=== PATIENT | female | born 1975 | race Caucasian/White ===

== ENCOUNTER → 2025-10-31 13:28 | Outpatient (BNV) | payer OTHER, SELFPAY | PROVIDERS: Visit Provider Internal Medicine | DX: M71.22 Synovial cyst of popliteal space [Baker], left knee (principal); Z86.718 Personal history of other venous thrombosis and embolism; Z86.2 Personal history of diseases of the blood and blood-forming organs and certain disorders involving the immune mechanism | CPT/HCPCS: 99204 ==

== ENCOUNTER 2025-10-31 14:48 | Outpatient (REF) | payer OTHER, SELFPAY ==
--- OUTSIDE RECORDS SUMMARY | 2004-12-23 19:05 | XMS_ITS | Encounter Summary ---
Author Organization [facility] Address [address] [facility] [address] [place] [phone] Phone Care Team Providers Care Supervisor Refractory Products Name Role Phone Unavailable Primary Care Provider Unavailabl e Encounter Details Date Type Department Care Team (Late st Contact Info) Description 12/23/2004 7:05 PM EST Hospital Encounter [facility] General Imaging [address] [place] [address] Adam Marques MD [address] [place] [phone] [email or web address] Social History Tobacco Use Types Packs/Day Years [...] Description 11/20/2025 4:45 PM EST Pre-Admission Testing [facility] Pre-Procedure Evaluation Department [place] [address] Fam Preciado MD [address] [place] [phone] [email or web address] 12/11/2025 Procedure Pass [facility] BRET 4 ENDO DEPT [address] [facility], [address] [place] [address] 12/11/2025 1:00 PM EST Hospital Encounter [facility] BRET 4 ENDO DEPT [address] [facility], [address] [place] [address] Fam Preciado MD [address] [place] [address] [email or web address] 12/11/2025 1:00 PM EST - 12/11/2025 1:45 PM EST Surgery [facility] BRET 4 ENDO DEPT [address] [place] [address] Fam Preciado MD [address] [place] [address] [email or web address] COLONOSCOPY 02/21/2026 8:30 AM EDT Telemedicine [facility] [address] [place] [address], 5[address] [place] [address] Fam Preciado MD [address] [place] [address] 704 [place] [address] [email or web address] Scheduled Procedures Name Priority Associated Diagnoses Date/Ti wy COLONOSCOPY Colonic adenomatous polyposis of unknown etiology 12/11/2025 1:00 PM EST documented as of this encounter Visit Diagnoses Not on filedocumented in this encounter Additional Source Comments The information contained in this document represents components of the legal health record. It is not the complete legal health record.[facility]
--- OUTSIDE RECORDS SUMMARY | 2025-09-18 04:00 | XMS_ITS ---
Author Organization [facility], Address [address] [address] Care Team Providers Care Animal Warden Name Role Phone Alexandria Figueredo Primary Care Provider Sharath Naqvi Unavailable [phone] DR. Wesley Adams Unavailable [phone] Allergies Allergen (clinical drug ingredient) Drug/Non Drug Allergy documented on EMR Reaction Allergy Type Onset Date Status [place] corn (uncoded) Unknown Allergy Activ e [place] syrup corn syrup (uncoded) Unknown Allergy Active [...] Encounter Location Date Provider Diagnosis [facility], [address] [address] 09/18/2025 Wesley Adams Plan Of Treatment Next Appt Details Provider Name:Wesley Adams , 11/20/2025 08:30:00 AM, [address] [place] [address], [phone], Provider Name:Wesley Adams , 12/18/2025 08:30:00 AM, [address] [place] [address], [place], [address], Progress Notes * Trevon ODONNELLOB:[birth year] (50 yo F)Acc No.[id number]:09/18/2025 Trigger point Patient: Maria Luisa See Provider: Aviva Adams MD :1975 A ge:50 Y S ex:Female Date:09/18/2025 Address:[address] [place], [place] [phone] Pcp:Alexandria Figueredo Patient's Default Facility: [facility], Subjective: * Chief Complaints: * T riggerHow [...] alive, Pancreas Ca, Hepatic failure, Coronary arteriosclerosis, [place]. M other: alive, DM, Hypertensive. F amily [...] signature of DR. Wesley Adams MD on 10/31/2025 at 07:08 PM EST Sign off status: Pending * Provider: Aviva Adams MD Date: 11/18/2024 Generated for Rome duarte/Jena/Darrius on: 01/01/2025 07:08 PM EST
--- OUTSIDE RECORDS SUMMARY | 2025-09-30 16:30 | XMS_ITS ---
Author Organization [facility], Address [address] [address] Care Team Providers Care Target Man Name Role Phone Alexandria Figueredo Primary Care Provider Unavailabl e Sharath Duran Unavailable [phone] Migration, Provider Unavailable Unavailable Allergies Allergen (clinical drug ingredient) Drug/Non Drug Allergy documented on EMR Reaction Allergy Type Onset Date Status [place] CORN (uncoded) Unknown Allergy Activ e [place] syrup CORN SYRUP (uncoded) Unknown Allergy Active Potato POTATO (uncoded) Unknown Allergy Act marciano SULFAC 10% (uncoded) Unknown Allergy Active [place] Starch Unknown Drug Allergy Activ e glucose Dextrose Unknown Drug Allergy Active pregabalin Lyrica Unknown Drug Allergy Active Gluten Gluten Unknown Allergy Active codeine Codeine Unknown Drug Allergy Active morphine Morphine Unknown Drug Allergy Active corn starch Mexs[place] Unknown Drug Allergy Activ e [facility] Conversion Encounter Medications Medication SIG (Take, Route, Frequency, Duration) Notes Start Date End Date Status Atorvastatin Calcium 10 MG Tablet 1 tab(s) orally once a day Unknown Acetaminophen ER 650 MG Tablet Extended Release 2 tab(s) orally every 8 hours; Duration: 3 day(s) Unknown Vitamin D3 125 MCG TABLET 1 TAB(S) ORALLY ONCE A DAY *Please review and pick correct strength-formulati on from Median options. If intended option is not shown, discontinue and re-order from Quick Search* Unknown Albuterol Sulfate HFA 108 (90 Base) MCG/ACT Aerosol Solution 2 puff(s) inhaled every 6 hours Unknown Zinc Gluconate 50 mg *Please review and pick correct strength-formulati on from Medispan options. If intended option is not shown, discontinue and re-order from Quick Search* Unknown Topiramate 100 MG Tablet 1 tab(s) orally in addition to 25mg once a day Unknown Vimpat 100 MG Tablet 1 tab(s) orally 2 times a day; Duration: 90 days 06/06/2025 Unknown Vitamin C 250 MG Tablet 1 tab(s) orally once a day Unknown Ubrelvy 100 MG Tablet 1 tab(s) orally once Unknown Verapamil HCl ER 120 MG Capsule Extended Release 24 Hour 1 cap(s) orally twice a day; Duration: 30 days Unknown tiZANidine HCl 2 MG Tablet 1 tab(s) orally at night; Duration: 90 days Unknown Ondansetron HCl 8 MG Tablet 1 tab(s) orally 3 times a day PRN Unknown Qulipta 60 MG Tablet 1 tab(s) orally once a day; Duration: 90 days Unknown Omeprazole 20 MG Capsule Delayed Release 1 cap(s) orally once a day Unknown Sertraline HCl 50 MG Tablet Unknown Magnesium Oxide 200 MG TABLET 1 TAB ORALLY ONCE A DAY *Please review and pick correct strength-formulati on from [employer] options. If intended option is not shown, discontinue and re-order from Quick Search* Unknown Meclizine HCl 25 MG Tablet 1 tab(s) orally PRN Unknown Levothyroxine Sodium 50 MCG Tablet 1 tab(s) orally once a day; Duration: 30 day(s) Unknown Linzess 145 MCG Capsule 1 cap(s) orally once a day PRN Unknown NURTEC ODT 75 MG TABLET, DISINTEGRATING 1 TAB(S) ORALLY ONCE *Please review for potential replacement for e-prescription and drug interaction check* Unknown Hyoscyamine Sulfate 0.125 MG Tablet 1 tab(s) orally PRN Unknown Dicyclomine HCl 20 MG Tablet 1 tab(s) orally twice a day Unknown Ferrous Sulfate 325 (65 Fe) MG Tablet Delayed Release 1 tab(s) orally every other day Unknown hydrOXYzine HCl 25 MG Tablet 1 tab(s) orally 2 times a day Unknown Encounters Encounter Location Date Provider Diagnosis [facility], [address] [address] 09/30/2025 Provider Migration Plan Of Treatment Next Appt Details Provider Name:Wesley Adams , 11/20/2025 08:30:00 AM, 9 [facility], [place] [address], [place], [address], Provider Name:Wesley Adams , 12/18/2025 08:30:00 AM, 9 [facility], [place] [address], [place], [address], Progress Notes * Trevon ODONNELLOB:[birth year] (50 yo F)Acc No.[id number]:09/30/2025 Patient: Maria Luisa See Provider: Gibson son Migration :1975 A ge:50 Y S ex:Female Date:09/30/2025 [facility] [id number] Pcp:Alexandria Figueredo Patient's Default Facility: [facility], Subjective: * Chief Complaints: [facility] * Medications: U nknownAcetaminophen ER 650 MG Tablet Extended Release 2 tab(s) orally every 8 hours Albuterol Sulfate HFA 108 (90 Base) MCG/ACT Aerosol Solution 2 puff(s) inhaled every 6 hours Atorvastatin Calcium 10 MG Tablet 1 tab(s) orally once a day Dicyclomine HCl 20 MG Tablet 1 tab(s) orally twice a day Ferrous Sulfate 325 (65 Fe) MG Tablet Delayed Release 1 tab(s) orally every other day hydrOXYzine HCl 25 MG Tablet 1 tab(s) orally 2 times a day Hyoscyamine Sulfate 0.125 MG Tablet 1 tab(s) orally PRN Levothyroxine Sodium 50 MCG Tablet 1 tab(s) orally once a day Linzess(linaCLOtide) 145 MCG Capsule 1 cap(s) orally once a day , Notes to Pharmacist: PRNMagnesium Oxide 200 MG TABLET 1 TAB ORALLY ONCE A DAY , Notes to Pharmacist: *Please review and pick correct strength-formulation from Medispan options. If intended option is not shown, discontinue and re-order from Quick Search*Meclizine HCl 25 MG Tablet 1 tab(s) orally PRN NURTEC ODT 75 MG TABLET, DISINTEGRATING 1 TAB(S) ORALLY ONCE , Notes to Pharmacist: *Please review for potential replacement for e-prescription and drug interaction check*Omeprazole 20 MG Capsule Delayed Release 1 cap(s) orally once a day Ondansetron HCl 8 MG Tablet 1 tab(s) orally 3 times a day , Notes to Pharmacist: PRNQulipta(Atogepant) 60 MG Tablet 1 tab(s) orally once a day Sertraline HCl 50 MG Tablet tiZANidine HCl 2 MG Tablet 1 tab(s) orally at night Topiramate 100 MG Tablet 1 tab(s) orally in addition to 25mg once a day Ubrelvy(Ubrogepant) 100 MG Tablet 1 tab(s) orally once Verapamil HCl ER 120 MG Capsule Extended Release 24 Hour 1 cap(s) orally twice a day Vimpat(Lacosamide) 100 MG Tablet 1 tab(s) orally 2 times a day Vitamin C 250 MG Tablet 1 tab(s) orally once a day Vitamin D3 125 MCG TABLET 1 TAB(S) ORALLY ONCE A DAY , Notes to Pharmacist: *Please review and pick correct strength-formulation from [employer] options. If intended option is not shown, discontinue and re-order from Quick Search*Zinc Gluconate , Notes to Pharmacist: 50 mg *Please review and pick correct strength-formulation from [employer] options. If intended option is not shown, discontinue and re-order from Quick Search*Unknown Acetaminophen ER 650 MG Tablet Extended Release 2 tab(s) orally every 8 hours Unknown Albuterol Sulfate HFA 108 (90 Base) MCG/ACT Aerosol Solution 2 puff(s) inhaled every 6 hours Unknown Atorvastatin Calcium 10 MG Tablet 1 tab(s) orally once a day Unknown Dicyclomine HCl 20 MG Tablet 1 tab(s) orally twice a day Unknown Ferrous Sulfate 325 (65 Fe) MG Tablet Delayed Release 1 tab(s) orally every other day Unknown hydrOXYzine HCl 25 MG Tablet 1 tab(s) orally 2 times a day Unknown Hyoscyamine Sulfate 0.125 MG Tablet 1 tab(s) orally PRN Unknown Levothyroxine Sodium 50 MCG Tablet 1 tab(s) orally once a day Unknown Linzess(linaCLOtide) 145 MCG Capsule 1 cap(s) orally once a day , Notes to Pharmacist: PRNUnknown Magnesium Oxide 200 MG TABLET 1 TAB ORALLY ONCE A DAY , Notes to Pharmacist: *Please review and pick correct strength-formulation from [employer] options. If intended option is not shown, discontinue and re-order from Quick Search*Unknown Meclizine HCl 25 MG Tablet 1 tab(s) orally PRN Unknown NURTEC ODT 75 MG TABLET, DISINTEGRATING 1 TAB(S) ORALLY ONCE , Notes to Pharmacist: *Please review for potential replacement for e-prescription and drug interaction check*Unknown Omeprazole 20 MG Capsule Delayed Release 1 cap(s) orally once a day Unknown Ondansetron HCl 8 MG Tablet 1 tab(s) orally 3 times a day , Notes to Pharmacist: PRNUnknown Qulipta(Atogepant) 60 MG Tablet 1 tab(s) orally once a day Unknown Sertraline HCl 50 MG Tablet Unknown tiZANidine HCl 2 MG Tablet 1 tab(s) orally at night Unknown Topiramate 100 MG Tablet 1 tab(s) orally in addition to 25mg once a day Unknown Ubrelvy(Ubrogepant) 100 MG Tablet 1 tab(s) orally once Unknown Verapamil HCl ER 120 MG Capsule Extended Release 24 Hour 1 cap(s) orally twice a day Unknown Vimpat(Lacosamide) 100 MG Tablet 1 tab(s) orally 2 times a day Unknown Vitamin C 250 MG Tablet 1 tab(s) orally once a day Unknown Vitamin D3 125 MCG TABLET 1 TAB(S) ORALLY ONCE A DAY , Notes to Pharmacist: *Please review and pick correct strength-formulation from [employer] options. If intended option is not shown, discontinue and re-order from Quick Search*Unknown Zinc Gluconate , Notes to Pharmacist: 50 mg *Please review and pick correct strength-formulation from [employer] options. If intended option is not shown, discontinue and re-order from Quick Search* * Allergies: C odeineDextroseMexsanaCORNCORN SYRUPCorn StarchGlutenMorphinePOTATOSULFAC 10%Lyrica: Side Effects * Electronic signature of Prov ider Migration on 10/31/2025 at 07:09 PM EST Sign off status: Pending * Provider: Gibson son Migration Date: 11/30/2024 Generated for Rome duarte/Jena/Darrius on: 01/01/2025 07:09 PM EST
--- NOTE | ~2025-10-31 | US_ITS ---
EXAMINATION: US TRIPLEX LOWER EXTREMITY, LEFT CLINICAL INFORMATION: Pain, left lower extremity COMPARISON: None available. TECHNIQUE: Color-flow triplex imaging with spectral analysis and compression Doppler were performed on the left lower extremity. FINDINGS: Respiratory variation, normal compression and augmented flow are demonstrated in the interrogated left common femoral vein, superficial femoral vein, profunda femoral vein, popliteal vein and midcalf peroneal and posterior tibial venous segments and right common femoral vein.. There is a 2.3 cm lobulated anechoic abnormality in the left popliteal fossa. US/US venous duplex LE IMPRESSION: No acute deep venous thrombosis interrogated veins, left lower extremity. Negative for DVT. 2.3 cm cyst, left popliteal fossa.. Electronically signed by: Paulo Simeon MD 10/31/2025 03:39 PM EST
--- OUTSIDE RECORDS SUMMARY | 2025-10-31 19:09 | XMS_ITS | Clinical Summary ---
Author Organization [facility] Address [address] [address] Phone Care Team Providers Care Color Weigher Name Role Phone Alexandria Figueredo NP Primary Care Provider + Allergies Active Allergy Reactions Criticality Noted Date Comments Codeine GI Upset Medium 10/27/2011 Converted from Generic Allergy: Codeine [place] St[place] Shortness Of Breath High 04/21/2017 Opioids - Morphine Analogues Rash Medium 10/27/2011 Converted from Drug Class Allergy: Opiate Agonists Oxycodone GI Upset Low 10/27/2011 Converted from Generic Allergy: OXYcodone (Immediate-Release ) Pneumovax 23 (Pneumococcal 23-Valps Vaccine) Swelling High 05/20/2017 Sulfa (Sulfonamide Antibiotics) GI Upset Medium 10/27/2011 Converted from Drug Class Allergy: Sulfonamides (Systemic) Converted from Generic Allergy: Sulfa Converted from Drug Class Allergy: Sulfonamides [place] Shortness Of Breath High 04/21/2017 Medications ondansetron (ZOFRAN) 4 MG tablet Take 4 mg by mouth every 8 (eight) hours as needed for nausea. Active lacosamide (VIMPAT) 100 mg Tab Take 100 mg by mouth 2 (two) times a day. Active albuterol 90 mcg/actuation inhaler Inhale 1 puff into the lungs every 6 (six) hours as needed for wheezing. Active levothyroxine (SYNTHROID, LEVOTHROID) 50 MCG tablet Take 50 mcg by mouth every morning. Active atorvastatin (LIPITOR) 10 MG tablet Take 10 mg by mouth daily. Active hydrOXYzine (ATARAX) 25 MG tablet Take 25 mg by mouth 2 (two) times a day. Active verapamiL (CALAN-SR) 120 MG CR tablet Take 120 mg by mouth 2 (two) times a day. Active omeprazole (PRILOSEC) 20 MG capsule Take 20 mg by mouth daily. Active dicyclomine (BENTYL) 10 MG capsule Take 10 mg by mouth 4 (four) times a day before meals and nightly. Active atogepant (QULIPTA) 60 mg tablet Take 60 mg by mouth daily. Active topiramate (TOPAMAX) 25 MG capsule Take 125 mg by mouth daily. Active ferrous sulfate 324 mg (65 mg [place] iron) TbEC Take 324 mg by mouth every other day. Active tiZANidine (ZANAFLEX) 2 MG tablet Take 2 mg by mouth. Active hyoscyamine (ANASPAZ,LEVSIN ) 0.125 mg ODT Take 125 mcg by mouth 4 (four) times a day. 12/16/2024 Active linaCLOtide (LINZESS) 145 mcg Cap Take 145 mcg by mouth daily as needed. 03/15/2024 Active ascorbic acid, vitamin C, (VITAMIN C) 250 mg Chew Take 250 mg by mouth daily. Active fluticasone propionate (FLONASE) 50 mcg/actuation nasal spray 1 spray by Nasal route nightly at bedtime. Active NURTEC ODT 75 mg tablet Take 75 mg by mouth once as needed for migraine. Active UBRELVY 100 mg tablet Take 100 mg by mouth once as needed for migraine. 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 Just started getting injections in left eye in April 2025 when getting swelling in left eye Colon polyps 01/15/2024 Overview (05/23/2025): I've had colon polyps before, but they found 100's of polyps during the past year. This is an estimated time frame of the most recent colonoscopies. I had 3 colonoscopies last year (2023) PSVT (paroxysmal supraventricular tachycardia) 1 GERD (gastroesophageal reflux disease) Interstitial cystitis (chronic) with hematuria 0 07/27/2023 Asthma 07/27/2023 Hypertension 06/26/2021 Autoimmune hepatitis 08/16/2020 Epilepsy 07/08/2018 Central positional vertigo 05/07/2018 Carpal tunnel syndrome of left wrist 06/09/2017 Impingement syndrome of shoulder region 02/26/20 13 Overview (01/06/2015): Shoulder impingement syndrome Rotator cuff syndrome 02/23/2013 Overview (01/06/2015): Rotator cuff syndrome Sinusitis 12/29/2012 Overview (01/06/2015): Sinusitis Migraine 11/16/1989 Resolved Problems Problem Noted Date Diagnosed Date Resolved Date Acute renal failure 05/23/2025 05/23/20 25 Encounters Date Type Department Care Team Description 10/16/2025 Transcribe Orders [facility] [address] [place] [address] Alexandria Figueredo NP from Last 3 Months Family History Medical History Relation Comments Bleeding Disorder Neg Hx Social History Tobacco Use Types Packs/Day Years Used Date Smoking Tobacco: Former Cigarettes 0.5 2 0 02/14/1995 - 02/14/1997 Smokeless Tobacco: Never Tobacco Cessation:Counseling Given: Not Answered Alcohol Use Standard Drinks/Week Comments No 0 [...] 3:45 PM EDT Sexual Orientation Straight 03/04/2020 3: 45 PM EDT Last Filed Vital Signs Vital Sign Reading Time Taken Comments Blood Pressure 114/65 05/23/2025 12:52 PM EDT Pulse 66 05/23/2025 12:52 PM EDT Temperature 36.4 C (97.5 F) 05/23/2025 11:39 AM EDT Respiratory Rate 13 05/23/2025 12:52 PM EDT Oxygen Saturation 97% 05/23/2025 12:52 PM EDT Inhaled Oxygen Concentration - - Weight 70.3 kg (155 lb) 05/01/2025 2:00 PM EDT Height 162.6 cm (5' 4 ) 12/23/2017 11:49 AM EST Body Mass Index 26.61 12/23/2017 11:49 AM EST Plan of Treatment Upcoming Encounters Date Type Department Care Team (Latest Contact Info) Description 11/20/2025 4:45 PM EST Pre-Admission Testing [facility] Pre-Procedure Evaluation Department [place] [address] Fam Preciado MD [address] [place] [address] [address] [place] [address] [email or web address] 12/11/2025 Procedure Pass [facility] BRET 4 ENDO DEPT [address] [place] [address], 4th [place] [address] 12/11/2025 1:00 PM EST Hospital Encounter [facility] BRET 4 ENDO DEPT [address] [facility], 4th [place] [address] Fam Preciado MD [address] [place] [phone] [email or web address] 12/11/2025 1:00 PM EST - 12/11/2025 1:45 PM EST Surgery [facility] BRET 4 ENDO DEPT [address] [facility], 4th [place] [address] Fam Preciado MD [address] [place] [phone] [email or web address] COLONOSCOPY 02/21/2026 8:30 AM EDT Telemedicine [facility] [address] [facility], 5th [place] [address] Fam Preciado MD [address] [place] [phone] [email or web address] Scheduled Procedures Name Priority Associated Diagnoses Date/Ti me COLONOSCOPY Colonic adenomatous polyposis of unknown etiology 12/11/2025 1:00 PM EST Health Maintenance Due Date Last Done Comments Adult Td,Tdap Booster 1975 BLOOD PRESSURE 1975 LIPID PANEL 1976 TSH LEVEL 1976 DEPRESSION SCREENING 1988 HEPATITIS C SCREENING 1994 HIV ONE-TIME SCREENING (18-65 YEARS) 1994 HEPATITIS A VACCINES (1 of 2 - Risk 2-dose series) 1995 PAP SMEAR 1997 MAMMOGRAM 2016 COLOGUARD 2021 FIT TEST 2021 FOBT 2021 SIGMOIDOSCOPY 2021 VIRTUAL COLONOSCOPY 2021 INFLUENZA VACCINE (#1) 2025 , 08/27/2023, 08/10/2022, Additional history exists COVID-19 VACCINE ( season) 2025 05/29/2023, 03/17/2022, 07/05/2021, Additional history exists COLONOSCOPY 05/23/2026 05/23/2025 COLORECTAL CANCER SCREENING 05/23/2026 SCREENING FOR DIABETES 07/28/2028 07/28/2025 SMOKING STATUS SCREENING (Once After 26 Yrs) Completed 05/23/2025 HIB VACCINES Aged Out No longer eligi ble based on patient's age to complete this topic MENINGOCOCCAL VACCINES (ACWY) Aged Out No longer eligible based on patient's age to complete this topic MENINGOCOCCAL VACCINES (B) Aged Out N o longer eligible based on patient's age to complete this topic Medical Devices Implanted Type Area Actuarial Assistant Device Identifier Shelf Expiration Date Model / Serial / Lot Dental Implant Breast Clips Left Clip Hemostasis 360deg 235cm Resolution 360 Latex Free 2.8mm Channel Bx/20ea - [id number] Implanted:Qty: 1 on 05/23/2025 by Fam Preciado MD at [facility] [employer] 01/05/2028 [id number] / [id number] / [id number] Description:Colon hepatic fl exure Clip Hemostasis 360deg 235cm Resolution 360 Latex Free 2.8mm Channel Bx/20ea - [id number] Implanted:Qty: 1 on 05/23/2025 by Fam Preciado MD at [facility] [employer] [id number] 02/01/2028 [id number] / [id number] / [id number] Description:Colon hepatic fl exure Clip Hemostasis 360deg 235cm Resolution 360 Latex Free 2.8mm Channel Bx/20ea - [id number] Implanted:Qty: 1 on 05/23/2025 by Fam Preciado MD at [facility] [employer] [id number] 01/05/2028 [id number] / [id number] / [id number] Description:Colon hepatic fl exure Clip Hemostasis 360deg 235cm Resolution 360 Latex Free 2.8mm Channel Bx/20ea - [id number] Implanted:Qty: 1 on 05/23/2025 by Fam Preciado MD at [facility] [employer] [id number] 01/05/2028 [id number] / [id number] / [id number] Description:Colon hepatic fl exure Clip Resolution 360deg 235cm 2.8mm Channel Hemostasis Bx/1ea - [id number] Implanted:Qty: 1 on 05/23/2025 by Fam Preciado MD at [facility] [employer] [id number] 02/02/2028 [id number] / [id number] / [id number] Description:Left colon Procedures Procedure Name Priority Date/Time Associated Diagnosis Comments ENDOSCOPY, COLON 05/23/2025 10:3 0 AM EDT from Last 3 Months or Most Recently Relevant to Health Maintenance Results * ENDOSCOPY, COLON (05/23/2025 10:30 AM EDT) 05/23/2025 10:3 0 AM EDT Narrative Transcriptions Fam Preciado MD - 05/23/2025 10:30 AM EDT Gastrointestinal Endoscopy Unit Patient Name: Maria Luisa Mcclelland Exam Date: 05/23/2025 10:30 AM Date of : 1975 Admit Type: Outpatient Age: 49 Room: [place] [address] Gender: Female Note Status: Finalized Attending MD: Fam Preciado MD, Procedure: Colonoscopy Indications: High risk colon cancer surveillance: Personal history of colonic polyps Providers: Fam Preciado MD Referring MD: Elma Vogel (Referring MD) Medicines: Monitored Anesthesia Care Complications: No immediate complications. Procedure: After obtaining informed consent, the endoscope was passed under direct vision. Throughout the procedure, the patient's blood pressure, pulse, and oxygen saturations were monitored continuously . The Endoscope was introduced through the anus and advanced to the the terminal ileum. The colonoscopy was performed without difficulty. The patient tolerated the procedure well. The quality of the bowel preparation was evaluated using the BBPS ([place] Bowel Preparation Scale) with scores of: Right Colon = 2 (minor amount of residual staining, small fragments of stool and/or opaque liquid, but mucosa seen well), Transverse Colon = 2 (minor amount of residual staining, small fragments of stool and/or opaque liquid, but mucosa seen well) and Left Colon = 2 (minor amount of residual staining, small fragments of stool and/or opaque liquid, but mucosa seen well). The total BBPS score equals 6. The [employer] computer-aided polyp detection system was used during the procedure. Findings: An 8 mm polyp was found in the sigmoid colon. The polyp was sessile. The polyp was removed with a cold snare. Resection and retrieval were complete. Three confluent sessile polyps were found in the descending colon. The polyps were 4 to 7 mm in size. These polyps were removed with a cold snare. Resection and retrieval were complete. To prevent bleeding after the polypectomy, one hemostatic clip was successfully placed (MR conditional). There was no bleeding at the end of the procedure. A 24 mm polyp was found in the hepatic flexure (#1). The polyp was sessile. The polyp was removed with a piecemeal technique using a cold snare. Resection and retrieval were complete. An 18 mm polyp was found in the hepatic flexure (#2). The polyp was sessile. The polyp was removed with a cold snare. Resection and retrieval were complete. To prevent bleeding after the polypectomy, three hemostatic clips were successfully placed (MR conditional). There was no bleeding at the end of the procedure. Multiple small polyps were seen at the hepatic flexure. The polyps were 3 to 7 mm in size (#3). These polyps were removed with a cold snare. . Multiple sessile polyps were found in the transverse colon, ascending colon and cecum. The polyps were diminutive in size. Impression: - One 8 mm polyp in the sigmoid colon, removed with a cold snare. Resected and retrieved. - Three 4 to 7 mm polyps in the descending colon, removed with a cold snare. Resected and retrieved. Clip (MR conditional) was placed. - One 24 mm polyp at the hepatic flexure, removed piecemeal using a cold snare. Resected and retrieved. - One 18 mm polyp at the hepatic flexure, removed with a cold snare. Resected and retrieved. Clips (MR conditional) were placed. - Multiple 3 to 7 mm polyps at the hepatic flexure, removed with a cold snare. Resected and retrieved. - Multiple diminutive polyps in the transverse colon, in the ascending colon and in the cecum. Recommendation: - Await pathology results. Attending Participation: I was personally present throughout the entire procedure. Anesthesia administered sedation. Fam Preciado MD, [id number] 05/23/2025 11:36:59 AM The attending physician was present throughout the entire procedure. Number of Addenda: 0 Note Initiated On: 05/23/2025 10:30 AM Elma Vogel MD GI PROCEDURE ORDERABLES Final Re sult from Last 3 Months or Most Recently Relevant to Health Maintenance Insurance [employer] GIC PLUS PPO [employer] PLUS PPO [employer] PLUS PPO [employer] PLUS PPO Writer[employer] PLUS PPO [employer] PLUS PPO Advance Directives For more information, please contact: [phone] (9AM - 5PM [facility], Thursday-Thursday) * Full Code (Presumed) (Latest Code Status on File) Date Activated Date Inactivated Comments 05/25/2017 10:06 AM 05/25/2017 3:11 PM Care Teams Color Weigher Relationship Specialty Start Date End Date Alexandria Figueredo NP [address] [place] [address] PCP - General Nurse Practitioner 05/24/25 Additional Source Comments The information contained in this document represents components of the legal health record. It is not the complete legal health record.[facility]
--- OUTSIDE RECORDS SUMMARY | 2025-10-31 19:09 | XMS_ITS | Encounter Summary ---
Author Organization [facility] Address [address] [email or web address] [facility] [address] [place] [address] Phone Care Team Providers Care Clam Bed Laborer Name Role Phone Elma Vogel MD Primary Care Provider [phone] Alexandria Figueredo NP Primary Care Provider + Encounter Details Date Type Department Care Team (Late st Contact Info) Description 04/21/2017 Procedure Pass [facility] Imaging - MRI, [facility] [address] [place] [address] Social History Tobacco Use Types Packs/Day Years Used Date Smoking Tobacco: Never Comments Unknown Sex and Gender Information Value Date Recorded Sex Assigned at Female 03/04/2020 3:45 PM EDT Legal Sex Female 5:25 PM EST Gender Identity Female 03/04/2020 3:45 PM EDT Sexual Orientation Straight 03/04/2020 3: 45 PM EDT documented as of this encounter Plan of Treatment Upcoming Encounters Date Type Department Care Team (Latest Contact Info) Description 11/20/2025 4:45 PM EST Pre-Admission Testing [facility] Pre-Procedure Evaluation Department Please [place] [phone] Fam Preciado MD [address] [place] [address] [address] [place] [address] [email or web address] 12/11/2025 Procedure Pass [facility] BRET 4 ENDO DEPT [address] [place] [address], [address] [place] [address] 12/11/2025 1:00 PM EST Hospital Encounter [facility] BRET [address] [facility], [address]th [place] [address] Fam Preciado MD [address] [place] [address] [email or web address] 12/11/2025 1:00 PM EST - 12/11/2025 1:45 PM EST Surgery [facility] BRET [address] [facility], [address]th [place] [address] Fam Preciado MD [address] [place] [address] [email or web address] [email or web address] 02/21/2026 8:30 AM EDT Telemedicine [facility] [address] [place] [address], [address] [place] [address] Fam Preciado MD [address] [place] [address] [email or web address] Scheduled Procedures Name Priority Associated Diagnoses Date/Ti me COLONOSCOPY Colonic adenomatous polyposis of unknown etiology 12/11/2025 1:00 PM EST documented as of this encounter Visit Diagnoses Not on filedocumented in this encounter Care Teams Clam Bed Laborer Relationship Specialty Start Date End Date Elma Vogel MD [address] [place] [address] PCP - General 03/22/15 05/23/25 Alexandria Figueredo NP [address] [place] [address] PCP - General Nurse Practitioner 05/24/25 documented as of this encounter Additional Source Comments The information contained in this document represents components of the legal health record. It is not the complete legal health record.[facility]
--- OUTSIDE RECORDS SUMMARY | 2025-10-31 19:09 | XMS_ITS | Encounter Summary ---
Author Organization [facility] Address [address] [place] [address] Phone Care Team Providers Care Associate Professor Of Medicine Name Role Phone Elma Vogel MD Primary Care Provider [phone] Alexandria Figueredo NP Primary Care Provider + Encounter Details Date Type Department Care Team (Late st Contact Info) Description 05/25/2017 Procedure Pass [facility] [address] [place] [phone] Social History Tobacco Use Types Packs/Day Years Used Date Smoking Tobacco: Former Cigarettes 0.5 2 0 02/14/1995 - 02/14/1997 Smokeless Tobacco: Never Alcohol Use Standard Drinks/Week Comments No 0 (1 standard drink = 0.6 oz pur e alcohol) Comments Unknown Sex and Gender Information Value Date Recorded Sex Assigned at Female 03/04/2020 3:45 PM EDT Legal Sex Female 5:25 PM EST Gender Identity Female 03/04/2020 3:45 PM EDT Sexual Orientation Straight 03/04/2020 3: 45 PM EDT documented as of this encounter Plan of Treatment Upcoming Encounters Date Type Department Care Team (Latest Contact Info) Description 11/20/2025 4:45 PM EST Pre-Admission Testing [facility] Pre-Procedure Evaluation Department [place] [phone] Fam Preciado MD [address] [place] [address] [address] [place] [address] [email or web address] 12/11/2025 Procedure Pass [facility] 4 ENDO DEPT [address] [facility], [address] [place] [address] 12/11/2025 1:00 PM EST Hospital Encounter [facility] BRET 4 ENDO DEPT [address] [facility], [address] [place] [address] Fam Preciado MD [address] [place] [address] [email or web address] 12/11/2025 1:00 PM EST - 12/11/2025 1:45 PM EST Surgery [facility] BRET 4 ENDO DEPT [address] [place] [address], [address] [place] [address] Fam Preciado MD [address] [place] [phone] [email or web address] [email or web address] 02/21/2026 8:30 AM EDT Telemedicine [facility] [address] [place] [address], [address] [place] [address] Fam Preciado MD [address] [place] [phone] [email or web address] Scheduled Procedures Name Priority Associated Diagnoses Date/Ti in COLONOSCOPY Colonic adenomatous polyposis of unknown etiology 12/11/2025 1:00 PM EST documented as of this encounter Visit Diagnoses Not on filedocumented in this encounter Care Teams Associate Professor Of Medicine Relationship Specialty Start Date End Date Elma Vogel MD [address] [place] [address] PCP - General 03/22/15 05/23/25 Alexandria Figueredo NP [address] [place] [address] PCP - General Nurse Practitioner 05/24/25 documented as of this encounter Additional Source Comments The information contained in this document represents components of the legal health record. It is not the complete legal health record.[facility]
--- OUTSIDE RECORDS SUMMARY | 2025-10-31 19:09 | XMS_ITS | Patient Health Record ---
Author Organization [facility] Address [address] [place] [address] [place] [address] [phone] Care Team Providers Care Lepidopterist Name Role Phone CLAY SIMS, ALISA Primary Care Provider Junaid Rao MD, [facility] Unavailable [phone] Allergies Allergen (clinical drug ingredient) Drug/Non Drug Allergy documented on EMR Reaction Allergy Type Onset Date Status morphine morphine HIVES Drug Allergy Active Reason For Referral No Information Medications Medication SIG (Take, Route, Frequency, Duration) Notes Start Date End Date Status Vimpat Active Cambia as needed Not-Taking estradiol Active meclizine as needed Not-Taking hydrOXYzine hydrochloride 50 mg 1 tab(s) orally in the morning and 2 tabs at night Active ondansetron 8 mg 1 tab(s) orally 2 times a day as needed Not-Taking ALPRAZolam 0.5 mg 1 tab(s) orally 3 times a day as needed Not-Taking Qvar 40 mcg/inh 1 spray inhaled 2 times a day when sick 04/02/2016 Not-Taking Montelukast Sodium 10 mg 1 tab(s) orally once a day; Duration: 30 day(s) 05/05/2018 Active ProAir HFA CFC free 90 mcg/inh 2 puff(s) inhaled 4 times/d, when needed Not-Taking Mobic Active traMADol as needed Not-Taking verapamil Active oxyCODONE as needed Not-Taking levothyroxine Active Mucinex D as needed Not-Taking Flonase 50 mcg/inh 2 sprays intranasall y once a day 05/05/2018 Active naratriptan as needed Not-Taki ng Zantac 150 Active amitriptyline Active Migranal as needed Not-Taking Immunizations Vaccine Route Administration Date Status Comme nts Pneumococcal- 2yrs and older Unknown 10/16/2014 Adminis tered FLU VACCINE 3 YRS & OLDER Unknown 11/02/2017 Refused Pneumococcal- 2yrs and older Unknown 04/02/2016 Others Social History Tobacco Use: Social History Observation Description Date Details (start date - stop date) Former Smoker NA - NA SMOKING HISTORY: Question Answer Notes Are you a: former smoker How long has it been since you last smoked? > 10 years Problems Problem Type SNOMED Code ICD Code Onset Dates Problem Status W/U Status Risk Notes Problem Uncomplicated mild persistent asthma (003466222) Mild persistent asthma, uncomplicated (J45.30) Active confirmed Problem Allergic rhinitis caused by animal hair and dander (325174214120719) Allergic rhinitis due to animal (cat) (dog) hair and dander (J30.81) Active confirmed Problem Allergic rhinitis caused by pollen (disorder) (72487359) Allergic rhinitis due to pollen (J30.1) Active confirmed Problem Mild intermittent asthma (812496261) Mild intermittent asthma, uncomplicated (J45.20) Active confirmed Problem Allergic rhinitis (40889618) Other Allergic Rhinitis (J30.89) Active confirmed Plan Of Treatment No Information Insurance Providers Payer Name Payer Address Payer Phone Subscriber Number Group Number Insured Name Patient Relationship to Insured Coverage Start Date Coverage End Date [facility] P[facility] [address] [place] [address] [id number] WILLIAN ODONNELL Self - patient is the insured Medications Administered Medication Instructions Date of Administration Dosage Notes Mite Mix 04/17/2016 All Tree 04/17/2016 All [place] 04/17/2016 Grass mix 04/17/2016 Mite Mix 04/23/2017 5,000au, 0.5 All Tree 04/23/201712/05 0.05 Grass mix 04/23/2017 5,000 bau 0.05 All [place] 04/23/201712/05 0.05 Medical (General) History Medical History History ICD Code Skin testing 04/08/16 mite, trees, grass, weeds, hamster, penicillium Asthma CT sinus 2012 sinusitis Eczema Food allergies potato, corn Hypertension Urticaria Migraine headache GERD Hypothyroidism interstitial cystitis Surgical History Surgery Date(Month/Year) laparoscopy 1992,1997,2000,2009, 2010 LABIAL CYST REMOVAL 2003 tubal ligation 2004 gallbladder 2007 lav[facility] left ovary 2005 hysterectomy vaginal 2005 Hospitalization History Reason Date(Month/Year) hysterectomy vaginal 2005 pneumonia 2005
--- OUTSIDE RECORDS SUMMARY | 2025-10-31 19:09 | XMS_ITS | Patient Health Record ---
Author Organization [facility], Address [address] [address] Care Team Providers Care Retail Shift Leader Name Role Phone Alexandria Figueredo Primary Care Provider UnavailSharath Urrutia Unavailable [phone] Farhat Foster Unavailable [phone] DR. Wesley Adams Unavailable [phone] Migration, Provider Unavailable Unavailable Allergies Allergen (clinical drug ingredient) Drug/Non Drug Allergy documented on EMR Reaction Allergy Type Onset Date Status Manteca CORN (uncoded) Unknown Allergy Activ e Manteca syrup CORN SYRUP (uncoded) Unknown Allergy Active Potato POTATO (uncoded) Unknown Allergy Act marciano SULFAC 10% (uncoded) Unknown Allergy Active Manteca Starch Unknown Drug Allergy Activ e glucose Dextrose Unknown Drug Allergy Active pregabalin Lyrica Unknown Drug Allergy Active Gluten Gluten Unknown Allergy Active codeine Codeine Unknown Drug Allergy Active morphine Morphine Unknown Drug Allergy Active corn starch Mexsana Unknown Drug Allergy Activ e Results Component Value Reference Range Flag Notes Brain (C-/C+) CPT 04763 Reviewed date:02/23/2025 04:06:20 PM Interpretation: Performing Lab: Notes/Report: COMPREHENSIVE METABOLIC PANE L W/O EGFR Reviewed date:02/24/2025 03:59:22 PM Interpretation: Performing Lab:NL2, [facility], [address] [place] [address], [phone] Ignacia Melgoza Notes/Report: Received Date: FASTING:NO FASTING: NO GLUCOSE 105 65-139 mg/dL N Non-fasting reference interval UREA NITROGEN (BUN) 21 7-25 mg/dL N CREATININE 0.83 0.50-0.99 mg/dL N BUN/CREATININE RATIO SEE NOTE: 6-22 (calc) Not Reported: BUN and Creatinine are within reference range. SODIUM 141 135-146 mmol/L N POTASSIUM 3.7 3.5-5.3 mmol/L N CHLORIDE 108 98-110 mmol/L N CARBON DIOXIDE 24 20-32 mmol/L N CALCIUM 9.2 8.6-10.2 mg/dL N PROTEIN, TOTAL 7.0 6.1-8.1 g/dL N ALBUMIN 4.2 3.6-5.1 g/dL N GLOBULIN 2.8 1.9-3.7 g/dL (calc) N ALBUMIN/GLOBULIN RATIO 1.5 1.0-2.5 (calc) N BILIRUBIN, TOTAL 0.2 0.2-1.2 mg/dL N ALKALINE PHOSPHATASE 105 31-125 U/L N AST 19 10-35 U/L N ALT 36 6-29 U/L H TSH, 3RD GENERATION W/REFLEX TO FT4 Reviewed date:02/24/2025 03:50:00 PM Interpretation: Performing Lab:NL2, [facility], [address] [place] [address], [phone] Ingacia Melgoza Notes/Report: Received Date: FASTING:NO FASTING: NO TSH W/REFLEX TO FT4 1.18 N Reference Range > or = 20 Years 0.40-4.50 Ranges First trimester 0.26-2.66 Second trimester 0.55-2.73 Third trimester 0.43-2.91 CBC (INCLUDES DIFF/PLT) Reviewed date:02/24/2025 03:59:56 PM Interpretation: Performing Lab:NL2, [facility], [address] [place] [address], [phone] Ignacia Melgoza Notes/Report: Received Date: FASTING:NO FASTING: NO WHITE BLOOD CELL COUNT 10.6 3.8-10.8 Thousand/uL N RED BLOOD CELL COUNT 4.92 3.80-5.10 Million/uL N HEMOGLOBIN 14.1 11.7-15.5 g/dL N HEMATOCRIT 43.5 35.0-45.0 % N MCV 88.4 80.0-100.0 fL N MCH 28.7 27.0-33.0 pg N MCHC 32.4 32.0-36.0 g/dL N For adults, a slight decrease in the calculated MCHC value (in the range of 30 to 32 g/dL) is most likely not clinically significant; however, it should be interpreted with caution in correlation with other red cell parameters and the patient's clinical condition. RDW 13.2 11.0-15.0 % N PLATELET COUNT 259 140-400 Thousand/uL N MPV 11.7 7.5-12.5 fL N ABSOLUTE NEUTROPHILS 8204 3662-5359 cells/uL H ABSOLUTE LYMPHOCYTES 2099 850-3900 cells/uL N ABSOLUTE MONOCYTES 233 200-950 cells/uL N ABSOLUTE EOSINOPHILS 11 15-500 cells/uL L ABSOLUTE BASOPHILS 53 0-200 cells/uL N NEUTROPHILS 77.4 N LYMPHOCYTES 19.8 N MONOCYTES 2.2 N EOSINOPHILS 0.1 N BASOPHILS 0.5 N C-REACTIVE PROTEIN Reviewed date:02/24/2025 03:52:59 PM Interpretation: Performing Lab:TIARA2, [facility], [address] [place] [address], [phone] Ignacia Melgoza Notes/Report: Received Date: [id number] FASTING:NO FASTING: NO C-REACTIVE PROTEIN <3.0 <8.0 mg/L N VITAMIN B12 Reviewed date:02/24/2025 03:50:05 PM Interpretation: Performing Lab:HILLARY, [employer] [facility], [address] [place] [address], [phone] Ignacia Melgoza Notes/Report: Received Date: [id number] FASTING:NO FASTING: NO VITAMIN B12 008 739-1190 pg/mL N Please Note: Although the reference range for vitamin B12 is 200-1100 pg/mL, it has been reported that between 5 and 10% of patients with values between 200 and 400 pg/mL may experience neuropsychiatric and hematologic abnormalities due to occult B12 deficiency; less than 1% of patients with values above 400 pg/mL will have symptoms. IMMUNOFIXATION, SERUM Reviewed date:02/28/2025 04:20:31 PM Interpretation: Performing Lab:[facility], [facility], [address] [place], [phone] Ignacia Melgoza Notes/Report: Received Date: FASTING:NO FASTING: NO PETAR INTERPRETATION Normal pattern. No monoclonal proteins detected. EEG Routine Reviewed date:03/13/2025 02:43:11 PM Interpretation: Performing Lab: Notes/Report: ANACHOICE(TM) SCREEN W/REFL TO TITER, IFA Reviewed date:03/02/2025 01:37:45 PM Interpretation: Performing Lab:NL2, [facility], [address] [place], [phone] Ignacia Melgoza Notes/Report: NESTOR IFA is a first line screen for detecting the Reference Range Homogeneous pattern is associated with systemic lupus Received Date: presence of up to approximately 150 autoantibodies in <1:40 Negative erythematosus (SLE), drug-induced lupus and juvenile FASTING:NO various autoimmune diseases. A positive NESTOR IFA result 1:40-1:80 Low Antibody Level idiopathic arthritis. is suggestive of autoimmune disease and reflexes to >1:80 Elevated Antibody Level FASTING: NO titer and pattern. Further laboratory testing may be AC-1: Homogeneous considered if clinically indicated. International Consensus on NESTOR Patterns For additional information, please refer to (https://doi.org/10.1515/mbyt-9553-8886) http://education.eNovance/faq/BXT203 (This link is being provided for informational/ educational purposes only.) NESTOR SCREEN, IFA POSITIVE NEGATIVE A NESTOR TITER 1:160 H NESTOR PATTERN Nuclear, Homogeneous A SED RATE BY MODIFIED WESTERG NAOMIE Reviewed date:02/24/2025 03:49:47 PM Interpretation: Performing Lab:NL2, [facility], [address] [place] [address], [phone] Ignacia Melgoza Notes/Report: Received Date: FASTING:NO FASTING: NO SED RATE BY MODIFIED WESTERGREN 2 < OR = 20 mm/h N Reason For Referral Reason Botox BB w/[facility] under Bryan approved 04/24/2025-10/21/2025 ROSALINA- [id number] for 2 visits Referral [facility] Referring Provider First Name Wesley Referring Provider Last Name Bryan Referring Provider Speciality Neurology Referred Organization [facility] Referred Provider Sharath Duran Referred Address [address],[place], [place],[address], Referral Priority Routine Medications Medication SIG (Take, Route, Frequency, Duration) Notes Start Date End Date Status Atorvastatin Calcium 10 MG Tablet 1 tab(s) orally once a day Active Zinc Gluconate 50 mg *Please review and pick correct strength-formulati on from AMS-Qi options. If intended option is not shown, discontinue and re-order from Quick Search* Active Dicyclomine HCl 20 MG Tablet 1 tab(s) orally twice a day Active Ondansetron HCl 8 MG Tablet 1 tab(s) orally 3 times a day PRN Active Acetaminophen ER 650 MG Tablet Extended Release 2 tab(s) orally every 8 hours; Duration: 3 day(s) Active NURTEC ODT 75 MG TABLET, DISINTEGRATING 1 TAB(S) ORALLY ONCE *Please review for potential replacement for e-prescription and drug interaction check* Active Vitamin C 250 MG Tablet 1 tab(s) orally once a day Active Albuterol Sulfate HFA 108 (90 Base) MCG/ACT Aerosol Solution 2 puff(s) inhaled every 6 hours Active Omeprazole 20 MG Capsule Delayed Release 1 cap(s) orally once a day Active Vitamin D3 125 MCG TABLET 1 TAB(S) ORALLY ONCE A DAY *Please review and pick correct strength-formulati on from AMS-Qi options. If intended option is not shown, discontinue and re-order from Quick Search* Active Magnesium Oxide 200 MG TABLET 1 TAB ORALLY ONCE A DAY *Please review and pick correct strength-formulati on from AMS-Qi options. If intended option is not shown, discontinue and re-order from Quick Search* Active Verapamil HCl ER 120 MG Capsule Extended Release 24 Hour 1 cap(s) orally twice a day; Duration: 30 days Active Meclizine HCl 25 MG Tablet 1 tab(s) orally PRN Active Vimpat 100 MG Tablet 1 tab(s) orally 2 times a day; Duration: 90 days 06/06/2025 Active Levothyroxine Sodium 50 MCG Tablet 1 tab(s) orally once a day; Duration: 30 day(s) Active Topiramate 100 MG Tablet 1 tab(s) orally in addition to 25mg once a day Active Linzess 145 MCG Capsule 1 cap(s) orally once a day PRN Active Ubrelvy 100 MG Tablet 1 tab(s) orally once Active Ferrous Sulfate 325 (65 Fe) MG Tablet Delayed Release 1 tab(s) orally every other day Active hydrOXYzine HCl 25 MG Tablet 1 tab(s) orally 2 times a day Active Sertraline HCl 50 MG Tablet Active Hyoscyamine Sulfate 0.125 MG Tablet 1 tab(s) orally PRN Active tiZANidine HCl 2 MG Tablet 1 tab(s) orally at night; Duration: 90 days Active Qulipta 60 MG Tablet 1 tab(s) orally once a day; Duration: 90 days Active Social History Tobacco Use: Social History Observation Description Date Details (start date - stop date) Former Smoker NA - NA Social History General Social Info Question Answer Notes Tobacco Use: Do you smoke? former smoker quit 1996 Additional Details Category Social Info Options Details General Alcohol: no Caffeine: tea Children: 4 Marital Status: Problems Problem Type SNOMED Code ICD Code Onset Dates Problem Status W/U Status Risk Notes Problem Refractory migraine without aura (255518690) Migraine without aura, intractable, without status migrainosus (G43.019) Active confirmed Problem Chronic tension-type headache (930751841) Chronic tension-type headache, intractable (G44.221) Active confirmed Problem Trigeminal neuralgia (27768333) Trigeminal neuralgia (G50.0) Active confirmed Problem Cervicalgia (16594349) Cervicalgia (M54.2) Active confirmed Problem Migraine (91231874) Migraine (G43.909) Active confirmed Problem Carpal tunnel syndrome of right wrist (104036928909265) Carpal tunnel syndrome of right wrist (G56.01) Active confirmed Problem Cervical radiculopathy (72132266) Cervical radiculopathy (M54.12) Active confirmed Problem Visual disturbance (53990579) Visual changes (H53.9) Active confirmed Problem Trigeminal neuralgia (66987927) Trigeminal neuralgia of left side of face (G50.0) Active confirmed Problem Atypical facial pain (81251899) Atypical face pain (G50.1) Active confirmed Problem Headache (05370110) Headache (R51.9) Active confirmed Vital Signs Oximetry 98 % 08/21/2025 Blood pressure diastolic 80 mm Hg 10/16/2025 Height 64 in 10/16/2025 Blood pressure systolic 116 mm Hg 10/16/2025 Weight 158 lbs 10/16/2025 BMI 27.12 kg/m2 10/16/2025 Encounters Encounter Location Date Provider Diagnosis NEUROLOGY [address] [address] 05/29/2025 Ozaire Bryan Migraine without aura, intractable, without status migrainosus G43.[address] [address] 05/18/2025 Ozaire Bryan Chronic tension-type headache, intractable G44.221 ; Intractable chronic migraine with aura and without status migrainosus G43.E19 ; Cervicalgia M54.2 ; Cervicogenic headache G44.86 ; TMJ (temporomandibular joint disorder) M26.609 and Seizure R56.[address] [address] 04/07/2025 Farhat Foster Seizure R56.[address] [address] 03/03/2025 Nency Roger Trigeminal neuralgia G50.0 and Headache R51.[address] [address] 03/31/2025 Nency Roger Trigeminal neuralgia of left side of face G50.[address] [address] 04/21/2025 Nency Roger Migraine G43.909 and Atypical face pain G50.[address] [address] 09/30/2025 Provider Migration [address] [address] 08/21/2025 Ozaire Bryan Migraine without aura, intractable, without status migrainosus G43.[address] [address] 02/23/2025 Nency Roger Headache R51.9 ; Trigeminal neuralgia G50.0 ; Visual changes H53.9 and Trigeminal neuralgia of left side of face G50.0 [facility] [address] [place] [address] 07/03/2025 Ozaire Bryan Migraine without aura, intractable, without status migrainosus G43.019 [facility] [address] [place] [address] 08/09/2025 Ozaire Bryan Migraine without aura, intractable, without status migrainosus G43.019 [facility] [address] [place] [address] 10/16/2025 Ozaire Bryan Migraine without aura, intractable, without status migrainosus G43.019 [facility] [address] [place] [address] 02/23/2025 [facility] [address] [place] [address] 02/27/2025 [facility] [address] [place] [address] 03/03/2025 [facility] [address] [place] [address] 03/31/2025 [facility] [address] [place] [address] 07/16/2025 [facility] [address] [place] [address] 10/24/2025 [facility] [address] [place] [address] 04/02/2025 [facility] [address] [place] [address] 04/03/2025 [facility] [address] [place] [address] 04/03/2025 [facility] [address] [place] [phone] 06/06/2025 [facility], [address] [place] [address], [place] [address] 06/06/2025 [facility], [address] [place] [address] 07/03/2025 [facility], [address] [place] [address], [place] [address] 04/18/2025 [facility], [address] [place] [address], [place] [address] 04/21/2025 [facility], [address] [place] [address], [place] [address] 05/18/2025 [facility], [address] [place] [address], [place] [address] 08/11/2025 [facility], [address] [place] [address], [place] [address] 10/06/2025 [facility], [address] [place] [address], [place] [address] 02/24/2025 [facility] Assessments Encounter Date Diagnosis (ICD Code) Assessment Notes Treatment Notes Treatment Clinical Notes Section Notes 02/23/2025 Trigeminal neuralgia (ICD-10 - G50.0) Maria Luisa is a 49 yo F seen today for initial consultation of left sided facial pain and numbness. Patient was referred by OCTAVIO Figueredo. Her previous neurologist was Dr. Socorro Canales at [facility]; stopped following her as she was on maternity leave. Patient reports symptom onset about 2 weeks ago with left facial numbness, tingling and a zapping sensation which occurs daily for 2-3 minutes per episode with multiple episodes per day. She reports over the last day, she has noticed pins and needles sensation in the right side of her cheek as well. She denies visual changes; has a history of migraine. She was started on oral prednisone by her PCP this past week for a 7-day course; patient reports it has been helpful but her symptoms are still present and bothersome. No new medications, infections, or vaccines in the last month per the patient. She denies new stressors and/or difficulty or sensitivity when touching her face. She does notice that the left sided symptoms do occur when she is chewing food. No recent dental procedures. Likely, she has idiopathic trigeminal neuralgia. We will trial her on Carbamazepine 100 mg 1 tab BID; she will get lab work done prior to starting this medication including but not limited to CBC and CMP; we will also order CRP and Sed rate to rule out GCA although low on the differential. If her sodium level and LFTs are within normal limits, I will call her to let her know she can start this medication. She understands. We will also order a baseline brain MRI wwo contrast to rule out acute abnormalities such as stroke; she denies abnormal facial droop, confusion, or extremity weakness and numbness. 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 No recurrent episodes since. We will obtain a routine EEG to evaluate for seizure activity. Follow up in 1 week to evaluate how she is doing. She understands and is in agreement with the plan. We also discussed the risk of prolonged seizures. We discussed the importance of identifying triggers that can lower seizure thresholds such as alcohol, medication noncompliance, infection and sleep deprivation. 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 We discussed seizure safety precautions such as avoiding heights, operating heavy machinery, and swimming alone. Discussed red flags for headaches including, but not limited to : worst headache of your life, quick and severe onset of headache-Thunderc lap, facial numbness or droop, one sided weakness, positional changes to headache, fever, chills and neck pain associated with your headache. If you experience any of these you should go to the ER for evaluation. We discussed long-term risks of early osteoporosis, hyponatremia and impact on liver. Will send serum labs ( LFTs, CMP, CBC) to monitor liver function and, hyponatremia and pancytopenia/leuk openia. Recommend supplementation with Calcium + VitD and minimize risk of weight bearing exercises. I personally spent more than 60 minutes on the date of encounter on professional activities including reviewing prior results, obtaining history, performing examination, counseling the patient and or family/caregiver, ordering medications/tests , providing referrals, coordinating care, and documenting my findings and impression. Plan discussed with Dr Beck, who is in agreement. The patient is in agreement with the current treatment plan. Kindly excuse any grammatical or typographical errors. 03/31/2025 Trigeminal neuralgia of left side of face (ICD-10 - G50.0) Maria Luisa is a 49 yo F seen today [facility] to discuss trigeminal neuralgia. She reports since starting Gabapentin 300mg 1 tab qhs, she has noticed increased swelling in her feet and ankles. We will discontinue this for now; although I did ask her to get evaluated by her PCP to rule out DVT given her previous history. She denies warmth, tenderness, or erythema. She does report ongoing numbness and tingling to the left side of her head, primarily her temporal region radiating down into her cheek into her chin. She did see a dentist recently for filling and she may have TMJ; it is likely part of her symptoms are related to this. She declined PT for TMJ at this time. We can trial her on Lamotrigine to see if this helps with her ongoing symptoms. I will start her on Lamotrigine 25 mg 1 tab daily for the first 2 weeks; if she tolerates well, she will take 25 mg 2 tabs once daily. I will follow up with her in 3-4 weeks to see how she is doing; we can consider evaluation with as well. Discussed side effects including but not limited to dizziness, vertigo, headache, diplopia, ataxia, nausea, vomiting, blurred vision, somnolence, and pruitis. Discussed red flags for headaches including, but not limited to : worst headache of your life, quick and severe onset of headache, facial numbness or drooping, or one sided weakness; advised patient to go to the ER for evaluation if she experiences any of the symptoms mentioned above. We also discussed the risk of prolonged seizures. We discussed the importance of identifying triggers that can lower seizure thresholds such as alcohol, medication noncompliance, infection and sleep deprivation. 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 We discussed seizure safety precautions such as avoiding heights, operating heavy machinery, and swimming alone. Todays service was provided via [facility] (audio/video). The patient consents to [facility] and understands they could be be charged a copay or higher amount from insurance company. The location of the patient is their home. The location of the provider is [facility]. The names of all persons participating in the [facility] service and their role in the encounter: Sharath Duran, [employer] ENAMELER and PATIENT. 30+ min time spent discussing diagnosis, treatment plan, patient concerns. All questions answered. Plan discussed with Dr Beck who is in agreement. Patient is in agreement with the current plan. 04/07/2025 Seizure (ICD-10 - R56.9) Report scanned into patient documents Routine EEG: Interpretation: This Routine EEG and EKG is within normal limits for the awake, drowsy period studied. Clinical Correlation: This EEG does not suggest a reduced seizure threshold. This EEG is limited to the period studied and does not rule out seizure disorder. Further EEG testing may be needed to rule out abnormalities during the sleep states/clinical concerning episodes. Clinical correlation is recommended. 04/21/2025 Migraine (ICD-10 - G43.909) Maria Luisa is a 49 yo F who was seen [facility] today to discuss her atypical facial pain. She reports ongoing left sided facial pain with zapping and zinging sensations that occur daily with 1-2 episodes per day lasting upto 1 minute. She reports numbness and pain in the upper left quadrant of her face that is constant. She tried carbamazepine, tizanidine, gabapentin and lamictal which were all ineffective. I did speak to Dr. Adams who will re-attempt botox on patient for migraine and also inject her massetors as this could be related to TMJ compressing or irritate her trigeminal nerve. She has tried botox in the past for migraines (4-5 years ago) and reports she discontinued as it was ineffective after a period of time. She has never had her massetors injected. She does grind and clench her teeth; she does wear a mouth guard as well. I did ask that she discontinue Lamotrigine as this has been ineffective; she will taper by 25mg each week until discontinuation. I will reach out to our botox coordinator to get the process started. She understands and is in agreement with the plan. Discussed red flags for headaches including, but not limited to : worst headache of your life, quick and severe onset of headache, facial numbness or drooping, or one sided weakness; advised patient to go to the ER for evaluation if she experiences any of the symptoms mentioned above. We extensively discussed lifestyle modifications for migraine management including adequate sleep, proper hydration, exercise, stress management, identifying and limiting possible triggers, balanced diet, limiting caffeine and alcohol; limiting OTC medication to no more than twice per week and prompt use of rescue treatment. I also advised the patient to keep a headache diary in hopes of identifying avoidable triggers. Todays service was provided via [employer] (audio/video). The patient consents to [employer] and understands they could be be charged a copay or higher amount from insurance company. The location of the patient is their home. The location of the provider is [facility]. The names of all persons participating in the [employer] service and their role in the encounter: Sharath Duran, [employer] and PATIENT. 30+ min time spent discussing diagnosis, treatment plan, patient concerns. All questions answered. Plan discussed with Dr Beck/Dr. Adams who are in agreement. Patient is in agreement with the current plan. 04/21/2025 Atypical face pain (ICD-10 - G50.1) Maria Luisa is a 49 yo F who [facility] to discuss her atypical facial pain. She reports ongoing left sided facial pain with zapping and zinging sensations that occur daily with 1-2 episodes per day lasting upto 1 minute. She reports numbness and pain in the upper left quadrant of her face that is constant. She tried carbamazepine, tizanidine, gabapentin and lamictal which were all ineffective. I did speak to Dr. Adams who will re-attempt botox on patient for migraine and also inject her massetors as this could be related to TMJ compressing or irritate her trigeminal nerve. She has tried botox in the past for migraines (4-5 years ago) and reports she discontinued as it was ineffective after a period of time. She has never had her massetors injected. She does grind and clench her teeth; she does wear a mouth guard as well. I did ask that she discontinue Lamotrigine as this has been ineffective; she will taper by 25mg each week until discontinuation. I will reach out to our botox coordinator to get the process started. She understands and is in agreement with the plan. Discussed red flags for headaches including, but not limited to : worst headache of your life, quick and severe onset of headache, facial numbness or drooping, or one sided weakness; advised patient to go to the ER for evaluation if she experiences any of the symptoms mentioned above. We extensively discussed lifestyle modifications for migraine management including adequate sleep, proper hydration, exercise, stress management, identifying and limiting possible triggers, balanced diet, limiting caffeine and alcohol; limiting OTC medication to no more than twice per week and prompt use of rescue treatment. I also advised the patient to keep a headache diary in hopes of identifying avoidable triggers. Todays service was provided via [employer] (audio/video). The patient consents to [employer] and understands they could be be charged a copay or higher amount from insurance company. The location of the patient is their home. The location of the provider is [facility]. The names of all persons participating in the [employer] service and their role in the encounter: Sharath Duran, OCTAVIO and PATIENT. 30+ min time spent discussing diagnosis, treatment plan, patient concerns. All questions answered. Plan discussed with Dr Beck/Dr. Adams who are in agreement. Patient is in agreement with the current plan. 05/18/2025 Chronic tension-type headache, intractable (ICD-10 - G44.221) 02/23/2025 Headache (ICD-10 - R51.9) Maria Luisa is a 49 yo F seen today for initial consultation of left sided facial pain and numbness. Patient was referred by OCTAVIO Figueredo. Her previous neurologist was Dr. Socorro Canales at [facility]; stopped following her as she was on maternity leave. Patient reports symptom onset about 2 weeks ago with left facial numbness, tingling and a zapping sensation which occurs daily for 2-3 minutes per episode with multiple episodes per day. She reports over the last day, she has noticed pins and needles sensation in the right side of her cheek as well. She denies visual changes; has a history of migraine. She was started on oral prednisone by her PCP this past week for a 7-day course; patient reports it has been helpful but her symptoms are still present and bothersome. No new medications, infections, or vaccines in the last month per the patient. She denies new stressors and/or difficulty or sensitivity when touching her face. She does notice that the left sided symptoms do occur when she is chewing food. No recent dental procedures. Likely, she has idiopathic trigeminal neuralgia. We will trial her on Carbamazepine 100 mg 1 tab BID; she will get lab work done prior to starting this medication including but not limited to CBC and CMP; we will also order CRP and Sed rate to rule out GCA although low on the differential. If her sodium level and LFTs are within normal limits, I will call her to let her know she can start this medication. She understands. We will also order a baseline brain MRI wwo contrast to rule out acute abnormalities such as stroke; she denies abnormal facial droop, confusion, or extremity weakness and numbness. 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 No recurrent episodes since. We will obtain a routine EEG to evaluate for seizure activity. Follow up in 1 week to evaluate how she is doing. She understands and is in agreement with the plan. We also discussed the risk of prolonged seizures. We discussed the importance of identifying triggers that can lower seizure thresholds such as alcohol, medication noncompliance, infection and sleep deprivation. 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 We discussed seizure safety precautions such as avoiding heights, operating heavy machinery, and swimming alone. Discussed red flags for headaches including, but not limited to : worst headache of your life, quick and severe onset of headache-Thunderc lap, facial numbness or droop, one sided weakness, positional changes to headache, fever, chills and neck pain associated with your headache. If you experience any of these you should go to the ER for evaluation. We discussed long-term risks of early osteoporosis, hyponatremia and impact on liver. Will send serum labs ( LFTs, CMP, CBC) to monitor liver function and, hyponatremia and pancytopenia/leuk openia. Recommend supplementation with Calcium + VitD and minimize risk of weight bearing exercises. I personally spent more than 60 minutes on the date of encounter on professional activities including reviewing prior results, obtaining history, performing examination, counseling the patient and or family/caregiver, ordering medications/tests , providing referrals, coordinating care, and documenting my findings and impression. Plan discussed with Dr Beck, who is in agreement. The patient is in agreement with the current treatment plan. Kindly excuse any grammatical or typographical errors. 03/03/2025 Trigeminal neuralgia (ICD-10 - G50.0) Maria Luisa is a 49 yo F [facility]. She was started on Carbamazepine 100 mg 1 tab BID which she started on 02/27/2025; she denies side effects to the medication but reports her left sided facial tingling, pain and zapping sensation is still ongoing. I would like to switch her from Carbamazepine to Gabapentin due to interaction of Carbamazepine with her Verapamil; the combination of carbamazepine and verapamil causes increased metabolism which may cause toxic levels. I will trial her on Gabapentin 300mg 1 tab qhs and we can increase this if she tolerates well. We did discuss her positive NESTOR 1:160; we will hold off on rheumatology however, she does have a history of fibromyalgia. I would like to follow up in 1 month to assess her response to the new medication and make any adjustments necessary; she understands and is in agreement with the plan. Discussed possible side effects of gabapentin including but not limited to sedation, dizziness, confusion, and weight gain. She denies facial droop, confusion or arm/leg weakness. Stroke signs/symptoms discussed in detail with patient and ER presentation. Todays service was provided via [employer] (audio/video). The patient consents to [employer] and understands they could be be charged a copay or higher amount from insurance company. The location of the patient is their home. The location of the provider is [facility]. The names of all persons participating in the [facility] service and their role in the encounter: Sharath Duran, OCTAVIO and PATIENT. 30+ min time spent discussing diagnosis, treatment plan, patient concerns. All questions answered. Plan discussed with Dr Beck who is in agreement. Patient is in agreement with the current plan. 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 I feel she is an excellent candidate for botox injections she may also benefit from concurrent nerve block injections as well for now she may continue with topiramate, qulipta with ubrelvy and nurtec as abortives lidcaine infusions also remain and option to reset the headache cycle. 05/29/2025 Migraine without aura, intractable, without status migrainosus (ICD-10 - G43.019) 07/03/2025 Migraine without aura, intractable, without status migrainosus (ICD-10 - G43.019) 08/09/2025 Migraine without aura, intractable, without status migrainosus (ICD-10 - G43.019) 08/21/2025 Migraine without aura, intractable, without status migrainosus (ICD-10 - G43.019) 10/16/2025 Migraine without aura, intractable, without status migrainosus (ICD-10 - G43.019) 03/03/2025 Headache (ICD-10 - R51.9) Maria Luisa is a 49 yo F [facility]. She was started on Carbamazepine 100 mg 1 tab BID which she started on 02/27/2025; she denies side effects to the medication but reports her left sided facial tingling, pain and zapping sensation is still ongoing. I would like to switch her from Carbamazepine to Gabapentin due to interaction of Carbamazepine with her Verapamil; the combination of carbamazepine and verapamil causes increased metabolism which may cause toxic levels. I will trial her on Gabapentin 300mg 1 tab qhs and we can increase this if she tolerates well. We did discuss her positive NESTOR 1:160; we will hold off on rheumatology however, she does have a history of fibromyalgia. I would like to follow up in 1 month to assess her response to the new medication and make any adjustments necessary; she understands and is in agreement with the plan. Discussed possible side effects of gabapentin including but not limited to sedation, dizziness, confusion, and weight gain. She denies facial droop, confusion or arm/leg weakness. Stroke signs/symptoms discussed in detail with patient and ER presentation. Todays service was provided via [employer] (audio/video). The patient consents to [employer] and understands they could be be charged a copay or higher amount from insurance company. The location of the patient is their home. The location of the provider is [facility]. The names of all persons participating in the [facility] service and their role in the encounter: Sharath Duran, OCTAVIO and PATIENT. 30+ min time spent discussing diagnosis, treatment plan, patient concerns. All questions answered. Plan discussed with Dr Beck who is in agreement. Patient is in agreement with the current plan. 05/18/2025 Cervicalgia (ICD-10 - M54.2) 02/23/2025 Visual changes (ICD-10 - H53.9) Maria Luisa is a 49 yo F seen today for initial consultation of left sided facial pain and numbness. Patient was referred by OCTAVIO Figueredo. Her previous neurologist was Dr. Socorro Canales at [facility]; stopped following her as she was on maternity leave. Patient reports symptom onset about 2 weeks ago with left facial numbness, tingling and a zapping sensation which occurs daily for 2-3 minutes per episode with multiple episodes per day. She reports over the last day, she has noticed pins and needles sensation in the right side of her cheek as well. She denies visual changes; has a history of migraine. She was started on oral prednisone by her PCP this past week for a 7-day course; patient reports it has been helpful but her symptoms are still present and bothersome. No new medications, infections, or vaccines in the last month per the patient. She denies new stressors and/or difficulty or sensitivity when touching her face. She does notice that the left sided symptoms do occur when she is chewing food. No recent dental procedures. Likely, she has idiopathic trigeminal neuralgia. We will trial her on Carbamazepine 100 mg 1 tab BID; she will get lab work done prior to starting this medication including but not limited to CBC and CMP; we will also order CRP and Sed rate to rule out GCA although low on the differential. If her sodium level and LFTs are within normal limits, I will call her to let her know she can start this medication. She understands. We will also order a baseline brain MRI wwo contrast to rule out acute abnormalities such as stroke; she denies abnormal facial droop, confusion, or extremity weakness and numbness. 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 No recurrent episodes since. We will obtain a routine EEG to evaluate for seizure activity. Follow up in 1 week to evaluate how she is doing. She understands and is in agreement with the plan. We also discussed the risk of prolonged seizures. We discussed the importance of identifying triggers that can lower seizure thresholds such as alcohol, medication noncompliance, infection and sleep deprivation. 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 We discussed seizure safety precautions such as avoiding heights, operating heavy machinery, and swimming alone. Discussed red flags for headaches including, but not limited to : worst headache of your life, quick and severe onset of headache-Thunderc lap, facial numbness or droop, one sided weakness, positional changes to headache, fever, chills and neck pain associated with your headache. If you experience any of these you should go to the ER for evaluation. We discussed long-term risks of early osteoporosis, hyponatremia and impact on liver. Will send serum labs ( LFTs, CMP, CBC) to monitor liver function and, hyponatremia and pancytopenia/leuk openia. Recommend supplementation with Calcium + VitD and minimize risk of weight bearing exercises. I personally spent more than 60 minutes on the date of encounter on professional activities including reviewing prior results, obtaining history, performing examination, counseling the patient and or family/caregiver, ordering medications/tests , providing referrals, coordinating care, and documenting my findings and impression. Plan discussed with Dr Beck, who is in agreement. The patient is in agreement with the current treatment plan. Kindly excuse any grammatical or typographical errors. 02/23/2025 Trigeminal neuralgia of left side of face (ICD-10 - G50.0) Maria Luisa is a 49 yo F seen today for initial consultation of left sided facial pain and numbness. Patient was referred by OCTAVIO Figueredo. Her previous neurologist was Dr. Socorro Canales at [facility]; stopped following her as she was on maternity leave. Patient reports symptom onset about 2 weeks ago with left facial numbness, tingling and a zapping sensation which occurs daily for 2-3 minutes per episode with multiple episodes per day. She reports over the last day, she has noticed pins and needles sensation in the right side of her cheek as well. She denies visual changes; has a history of migraine. She was started on oral prednisone by her PCP this past week for a 7-day course; patient reports it has been helpful but her symptoms are still present and bothersome. No new medications, infections, or vaccines in the last month per the patient. She denies new stressors and/or difficulty or sensitivity when touching her face. She does notice that the left sided symptoms do occur when she is chewing food. No recent dental procedures. Likely, she has idiopathic trigeminal neuralgia. We will trial her on Carbamazepine 100 mg 1 tab BID; she will get lab work done prior to starting this medication including but not limited to CBC and CMP; we will also order CRP and Sed rate to rule out GCA although low on the differential. If her sodium level and LFTs are within normal limits, I will call her to let her know she can start this medication. She understands. We will also order a baseline brain MRI wwo contrast to rule out acute abnormalities such as stroke; she denies abnormal facial droop, confusion, or extremity weakness and numbness. 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 No recurrent episodes since. We will obtain a routine EEG to evaluate for seizure activity. Follow up in 1 week to evaluate how she is doing. She understands and is in agreement with the plan. We also discussed the risk of prolonged seizures. We discussed the importance of identifying triggers that can lower seizure thresholds such as alcohol, medication noncompliance, infection and sleep deprivation. 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 We discussed seizure safety precautions such as avoiding heights, operating heavy machinery, and swimming alone. Discussed red flags for headaches including, but not limited to : worst headache of your life, quick and severe onset of headache-Thunderc lap, facial numbness or droop, one sided weakness, positional changes to headache, fever, chills and neck pain associated with your headache. If you experience any of these you should go to the ER for evaluation. We discussed long-term risks of early osteoporosis, hyponatremia and impact on liver. Will send serum labs ( LFTs, CMP, CBC) to monitor liver function and, hyponatremia and pancytopenia/leuk openia. Recommend supplementation with Calcium + VitD and minimize risk of weight bearing exercises. I personally spent more than 60 minutes on the date of encounter on professional activities including reviewing prior results, obtaining history, performing examination, counseling the patient and or family/caregiver, ordering medications/tests , providing referrals, coordinating care, and documenting my findings and impression. Plan discussed with Dr Beck, who is in agreement. The patient is in agreement with the current treatment plan. Kindly excuse any grammatical or typographical errors. 05/18/2025 Cervicogenic headache (ICD-10 - G44.86) advised heating pads neck and shoulders twice daily consider PT down the road should sleep on her back with a cervical pillow 05/18/2025 TMJ (temporomandibu lar joint disorder) (ICD-10 - M26.609) patient has chronic TMJ advised she continue with mouth guard I will inject botox in the massetters to see if this may help her as well 05/18/2025 Seizure (ICD-10 - R56.9) Plan Of Treatment Next Appt Details Provider Name:Wesley Adams , 11/20/2025 08:30:00 AM, [address] [place] [address], [address], [id number], Provider Name:Wesley Adams , 12/18/2025 08:30:00 AM, [address] [place] [address], [address], [id number], Insurance Providers Payer Name Payer Address Payer Phone Subscriber Number Group Number Insured Name Patient Relationship to Insured Coverage Start Date Coverage End Date [facility] [address] [place] [address] [id number] Maria Luisa Owens Self - patient is the insured 4 Medications Administered Medication Instructions Date of Administration Dosage Notes Botox (Onabotulinumtoxina) 1 unit BB 05/29/2025 200 units Medical (General) History Medical History History ICD Code Hypothyroidism Hyperthyroidism Diverticulitis Gerd Asthma Seizure DM Headache Osteoarthritis Surgical History Surgery Date(Month/Year) Rotator cuff repair 12/26/21 Radiofrequency ablation branch [...]
--- OUTSIDE RECORDS SUMMARY | 2025-10-31 19:09 | XMS_ITS | Data Portability ---
Author Organization [facility] Jose [facility] _[facility] Address [address] [address] Care Team Providers Care Manager Culture Name Role Phone ALEXANDRIA FIGUEREDO Primary Care Provider Assessment Encounter Date Assessment Date Assessment LastModified by Organization Details LastModified Time 08/02/2024 08/02/2024 48-year-old lady with low back and neck pain [email or web address] Not available 08/02/2024 15:22:02 09/23/2024 09/23/2024 bilateral L3-S1 RFA with sedation [email or web address] Not available 09/23/2024 13:23:27 11/14/2024 11/14/2024 Assessment: 1. DVT, left leg, provoked, in the setting of Estrogen use and left leg surgery. 2. Hematochezia, in the setting of multiple colon polyps. Plan: 1. For the presumably provoked DVT, it is prudent to c/w DOAC for up to 6 months, after which it is reasonable to consider the use of aspirin. Of note, d-dimer may be repeated prior to discontinuing DOAC. 2. Due to the side effects, will consider switching from Xarelto to Eliquis (at next time Xarelto is due). 3. The thrombophilia testing was discussed, patient decided not to do such tests for now. 4. Continue follow with GI. 5. RTC in 2-3 months, labs prior. Not available 04/13/2025 21:14:17 01/13/2025 01/13/2025 A total of 35 minutes was spent in patient care today including reviewing medical record; meeting, examining and educating the patient; ordering imaging & labs; documenting today's visit. Not available 01/13/2025 08:47:50 05/05/2025 05/05/2025 Assessment: 1. DVT, left leg, provoked, in the setting of Estrogen use and left leg surgery. On anticoagulation from 10/2024 to 03/2025. 2. Hematochezia, in the setting of polyposis of colon. Negative genetic testing for APC and MUTYH at [facility] on 06/07/2024. Genetic test was also ordered by the [facility] [place] team, report pending, 3. Iron deficiency, persistent on oral iron replacement. 4. Fatigue. Plan: 1. Clinically there is no evidence of recurrent VTE, and patient is doing well being off anticoagulation. 2. Patient may continue oral iron. Meanwhile, it is reasonable to consider iv iron for the persistent iron deficiency with fatigue. 3. Continue follow with GI for polyposis. 4. Patient is moving to [facility] in 05/2025, [facility] center was recommended to patient for further follow-up. Not available 05/05/2025 09:50:48 Plan of Treatment Reminders Order Date Submit Date Provider Last Modified By Organization Details Last Modified Time Details Appointments None recorded. Lab iron + TIBC + ferritin, serum 2024 025 [facility], [address] [place] [address], [id number], 5 03:44:16 CBC w/ auto diff 2024 025 [employer] [facility], [address] [place] [address], [address], 5 03:44:17 CBC w/ auto diff 2023 024 [employer] [facility], [address] [place] [address], [address], 4 23:50:13 CMP, serum or plasma 2023 024 [employer] [facility], [address] [place] [address], [address], 4 23:50:12 iron + TIBC + ferritin, serum 2023 024 [facility], [address] [facility], [facility] [address], [place], [address], 4 23:50:12 Referral None recorded. Procedures lumbar radiofreque ncy ablation (PROC) - lumbar radiofreque ncy ablation w/anes arrival 1:45pm 2023 024 [email or web address] In-Office Order, Internal Use Only DO Not Attach Compendium DO Not Attach Compendium, Do Not Delete/merge, [id number] 4 07:35:59 Surgeries None recorded. Imaging US, duplex, venous, lower extremity, unilateral - [id number] [address] (Radiology), [address] [place], [address], 5 08:01:26 Medication Orders Eliquis 5 mg tablet [address]/Pharmacy #[id number], [address] [facility], [place], [address], 5 08:55:16 Patient TargetsNo targets recorded. Patient InstructionsNo instructions recorded. Reason for Referral None Reported. Results Created Date Observation Date Name Description Value Unit Range Abnormal Flag Note LastModifiedBy Organization Detail LastModifiedTime 11/14/20 24 11/14/2024 IRON, TIBC AND RON TIN PANEL iron, total 27 mcg/d L 40-190 low Not Available [facility] [place] [facility] [address] [place], [address], 11/14/2024 23:50:11 11/14/20 24 11/14/2024 IRON, TIBC AND RON TIN PANEL iron binding capacity 271 mcg/d L_(ca lc) 250-45 0 normal Not Available [facility] [place] [facility] [address] [place], [address], 11/14/2024 23:50:11 11/14/20 24 11/14/2024 IRON, TIBC AND RON TIN PANEL % saturation 10 %_(ca lc) 16-45 low Not Available [facility] [address], [place], [address], 11/14/2024 23:50:11 11/14/20 24 11/14/2024 IRON, TIBC AND RON TIN PANEL ferritin 26 NG/mL 16-232 normal Not Available [facility] [address], [place], [address], 11/14/2024 23:50:11 11/14/20 24 11/14/2024 COMPR EHENS MARI METAB OLIC PANEL glucose 99 mg/dL 65-139 normal Non-f astin g refer ence inter adam Not Available [facility] [address], [place], [address], 11/14/2024 23:50:12 11/14/20 24 11/14/2024 COMPR EHENS MARI METAB OLIC PANEL urea nitrogen (BUN) 11 mg/dL 7-25 normal Not Available [facility] [address], [place], [address], 11/14/2024 23:50:12 11/14/20 24 11/14/2024 COMPR EHENS MARI METAB OLIC PANEL creatinine 0.92 mg/dL 0.50-0 .99 normal Not Available [facility] [address], [place], [address], 11/14/2024 23:50:12 11/14/20 24 11/14/2024 COMPR EHENS MARI METAB OLIC PANEL eGFR 77 mL/mi n/1.7 3m2 > or = 60 normal Not Available [facility] [address] [place], [address], 11/14/2024 23:50:12 11/14/20 24 11/14/2024 COMPR EHENS MARI METAB OLIC PANEL BUN/creatini ne ratio SEE NOTE: (calc ) 6-22 Not Repor christine: BUN and Creat inine are withi n refer ence range . Not Available [facility] [address], [place], [address], 11/14/2024 23:50:12 11/14/20 24 11/14/2024 COMPR EHENS MARI METAB OLIC PANEL sodium 141 mmol/ L 135-14 6 normal Not Available [facility] [address], [place], [address], 11/14/2024 23:50:12 11/14/20 24 11/14/2024 COMPR EHENS MARI METAB OLIC PANEL potassium 4.4 mmol/ L 3.5-5. 3 normal Not Available [facility] [address], [place], [address], 11/14/2024 23:50:12 11/14/20 24 11/14/2024 COMPR EHENS MARI METAB OLIC PANEL chloride 109 mmol/ L 98-110 normal Not Available [facility] [address], [place], [address], 11/14/2024 23:50:12 11/14/20 24 11/14/2024 COMPR EHENS MARI METAB OLIC PANEL carbon dioxide 25 mmol/ L 20-32 normal Not Available [facility] [address], [place], [address], 11/14/2024 23:50:12 11/14/20 24 11/14/2024 COMPR EHENS MARI METAB OLIC PANEL calcium 9.5 mg/dL 8.6-10 .2 normal Not Available [facility] [address], [place], [address], 11/14/2024 23:50:12 11/14/20 24 11/14/2024 COMPR EHENS MARI METAB OLIC PANEL protein, total 7.0 g/dL 6.1-8. 1 normal Not Available [facility] [address], [place], [address], 11/14/2024 23:50:12 11/14/20 24 11/14/2024 COMPR EHENS MARI METAB OLIC PANEL albumin 4.5 g/dL 3.6-5. 1 normal Not Available [facility] [address], [place], [address], 11/14/2024 23:50:12 11/14/20 24 11/14/2024 COMPR EHENS MARI METAB OLIC PANEL globulin 2.5 g/dL_ (calc ) 1.9-3. 7 normal Not Available [facility] [address], [place], [address], 11/14/2024 23:50:12 11/14/20 24 11/14/2024 COMPR EHENS MARI METAB OLIC PANEL albumin/glob ulin ratio 1.8 (calc ) 1.0-2. 5 normal Not Available [facility] [address], [place], [address], 11/14/2024 23:50:12 11/14/20 24 11/14/2024 COMPR EHENS MARI METAB OLIC PANEL bilirubin, total 0.5 mg/dL 0.2-1. 2 normal Not Available [facility] [address], [place], [address], 11/14/2024 23:50:12 11/14/20 24 11/14/2024 COMPR EHENS MARI METAB OLIC PANEL alkaline phosphatase 101 U/L 31-125 normal Not Available [facility] [place] [facility] [address], [place], [address], 11/14/2024 23:50:12 11/14/20 24 11/14/2024 COMPR EHENS MARI METAB OLIC PANEL AST 15 U/L 10-[address] [facility] [place] [facility] [address], [place], [address], 11/14/2024 23:50:12 11/14/20 24 11/14/2024 COMPR EHENS MARI METAB OLIC PANEL ALT 13 U/L 6-[address] [facility] [place] [facility] [address], [place], [address], 11/14/2024 23:50:12 11/14/20 24 11/14/2024 CBC (INCL UDES DIFF/ PLT) white blood cell count 6.7 thous and/u L 3.8-10 .8 normal Not Available [facility] [address], [place], [address], 11/14/2024 23:50:13 11/14/20 24 11/14/2024 CBC (INCL UDES DIFF/ PLT) red blood cell count 4.42 meka on/uL 3.80-5 .10 normal Not Available [facility] [address], [place], [address], 11/14/2024 23:50:13 11/14/20 24 11/14/2024 CBC (INCL UDES DIFF/ PLT) hemoglobin 13.4 g/dL 11.7-1 5.5 normal Not Available [facility] [address], [place], [address], 11/14/2024 23:50:13 11/14/20 24 11/14/2024 CBC (INCL UDES DIFF/ PLT) hematocrit 40.9 % 35.0-4 5.0 normal Not Available [facility] [place] [facility] [address], [place], [address], 11/14/2024 23:50:13 11/14/20 24 11/14/2024 CBC (INCL UDES DIFF/ PLT) MCV 92.5 fL 80.0-1 00.0 normal Not Available [facility] [place] [facility] [address], [place], [address], 11/14/2024 23:50:13 11/14/20 24 11/14/2024 CBC (INCL UDES DIFF/ PLT) MCH 30.3 pg 27.0-3 3.0 normal Not Available [facility] [place] [facility] [address], [place], [address], 11/14/2024 23:50:13 11/14/20 24 11/14/2024 CBC (INCL UDES DIFF/ PLT) MCHC 32.8 g/dL 32.0-3 6.0 normal For adult s, a sligh t decre ase in the calcu lated MCHC value (in the range of 30 to 32 g/dL) is most likel y not clini esn signi griffin t; ninfa er, it shoul d be inter prete d with cauti on in [facility] n with other red cell lalitha eters and the patie nt's clini laura condi tion. Not Available [facility] [place] [facility] [address], [place], [address], 11/14/2024 23:50:13 11/14/20 24 11/14/2024 CBC (INCL UDES DIFF/ PLT) RDW 13.1 % 11.0-1 5.0 normal Not Available [facility] [place] [facility] [address], [place], [address], 11/14/2024 23:50:13 11/14/20 24 11/14/2024 CBC (INCL UDES DIFF/ PLT) platelet count 257 thous and/u L 140-40 [address] [facility] [place] [facility] [address], [place], [address], 11/14/2024 23:50:13 11/14/20 24 11/14/2024 CBC (INCL UDES DIFF/ PLT) MPV 12.1 fL 7.5-12 .5 normal Not Available [facility] [place] [facility] [address], [place], [address], 11/14/2024 23:50:13 11/14/20 24 11/14/2024 CBC (INCL UDES DIFF/ PLT) absolute neutrophils 3732 cells /uL 1500-7 800 normal Not Available [facility] [place] [facility] [address], [place], [address], 11/14/2024 23:50:13 11/14/20 24 11/14/2024 CBC (INCL UDES DIFF/ PLT) absolute lymphocytes 2144 cells /uL 850-39 00 normal Not Available [facility] [address], [place], [address], 11/14/2024 23:50:13 11/14/20 24 11/14/2024 CBC (INCL UDES DIFF/ PLT) absolute monocytes 503 cells /uL 200-95 0 normal Not Available [facility] [address], [place], [address], 11/14/2024 23:50:13 11/14/20 24 11/14/2024 CBC (INCL UDES DIFF/ PLT) absolute eosinophils 261 cells /uL 15-500 normal Not Available [facility] [address], [address], 11/14/2024 23:50:13 11/14/20 24 11/14/2024 CBC (INCL UDES DIFF/ PLT) absolute basophils 60 cells /uL 0-200 normal Not Available [facility] [place] [facility] [address], [place], [address], 11/14/2024 23:50:13 11/14/20 24 11/14/2024 CBC (INCL UDES DIFF/ PLT) neutrophils 55.7 % normal Not Available [facility] [place] [facility] [address], [place], [address], 11/14/2024 23:50:13 11/14/20 24 11/14/2024 CBC (INCL UDES DIFF/ PLT) lymphocytes 32.0 % normal Not Available [facility] [place] [facility] [address], [place], [address], 11/14/2024 23:50:13 11/14/20 24 11/14/2024 CBC (INCL UDES DIFF/ PLT) monocytes 7.5 % normal Not Available [facility] [place] [facility] [address], [place], [address], 11/14/2024 23:50:13 11/14/20 24 11/14/2024 CBC (INCL UDES DIFF/ PLT) eosinophils 3.9 % normal Not Available [facility] [place] [facility] [address], [place], [address], 11/14/2024 23:50:13 11/14/20 24 11/14/2024 CBC (INCL UDES DIFF/ PLT) basophils 0.9 % normal Not Available [facility] [place] [facility] [address], [place], [address], 11/14/2024 23:50:13 01/26/20 25 01/27/2025 GRAM STAIN gram stain result Final report . Not Available [facility] [address], [place], [address] 01/27/2025 13:07:58 01/26/20 25 01/27/2025 GRAM STAIN result 1 Commen t . Moder ate amoun t of white blood cells . Not Available [facility] [address], [place], [address] 01/27/2025 13:07:58 01/26/20 25 01/27/2025 GRAM STAIN result 2 Commen t . Few gram posit mari cocci Perfo rmed at: RN - [facility] [place] [address], [place] [address] Lab Direc tor: Marie Johnson MD, Phone : [phone] Not Available [facility] [address], [place], [address] 01/27/2025 13:07:58 01/26/20 25 01/30/2025 [facility] MISCE LLANE OUS TEST [facility] COMMEN T . Test Order ed: 3 Anaer obic and Aerob ic Cultu re Anaer obic Cultu re Note: [A ] RN Final repor t Refer ence Range : . Resul t 1 Note: [A ] RN Noman tavera Refer ence Range : . Moder ate growt h Beta lacta georgette negat mari. Usual ly susce ptibl e to most antib iotic s used for the treat ment of anaer obic infec tions , inclu ding penic illin s, imipe nem, and clind amyci n. Aerob ic Cultu re Note: [A ] RN Final repor t Refer ence Range : . Resul t 1 Comme nt [A ] RN Refer ence Range : . Pseud omona s aerug inosa Cefta zidim e-salvatore bacta m and cefto lozan e-trev obact am may be consi dered for thera py ONLY when multi -drug resis tance (MDR) is demon strat ed to merop enem and other teste d agent s. Heavy growt h Antim icrob ial Susce ptibi lity Comme nt RN Refer ence Range : . S = Susce ptibl e; I = Inter media te; R = Resis tant P = Posit mari; N = Negat mari MICS are expre ssed in micro grams per mL Antib iotic RSLT# 1 RSLT# 2 RSLT# 3 RSLT# 4 Cefep kalpana S Cefta zidim e S Cefta zidim e/salvatore bacta m S Cefto lozan e/trev obact am S Cipro floxa emily S Levof loxac in S Merop enem S Piper acill in/Ta zobac campbell S Tobra mycin S Perfo rmed at: RN - [facility] [place] [address], [place] [address] Lab Direc tor: Marie Johnson MD, Phone : [phone] [facility] Test Code( 6 digit s REQUI RED) 74784 3 [facility] Test Name ANAER OBIC AND AEROB IC CULTU RE CPT Code 27462 ;8707 5 Speci men Sourc e: LEFT LEG Not Available [facility] [address] [facility] [address], [place], [address] 01/30/2025 13:08:18 05/02/20 25 05/03/2025 IRON, TIBC AND RON TIN PANEL iron, total 80 mcg/d L 40-190 normal Not Available [facility] [address], [address], 05/03/2025 03:44:16 05/02/20 25 05/03/2025 IRON, TIBC AND RON TIN PANEL iron binding capacity 286 mcg/d L_(ca lc) 250-45 0 normal Not Available [facility] [address], [address], 05/03/2025 03:44:16 05/02/20 25 05/03/2025 IRON, TIBC AND RON TIN PANEL % saturation 28 %_(ca lc) 16-45 normal Not Available [facility] [address], [address], 05/03/2025 03:44:16 05/02/20 25 05/03/2025 IRON, TIBC AND RON TIN PANEL ferritin 22 NG/mL 16-232 normal Not Available [facility] [address], [address], 05/03/2025 03:44:16 05/02/20 25 05/03/2025 CBC (INCL UDES DIFF/ PLT) white blood cell count 5.8 thous and/u L 3.8-10 .8 normal Not Available [facility] [address], [place], [address], 05/03/2025 03:44:17 05/02/20 25 05/03/2025 CBC (INCL UDES DIFF/ PLT) red blood cell count 4.76 meka on/uL 3.80-5 .10 normal Not Available [facility] [address], [place], [address], 05/03/2025 03:44:17 05/02/20 25 05/03/2025 CBC (INCL UDES DIFF/ PLT) hemoglobin 13.8 g/dL 11.7-1 5.5 normal Not Available [facility] [address], [place], [address], 05/03/2025 03:44:17 05/02/20 25 05/03/2025 CBC (INCL UDES DIFF/ PLT) hematocrit 44.2 % 35.0-4 5.0 normal Not Available [facility] [address], [place], [address], 05/03/2025 03:44:17 05/02/20 25 05/03/2025 CBC (INCL UDES DIFF/ PLT) MCV 92.9 fL 80.0-1 00.0 normal Not Available [facility] [address], [place], [address], 05/03/2025 03:44:17 05/02/20 25 05/03/2025 CBC (INCL UDES DIFF/ PLT) MCH 29.0 pg 27.0-3 3.0 normal Not Available [facility] [address] [place], [address], 05/03/2025 03:44:17 05/02/20 25 05/03/2025 CBC (INCL UDES DIFF/ PLT) MCHC 31.2 g/dL 32.0-3 6.0 low For adult s, a sligh t decre ase in the calcu lated MCHC value (in the range of 30 to 32 g/dL) is most likel y not clini sen signi griffin t; prudencioev er, it shoul d be inter prete d with cauti on in [facility] n with other red cell lalitha eters and the patie nt's clini laura condi tion. Not Available [facility] [address] [place], [place], [address], 05/03/2025 03:44:17 05/02/20 25 05/03/2025 CBC (INCL UDES DIFF/ PLT) RDW 14.4 % 11.0-1 5.0 normal Not Available [facility] [address] [place], [place], [address], 05/03/2025 03:44:17 05/02/20 25 05/03/2025 CBC (INCL UDES DIFF/ PLT) platelet count 215 thous and/u L 140-40 0 normal Not Available [facility] [address] [place], [place], [address], 05/03/2025 03:44:17 05/02/20 25 05/03/2025 CBC (INCL UDES DIFF/ PLT) MPV 11.6 fL 7.5-12 .5 normal Not Available [facility] [address], [place], [address], 05/03/2025 03:44:17 05/02/20 25 05/03/2025 CBC (INCL UDES DIFF/ PLT) absolute neutrophils 2221 cells /uL 1500-7 800 normal Not Available [facility] [address], [place], [address], 05/03/2025 03:44:17 05/02/20 25 05/03/2025 CBC (INCL UDES DIFF/ PLT) absolute lymphocytes 2883 cells /uL 850-39 00 normal Not Available [facility] [place] [facility] [address], [place], [address], 05/03/2025 03:44:17 05/02/20 25 05/03/2025 CBC (INCL UDES DIFF/ PLT) absolute monocytes 307 cells /uL 200-95 0 normal Not Available [facility] [place] [facility] [address], [place], [address], 05/03/2025 03:44:17 05/02/20 25 05/03/2025 CBC (INCL UDES DIFF/ PLT) absolute eosinophils 331 cells /uL 15-500 normal Not Available [facility] [place] [facility] [address], [place], [address], 05/03/2025 03:44:17 05/02/20 25 05/03/2025 CBC (INCL UDES DIFF/ PLT) absolute basophils 58 cells /uL 0-200 normal Not Available [facility] [place] [facility] [address], [place], [address], 05/03/2025 03:44:17 05/02/20 25 05/03/2025 CBC (INCL UDES DIFF/ PLT) neutrophils 38.3 % normal Not Available [facility] [place] [facility] [address], [place], [address], 05/03/2025 03:44:17 05/02/20 25 05/03/2025 CBC (INCL UDES DIFF/ PLT) lymphocytes 49.7 % normal Not Available [facility] [place] [facility] [address], [place], [address], 05/03/2025 03:44:17 05/02/20 25 05/03/2025 CBC (INCL UDES DIFF/ PLT) monocytes 5.3 % normal Not Available [facility] [address], [address], 05/03/2025 03:44:17 05/02/20 25 05/03/2025 CBC (INCL UDES DIFF/ PLT) eosinophils 5.7 % normal Not Available [facility] [address], [address], 05/03/2025 03:44:17 05/02/20 25 05/03/2025 CBC (INCL UDES DIFF/ PLT) basophils 1.0 % normal Not Available [facility] [address], [address], 05/03/2025 03:44:17 05/03/20 25 05/03/2025 vl venou s duple x scan [facility] [address] [place] [address] [phone] Patien t Name: Rob Mcclelland A Medica l Record #: [id number] Addres s: [address] Accoun t#: [id number] City/S hahn/Z ip: [place] [address]: Richie ROSS Phone: Insura nce: [employer] [facility] /Ag e/Sex: 1974/4 8/F Self Pay Admit/ Reg Date: Orderi felicia Dr: Richie Barbour APRN Locati on: VAS.[facility] Q/ PCP: Alexandria Figueredo NP Date of Servic e: Order (s): VL Venous duplex scan LE CPT Code: 55784 Report Number : [id number] Reason for Exam: ACUTE DEEP VENOUS THROMB OSIS OF LT LOWER EXTREM ITY As is UNILAT ERAL LEG VENOUS ULTRAS OUND: Clinic al histor y: Left lower extrem ity pain and swelli ng. Compar [place] Decemb er 2023. Duplex ultras ound examin ation of the deep venous system s of left lower extrem ity from the inguin al ligame nt to the poplit eal fossa shows normal flow and compre ssion withou t eviden ce of deep venous thromb osis. There is normal flow within the visual ized calf vessel s. IMPRES DARÍO: No acute deep venous thromb osis. Dictat ed By: Jose M Howe MD 153 Signed By: Maria Isabel Howe MD 1540 TD/TT: 153 Tech: SMHALT 01 cc: COSAM0 1; SYLME* Alexandria Npp OCTAVIO Figueredo; Richie Barbour APRN [id number] [facility] [address] [facility] [address], [place], [address] 05/21/2025 16:06:53 Result Notes None recorded. Problems Name Problem SNOMED Code Status Onset Date Resolution Date Notes Provider Name and Address Organization Details Recorded Time Migraine 44570171 Active 2016 [facility] 7 11:38:17 Epilepsy 95779487 Active 2016 Non convulsiv e [facility] 7 11:38:41 Anxiety 92975770 Active 2016 [facility] 7 11:39:18 Hypertens mari disorder 56981838 Active 2016 [facility] 7 11:39:39 Asthma 102202857 Active 2016 [facility] 7 11:39:59 Gastroeso phageal reflux disease 606973855 Active 2016 [facility] 7 11:40:08 Colitis 47802842 Active 2016 [facility] 7 11:40:30 Irritable bowel syndrome 89459618 Active 2016 Alanajia Childressia null, [facility] 7 11:40:44 Diverticu litis 752048572 Active 2016 Alana Aminta null, [facility] 7 11:40:53 Hemorrhoi ds 12453260 Active 2016 Alana Aminta null, [facility] 7 11:41:12 Kidney disease 32823103 Active 2016 Alana Aminta null, [facility] 7 11:41:26 Uric acid renal calculus 216593480 Active 2016 Alanaanne Lemos null, [facility] 7 11:41:44 Endometri osis (clinical ) 251032511 Active 2016 Alanaanne Lemos null, [facility] 7 11:42:25 Cyst of breast 125654782 Active 2016 Alanajia Childressia null, [facility] 7 11:42:39 Breast lump 33002649 Active 2016 Alanasamia Lemos null, [facility] 7 11:42:51 Fibromyal ray 543894071 Active 2016 Alana Aminta null, [facility] 7 11:43:08 Hypothyro idism [id number] Active 2016 Alanasamia Childressia null, [facility] 7 11:43:19 Hyperchol esterolem ia 33184190 Active 2016 Alanasamia Childressia null, [facility] 7 11:43:37 Supravent ricular tachycard ia 2813932 Active 2016 Alanasamia Childressia null, [facility] 7 11:43:48 Temporoma ndibular joint disorder 40035050 Active 2016 Alanasamia Childressia null, [facility] 7 11:44:02 Female urinary stress incontine nce 11709593 Active 2017 KENZIE GANDHI [facility], [facility] 8 12:27:07 Chronic interstit ial cystitis 215670144 Active 2017 KENZIE GANDHI null, [facility] 8 12:27:37 Nodular goiter 224889219 Active 2018 Alexandria Perry null, [facility] 9 14:20:54 Lumbosacr al spondylos is without myelopath y 02748424 Active 2019 NICKI SALDANA MD [address] [place] [address], [address] , [facility] 0 13:37:50 Arthropat hy of lumbar facet joint 339436125 Active 2019 NICKI SALDANA MD [address] [place] [address], [address] , [facility] 0 13:37:51 Hydroneph rosis 08500053 Active 2019 ROSALINA CHAVIRA [address] [place] [address], [address] , [facility] 0 14:47:12 Blood in urine 73856436 Active 2019 ROSALINA CHAVIRA [address] [place] [address], [address] , [facility] 0 14:47:18 Lumbar spondylos is 071594401 Active 2019 NICKI SALDANA MD [address] [place] [address], [address] , [facility] 0 10:32:19 Pain of right shoulder joint [id number] 116973 Active 2021 NICKI SALDANA MD [address] [place] [address], [address] , [facility] 2 10:09:08 Recurrent urinary tract infection 123317869 Active 2021 ROSALINA CHAVIRA [address] [place] [address], , [facility] 2 16:33:34 Cervical radiculop athy 68472510 Active 2022 AMADOU GARG NP [address] [place], [place], , [facility] 3 08:11:59 Myofascia l pain 801713485 Active 2022 AMADOU GARG NP [address] [place], [place], , [facility] 3 08:24:50 Lumbar radiculop athy 671836539 Active 2022 AMADOU GARG NP [address] [place], [place], , [facility] 3 09:54:09 Myofascia l pain syndrome of neck 864061790 Active 2022 NICKI SALDANA MD [address] [place] [address], , [facility] 3 11:41:38 Acute deep venous thrombosi s of left lower extremity 75504104816 9104 Active 2023 NIC NAZARIO MD [address] [place] [address], , [facility] 4 09:36:45 Hematoche haja 510340743 Active 2023 NIC NAZARIO MD [address] [place] [address], , [facility] 4 09:42:07 Iron deficienc y without anemia 254371452 Active 2023 ROXY BARBOUR NP [address] [place], [place], , [facility] 4 15:07:29 Iron deficienc y 46385266 Active 2024 NIC NAZARIO MD [address] [place], [place], , [facility] 5 09:51:04 Acute deep venous thrombosi s of left femoral vein 65082361919 9101 Active 2024 NIC NAZARIO MD [address] [place] [address], [address] , [facility] 5 09:52:44 Fatigue 57821458 Active 2024 NIC NAZARIO MD [address] [place] [address], [address] , [facility] 5 09:52:55 Problem Notes None recorded. Procedures Surgical History Date Name Laterality Status Provider Name and Address Organization Details Recorded Time [facility] [place] TPI (muscles) completed NICKI SALDANA MD [address] [place] [address], [phone], [facility] 08/10/2023 12:38:28 Corticosteroid Injection completed Jose Messina MD [address] [place] [address], [address], [facility] 01/17/2022 14:51:53 022 SHOULDER ARTHROSCOPY WITH ROTATOR CUFF REPAIR (SURG) completed Angélica Tony [facility] 12/26/2021 13:55:45 022 SHOULDER ARTHROSCOPY WITH ROTATOR CUFF REPAIR (SURG) completed Angélica Tony [facility] 01/14/2022 08:49:23 022 radiofrequency ablation of medial branch of lumbar nerve using fluoroscopic guidance completed NICKI SALDANA MD [address] [place] [address], [address], [facility] 12/06/2021 13:15:08 021 radiofrequency ablation of medial branch of lumbar nerve using fluoroscopic guidance completed NICKI SALDANA MD [address] [place] [address], [address], [facility] 10/04/2021 12:23:16 021 Corticosteroid Injection completed Jose Messina MD [address] [place] [address], [address], [facility] 09/13/2021 14:22:29 021 Bladder Scan completed ROSALINA CHAVIRA [address] [place] [address], , [facility] 07/10/2021 09:16:25 021 Corticosteroid Injection completed Jose Messina MD [address] [place], [place], , [facility] 07/01/2021 09:37:37 021 Bladder Scan completed Reny Hawk [facility] 06/12/2021 14:38:46 021 Cystoscopy chemodenervation completed ROSALINA CHAVIRA [address] [place], [place], , [facility] 06/12/2021 14:55:49 021 radiofrequency ablation of medial branch of lumbar nerve using fluoroscopic guidance completed NICKI SALDANA MD [address] [place], [place], , [facility] 03/15/2021 13:12:58 020 Bladder Scan completed Alexus Darby [facility] 09/25/2020 15:06:50 020 Cystoscopy - female completed Curtis Mattson MD [address] [place], [place], , [facility] 05/07/2020 14:47:49 020 radiofrequency ablation of nerve root of lumbar spine using fluoroscopic guidance completed ROSALINA CHAVIRA [address] [place], [place], , [facility] 09/25/2020 15:16:34 018 repair of tendon completed ROSALINA CHAVIRA [address] [place], [place], , [facility] 01/20/2020 15:45:03 017 Carpal tunnel surgery completed ROSALINA CHAVIRA [address] [place], [place], , [facility] 01/20/2020 15:26:13 015 Unlisted px foot/toes completed ROSALINA CHAVIRA [address] [place], [place], , [facility] 01/20/2020 15:40:14 014 total hysterectomy completed MARVIN VEGA, PA [address] [place], [address], [facility] 01/20/2020 15:39:25 012 Knee arthroscopy/surgery completed MARVIN VEGA, PA [address] [place], [address], [facility] 01/20/2020 15:25:11 012 other completed MARVIN VEGA, PA [address] [place], [address], [facility] 01/20/2020 15:24:54 012 other completed MARVIN VEGA, PA [address] [place], [address], [facility] 01/20/2020 15:24:41 012 other completed MARVIN VEGA PA [address] [place], [address], [facility] 01/20/2020 15:24:15 012 Unlisted px cardiac surgery completed MARVIN VEGA PA [address] [place], [address], [facility] 01/20/2020 15:23:43 011 Dilation of urethra completed KENZIE GANDHI [facility] 09/20/2018 12:43:09 011 laparoscopy completed MARVIN VEGA PA [address] [place], [address], [facility] 01/20/2020 15:20:39 010 detorsion of ovary completed MARVIN VEGA PA [address] [place], [address], [facility] 01/20/2020 15:19:35 009 arthroscopic/knee completed MARVIN VEGA PA [address] [place], [address], [facility] 01/20/2020 15:18:37 008 appendectomy completed ROSALINA CHAVIRA [address] [place], [address], [facility] 01/20/2020 15:04:24 008 arthroscopic/knee completed ROSALINA CHAVIRA [address] [place], [address], [facility] 01/20/2020 15:18:26 007 cholecystectomy completed ROSALINA CHAVIRA [address] [place] [address], [address], [facility] 01/20/2020 15:18:00 005 laparoscopic-assist ed vaginal hysterectomy completed ROSALINA CHAVIRA [address] [place] [address], [address], [facility] 01/20/2020 15:28:06 004 tubal ligation completed Alana Lemos [facility] 03/19/2017 11:56:40 001 lysis of adhesions of peritoneum completed ROSALINA CHAVIRA [address] [place] [address], [address], [facility] 01/20/2020 15:16:23 997 laparoscopy completed ROSALINA CHAVIRA [address] [place] [address], [address], [facility] 01/20/2020 15:16:42 993 lysis of adhesions of peritoneum completed ROSALINA CHAVIRA [address] [place] [address], [address], [facility] 01/20/2020 15:16:07 Imaging Results None recorded. Procedure Notes None recorded. Medical Equipment None Reported. Allergies Allergen ID Allergen Name Allergen Category Reaction Reaction Severity Criticality Documentation Date Start Date Code Code System Note Provider Name and Address Organization Details Recorded Time [id number] codeine sulfate medicatio n Not available Not available high 10/30/20252010 68241 RxNorm unrec ogniz ed react ion (text : GI Intol eranc e, code: 13794 5008) (from [facility] e) Not Available [facility] - External Data Service - prod 5 08:13:56 [id number] corn allergeni c extract food,medi cation Not available Not available Not available 10/30/20252010 99021 7 RxNorm Not Available [facility] - External Data Service - prod 5 08:13:56 0500311 corn silk preparati on medicatio n rash Not available high 10/30/20252023 73964 7 RxNorm Not Available [facility] - External Data Service - prod 5 08:13:56 3815868 corn starch food,medi cation anxiety cough headache itching myalgias (muscle pain) rash Not available Not available Not available Not available Not available Not available high 10/30/20252016 36229 62 RxNorm unrec ogniz ed react ion (text : Chest disco mfort , code: 07873 4009) (from exter nal sourc e) unrec ogniz ed react ion (text : Diffi culty breat theresa, code: 67989 3002) (from exter nal sourc e) unrec ogniz ed react ion (text : Fatig ue, code: 85743 001) (from exter nal sourc e) unrec ogniz ed react ion (text : GI Intol eranc e, code: 95828 5008) (from exter nal sourc e) unrec ogniz ed react ion (text : Nasal conge stion , code: 61549 000) (from exter nal sourc e) unrec ogniz ed react ion (text : Rash- delay ed, code: 79120 6001) (from exter nal sourc e) Not Available [facility] - External Data Service - prod 5 08:13:56 [id number] erythromy emily medicatio n itching Not available Not available 10/30/20252014 4053 RxNorm Not Available [facility] - External Data Service - prod 5 08:13:56 2237189 morphine sulfate medicatio n Not available Not available high 10/30/20252010 30835 RxNorm Not Available [facility] - External Data Service - prod 5 08:13:56 8993155 Substance with morphinan structure and opioid receptor agonist mechanism of action (substanc e) medicatio n hives palpitati ons rash Not available Not available Not available high 10/30/20252010 33200 9000 SNOMED Conve rted from Drug Class Aller gy: Opiat e Agoni sts unrec ogniz ed react ion (text : GI Intol eranc e, code: 27974 5008) (from exter nal sourc e) Not Available [employer] - prod 5 08:13:56 0176720 acetamino phen / oxycodone medicatio n rash Not available low 10/30/20252023 39776 3 RxNorm GI Upset Not Available [facility] - External Data Service - prod 5 08:13:56 2289135 Streptoco ccus pneumonia e type 1 capsular polysacch aride antigen medicatio n rash Not available low 10/30/20252022 53030 0 RxNorm Not Available [facility] - [employer] Data Service - prod 5 08:13:56 [id number] pregabali n medicatio n Not available Not available Not available 10/30/20252024 02531 2 RxNorm unrec ogniz ed react ion (text : GI Intol eranc e, code: 40036 5008) (from exter nal sourc e) Not Available [employer] - prod 5 08:13:56 0798951 sulfur medicatio n rash Not available low 10/30/20252023 63879 RxNorm Not Available [facility] - External Data Service - prod 5 08:13:56 4231344 Gluten (substanc e) food,medi cation Not available Not available high 10/30/20252022 09688 004 SNOMED unrec ogniz ed react ion (text : GI Intol eranc e, code: 80117 5008) (from exter nal sourc e) unrec ogniz ed react ion (text : Nause a And Vomit ing, code: 26072 000) (from exter nal sourc e) Not Available [employer] - prod 5 08:13:57 5836373 wheat dextrin food,medi cation Not available Not available low 10/30/20252022 83118 6 RxNorm unrec ogniz ed react ion (text : GI Intol eranc e, code: 85788 5008) (from exter nal sourc e) unrec ogniz ed react ion (text : Nause a And Vomit ing, code: 71619 000) (from exter nal sourc e) Not Available [facility] - External Data Service - prod 5 08:13:57 9477425 nickel sulfate Not available rash Not available Not available 10/30/20252023 93145 RxNorm Not Available [facility] - External Data Service - prod 5 08:14:46 2947304 nickel environme nt rash Not available low 10/30/20252023 37148 29 RxNorm nicke l unrec ogniz ed react ion (text : Unkno wn, code: 86803 008) (from exter nal sourc e) Not Available [facility] - External Data Service - prod 5 08:14:47 8932007 sulfur iodide Not available rash Not available low 10/30/20252023 35474 79 RxNorm Not Available [facility] - External Data Service - prod 5 08:14:47 9418321 wheat preparati on food,medi cation Not available Not available low 10/30/20252022 04096 52 RxNorm unrec ogniz ed react ion (text : Nause a And Vomit ing, code: 90343 000) (from exter nal sourc e) Not Available [facility] - External Data Service - prod 5 08:14:47 3198646 oxycodone medicatio n Not available Not available low 10/30/20252010 7804 RxNorm Conve rted from Gener ic Aller gy: OXYco done (Imme diate -Rele ase ) unrec ogniz ed react ion (text : GI Upset , code: 74536 005) (from exter nal sourc e) Not Available [facility] - External Data Service - prod 5 08:14:51 858681 Pneumovax 23 medicatio n rash moderate Not available 03/19/2017 26419 3 RxNorm Alana Aminta null, [facility] 7 11:31:54 181687 morphine medicatio n hives Not available Not available 03/19/2017 7052 RxNorm Alana Aminta null, [facility] 7 11:32:26 422858 Substance with sulfonami de structure and antibacte rial mechanism of action (substanc e) medicatio n other moderate Not available 03/19/2017 81222 8003 SNOMED GI upset Alana Aminta null, [facility] 7 11:37:18 785059 codeine medicatio n nausea moderate Not available 03/19/2017 2670 RxNorm Alana Aminta null, [facility] 7 11:33:54 332100 corn extract food,medi cation headache other rash Not available Not available Not available Not available 03/19/2017 43920 08 RxNorm GI upset , all corn produ cts MARVIN VEGA [place] [address] [place], [address], [facility] 0 15:07:32 026151 potato allergeni c extract food headache itching other rash Not available Not available Not available Not available Not available 03/19/2017 07946 2 RxNorm asthm a exace rbati on, GI upset ; White potat o MARVIN VEGA [place] [address] [place], [address], [facility] 0 15:10:22 742664 wheat gluten extract food other Not available Not available 03/19/2017 11985 81 RxNorm GI upset , Intol eranc e Therese Crancha null, [facility] 0 13:07:30 835194 [place] medicatio n Not available Not available Not available 09/20/2018 06022 99 RxNorm KENZIE GANDHI null, [facility] 8 12:25:40 718312 glucose medicatio n headache other rash Not available Not available Not available Not available 09/20/2018 4850 RxNorm GI upset ROSALINA CHAVIRA [address] [place], [address], [facility] 0 15:08:49 794580 corn syrup food headache other rash Not available Not available Not available Not available 01/20/2020 36807 76 RxNorm GI upset ROSALINA CHAVIRA [address] [place], [address], [facility] 0 15:08:26 Medications Name Sig Start Date Stop Date Status Note LastModified by Organization Details LastModified Time verapamil ER (SR) 120 mg tablet,ext ended release Take 1 tablet every day by oral route in the evening for 30 days. active Not Available Not Available No t Available celecoxib 200 mg capsule ONCE DAILY. 05/11 completed Not Available Not Available Not Available cyclobenza rachel 10 mg tablet Take 1 tablet every day by oral route as needed for 45 days. 11/14 completed Not Available Not Available Not Available Qvar 80 mcg/actuat ion Metered Aerosol oral inhaler 07/01 completed Not Available Not Available Not Available neomycin-p olymyxin-h ydrocort 3.5 mg/mL-10,0 00 unit/mL-1 % ear solution 01/11 completed Not Available Not Available Not Available venlafaxin e ER 37.5 mg capsule,ex tended release 24 hr 07/01 completed Not Available Not Available Not Available prednisone 10 mg tablet Take 1 tablet every day by oral route. 09/06 completed Not Available Not Available Not Available venlafaxin e ER 75 mg capsule,ex tended release 24 hr 07/01 completed Not Available Not Available Not Available nabumetone 750 mg tablet Take 1 tablet twice a day by oral route. 11/14 completed Not Available Not Available Not Available tizanidine 2 mg tablet TAKE 1 TABLET EVERY 8 HOURS BY ORAL ROUTE FOR 20 DAYS. 2024 active Not Available Not Available Not Avai lable atorvastat in 10 mg tablet Take 1 tablet every day by oral route. active Not Available Not Available No t Available azithromyc in 250 mg tablet 01/11 completed Not Available Not Available Not Available ibuprofen 800 mg tablet Take 1 tablet 3 times a day by oral route as needed. 01/15 completed Not Available Not Available Not Available fluconazol e 150 mg tablet Take 1 tablet once, if no improvem ent may repeat after 3 days. 05/12 completed Not Available Not Available Not Available levetirace campbell 500 mg tablet 07/01 completed Not Available Not Available Not Available Migranal 0.5 mg/pump act. (4 mg/mL) nasal spray Take by nasal route. 01/13 completed Not Available Not Available Not Available tolterodin e ER 4 mg capsule,ex tended release 24 hr Take 1 capsule every day by oral route. 05/25 completed Not Available Not Available Not Available cephalexin 250 mg capsule 07/01 completed Not Available Not Available Not Available ondansetro n HCl 8 mg tablet 07/01 completed Not Available Not Available Not Available meloxicam 15 mg tablet Take 1 tablet every day by oral route. 10/25 completed Not Available Not Available Not Available Medrol (Bernardino) 4 mg tablets in a dose pack Take 1 dose pk every day by oral route with meals. 02/25 completed Not Available Not Available Not Available prednisone 20 mg tablet 09/13 completed Not Available Not Available Not Available sertraline 100 mg tablet ONCE DAILY. 11/14 completed Not Available Not Available Not Available prednisone 5 mg tablet 09/13 completed Not Available Not Available Not Available Pyridium 200 mg tablet Take 1 tablet 3 times a day by oral route for 5 days. 06/12 completed Not Available Not Available Not Available Elmiron 100 mg capsule TAKE 1 CAPSULE BY MOUTH THREE TIMES A DAY 10/25 completed Not Available Not Available Not Available clobetasol 0.05 % topical cream 01/11 completed Not Available Not Available Not Available venlafaxin e ER 150 mg capsule,ex tended release 24 hr 07/01 completed Not Available Not Available Not Available penicillin V potassium 500 mg tablet 07/01 completed Not Available Not Available Not Available metronidaz ole 500 mg tablet 07/01 completed Not Available Not Available Not Available hydroxyzin e HCl 50 mg tablet 07/01 completed Not Available Not Available Not Available sulfametho xazole 800 mg-trimeth oprim 160 mg tablet 10/25 completed Not Available Not Available Not Available omeprazole 40 mg capsule,de layed release Take 1 capsule by oral route as needed for 90 days. 10/12 completed Not Available Not Available Not Available Zantac 75 mg tablet Take 1 tablet twice a day by oral route. 01/13 completed Not Available Not Available Not Available tramadol 50 mg tablet Take 1 tablet by oral route as needed for 28 days. 07/01 completed PRN Not Available Not Available Not Available ondansetro n 8 mg disintegra ting tablet Place 1 tablet every 8 hours by translin gual route for 2 days. active Not Available Not Available No t Available acetaminop hen ER 650 mg tablet,ext ended release Take 1 tablet every 8 hours by oral route as needed. 2021 active Not Available Not Available Not Avai lable hydrocorti sone acetate 25 mg rectal suppositor y 07/01 completed Not Available Not Available Not Available Zofran 4 mg tablet Take 1 tablet every 6 hours by oral route as needed. 02/25 completed Not Available Not Available Not Available oxycodone- acetaminop hen 5 mg-325 mg tablet Take 1 tablet every 6 hours by oral route. active Not Available Not Available No t Available alprazolam 0.5 mg tablet Take 1 tablet twice a day by oral route as needed for 15 days. 09/06 completed Not Available Not Available Not Available alprazolam 0.25 mg tablet 01/11 completed Not Available Not Available Not Available amitriptyl ine 25 mg tablet Take 2 tablets every day by oral route in the evening for 90 days. 09/13 completed 20mg once daily. Not Available Not Available Not Available estradiol 1 mg tablet Take 1 tablet every day by oral route for 90 days. 11/14 completed Not Available Not Available Not Available aspirin 325 mg tablet,del ayed release Take 1 tablet every day by oral route for 30 days. 02/25 completed Not Available Not Available Not Available trazodone 100 mg tablet 07/01 completed Not Available Not Available Not Available dicyclomin e 20 mg tablet Take 1 tablet 4 times a day by oral route. active Not Available Not Available No t Available amitriptyl ine 10 mg tablet Take 1 tablet 3 times a day by oral route. 11/14 completed Not Available Not Available Not Available meclizine 25 mg tablet Take by oral route as needed for 90 days. 10/22 completed lesser dose Not Available Not Available Not Available levothyrox ine 50 mcg tablet TAKE 1 TABLET BY MOUTH EVERY DAY IN THE MORNING ON EMPTY STOMACH active Not Available Not Available No t Available trazodone 150 mg tablet 07/01 completed Not Available Not Available Not Available ferrous sulfate 325 mg (65 mg iron) tablet Take 1 tablet every other day by oral route. 2023 active Not Available Not Available Not Avai lable nitrofuran toin macrocryst al 100 mg capsule 10/25 completed Not Available Not Available Not Available ranitidine 150 mg tablet Take 1 tablet twice a day by oral route for 90 days. 10/22 completed dose change Not Available Not Available Not Available ranitidine 300 mg capsule Take 1 capsule every day by oral route. 01/13 completed Not Available Not Available Not Available lidocaine 5 % topical patch 07/01 completed Not Available Not Available Not Available promethazi ne 25 mg tablet Take 1 tablet every 6 hours by oral route. 01/13 completed Not Available Not Available Not Available Qvar 40 mcg/actuat ion Metered Aerosol oral inhaler 07/01 completed Not Available Not Available Not Available losartan 25 mg tablet Take 1 tablet every day by oral route. 05/05 completed Not Available Not Available Not Available sertraline 25 mg tablet Take 1 tablet every day by oral route. active Not Available Not Available No t Available omeprazole 20 mg capsule,de layed release Take 1 capsule every day by oral route. active Not Available Not Available No t Available hydroxyzin e HCl 25 mg tablet TAKE 1 TABLET BY MOUTH TWICE A DAY 2021 active Not Available Not Available Not Avai lable Iophen C-NR 10 mg-100 mg/5 mL oral liquid 07/01 completed Not Available Not Available Not Available levetirace campbell 750 mg tablet 07/01 completed Not Available Not Available Not Available mupirocin 2 % topical ointment 10/25 completed Not Available Not Available Not Available [place] Thyroid 30 mg tablet Take 1 tablet every day by oral route for 90 days. 11/27 /2017 completed Not Available Not Available Not Available benzoyl peroxide 5 % topical cleanser 02/25 completed Not Available Not Available Not Available albuterol sulfate HFA 90 mcg/actuat ion aerosol inhaler 11/14 completed Not Available Not Available Not Available hydromorph one 4 mg tablet 07/01 completed Not Available Not Available Not Available fluocinoni de 0.05 % topical cream Apply 1 applicat ion by topical route for 30 days. 01/15 completed Not Available Not Available Not Available ondansetro n 4 mg disintegra ting tablet Place 2 tablets twice a day by translin gual route as needed. active Not Available Not Available No t Available sertraline 50 mg tablet 10/25 completed Not Available Not Available Not Available naratripta n 2.5 mg tablet Take as needed by oral route. 11/14 completed Not Available Not Available Not Available doxycyclin e hyclate 100 mg tablet 09/13 completed Not Available Not Available Not Available naproxen 500 mg tablet 07/01 completed Not Available Not Available Not Available mometasone 0.1 % topical cream 07/01 completed Not Available Not Available Not Available diazepam 5 mg tablet 10/12 completed Not Available Not Available Not Available amoxicilli n 875 mg-potassi um clavulanat e 125 mg tablet 09/13 completed Not Available Not Available Not Available oxycodone 5 mg tablet Take 1 tablet every 6 hours by oral route as needed. 02/25 completed Not Available Not Available Not Available Botox 100 unit injection 100 units injected into bladder 06/12 completed Not Available Not Available Not Available clindamyci n 1 % lotion 10/25 completed Not Available Not Available Not Available nitrofuran toin monohydrat e/macrocry stals 100 mg capsule TAKE 1 CAPSULE BY MOUTH EVERY DAY FOR 90 DAYS 11/14 completed Not Available Not Available Not Available ursodiol 500 mg tablet 02/25 completed Not Available Not Available Not Available Vesicare 10 mg tablet 07/01 completed Not Available Not Available Not Available chlorhexid ine gluconate 0.12 % mouthwash 10/12 completed Not Available Not Available Not Available Mucinex D 60 mg-600 mg tablet,ext ended release Take 1 tablet twice a day by oral route as needed. 12/10 completed Not Available Not Available Not Available sertraline 10/25 completed Not Available Not Available Not Available prednisone 05/25 completed Not Available Not Available Not Available Percocet PRN 02/25 completed Not Available Not Available Not Available topiramate 125 mg prn active Not Available Not Available No t Available TENS 502 device active PMD Not Available Not Available Not Available trospium ER 60 mg capsule,ex tended release 24 hr TAKE 1 CAPSULE BY MOUTH EVERY DAY 12/10 completed Not Available Not Available Not Available diclofenac 1 % topical gel as needed 01/11 completed Not Available Not Available Not Available Vimpat 50 mg tablet 07/01 completed Not Available Not Available Not Available Vimpat 100 mg tablet Take 1 tablet twice a day by oral route for 90 days. active Not Available Not Available No t Available Cambia 50 mg oral powder packet Take by oral route. 01/13 completed Not Available Not Available Not Available Uribel 118 mg-10 mg-40.8 mg-36 mg capsule Take 1 capsule 4 times a day by oral route. 07/01 completed Not Available Not Available Not Available Suprep Bowel Prep Kit 17.5 gram-3.13 gram-1.6 gram oral solution 07/01 completed Not Available Not Available Not Available Xarelto 15 mg tablet Take 1 tablet every day by oral route. active Not Available Not Available No t Available Linzess 145 mcg capsule Take 1 capsule every day by oral route. active Not Available Not Available No t Available Eliquis 5 mg tablet TAKE 1 TABLET BY MOUTH TWICE A DAY 05/05 completed Not Available Not Available Not Available Flonase Allergy Relief 50 mcg/actuat ion nasal spray,susp ension [facility] 1 spray every day by intranas al route. active Not Available Not Available No t Available Afluria (PF) 45 mcg (15 mcg x 3)/0.5 mL IM syringe 07/01 completed Not Available Not Available Not Available Flucelvax Quad (PF) 60 mcg (15 mcg x 4)/0.5 mL IM syringe 01/15 completed Not Available Not Available Not Available Aimovig Autoinject or 140, One injectio n once a month 07/09 completed Not Available Not Available Not Available Emgality 120 mg/mL subcutaneo us syringe INJECT 120 MG BY SUBCUTAN EOUS ROUTE ONCE A MONTH IN THE ABDOMEN, THIGH, OUTER UPPER ARM, OR BUTTOCKS 11/14 completed Not Available Not Available Not Available Aimovig Autoinject or 140 mg/mL subcutaneo us auto-injec tor 07/09 completed Not Available Not Available Not Available Ubrelvy 100 mg tablet Take by oral route. active Not Available Not Available No t Available Nurtec ODT 75 mg disintegra ting tablet Take by oral route. active Not Available Not Available No t Available Qulipta 60 mg tablet Take 1 tablet every day by oral route. active Not Available Not Available No t Available Vitals Date Recorded Body height Body mass index (BMI) Body weight Heart rate Oxygen saturation Body temperature Systolic And Diastolic Provider Name and Address Organization Details Last Updated DateTime 5 162.56 cm 26.9 kg/m2 45403.2 8 g 67 /min 96 % 96.4 [degF] 110/80 mm[Hg] [facility] 5 08:08:26 Date Recorded Body height Body mass index (BMI) Body weight Heart rate Oxygen saturation Body temperature Systolic And Diastolic Provider Name and Address Organization Details Last Updated DateTime 5 162.56 cm 27.3 kg/m2 32255.9 1 g 80 /min 98 % 97.2 [degF] 122/88 mm[Hg] [facility] 5 08:54:45 Date Recorded Body height Respiratory rate Heart rate Pain severity - 0-10 verbal numeric rating [Score] - Reported Oxygen saturation Provider Name and Address Organization Details Last Updated DateTime 4 162.56 cm 16 /min 75 /min 6 99 % Michelle Sanchez [facility] 4 15:06:40 Date Recorded Body height Body mass index (BMI) Body weight Heart rate Oxygen saturation Body temperature Systolic And Diastolic Provider Name and Address Organization Details Last Updated DateTime 4 162.56 cm 27.9 kg/m2 34547.7 6 g 93 /min 98 % 96 [degF] 118/86 mm[Hg] [facility] 09:00:34 Social History Question Answer Notes LastModified by Organizat ion Details LastModified Time Tobacco Smoking Status Former Smoker Quit Date: 02/1997 KENZIE GANDHI [facility] 09/20/2018 12:45:55 What Is Your Level Of Caffeine Consumption? Moderate 1-2 Cups Coffee A Day [email or web address] Information not available 10/25/2021 Which Illicit Or Recreational Drugs Have You Used? None Information not available 01/20/2020 Live Alone Or With Others? With Others Information not available 01/20/2020 Are You On Disability? No Information not available 12/10/2020 Legal Action/traffic law attorney For Pain Related Issues/health Issues? No Information not available 12/10/2020 Marital Status Informatio n not available 01/20/2020 What Was The Date Of Your Most Recent Tobacco Screening? 03/14/2022 [email or web address] Information not available 03/14/2022 How Many Children Do You Have? 4 Information not available 01/20/2020 How Much Tobacco Do You Smoke? No Information not available 12/10/2020 Sex: Unknown Functional Status Question Answer Note LastModified by Organizat ion Details LastModified Time Do you use any illicit or recreational drugs? No [email or web address] Information not available 10/25/2021 What is your level of alcohol consumption? None [email or web address] Information not available 09/20/2018 Do you or have you ever used smokeless tobacco? 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 Never used electronic cigarettes Information not available 12/10/2020 Mental Status None recorded. Family History Relationship Description Onset Age of this Age Resolved Age Notes LastModified by Organization Details LastModified Time Father Malignant neoplasm of pancreas [email or web address] Not available 2016 11:45:18 Father Hepatic failure [email or web address] Not available 2016 11:45:37 Father Coronary arterioscler osis [email or web address] Not available 2017 12:46:32 Father Myocardial infarction massiv e [email or web address] Not available 09/20/2018 12:46:51 Mother Diabetes mellitus [email or web address] Not available 2016 11:46:43 Mother Hypertensive disorder [email or web address] Not available 2017 12:47:17 Mother Urinary tract infectious disease [email or web address] Not available 2017 12:47:36 Maternal Grandfather Diabetes mellitus [email or web address] Not available 2016 11:46:43 Maternal Grandmother Myocardial infarction [email or web address] Not available 03/19 11:47:57 Sister Urinary tract infectious disease [email or web address] Not available 2017 12:47:48 Unspecified Relation Kidney stone Matern al and Patern al family histor y Not available 09/20/2018 12:48:30 Notes:Sister - pre cervical cancer and pre colon cancer. Great great aunt - breast cancer Medical History Condition Response HEART CONDITION Y DIVERTICULITIS Y kidney stones Y DIABETES Y HYPERTENSION Y GERD/REFLUX Y HEADACHE Y SEIZURE DISORDER Y HYPERTHYROIDISM N other Y HYPOTHYROIDISM Y ASTHMA Y BOWEL PROBLEMS Y OSTEOARTHRITIS Y Gynecological HistoryNo gynecological history recorded. Obstetrics History GPAL:G 0 P 0 0 0 0 Immunizations Vaccine Type Date Status Note Provider Nam e and Address Organization Details Recorded Time COVID-19, mRNA, LNP-S, PF, 100 mcg/0.5mL dose or 50 mcg/0.25mL dose 01/20/2021 mauri pride [place] [facility] Jose 09/20/2021 09:24:23 COVID-19, mRNA, LNP-S, PF, 100 mcg/0.5mL dose or 50 mcg/0.25mL dose 02/17/2021 mauri pride [facility] Jose 09/20/2021 09:24:30 COVID-19, mRNA, LNP-S, PF, 100 mcg/0.5mL dose or 50 mcg/0.25mL dose 07/05/2021 mauri pride [facility] Jose 09/20/2021 09:24:41 Past Encounters Encounter ID Performer Location Encounter Start Date Encounter Closed Date Diagnosis/Indication Diagnosis SNOMED-CT Code Diagnosis ICD10 Code Diagnosis IMO Codes Diagnosis Note [id number] RACHELLE SOSA MD [facility] @ [address] [facility] [address] [place] [address] 03/19/2017 10:43:09 03/19/2017 11:41:03 Abnormal findings on diagnostic imaging of breast 929835693 R92.8 [id number] Zelalem Deleon MD [facility] [address] [place] [address] 07/01/2017 14:00:04 07/01/2017 15:11:51 Prediabetes 594434669 R73.03 5.7 06/2017D/w the pt about lifestyle modificati ons, weight loss, low carb/sugar intake (pasta, bread, rice and potato), to prevent the progress to Diabetes. Hypothyroidism 16223926 E03.9 wants to switch back to levothyrox ine from [employer] t 50 mcg/dayrep eat TFTs in 6 weeks Goiter 8485567 E04.9 hx of goiter w no biopsied neededhas somdis comfort in her neck [id number] Zelalem Deleon MD [facility] [address] [place] [address] 10/12/2017 10:54:20 10/12/2017 11:23:27 Nodular goiter 749463216 E04.9 Thyroid ultrasound : 06/2017 Showed isoechoic 1.4 cm nodule isthmic 7mm nodule repeat in 12/2017 Hypothyroidism 87045679 E03.9 on 50mcg/dTSH nl 08/2017 Prediabetes 829207396 R7 3.03 5.7 06/2017 [id number] Zelalem Deleon MD [facility] [address] [place] [address] 01/11/2018 10:14:49 01/11/2018 10:50:40 Hypothyroidism 22950414 E03.9 on 50 mcg/dTSH nl 08/2017fee ling tiredcheck TFTS and see if needs adustment Nodular goiter 301857183 E04.9 Thyroid ultrasound : 06/2017 Showed isoechoic 1.4 cm nodule isthmic 7mm nodule US 12/2017:MNG and R nodule now is only 8mmrepeat in 1 yr Prediabetes 881831789 R7 3.03 5.7 12/2016 [id number] Zelalem Deleon MD [facility] [address] [place] [address] 07/12/2018 10:11:45 07/12/2018 10:53:28 Hypothyroidism 45998305 E03.9 on 50 mcg/dTSH nl 06/2018cont same dose Nodular goiter 313871279 E04.9 Thyroid ultrasound : 06/2017 Showed isoechoic 1.4 cm nodule isthmic 7mm nodule US 12/2017:MNG and R nodule now is only 8mmrepeat in 2019 Prediabetes 725487467 R7 3.03 5.4 06/2018 was 5.8 01/2017cont lifestyle modoifcati on Fatigue 48620657 R53.83 fatigue and low energy durig the day, snoring at night needs to discuss w pcp about possible sleep study [id number] Elina Arenas MD [email or web address] [address] [place] [address] 10/22/2018 10:21:43 10/22/2018 11:15:56 Chronic interstitial cystitis 750690747 N30.10 I spent at least 15 minutes with patient, 50% in counseling reviewing the nature of her symptoms and reviewing her regimen. Patient doing well on current regimen. Continue current regimen. [id number] Zelalem Deleon MD [facility] [address] [place] [address] 04/13/2019 14:11:31 04/13/2019 15:00:13 Hypothyroidism 78209326 E03.9 on 50 mcg/dTSH nl 03/2019cont same dose Prediabetes 634419924 R7 3.03 5.4 06/2018 was 5.8 01/2017cont lifestyle modificati on Nodular goiter 043209875 E04.9 Thyroid ultrasound : 06/2017 Showed isoechoic 1.4 cm nodule isthmic 7mm nodule US 12/2017:MNG R nodule now is only 8 mm -US: 03/2019:Rig ht 1.6 cm noduleLeft /isthmus 9 mmgiven the size and growth will Refer to FNA R noduleRevi ewed with the patient the prevalence of thyroid nodules, on average about 95% are benign, and 5% are malignant, The best way to really differenti ate benign from malignant is with (FNA) of the nodule or by surgery. -Explained also the possibilit y of ((indeterm inate)) or ((non diagnostic )) results, with each FNA. [id number] NICKI SALDANA MD [facility] [address] [place] [address] 01/13/2020 12:46:29 01/13/2020 13:36:03 Lumbosacral spondylosis without myelopathy 32062226 M47.817 Arthropath y of lumbar facet joint 095851064 M46.96 If the medial branch block is successful we will perform radiofrequ ency ablation [id number] ROSALINA CHAVIRA [email or web address] [place] [address] 01/16/2020 09:49:48 01/16/2020 11:44:00 Chronic interstitial cystitis 331229371 N30.10 Patient is still symptomati c despite Elmiron 100 mg tid, amitriptyl ine 25 mg qhs, and hydroxyzin e 50 mg bid. Will add tolterodin e 4 mg daily for overactive bladder complaints . She will continue Elmiron and amitriptyl ine. Due to chronic fatigue, will decrease hydroxyzin e to 25 mg bid. Some of her urinary complaints could be related to lumbosacra l disease as well as pelvic congestion syndrome. Hydronephrosis 17636129 N13.30 Patient thought to have passed a kidney stone in September with noncontras t CT showing right hydrourete ronephrosi s. WIll obtain renal ultrasound to confirm resolution of hydronephr osis. Blood in urine 16313153 R31.9 Possible intermitte nt hematuria. Discussed cystoscopy for further evaluation . She had an unremarkab le CT abd/pelvis with oral and IV contrast in February 2018. Will consider complete CT urogram pending UA, cytology, and cystoscopy . Note: Microscopi c UA from today's visit is negative for hematuria. Urine cytology pending. [id number] NICKI SALDANA MD [facility] [address] [place] [address] 02/27/2020 11:45:22 02/27/2020 15:27:08 Arthropathy of lumbar facet joint 626008727 M46.96 As soon as the current situation normalizes we are going to perform radiofrequ ency ablation on the left at L3-4, L4-5, L5-S1 [id number] NICKI SALDANA MD [facility] [address] [place] [address] 03/16/2020 08:45:27 03/16/2020 14:58:02 Arthropathy of lumbar facet joint 979290632 M46.96 As soon as the current situation normalizes we are going to perform radiofrequ ency ablation on the left at L3-4, L4-5, L5-S1 Lumbar spondylosis 12540 0009 M47.896 The patient will contact Dr. Vogel about a short-term prescripti on for tramadol as she has an opioid contract with that physician [id number] ROSALINA CHAVIRA [email or web address] Sameer [email or web address] [place] [address] 03/19/2020 12:58:22 03/19/2020 14:00:11 Chronic interstitial cystitis 124339925 N30.10 She will continue Elmiron 100 mg tid, amitriptyl ine 25 mg qhs, and hydroxyzin e 25 mg bid. She responded to tolterodin e 4 mg daily, but continues to have bladder spasms. She tried increasing amitriptyl ine in the past without symptom improvemen t. Will change tolterodin e to trospium er 60 mg daily. Due to chronic fatigue, will decrease hydroxyzin e to 25 mg daily. Some of her urinary complaints could be related to lumbosacra l disease as well as pelvic congestion syndrome. She will follow up with me in 4 months. Advised patient to call if any questions or concerns arise prior to her next visit. Hydronephrosis 02372863 N13.30 Patient thought to have passed a kidney stone in September with noncontras t CT showing right hydrourete ronephrosi s. Renal ultrasound confirmed resolution of hydronephr osis. Blood in urine 99472004 R31.9 Possible intermitte nt hematuria. Cystoscopy scheduled for 05/07/20 for further evaluation . She had an unremarkab le CT abd/pelvis with oral and IV contrast in February 2018. Will perform cytology at time of cystoscopy . [id number] NICKI SALDANA MD [facility] [address] [place] [address] 04/13/2020 11:49:05 04/13/2020 18:04:47 [id number] Curtis Mattson MD [email or web address] [address] [place] [address] 05/07/2020 14:07:39 05/07/2020 14:49:07 Blood in urine 44102376 R31.9 Negative cystoscopy . Cytology sent. Follow-up as planned. Could consider botox [id number] NICKI SALDANA MD [facility] [address] [place] [address] 05/25/2020 08:36:26 05/25/2020 20:14:27 Arthropathy of lumbar facet joint 538576904 M46.96 The patient will contact us should her pain increase and if she requires another radiofrequ ency ablation Lumbar spondylosis 91280 0009 M47.896 [id number] ROSALINA CHAVIRA [email or web address] [place] [address] 09/25/2020 14:56:56 09/25/2020 15:30:30 Chronic interstitial cystitis 282381330 N30.10 She will continue Elmiron 100 mg tid, amitriptyl ine 50 mg qhs, trospium er 60 mg daily, and hydroxyzin e 25 mg bid for now. She continues to have bothersome bladder spasms. Discussed Botox injection of the bladder including the procedure, risks, and benefits. Brochure given to patient. She will consider this and follow up with in 6 months. Advised patient to call if any questions or concerns prior to her next visit or if she would like to proceed with Botox injection. Blood in urine 54068101 R31.9 Possible intermitte nt hematuria. She had an unremarkab le CT abd/pelvis with oral and IV contrast in February 2018. Urine cytology and cystoscopy on 05/07/20 were negative. Will continue to monitor. Kidney stone 66052155 N2 0.0 Patient states that she was told that she had a kidney stone after recent abdominal ultrasound to evaluate her liver. Requested report for review. Prior renal ultrasound in February showed no stones and prior noncontras t CT last September showed no stones. Will call patient with results. [id number] NICKI SALDANA MD [facility] [address] [place] [address] 12/10/2020 15:15:10 12/11/2020 07:38:35 Arthropathy of lumbar facet joint 544920339 M46.96 This patient has failed conservati ve measures including medication s and physical therapy. She cannot take NSAIDs due to autoimmune hepatitis. She has had more than 7 months of very good relief with previous lumbar radiofrequ ency ablation and now has return of symptoms. She is an excellent candidate for repeat lumbar radiofrequ ency ablation Lumbar spondylosis 89180 0009 M47.896 Viral screening 42438163 4 Z11.59 [id number] NICKI SALDANA MD [facility] [address] [place] [address] 03/15/2021 09:50:23 03/15/2021 13:18:23 [id number] ROSALINA CHAVIRA [email or web address] [place] [address] 04/01/2021 15:22:40 04/01/2021 15:59:29 Chronic interstitial cystitis 554640865 N30.10 She will continue Elmiron 100 mg tid, amitriptyl ine 50 mg qhs, trospium er 60 mg daily, and hydroxyzin e 25 mg bid for now. She continues to have bothersome bladder spasms. Discussed Botox injection of the bladder and Interstim including the procedure, risks, and benefits. She would like to proceed with Botox injection. She will try Uribel qid prn to hopefully get some symptom relief. Side effects and potential drug interactio ns discussed. Advised patient to call if any questions arise. Blood in urine 47678123 R31.9 Possible intermitte nt hematuria. She had an unremarkab le CT abd/pelvis with oral and IV contrast in February 2018. Urine cytology and cystoscopy on 05/07/20 were negative. Will continue to monitor. Kidney stone 65274209 N2 0.0 Abdominal ultrasound in August to evaluate her liver showed a possible right renal stone. Prior renal ultrasound in February 2020 showed no stones and prior noncontras t CT in September 2019 showed no stones. Repeat renal ultrasound on 03/26/21 also showed no stones. No further evaluation indicated at this time. [id number] NICKI SALDANA MD [facility] [address] [place] [address] 04/12/2021 08:02:58 04/14/2021 14:29:40 Lumbar spondylosis 885868623 M47.896 The patient will contact us after she recovers from her current bout of pain, so that we can schedule her for radiofrequ ency ablation on the right side which she has not had in more than a year [id number] ROSALINA CHAVIRA [email or web address] [address] [place] [address] 06/12/2021 14:12:26 06/12/2021 14:52:31 Chronic interstitial cystitis 148350398 N30.10 She will continue hydroxyzin e 50 mg qhs for now. Bladder spasms improved s/p Botox injection of the bladder 05/24/21. She is having some difficulty voiding and this should improve in a few weeks. She will follow up in 4 weeks for bladder scan and reevaluati on. UA and culture sent to rule out UTI. Will call with results. Advised patient to call if any questions arise. Blood in urine 72773872 R31.9 Possible intermitte nt hematuria. She had an unremarkab le CT abd/pelvis with oral and IV contrast in February 2018. Urine cytology and cystoscopy on 05/07/20 were negative. Will continue to monitor. Incomplete emptying of urinary bladder 795745555 R39.14 Mild PVR today, likely due to recent Botox. Will recheck at next visit. [id number] Jayy Messina MD [facility] [address] [address] 07/01/2021 08:53:10 07/01/2021 09:31:15 Tendinitis of right rotator cuff 4380505176 4773703 M67.813 Arthritis of acromioclavicular joint 906466684 M13.819 [id number] ROSALINA CHAVIRA [email or web address] [place] [address] 07/10/2021 08:46:16 07/10/2021 09:18:56 Chronic interstitial cystitis 811450260 N30.10 She will continue hydroxyzin e 25 mg bid. Bladder spasms improved s/p Botox injection of the bladder 05/24/21. She is having some difficulty voiding and this should improve in a the next 6 weeks. She could consider decreasing hydroxyzin e to daily. She will follow up in 6 weeks for bladder scan and reevaluati on. UA and culture sent to rule out UTI. Advised patient to call if any questions arise. Incomplete emptying of urinary bladder 037919965 R39.14 PVR stable, likely due to recent Botox. Will recheck at next visit. Blood in urine 96643779 R31.9 Possible intermitte nt hematuria. She had an unremarkab le CT abd/pelvis with oral and IV contrast in February 2018. Urine cytology and cystoscopy on 05/07/20 were negative. Will continue to monitor. [id number] Jayy Messina MD [facility] [address] [address] 08/20/2021 07:55:46 08/20/2021 08:30:56 Tendinitis of right rotator cuff 1424660114 2789391 M67.813 Arthritis of acromioclavicular joint 284794671 M13.819 Tendinitis of long head of biceps brachii of right shoulder 392009349 M75.21 [id number] ROSALINA CHAVIRA [facility] [address] [address] [place] [address] 09/06/2021 11:49:04 09/06/2021 12:59:36 Chronic interstitial cystitis 896397836 N30.10 Symptoms have improved significan tly s/p Botox 05/24/21. She will continue hydroxyzin e 25 mg bid. She will follow up in 6 months for bladder scan and reevaluati on. UA and culture sent to rule out UTI. Advised patient to call if any questions arise. Incomplete emptying of urinary bladder [id number] R39.14 Will recheck at next visit. Blood in urine [id number] R31.9 Possible intermitte nt hematuria. She had an unremarkab le CT abd/pelvis with oral and IV contrast in February 2018. Urine cytology and cystoscopy on 05/07/20 were negative. Will continue to monitor. [id number] ROSALINA CHAVIRA [email or web address] [place] [address] 08/28/2022 15:26:06 08/28/2022 16:10:05 Chronic interstitial cystitis 138653507 N30.10 Symptoms have improved significan tly s/p Botox 05/24/21. She will continue hydroxyzin e 25 mg bid. She will follow up in 6 months for reevaluati on. Advised patient to call if any questions arise. Incomplete emptying of urinary bladder 476833096 R39.14 Will continue to monitor and check at next visit. Blood in urine [id number] R31.9 Possible intermitte nt hematuria. She had an unremarkab le CT abd/pelvis with oral and IV contrast in February 2018. Urine cytology and cystoscopy on 05/07/20 were negative. Will continue to monitor. Recurrent urinary tract infection 151453088 N39.0 She has been experienci ng recurrent E. coli UTIs. This may be due to steroid injections . She is on oral HRT for menopausal symptoms. Discussed prophylaxi s with Macrobid 100 mg daily for 90 days. She will call if any breakthrou gh UTI symptoms prior to next visit. [id number] Jayy Messina MD [facility] [address], [address] [place] [address] 09/13/2021 13:45:45 09/13/2021 14:50:11 Cervical radiculopathy 34191202 M54.12 Osteoarthr itis of acromioclavicular joint 274687871 M19.019 [id number] NICKI SALDANA MD _[facility] OUTPT [address] [place] [address] 09/13/2021 15:18:08 09/13/2021 16:15:15 Lumbar spondylosis 412263031 M47.896 Patient had excellent relief with radiofrequ ency ablation on the right with more than 70% relief for over a year. Now the pain has returned. She has had no relief with conservati ve measures, including medication s and stretching exercises for at least 6 weeks in the last 6 months. She is an excellent candidate for repeat radiofrequ ency ablation on the right [id number] NICKI SALDANA MD [facility] [address]PT [address] [place] [address] 10/04/2021 10:30:00 10/04/2021 13:53:23 [id number] Jayy Messina MD [facility] [address], [address] [place] [phone] 10/25/2021 14:50:43 10/25/2021 15:34:48 Osteoarthritis of acromioclavicular joint 712983171 M19.019 Partial th ickness rotator cuff tear 763608008 M75.101 Tendinitis of long head of biceps brachii of right shoulder 478711826 M75.21 [id number] NICKI SALDANA MD [facility] [place] [facility] [address] [facility] [address] [place] [address] 11/25/2021 14:03:51 11/25/2021 14:24:28 Lumbar spondylosis 389311281 M47.896 80% relief with radiofrequ ency ablation on the right. Now the pain is returning on the left. Patient had excellent relief with radiofrequ ency ablation on the left with more than 70% relief for close to 8 months. Now the pain has returned. She has had no relief with conservati ve measures, including medication s and stretching exercises for at least 6 weeks in the last 6 months. She is an excellent candidate for repeat radiofrequ ency ablation on the left Lumbar radiculopathy 128 837893 M54.16 Patient has minimal numbness and her symptoms respond well to radiofrequ ency ablation. It is less likely that her symptoms are currently due to radiculopa thy [id number] NICKI SALDANA MD [facility] [address]PT [address] [place] [address] 12/06/2021 09:19:07 12/06/2021 14:25:46 [id number] NICKI SALDANA MD [facility] OUTPT [address] [place] [address] 01/03/2022 14:34:51 01/03/2022 15:07:29 Lumbar spondylosis 566338605 M47.896 80% relief with radiofrequ ency ablation on the left. The patient has been doing stretching exercises since the last procedure. She will contact us should her pain return on the right or on the left so that we can consider repeating the radiofrequ ency ablation. Lumbar radiculopathy 128 M54.16 Patient has minimal numbness and her symptoms respond well to radiofrequ ency ablation. It is less likely that her symptoms are currently due to radiculopa thy [id number] Jayy Messina MD [facility] [address] [facility] [address] [place] [address] 01/14/2022 11:36:34 01/14/2022 12:23:09 Subacromial bursitis of right shoulder [id number] 516025 M75.51 Osteoarthr itis of acromioclavicular joint 248365689 M19.011 [id number] Jayy Messina MD [facility] [address], [address] [place] [address] 01/17/2022 13:42:30 01/17/2022 14:38:29 Pain of acromioclavicular joint 474783612 M25.512 [id number] Jyay Messina MD [facility] [address] [facility] [address] [place] [address] 02/18/2022 08:12:34 02/18/2022 08:29:10 Pain of acromioclavicular joint 785565499 M25.512 Subacromia l bursitis of right shoulder 2432007029 213819 M75.51 Osteoarthr itis of acromioclavicular joint 644766367 M19.011 [id number] ROSALINA CHAVIRA [email or web address] [place] [address] 02/25/2022 09:57:25 02/25/2022 10:32:27 Chronic interstitial cystitis 397512086 N30.10 Symptoms have improved significan tly s/p Botox 05/24/21. She will continue hydroxyzin e 25 mg bid. She will follow up in 6 months for bladder scan and reevaluati on. UA and culture sent to rule out persistent UTI. Advised patient to call if any questions arise. Incomplete emptying of urinary bladder 517292244 R39.14 Will continue to monitor and check at next visit. Blood in urine 60254200 R31.9 Possible intermitte nt hematuria. She had an unremarkab le CT abd/pelvis with oral and IV contrast in February 2018. Urine cytology and cystoscopy on 05/07/20 were negative. Will continue to monitor. Urinary tr act infectious disease 48716077 N39.0 May be due to recent steroid use. Symptoms may take longer to clear due to IC. She will finish Keflex course. Advised patient to call if symptoms do not resolve or return prior to next visit. [id number] NICKI SALDANA MD _[facility] [address]PT [address] [place] [address] 03/03/2022 09:46:08 03/03/2022 10:05:41 Lumbar spondylosis 958084728 M47.896 80% relief with radiofrequ ency ablation on the left. The patient has been doing stretching exercises since the last procedure. She will contact us should her pain return on the right or on the left so that we can consider repeating the radiofrequ ency ablation. Lumbar radiculopathy 128 M54.16 Patient has minimal numbness and her symptoms respond well to radiofrequ ency ablation. It is less likely that her symptoms are currently due to radiculopa thy Pain of ri ght shoulder joint [id number] 6956091 M25.511 We are going to try injections of the articular branches of the suprascapu lar and axillary nerves to see if this will help with the pain and physical therapy. I discussed the risks of injection, including but not limited to bleeding, infection, nerve damage, pain exacerbati on, allergy to medication s and systemic effect of steroids. [id number] Jayy Messina MD [facility] [address], [address] [place] [address] 03/14/2022 08:44:38 03/14/2022 09:20:47 Suprascapular nerve compression 139753868 G56.81 Osteoarthr itis of acromioclavicular joint 362971070 M19.011 [id number] NICKI SALDANA MD [facility] [address] [place] [address] 05/12/2022 07:53:51 05/12/2022 08:18:45 Lumbar spondylosis 745159777 M47.896 80% relief with radiofrequ ency ablation on the left. The patient has been doing stretching exercises since the last procedure. She will contact us should her pain return on the right or on the left so that we can consider repeating the radiofrequ ency ablation. Lumbar radiculopathy 128 M54.16 Patient has minimal numbness and her symptoms respond well to radiofrequ ency ablation. It is less likely that her symptoms are currently due to radiculopa thy Cervical radiculopathy 85589350 M54.12 The patient has symptoms of radiculopa thy confirmed by EMG nerve conduction study. She has failed physical therapy and home exercises, as well as medication s. She is an excellent candidate for cervical epidural steroid injection. I discussed the risks of injection, including but not limited to bleeding, infection, nerve/spin al cord damage, postdural puncture headache, pain exacerbati on, allergy to medication s and systemic effect of steroids. [id number] NICKI SALDANA MD _[facility] [address] [address] [place] [address] 07/09/2022 13:18:05 07/09/2022 13:41:38 Lumbar spondylosis 909172695 M47.896 80% relief with radiofrequ ency ablation on the left. The patient has been doing stretching exercises since the last procedure. She will contact us should her pain return so that we can consider repeating the radiofrequ ency ablation. Lumbar radiculopathy 128 491730 M54.16 Patient has minimal numbness and her symptoms respond well to radiofrequ ency ablation. It is less likely that her symptoms are currently due to radiculopa thy Pain of ri ght shoulder joint 8938996932 5652434 M25.511 Dr. Saldana previously discussed with patient injections of the articular branches of the suprascapu lar and axillary nerves to see if this will help with the pain and physical therapy. [id number] NICKI SALDANA MD _[facility] [address]PT [address] [place] [address] 08/08/2022 10:16:31 08/08/2022 15:46:39 [id number] NICKI SALDANA MD _[facility] OUTPT [address] [place] [address] 09/11/2022 12:43:37 09/11/2022 15:30:16 Lumbar spondylosis 299516406 M47.896 80% relief with radiofrequ ency ablation on the left. The patient has been doing stretching exercises since the last procedure. She will contact us should her pain return so that we can consider repeating the radiofrequ ency ablation. Pain of ri ght shoulder joint 3490509542 0145533 M25.511 Patient recently had suprascapu lar and axillary nerve block which did not provide significan t relief of symptoms Cervical radiculopathy 45367995 M54.12 Patient continues with chronic neck pain and right-side d radiculopa thy. Recent suprascapu lar and axillary nerve block did not provide significan t relief of symptoms. MRI from 2020 shows C5-6 bulge. EMG nerve conduction study from April of 2022 shows evidence of right C5 or C6 radiculopa thy. Patient has completed physical therapy for neck pain x3 and continues with daily home exercises with little relief of symptoms. Patient has also tried and failed gabapentin , Lyrica, and duloxetine . Patient has also tried acupunctur e without significan t relief [id number] NICKI SALDANA MD _[facility] PA[facility] OUTPT [address] [place] [address] 10/17/2022 09:33:00 10/17/2022 14:41:24 [id number] NICKI SALDANA MD [facility] OUTPT [address] [place] [address] 11/21/2022 07:54:39 11/21/2022 08:32:22 Pain of right shoulder joint 6807327162 5605542 M25.511 Patient had suprascapu lar and axillary nerve block July 2022 which did not provide significan t relief of symptoms. Does report relief of right shoulder pain, and increased ROM of right shoulder following cervical JULIETH 10/17/2022 Lumbar spondylosis 74265 0009 M47.896 80% relief with radiofrequ ency ablation on the left November 2021. She also previously had right-side d RFA for 2020 The patient has been doing stretching exercises since the last procedure. She reports that left-sided low back pain has begun to return and she is interested in repeating left-sided lumbar RFA Cervical radiculopathy 38054899 M54.12 Patient reports 50% decrease in chronic neck pain, right shoulder pain and right-side d radiculopa thy following cervical JULIETH 10/17/2022 . States that she is no longer experienci ng burning pain. MRI from 2020 shows C5-6 bulge. EMG nerve conduction study from April of 2022 shows evidence of right C5 or C6 radiculopa thy. Patient has completed physical therapy for neck pain x3 and continues with daily home exercises with little relief of symptoms. Patient has also tried and failed gabapentin , Lyrica, and duloxetine . Patient has also tried acupunctur e without significan t relief Myofascial pain 40744225 9 M79.10 Patient continues with myofascial pain and muscle spasm near her shoulder blades bilaterall y. She reports that she continues with exercises, Biofreeze, TENS and heat with some effect. Will schedule thoracic trigger point injections [id number] NICKI SALDANA MD _[facility] [address]PT [address] [place] [address] 12/22/2022 09:24:50 12/23/2022 15:55:27 [id number] NICKI SALDANA MD _[facility] PA[facility] MGMT [address]PT [address] [place] [address] 01/23/2023 09:38:54 01/23/2023 10:17:14 Pain of right shoulder joint 2498297502 6747781 M25.511 Patient had suprascapu lar and axillary nerve block July 2022 which did not provide significan t relief of symptoms. Does report relief of right shoulder pain, and increased ROM of right shoulder following cervical JULIETH 10/17/2022 Lumbar spondylosis 21791 0009 M47.896 Patient reports greater than 50% relief with radiofrequ ency ablation on the left December 2022. She does however report recurrence of right-side d axial low back pain. She previously had right-side d RFA for 2020 with greater than 80% relief of symptoms. The patient has been doing stretching exercises since the last procedure. She reports that right sided low back pain has begun to return and she is interested in repeating right-side d lumbar RFA Cervical radiculopathy 20313087 M54.12 Patient reports 50% decrease in chronic neck pain, right shoulder pain and right-side d radiculopa thy following cervical JULIETH 10/17/2022 . States that she is no longer experienci ng burning pain. MRI from 2020 shows C5-6 bulge. EMG nerve conduction study from April of 2022 shows evidence of right C5 or C6 radiculopa thy. Patient has completed physical therapy for neck pain x3 and continues with daily home exercises with little relief of symptoms. Patient has also tried and failed gabapentin , Lyrica, and duloxetine . Patient has also tried acupunctur e without significan t relief Myofascial pain 01198776 9 M79.10 Patient continues with myofascial pain and muscle spasm near her shoulder blades bilaterall y. She reports that she continues with exercises, Biofreeze, and heat with some effect. Previously seen chiropract or without relief. Is interested in TENS unit. Will send order [id number] NICKI SALDANA MD _[facility] OUTPT [address] [place] [address] 02/20/2023 08:56:11 02/20/2023 15:53:27 [id number] NICKI SALDANA MD _[facility] PA[facility]MT OUTPT [address] [place] [address] 03/17/2023 12:48:21 03/17/2023 13:36:26 Pain of right shoulder joint 4411463444 9586947 M25.511 Patient had suprascapu lar and axillary nerve block July 2022 which did not provide significan t relief of symptoms. Does report relief of right shoulder pain, and increased ROM of right shoulder following cervical JULIETH 10/17/2022 Lumbar spondylosis 32389 0009 M47.896 Patient had right L3-4, L4-5, L5-S1 RFA and reports 40% relief of right-side d axial low back pain. The patient has been doing stretching exercises since the last procedure. Cervical radiculopathy 17624274 M54.12 Patient reports 50% decrease in chronic neck pain, right shoulder pain and right-side d radiculopa thy following cervical JULIETH 10/17/2022 . States that she is no longer experienci ng burning pain. MRI from 2020 shows C5-6 bulge. EMG nerve conduction study from April of 2022 shows evidence of right C5 or C6 radiculopa thy. Patient has completed physical therapy for neck pain x3 and continues with daily home exercises with little relief of symptoms. Patient has also tried and failed gabapentin , Lyrica, and duloxetine . Patient has also tried acupunctur e without significan t relief Myofascial pain 58235168 9 M79.10 Patient continues with myofascial pain and muscle spasm near her shoulder blades bilaterall y. She reports that she continues with exercises, Biofreeze, and heat with some effect. Previously seen chiropract or without relief. She has been using TENS unit with some relief Lumbar radiculopathy 128 448189 M54.16 Patient reports increasing bilateral lower extremity radiculopa thy (right greater than left) in L4 distributi on. She continues with use of TENS unit, stretching exercises, and muscle relaxers without significan t relief. Patient has had lumbar RFA with relief of axial pain. She reports increasing weakness and states at times she feels as though she may fall. Does not have recent lumbar MRI. Will order MRI for evaluation , and consider offering injections [id number] NICKI SALDANA MD _[facility] PA[facility] OUTPT [address] [place] [address] 05/15/2023 13:56:12 05/15/2023 16:05:37 [id number] NICKI SALDANA MD _[facility] PA[facility] MGMT OUTPT [address] [place] [address] 06/23/2023 10:33:14 06/23/2023 11:10:09 Lumbar radiculopathy 741350916 M54.16 Patient recently had L5-S1 JULIETH with approximat mark 70% relief of low back pain and radiculopa thy. She continues with use of TENS unit, stretching exercises, and muscle relaxers. Patient has had lumbar RFA with relief of axial pain. Lumbar MRI shows degenerati ve disc disease at L5-S1 Myofascial pain 68012799 9 M79.10 Patient continues with cervical and thoracic myofascial pain and muscle spasm. She reports that she continues with exercises, Biofreeze, and heat with some effect. Previously seen chiropract or without relief. She has been using TENS unit with some relief. She is interested in repeating trigger point injections Cervical radiculopathy 97593893 M54.12 Patient reported 50% decrease in chronic neck pain, right shoulder pain and right-side d radiculopa thy following cervical JULIETH 10/17/2022 . Reports that neck pain has been increasing recently. She is an excellent candidate for repeat procedure MRI from 2020 shows C5-6 bulge. EMG nerve conduction study from April of 2022 shows evidence of right C5 or C6 radiculopa thy. Patient has completed physical therapy for neck pain x3 and continues with daily home exercises with little relief of symptoms. Patient has tried and failed gabapentin , Lyrica, and duloxetine . Patient has also tried acupunctur e without significan t relief [id number] NICKI SALDANA MD _[facility] PA[facility] OUTPT [address] [place] [address] 08/10/2023 10:41:21 08/10/2023 11:45:15 Lumbar spondylosis 458987202 M47.896 Good relief with radiofrequ ency ablation in the past. The patient will contact us when she needs to schedule repeat radiofrequ ency ablation Lumbar radiculopathy 128 M54.16 The patient had about a month of relief with lumbar epidural steroid injection but then the pain returned Cervical radiculopathy 31424288 M54.12 The patient has symptoms of radiculopa thy confirmed by EMG nerve conduction study. She has failed physical therapy and home exercises, as well as medication s. She is an excellent candidate for cervical epidural steroid injection. Our request for injection was denied by insurance Myofascial pain syndrome of neck 573987653 M54.2 Trigger point injections performed today I recommende d the use of a TENS unit [id number] NICKI SALDANA MD _[facility] PA[facility]MT OUTPT [address] [place] [address] 09/11/2023 09:32:10 09/11/2023 13:43:12 [id number] [facility] [address] [place] [address] 10/02/2023 08:08:51 10/02/2023 08:39:58 Lumbar spondylosis 767667456 M47.896 Good relief with radiofrequ ency ablation in the past. The patient will contact us when she needs to schedule repeat radiofrequ ency ablation Lumbar radiculopathy 128 M54.16 The patient had about a month of relief with L5-S1 interlamin ar lumbar epidural steroid injection but then the pain returned. Patient continues with low back pain with radiation to bilateral lower extremitie s. MRI shows disc bulge with bilateral foraminal narrowing. Procedure explained to patient. Risks and benefits discussed. She is interested in scheduling Cervical radiculopathy 00764526 M54.12 The patient has symptoms of radiculopa thy confirmed by EMG nerve conduction study. She has failed physical therapy and home exercises, as well as medication s. Cervical JULIETH provided minimal relief Myofascial pain syndrome of neck 981321007 M54.2 Patient reports significan t relief with cervical TPI [id number] NICKI SALDANA MD _[facility] PA[facility] MGMT OUTPT [address] [place] [address] 12/18/2023 10:00:25 12/18/2023 11:39:49 [id number] NICKI SALDANA MD _[facility] PAIN MGMT OUTPT [address] [place] [address] 05/11/2024 13:29:33 05/11/2024 14:03:52 Lumbar spondylosis 237555611 M47.896 Good relief with radiofrequ ency ablation in the past. The patient will contact us when she needs to schedule repeat radiofrequ ency ablation Lumbar radiculopathy 128 024199 M54.16 The patient had bilateral L5-S1 TFESI and lumbar TPI with greater than 50% relief lasting for 3 months. She reports the pain symptoms have now recurred and she is interested in repeating procedure Cervical radiculopathy 53924194 M54.12 The patient has symptoms of radiculopa thy confirmed by EMG nerve conduction study. She has failed physical therapy and home exercises, as well as medication s. Cervical JULIETH provided minimal relief Myofascial pain syndrome of neck 203301978 M54.2 Patient reports significan t relief with cervical TPI [id number] NICKI SALDANA MD _[facility] PA[facility]MT OUTPT [address] [place] [address] 07/04/2024 09:18:25 07/04/2024 11:23:29 [id number] NICKI SALDANA MD _[facility] PAIN MGMT OUTPT [address] [place] [address] 08/02/2024 14:54:59 08/02/2024 15:37:21 Lumbar spondylosis 373447490 M47.896 Patient previously had left L3-S1 RFA 12/22/2022, and right L3-S1 RFA 02/20/2023 with greater than 50% relief of pain. She reports recurrence of axial low back pain. She is an excellent candidate for repeat lumbar RFA. Patient requests sedation Lumbar radiculopathy 128 406883 M54.16 The patient had bilateral L5-S1 TFESI and lumbar TPI with 80% relief Cervical radiculopathy 44828214 M54.12 The patient has symptoms of radiculopa thy confirmed by EMG nerve conduction study. She has failed physical therapy and home exercises, as well as medication s. Cervical JULIETH provided minimal relief Myofascial pain syndrome of neck 947020974 M54.2 Patient reports significan t relief with cervical TPI [id number] NICKI SALDANA MD _[facility] PA[facility] MGMT OUTPT [address] [place] [address] 09/23/2024 10:19:07 09/23/2024 13:18:56 [id number] NIC NAZARIO MD [facility]C [place] [address] [facility] [address] [place] [address] 11/14/2024 08:41:32 11/14/2024 09:53:15 Acute deep venous thrombosis of left lower extremity [id number] 22399 I82.402 Hematochezia 723587018 K 92.1 [id number] ROXY BARBOUR NP [facility]C [place] [address] [address] 01/13/2025 07:45:36 01/13/2025 08:28:45 Acute deep venous thrombosis of left lower extremity 6126723557 79961 I82.402 DVT, left leg, provoked, in the setting of Estrogen use and left leg surgery. Tolerating switch to Eliquis. No evidence of bleeding. Discussed as provoked should be on DOAC for up to 6m. She declined coag workup in the past. She would like repeat u/s at 6m elkin to ensure resolution . I will see her after. Hematochezia 470982690 K 92.1 resolved Iron deficiency 30036161 E61.1 low iron stores. Taking po iron qod. Voiced she has some loose stools following the med but managed well. Will continue qod and recheck labs prior to next ov. Labs were stable when wound clinic saige them this month. [id number] NIC NAZARIO MD [facility] HEM/ONC [facility] [address] [place] [phone] 05/05/2025 08:17:12 05/05/2025 10:10:37 Iron deficiency 18667305 E61.1 9881 Acute deep venous thrombosis of left femoral vein [id number] 38163 I82.412 [id number] Fatigue 32775232 R53.83 [id number] Health Concerns Section Related Observation LastModified by Organization Detai ls LastModified Time None Recorded Concern Status LastModified by Organization Details LastModified Time None Recorded Advance Directives Directive None Recorded Payers Insurance Date Sequence Insurance Name Policy Number Policy Somers Covered Member ID Somers Member ID Guarantor Name 11/01/2024 1 [place] [id number] Elkin Joyal [id number] Maria Luisa A Joyal 08/04/2024 1 [place] [id number] Maria Luisa A Joyal [id number] Maria Luisa A Joyal 10/17/2020 1 [place] [id number] Elkin A Joyal [id number] Maria Luisa A Joyal 05/05/2025 1 [facility] INDEMNITY PLAN (PPO) [id number] Maria Luisa A Joyal [id number] Maria Luisa A Joyal 01/05/2025 2 [facility] INDEMNITY PL[facility] (INDEMNITY) [id number] Maria Luisa A Joyal [id number] Maria Luisa A Joyal 04/17/2023 PAYMENT PLAN Maria Luisa A Joyal 01/16/2021 1 [place] [id number] Elkin A Joyal [id number] Maria Luisa A Joyal 09/06/2024 PAYMENT PLAN Maria Luisa A Joyal 06/06/2022 PAYMENT PLAN Maria Luisa A Joyal 08/04/2024 2 [place] [id number] Elkin Mcclelland [id number] Maria Luisa Mcclelland 07/07/2024 1 [place] [id number] T Elkin Mcclelland [id number] Maria Luisa Mcclelland 10/17/2020 1 [place] [id number] Elkin Mcclelland [id number] Maria Luisa Mcclelland 01/05/2025 1 [place] [id number] T Elkin Mcclelland [id number] Maria Luisa Mcclelland Notes Date Note Type Note Provider Name and Address Organization Details Recorded Time 08/02/2024 text/html 48-year-old presenting with chronic low back pain, neck pain, and right shoulder pain. Reports her pain level today as 6/10. She recently had bilateral L5-S1 TFESI 07/04/2024 and reports 80% % relief of low back pain and radiculopathy. Prior to procedure patient was reporting radiation to bilateral lower extremities (left greater than right), however states that this has now resolved. She continues with axial low back pain. Pain is described as aching, and spasm. Reports that her pain symptoms tend to be exacerbated by prolonged standing, and sitting. Reports some relief with TENS unit, and muscle relaxers. She also reports some relief with heat, states that cold increases pain symptoms. Reports that pain tends to radiate to her shoulders bilaterally. She has completed physical therapy for her neck x3 without significant relief. Patient has also tried acupuncture without significant relief. She continues with home exercises daily with little relief. Previously had right suprascapular and axillary nerve block without significant relief. Patient had C6-7 JULIETH and cervical TPI 09/11/2023 and reports decrease in myofascial pain, however she continues with neck pain. She continues with Tylenol and nabumetone, with some relief of her symptoms. She has tried gabapentin, Lyrica, duloxetine without significant relief. Patient denies changes in health. Denies any new focal neurologic deficits, change in bowel or bladder function or saddle anesthesia as well as any recent fevers, infections, chills, nightsweats or unexpected weight loss. Mood is unchanged. Injections:07/04/2024 bilateral L5-S1 TFESI and lumbar TPI-80% qbppxd0912/18/2023 bilateral L5-S1 TFESI and lumbar TPI-greater than 50% hnaent0309/11/2023 C6-7 JULIETH and cervical TPI-relief of muscle pain, minimal change in neck pain05/15/2023 L5-S1 JULIETH with sedation-70% relief lasting 1 month02/20/2023 Right L3-4, L4-5, L5-S1 RFA-50% ptfsep2112/22/2022 left L3-S1 radiofrequency ablation, thoracic trigger point injection-greater than 50% splvub2210/17/2022 C6-7 JULIETH sedation-50% reliefNovember 2021 left L3-S1 RFA-80% reliefNov2020 right L3-S1 RFA-80% ygikre2508/08/2022 Right suprascapular and axillary nerve block-no relief Surgeries: Right rotator cuff repair December 2021, left carpal tunnel repair May 2017, left knee arthroscopy June 2012, appendectomy, cholecystectomy Previous medications: no relief with cyclobenzaprine, Ibuprofen, Aleve. Percocet upsets her stomach. MRI from 2020 shows C5-6 bulge EMG nerve conduction study from April of 2022 shows evidence of right C5 or C6 radiculopathy. AMADOU GARG, OCTAVIO [address] [place] [address], [phone], [facility] 08/02/2024 15:47:00 11/14/2024 text/html ROS as noted in the HPI REASON FOR CONSULT:DVT, left leg. HISTORY OF PRESENT ILLNESS:Patient is a y.o. woman with a PMH of HTN, asthma, GERD, OA, seizures, multiple colon polyps who was referred to Hem Onc for left leg DVT diagnosed in 10/2024. The DVT was likely related to the use of estrogen and left foot surgery. Patient presents today to review recent test results and discuss further management, along with her Elkin.Patient denies F/C, no fatigue, no significant weight loss, no night sweating, no chest pain/cough, no N/V/D or abdominal pain, no melena/hematochezia, no dysuria, no hematuria, no myalgia/arthralgia, no rash.Patient noted nausea and poor appetite, as well as feeling cold and shivering, hematochezia since taking xarelto.There is b/l hearing loss over about one year.Patient had two negative genetic tests, with the second one in mid 2023. Imagin10/24/2024, US: left leg extensive DVT. Past Medical History:HTN, asthma, GERD, multiple colon polyps, OA, seizures. Family HistoryMother with HTN, DM, Infrapopliteal (IP) peripheral arterial disease.Paternal uncle with colon cancer.Paternal aunt with breast and colon cancer. Social HistoryNo smoking/alcohol abuse. NIC NAZARIO MD [address] [place] [address], [phone], [facility] 04/13/2025 21:14:22 01/13/2025 text/html ROS as noted in the HPI REASON FOR CONSULT:DVT, left leg. HISTORY OF PRESENT ILLNESS:Patient is a y.o. woman with a PMH of HTN, asthma, GERD, OA, seizures, multiple colon polyps who was referred to Hem Onc for left leg DVT diagnosed in 10/2024. The DVT was likely related to the use of estrogen and left foot surgery. Patient presents today to review recent test results and discuss further management, along with her Elkin.Patient denies F/C, no fatigue, no significant weight loss, no night sweating, no chest pain/cough, no N/V/D or abdominal pain, no melena/hematochezia, no dysuria, no hematuria, no myalgia/arthralgia, no rash.Patient noted nausea and poor appetite, as well as feeling cold and shivering, hematochezia since taking xarelto.There is b/l hearing loss over about one year.Patient had two negative genetic tests, with the second one in mid 2023. Interval History: Patient here for routine f/u. She is a former patient of Dr. Nazario's that I am meeting for the first time. She is tolerating Eliquis better than the Xarelto. She denies any source of bleeding. She is on oral iron qod. Has some diarrhea with this. She continues with the wound clinic. Occasional discomfort to left leg at knee and swelling. Not consistent. No warmth or redness. Imagin10/24/2024, US: left leg extensive DVT. Past Medical History:HTN, asthma, GERD, multiple colon polyps, OA, seizures. Family HistoryMother with HTN, DM, Infrapopliteal (IP) peripheral arterial disease.Paternal uncle with colon cancer.Paternal aunt with breast and colon cancer. Social HistoryNo smoking/alcohol abuse. ROXY BARBOUR NP [address] [place] [address], [phone], [facility] 01/13/2025 08:48:55 05/05/2025 text/html ROS as noted in the HPI Diagnosis:DVT, left leg. HISTORY OF PRESENT ILLNESS:Patient is a 49 y.o. woman with a PMH of HTN, asthma, GERD, fatty liver (biopsy on 10/31/2022), OA, seizures, polyposis of colon who was referred to Hem Onc for left leg DVT diagnosed in 10/2024. Patient was treated with Xarelto then Eliquis up to 03/2025. The DVT was likely related to the use of estrogen and left foot surgery in 09/2024. Interval history:Patient presents today to review recent test results and discuss further management.There is still delayed healing in left leg open wound, a/w pain.Patient is on iron pills.Patient reports chronic fatigue.Patient wears hearing aids.Patient had televisit with [facility] [place] [facility] on 05/03/2025, the visit record is not available for review yet.No F/C, no significant weight loss, no night sweating, no chest pain/cough, no N/V/D or abdominal pain, no melena/hematochezia, no dysuria, no hematuria, no rash. Labs:11/14/2024, ferritin 26, TSAT 10%.02/23/2025, NESTOR 1:160H. SIFE: negative. ESR wnl. CRP wnl. B12: 346. ALT 36H. AST 19.05/02/2025, ferritin 22, TSAT 28%. HGB 13.8, MCV 92.9. PLT 215, WBC 5.8. Imagin10/24/2024, US: left leg extensive DVT. NIC NAZARIO MD [address] [place], [phone], [facility] 05/05/2025 09:53:21 OBGyn Episode No OBEpisode recorded.
--- OUTSIDE RECORDS SUMMARY | 2025-10-31 19:09 | XMS_ITS | Encounter Summary ---
Author Organization [facility] Address [address] [place] [address] Phone Care Team Providers Care Interventional Sale Consultant Name Role Phone Elma Vogel MD Primary Care Provider [phone] Alexandria Figueredo NP Primary Care Provider + Encounter Details Date Type Department Care Team (Late st Contact Info) Description 04/18/2019 Ancillary Orders [facility] [place] White [address] [place] [address], 2nd [place] [address] Ruiz Carlisle MD [address] [place] [address] [phone] [email or web address] Research subject Social History Tobacco Use Types Packs/Day Years [...] Description 11/20/2025 4:45 PM EST Pre-Admission Testing [facility] [place] [place]Procedure Evaluation Department Please [place] [phone] Fam Preciado MD [address] [place] [phone] [email or web address] 12/11/2025 Procedure Pass [facility] [place] [place] 4 ENDO DEPT [address] [facility], [address] [place] [address] 12/11/2025 1:00 PM EST Hospital Encounter [facility] [place] [place] 4 ENDO DEPT [address] [facility], [address] [place] [address] Fam Preciado MD [address] [place] [address] [email or web address] 12/11/2025 1:00 PM EST - 12/11/2025 1:45 PM EST Surgery [facility] [place] 4 ENDO DEPT [address] [facility], [address] [place] [address] Fam Preciado MD [address] [place] [address] [email or web address] COLONOSCOPY 02/21/2026 8:30 AM EDT Telemedicine [facility] [address] [place] [address], 5th [place] [address] Fam Preciado MD [address] [place] [phone] [email or web address] Scheduled Procedures Name Priority Associated Diagnoses Date/Ti me COLONOSCOPY Colonic adenomatous polyposis of unknown etiology 12/11/2025 1:00 PM EST documented as of this encounter Visit Diagnoses Diagnosis Research subject Colonic adenomatous polyposis of unknown etiology documented in this encounter Care Teams Interventional Sale Consultant Relationship Specialty Start Date End Date Elma Vogel MD [address] [place] [address] PCP - General 03/22/15 05/23/25 Alexandria Figueredo NP [address] [place] [address] PCP - General Nurse Practitioner 05/24/25 documented as of this encounter Additional Source Comments The information contained in this document represents components of the legal health record. It is not the complete legal health record.[facility]
--- OUTSIDE RECORDS SUMMARY | 2025-10-31 19:09 | XMS_ITS | Encounter Summary ---
Author Organization [facility] Address [address] [facility] [address] [place] [address] Phone Care Team Providers Care Hand Bootmaker Name Role Phone Elma Vogel MD Primary Care Provider [phone] Alexandria Figueredo NP Primary Care Provider + Encounter Details Date Type Department Care Team (Late st Contact Info) Description 04/18/2019 Ancillary Orders [facility] PET Imaging, White [address] [place] [address], 2nd [place] [address] Ruiz Carlisle MD [address] [place] [address] [address] [email or web address] Research subject Social History Tobacco [...] Description 11/20/2025 4:45 PM EST Pre-Admission Testing [facility] Pre-Procedure Evaluation Department [place] [phone] Fam Preciado MD [address] [place] [phone] [email or web address] 12/11/2025 Procedure Pass [facility] BRET 4 ENDO DEPT [address] [facility], [address]th [place] [address] 12/11/2025 1:00 PM EST Hospital Encounter [facility] BRET 4 ENDO DEPT [address] [facility], [address]th [place] [address] Fam Preciado MD [address] [place] [phone] [email or web address] 12/11/2025 1:00 PM EST - 12/11/2025 1:45 PM EST Surgery [facility] BRET 4 ENDO DEPT [address] [facility], [address] [place] [address] Fam Preciado MD [address] [place] [address] [email or web address] COLONOSCOPY 02/21/2026 8:30 AM EDT Telemedicine [facility] [address] [place] [address], 5th [place] [address] Fam Preciado MD [address] [place] [phone] [email or web address] Scheduled Procedures Name Priority Associated Diagnoses Date/Ti me COLONOSCOPY Colonic adenomatous polyposis of unknown etiology 12/11/2025 1:00 PM EST documented as of this encounter Visit Diagnoses Diagnosis Research subject Colonic adenomatous polyposis of unknown etiology documented in this encounter Care Teams Hand Bootmaker Relationship Specialty Start Date End Date Elma Vogel MD [address] [place] [address] PCP - General 03/22/15 05/23/25 Alexandria Figueredo NP [address] [place] [address] PCP - General Nurse Practitioner 05/24/25 documented as of this encounter Additional Source Comments The information contained in this document represents components of the legal health record. It is not the complete legal health record.[facility]
--- OUTSIDE RECORDS SUMMARY | 2025-10-31 19:10 | XMS_ITS | Patient Health Record ---
Author Organization [facility] Address [address] [facility] [address] [place] [address] Care Team Providers Care Corporate Compliance Director Name Role Phone Jaspreet SIMS, Elma Primary Care Provider Royce Garner Unavailable [phone] Allergies Allergen (clinical drug ingredient) Drug/Non Drug Allergy documented on EMR Reaction Allergy Type Onset Date Status corn products, white potatoes (uncoded) Unknown Allergy Active codeine Codeine Sulfate Unknown Drug Allergy A ctive morphine Morphine Sulfate Unknown Drug Allergy Active Streptococcus pneumoniae type 1 capsular polysaccharide antigen / Streptococcus pneumoniae type 10A capsular polysaccharide antigen / Streptococcus pneumoniae type 11A capsular polysaccharide antigen / Streptococcus pneumoniae type 12F capsular polysaccharide antigen / Streptococcus pneumoniae type 14 capsular polysaccharide antigen / Streptococcus pneumoniae type 15B capsular polysaccharide antigen / Streptococcus pneumoniae type 17F capsular polysaccharide antigen / Streptococcus pneumoniae type 18C capsular polysaccharide antigen / Streptococcus pneumoniae type 19A capsular polysaccharide antigen / Streptococcus pneumoniae type 19F capsular polysaccharide antigen / Streptococcus pneumoniae type 2 capsular polysaccharide antigen / Streptococcus pneumoniae type 20 capsular polysaccharide antigen / Streptococcus pneumoniae type 22F capsular polysaccharide antigen / Streptococcus pneumoniae type 23F capsular polysaccharide antigen / Streptococcus pneumoniae type 3 capsular polysaccharide antigen / Streptococcus pneumoniae type 33F capsular polysaccharide antigen / Streptococcus pneumoniae type 4 capsular polysaccharide antigen / Streptococcus pneumoniae type 5 capsular polysaccharide antigen / Streptococcus pneumoniae type 6B capsular polysaccharide antigen / Streptococcus pneumoniae type 7F capsular polysaccharide antigen / Streptococcus pneumoniae type 8 capsular polysaccharide antigen / Streptococcus pneumoniae type 9N capsular polysaccharide antigen / Streptococcus pneumoniae type 9V capsular polysaccharide antigen Pneumovax 23 Unknown Drug Allergy Activ e Sulfur Unknown Drug Allergy Active Reason For Referral No Information Medications Medication SIG (Take, Route, Frequency, Duration) Notes Start Date End Date Status Sulfamethoxazole-TMP DS 800-160 MG 1 tablet Orally Twice a day; Duration: 10 day(s) Active Ondansetron HCl 8 MG 1 tablet Orally Active ProAir HFA 108 (90 Base) MCG/ACT 2 puffs as needed Inhalation Active Tylenol 1 tab Oral; Duration : 14 days 500mg prn Active Levothyroxine Sodium 50 MCG 1 tablet on an empty stomach in the morning Orally Once a day Active oxyCODONE HCl 5 MG 1 tablet as needed Orally every 6 hrs prn Active Estradiol 1 MG 1 tablet Orally Active Vitamin C 1000 MG 1 tablet Orally Once a day Active Meclizine HCl 25 MG 1 tablet as needed Orally Active Cyclobenzaprine HCl 10 MG 1 tablet at be dtime as needed Orally Once a day; Duration: 30 day(s) Active Fluticasone Furoate 100 MCG/ACT 1 puff in each nostril Inhalation Active Meloxicam 15 MG 1 tablet Orally Once a day; Duration: 30 day(s) Active Aimovig 140 MG/ML as directed Subcutaneous Active Amitriptyline HCl 25 MG 1 tablet Orally Once a day Active Sertraline HCl 100 MG 1 tablet Orally On ce a day; Duration: 30 day(s) Active Verapamil HCl ER 120 MG 1 tablet Orally Once a day Active ALPRAZolam 0.5 MG 1 tablet Orally Twic e a day Active Vimpat 100 MG 1 tablet Orally Once a day Active Clindamycin Phosphate 1 % 1 application to affected area Externally apply q am; Duration: 30 days 08/12/2021 Active Benzoyl Peroxide Wash 5 % 1 application Externally Once a day in am; Duration: 30 days 08/12/2021 Active Naratriptan HCl 2.5 MG 1 tablet Orally O nce a day; Duration: 1 day(s) Active Nurtec 75 MG 1 tablet on the tong ue and allow to dissolve Orally; Duration: 30 day(s) Active hydrOXYzine HCl 25 MG 1 tablet as needed Orally Active Immunizations Vaccine Route Administration Date Status Comme nts Influenza Unknown 11/28/2017 Administered Influenza Unknown 08/12/2021 Refused Social History Tobacco Use: Social History Observation Description Date Details (start date - stop date) Never Smoker NA - NA Smoking Question Answer Notes Status nonsmoker Problems Problem Type SNOMED Code ICD Code Onset Dates Problem Status W/U Status Risk Notes Problem Pruritic disorders (471565958) Unspecified pruritic disorder (698.9) Active confirmed ? 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 confirmed pt reports bruising but nothing obvious on exam Problem Sebaceous cyst (846780270) Sebaceous cyst (706.2) Active confirmed Problem Acne (43658171) Other acne (L70.8) Active confirmed overal l control is excellent considering she can only take 1 dcn /day Plan Of Treatment No Information Insurance Providers Payer Name Payer Address Payer Phone Subscriber Number Group Number Insured Name Patient Relationship to Insured Coverage Start Date Coverage End Date [facility] [address] [place] [phone] [id number] Elkin Mcclelland Spouse - patient is the spouse of the insured Medical (General) History Medical History History ICD Code ovarian adhesions endometriosis labial cyst interstitial cystitis hypothyroidism htn fibromyalgia microscopic colitis ibs tmj migranes tenosynovitis in hands asthma osteoarthritis gluten allergy Chronic fatigue nausea vertigo sinusitis endometriosis interstitial cystitis Surgical History Surgery Date(Month/Year) laparoscopy X5 removal of labial cyst cholecystectomy right knee arthroscopy appendectomy bladder surgery left knee arthroscopy urethrial dilitation partial hysterectomy diviated septum 02/2013 L hand Surgery s/p left carpal tunnerl r ealease 05/25/2017 L foot surgery 11/27/2016 L ankle tendon repair 06/18/2015 Total hysterectomy 11/17/2013 liver biopsy 08/2020 Hospitalization History Reason Date(Month/Year) cardiac ablation Colitis 02/2016
--- OUTSIDE RECORDS SUMMARY | 2025-10-31 19:10 | XMS_ITS | Encounter Summary ---
Author Organization [facility] Address [address] [place] [address] Phone Care Team Providers Care Histotechnologist Name Role Phone Elma Vogel MD Primary Care Provider [phone] Alexandria Figueredo NP Primary Care Provider + Encounter Details Date Type Department Care Team (Late st Contact Info) Description 05/23/2025 Procedure Pass [facility] BRET 4 ENDO DEPT [address] [facility], 4th [place] [address] Social History Tobacco Use Types Packs/Day Years [...] Description 11/20/2025 4:45 PM EST Pre-Admission Testing [facility] Pre-Procedure Evaluation Department Please [place] [address] Fam Preciado MD [address] [place] [address] [email or web address] 12/11/2025 Procedure Pass [facility] BRET 4 ENDO DEPT [address] [facility], [address] [place] [address] 12/11/2025 1:00 PM EST Hospital Encounter [facility] BRET 4 ENDO DEPT [address] [facility], [address] [place] [address] Fam Preciado MD [address] [place] [address] [email or web address] 12/11/2025 1:00 PM EST - 12/11/2025 1:45 PM EST Surgery [facility] BERT 4 ENDO DEPT [address] [facility], [address] [place] [address] Fam Preciado MD [address] [place] [address] [email or web address] [email or web address] 02/21/2026 8:30 AM EDT Telemedicine [facility] [address] [facility], 5th [place] [address] Fam Preciado MD [address] [place] [address] [address] [place] [address] [email or web address] Scheduled Procedures Name Priority Associated Diagnoses Date/Ti me COLONOSCOPY Colonic adenomatous polyposis of unknown etiology 12/11/2025 1:00 PM EST documented as of this encounter Visit Diagnoses Not on filedocumented in this encounter Care Teams Histotechnologist Relationship Specialty Start Date End Date Elma Vogel MD [address] [place] [address] PCP - General 03/22/15 05/23/25 Alexandria Figueredo NP [address] [place] [address] PCP - General Nurse Practitioner 05/24/25 documented as of this encounter Additional Source Comments The information contained in this document represents components of the legal health record. It is not the complete legal health record.[facility]
--- OUTSIDE RECORDS SUMMARY | 2025-10-31 19:10 | XMS_ITS | Data Portability ---
Author Organization [facility] - Reny Blackwell MD, Dr Denise; Neurology [facility] Acupuncture Address [address] [place] [id number] Care Team Providers Care Suspender Cutter Name Role Phone YOLETTE VICENTE Primary Care Provider YOLETTE VICENTE Referring Provider Assessment Encounter Date Assessment Date Assessment LastModified by Organization Details LastModified Time 10/06/2022 10/06/2022 Pt's migraines have dramatically increased off AImovig on EMgality so will get PA for AImovig. Presented w/ complex migraine and HAs are much worse off Emgality. She has failed verapamil, amitriptyline and Emgality and Aimovig is medically necessary for this pt [email or web address] Not available 10/08/2022 11:22:45 11/12/2022 11/12/2022 Pt's migraines h ad dramatically increased off AImovig on EMgality so we were able to geta PA for AImovig for this past year. [facility] they will no longer cover it. Will try AJovy. She has poorly controlled HTN and so controlling her migraines is important. Triptan class is contraindicated d/t risk of further increase in BP. .She recently had a complex migraine w/ stroke like features necessitating an trip to the ED. Will try Ajovy. Her BP remains an issue so I cannot use trudhesa rescue. Will add UBrelvy so she isn't always using Nurtec rescue. Will try to get Ajovy covered as we don't seem to be able to get the Aimovig covered this time kkroessler Not available 11/12/2022 15:02:54 02/11/2023 02/11/2023 Pt's migraines h ad dramatically increased off AImovig on EMgality so we were able to geta PA for AImovig for this past year. [employer] they will no longer cover it. Will try AJovy. She has poorly controlled HTN and so controlling her migraines is important. Triptan class is contraindicated d/t risk of further increase in BP. .She recently had a complex migraine w/ stroke like features necessitating an trip to the ED. Will try Ajovy. Her BP remains an issue so I cannot use trudhesa rescue. Will add UBrelvy so she isn't always using Nurtec rescue. Will try to get Ajovy covered as we don't seem to be able to get the Aimovig covered this time thelma Not available 02/11/2023 16:09:49 07/03/2023 07/03/2023 Pt's migraines have been manageable on Qulipta 30 mg and she will increase it to 60 mg. She has poorly controlled HTN and so controlling her migraines is important. Triptan class is contraindicated d/t risk of further increase in BP. .She recently had a complex migraine w/ stroke like features necessitating an trip to the ED. thelma Not available 07/03/2023 09:46:38 11/06/2023 11/06/2023 Pt's migraines have been manageable on Qulipta 60 mg, about 1+/wk and respond better to rescue meds.. Her BP control has improved.. Triptan class is contraindicated d/t risk of further increase in BP. .SHe had her sz while on Topiramate 200 mg which did not help her HAs thelma Not available 11/25/2023 11:00:53 Plan of Treatment Reminders Order Date Submit Date Provider Last Modified By Organization Details Last Modified Time Details Appointments None recorded. Lab None recorded. Referral None recorded. Procedures None recorded. Surgeries None recorded. Imaging None recorded. Medication Orders amitripty line 10 mg tablet 2022 023 thelma [facility]/Pharmacy #[id number], [address], [place], [address], 12/27/202 3 12:38:18 Nurtec ODT 75 mg disintegr ating tablet 2022 023 [id number], [address] [place] [address], [id number], 3 12:38:18 Ubrelvy 100 mg tablet 2022 023 [facility]/Pharmacy #1041, [address] [place] [address], [id number], 3 12:38:18 Qulipta 60 mg tablet 2022 024 [facility], [address] [place] [address], [id number], 4 10:57:54 Vimpat 100 [address] [facility] [address] [place] [address], [address], 3 12:28:20 amitripty line 10 mg tablet [address] [facility] [address] [place] [address], [id number], 3 11:13:41 Nurtec ODT 75 mg disintegr ating tablet 2022 023 [facility]/Pharmacy #1041, [address] [place] [address], [id number], 3 11:13:39 Ubrelvy 100 mg tablet 2022 023 [facility]/Pharmacy #1041, [address] [place] [address], [id number], 3 11:13:40 Qulipta 60 mg tablet 2022 023 [facility]/Pharmacy #1041, [address] [place] [address], [address], 3 11:13:40 Vimpat 100 mg tablet 2022 023 [facility]/Pharmacy #1041, [address] [place] [address], [id number], 3 11:13:43 amitripty line 10 mg tablet 2022 023 [facility]/Pharmacy #1041, [address] [place] [address], [id number], 3 15:13:51 Nurtec ODT 75 mg disintegr ating tablet 2022 023 [facility]/Pharmacy #104, [address] [place] [address], [address], 3 15:13:50 Ubrelvy 100 mg tablet 2022 023 [facility]/Pharmacy #1041, [address] [place] [address], [address], 3 15:13:50 Qulipta 30 mg tablet 2022 023 [email or web address] [facility]/Pharmacy #104, [address] [place] [address], [id number], 3 09:56:46 Vimpat 100 mg tablet 2022 023 [facility]-[id number] [facility]/Pharmacy #1041, [address] [place] [address], [id number], 3 09:47:41 amitripty line 10 mg tablet 2021 022 [facility]/Pharmacy #1041, [address] [place] [address], [address], 2 14:59:39 Nurtec ODT 75 mg disintegr ating tablet 2021 022 [facility]/Pharmacy #1041, [address] [place] [address], [address], 2 14:59:39 Ajovy 225 mg/1.5 mL subcutane ous auto-inje ctor [address]/Pharmacy #1041, [address] [place] [address], [address], 3 09:17:23 Ubrelvy 100 mg tablet 2021 022 [facility]/Pharmacy #1041, [address] [place] [address], [address], 2 03:34:03 Vimpat 100 mg tablet 2021 022 [facility]-[id number] [facility]/Pharmacy #104, [address] [place] [address], [address], 3 09:47:41 amitripty line 10 mg tablet 2021 022 [facility]/Pharmacy #1041, [address] [place] [address], [address], 2 10:24:02 Nurtec ODT 75 mg disintegr ating tablet 2021 022 [facility]/Pharmacy #1041, [address] [place] [address], [address], 2 10:24:02 naratript an 2.5 mg tablet 2021 022 [facility]/Pharmacy #1041, [address] [place] [address], [address], 2 10:24:02 Aimovig Autoinjec tor 140 mg/mL subcutane ous auto-inje ctor [address]/Pharmacy #1041, [address] [place] [address], [address], 09:17:20 Vimpat 100 mg tablet 2021 022 [facility]-[id number] [facility]/Pharmacy #1041, [address] [place] [address], [address], 09:47:41 Patient TargetsNo targets recorded. Patient Instructions Encounter Date Encounter Id Patient Instructions Last Modified By Organization Details Last Modified Time 10/06/2022 neck pain: care instructions [email or web address] Not available 10/08/2022 10:24:02 transient ischemic attack: care instructions kkroessler Not available 10/06/2022 14:32:03 high blood pressure: care instructions kkroessler Not available 10/08/2022 10:24:02 learning about high blood pressure kkroessler Not available 10/08/2022 10:24:02 epilepsy: care instructions kkroessler Not available 10/08/2022 10:24:02 11/12/2022 neck pain: care instructions kkroessler Not available 11/12/2022 14:59:35 transient ischemic attack: care instructions kkroessler Not available 11/12/2022 14:59:35 high blood pressure: care instructions kkroessler Not available 11/12/2022 14:59:35 learning about high blood pressure kkroessler Not available 11/12/2022 14:59:34 epilepsy: care instructions kkroessler Not available 11/12/2022 14:59:34 02/11/2023 [id number] neck pain: care instructions kkroessler Not available 02/13/2023 14:26:47 transient ischemic attack: care instructions kkroessler Not available 02/13/2023 14:26:47 high blood pressure: care instructions kkroessler Not available 02/13/2023 14:26:47 learning about high blood pressure kkroessler Not available 02/13/2023 14:26:47 epilepsy: care instructions kkroessler Not available 02/13/2023 14:26:47 07/03/2023 [id number] neck pain: care instructions kkroessler Not available 07/03/2023 11:13:35 transient ischemic attack: care instructions kkroessler Not available 07/03/2023 11:13:35 high blood pressure: care instructions kkroessler Not available 07/03/2023 11:13:35 learning about high blood pressure kkroessler Not available 07/03/2023 11:13:35 epilepsy: care instructions kkroessler Not available 07/03/2023 11:13:35 11/06/2023 [id number] neck pain: care instructions kkroessler Not available 11/25/2023 10:58:21 transient ischemic attack: care instructions kkroessler Not available 11/25/2023 10:58:21 high blood pressure: care instructions kkroessler Not available 11/25/2023 10:58:22 learning about high blood pressure kkroessler Not available 11/25/2023 10:58:21 epilepsy: care instructions kkroessler Not available 11/25/2023 10:58:21 Reason for Referral None Reported. Results Created Date Observation Date Name Description Value Unit Range Abnormal Flag Note LastModifiedBy Organization Detail LastModifiedTime 10/23/20 22 10/03/2022 elect rocar diogr am inter preta tion* No observ ation record ed. BARCODE Not Available 2021 16:28:59 10/23/20 22 02/21/2022 elect rocar diogr am inter preta tion* No observ ation record ed. BARCODE Not Available 2021 16:28:59 10/23/20 22 09/24/2020 MRI, brain , w/o contr ast No observ ation record ed. BARCODE Not Available 2021 16:28:59 10/23/20 22 10/03/2022 CT, angio gram, head + neck, w/ contr ast No observ ation record ed. BARCODE Not Available 2021 16:28:59 10/23/20 22 10/03/2022 CT, head + brain , w/o contr ast No observ ation record ed. BARCODE Not Available 2021 16:29:00 10/23/20 22 10/03/2022 MRI, brain , w/o contr ast No observ ation record ed. BARCODE Not Available 2021 17:11:28 Result Notes None recorded. Problems Name Problem SNOMED Code Status Onset Date Resolution Date Notes Provider Name and Address Organization Details Recorded Time Headache 21087363 Completed 03/26/2018 Reny Denise MD [address] [place] [address],[address], [place], [address] , AMARA rebollar MD 8 11:52:55 Hypothyro idism 05502313 Active Not Available [facility] 3 09:47:40 Hypertens marciano disorder 41313554 Active Not Available [facility] 3 09:47:40 Chronic neck pain 56977622076 07 Active Not Available [facility] 3 09:47:40 Refractor y migraine without aura 210991487 Active 2017 Not Available [facility] 3 09:47:40 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 Procedures Surgical History Date Name Laterality Status Provider Name and Address Organization Details Recorded Time 2 Carpal tunnel surgery completed All manzano MD 10/06/2022 14:06:57 9 EEG completed Reny Denise MD [address] [place] [address],[address], [place], [address], AMARA manzano MD 02/28/2019 15:27:11 8 Botox Migraine completed [facility] AMARA manzano MD 07/08/2018 13:16:48 8 Botox Migraine completed [facility] AMARA manzano MD 03/26/2018 11:51:25 8 TPI Headaches completed Reny Denise MD [address] [place] [address],[address], [place], [address] AMARA manzano MD 12/16/2017 16:01:06 Imaging Results None recorded. Procedure Notes None recorded. Medical Equipment None Reported. Allergies Allergen ID Allergen Name Allergen Category Reaction Reaction Severity Criticality Documentation Date Start Date Code Code System Note Provider Name and Address Organization Details Recorded Time 230 morphine medicatio n Not available Not available Not available 12/16/2017 7052 RxNorm [facility] AMARA pride MD 8 15:22:06 231 Pneumovax 23 medicatio n Not available Not available Not available 12/16/2017 60020 3 RxNorm [facility] AMARA pride MD 8 15:22:18 Medications Name Sig Start Date Stop Date Status Note LastModified by Organization Details LastModified Time Prescript ion - Change active Not Available Not Available Not Available Prescript ion - Prior Authoriza tion Request 11/28 completed Not Available Not Available Not Available verapamil ER (SR) 120 mg tablet,ex tended release TAKE 1 TABLET BY MOUTH EVERY DAY active Not Available Not Available No t Available losartan 50 mg tablet TAKE 1 TABLET BY MOUTH DAILY active Not Available Not Available No t Available celecoxib 200 mg capsule TAKE 1 CAPSULE BY MOUTH EVERY DAY active Not Available Not Available No t Available cyclobenz aprine 10 mg tablet TAKE 1 TABLET BY MOUTH 3 TIMES DAILY NEEDED active Not Available Not Available No t Available Qvar 80 mcg/actua tion Metered Aerosol oral inhaler 06/17 completed Not Available Not Available Not Available neomycin- polymyxin -hydrocor t 3.5 mg/mL-10, 000 unit/mL-1 % ear solution 12/16 completed Not Available Not Available Not Available prednison e 10 mg tablet TAKE 6 TABLETS ON DAY 1 DIRECTED AND DECREASE BY 1 TAB EACH DAY FOR A TOTAL OF 6 DAYS 07/03 completed Not Available Not Available Not Available doxycycli ne hyclate 100 mg capsule TAKE 1 CAPSULE BY MOUTH TWICE A DAY FOR 10 DAYS 07/03 completed Not Available Not Available Not Available dihydroer gotamine 0.5 mg/pump act. (4 mg/mL) nasal spray 1 spray each nostril; repeat in 30 minutes if needed 10/06 completed Not Available Not Available Not Available tizanidin e 2 mg tablet TAKE 1 TABLET EVERY 8 HOURS BY ORAL ROUTE FOR 20 DAYS. active Not Available Not Available No t Available triamcino lone acetonide 0.5 % topical cream 10/06 completed Not Available Not Available Not Available atorvasta tin 10 mg tablet TAKE 1 TABLET BY MOUTH EVERY DAY AT BEDTIME FOR 90 DAYS active Not Available Not Available No t Available cefpodoxi me 200 mg tablet 01/22 completed Not Available Not Available Not Available azithromy emily 250 mg tablet 12/16 completed Not Available Not Available Not Available ibuprofen 800 mg tablet active Not Available Not Available Not Available Lidocaine Viscous 2 % mucosal solution TAKE 15 ML BY MOUTH EVERY 4 HOURS NEEDED FOR SORE THROAT GARGLE AND SPIT SOLUTION . MAX 8 DOSES. 10/06 completed Not Available Not Available Not Available fluconazo le 150 mg tablet TAKE 1 TABLET ONCE, IF NO IMPROVEM ENT MAY REPEAT AFTER 3 DAYS. 07/03 completed Not Available Not Available Not Available ranitidin e 300 mg tablet BID 01/22 completed Not Available Not Available Not Available tolterodi ne ER 4 mg capsule,e xtended release 24 hr 06/27 completed Not Available Not Available Not Available cephalexi n 250 mg capsule 12/16 completed Not Available Not Available Not Available ondansetr on HCl 8 mg tablet TAKE 1 TABLET BY MOUTH EVERY DAY NEEDED 10/06 completed Not Available Not Available Not Available meloxicam 15 mg tablet TAKE 1 TABLET ONCE A DAY WITH FOOD (AVOID ALL OTHER NSAID) 10/06 completed Not Available Not Available Not Available phenazopy ridine 200 mg tablet TAKE 1 TABLET BY MOUTH THREE TIMES A DAY AFTER MEALS FOR 2 DAYS NOT COVERED 10/06 completed Not Available Not Available Not Available ondansetr on HCl 4 mg tablet TAKE 1 TABLET BY MOUTH EVERY 6 HOURS NEEDED active Not Available Not Available No t Available prednison e 20 mg tablet TAKE 1 TABLET BY MOUTH EVERY DAY 10/06 completed Not Available Not Available Not Available sertralin e 100 mg tablet TAKE 1 TABLET BY MOUTH EVERY DAY 07/03 completed Not Available Not Available Not Available prednison e 5 mg tablet 10/06 completed Not Available Not Available Not Available Elmiron 100 mg capsule TAKE 1 CAPSULE BY MOUTH THREE TIMES A DAY 10/06 completed Not Available Not Available Not Available clobetaso l 0.05 % topical cream 06/17 completed Not Available Not Available Not Available metronida zole 500 mg tablet 03/26 completed Not Available Not Available Not Available hydroxyzi ne HCl 50 mg tablet Take 1 tablet every day by oral route for 90 days. 06/17 completed Not Available Not Available Not Available ciproflox acin 500 mg tablet TAKE 1 TABLET BY MOUTH EVERY 12 HOURS FOR 5 DAYS 10/06 completed Not Available Not Available Not Available sulfameth oxazole 800 mg-trimet hoprim 160 mg tablet TAKE 1 TABLET BY MOUTH 3 TIMES A WEEK ON THU. THU. AND THU. 10/06 completed Not Available Not Available Not Available tramadol 50 mg tablet Take 1 tablet twice a day by oral route. 10/06 completed Not Available Not Available Not Available acetamino phen ER 650 mg tablet,ex tended release TAKE 1 TABLET BY MOUTH EVERY 8 HOURS active Not Available Not Available No t Available verapamil ER 180 mg 24 hr capsule,e xtended release TAKE 1 CAPSULE BY MOUTH EVERY DAY 07/03 completed Not Available Not Available Not Available oxycodone -acetamin ophen 5 mg-325 mg tablet 06/17 completed Not Available Not Available Not Available amoxicill in 875 mg tablet 08/23 completed Not Available Not Available Not Available alprazola m 0.25 mg tablet Take 1 tablet every day by oral route as needed for 14 days. 09/17 completed Not Available Not Available Not Available amitripty line 25 mg tablet Take 3 tablets every day by oral route at bedtime for 90 days. 09/17 completed Not Available Not Available Not Available estradiol 1 mg tablet TAKE 1 TABLET BY MOUTH EVERY DAY active Not Available Not Available No t Available aspirin 325 mg tablet,de layed release TAKE 1 TABLET BY MOUTH EVERY DAY FOR 30 DAYS 10/06 completed Not Available Not Available Not Available dicyclomi ne 20 mg tablet TAKE 1 TABLET BY MOUTH THREE TIMES A DAY NEEDED active Not Available Not Available No t Available amitripty line 10 mg tablet Take 2 tablets every day by oral route at bedtime. 2022 active Not Available Not Available Not Avai lable meclizine 25 mg tablet TAKE 1 TABLET BY MOUTH 3 TIMES A DAY NEEDED FOR VERTIGO active Not Available Not Available No t Available benzonata te 100 mg capsule SWALLOW WHOLE TAKE 1 CAPSULE 3 TIMES A DAY NEEDED *DO NOT BREAK CHEW, DISSOLVE , CUT, OR CRUSH* 10/06 completed Not Available Not Available Not Available levothyro xine 50 mcg tablet TAKE 1 TABLET BY MOUTH EVERY MORNING active Not Available Not Available No t Available cephalexi n 500 mg capsule TAKE 1 CAPSULE BY MOUTH EVERY 12 HOURS FOR 7 DAYS 10/06 completed Not Available Not Available Not Available erythromy emily 5 mg/gram (0.5 %) eye ointment APPLY 1 APPLICAT ION FOUR TIMES A DAY TO AFFECTED EYES FOR 10 DAYS 09/23 completed Not Available Not Available Not Available nitrofura ntoin macrocrys francisca 100 mg capsule TAKE 1 CAPSULE BY MOUTH TWICE A DAY WITH FOOD/MIL K FOR 7 DAYS 10/06 completed Not Available Not Available Not Available ranitidin e 150 mg tablet Take 1 tablet every day by oral route for 90 days. 08/23 completed Not Available Not Available Not Available ranitidin e 300 mg capsule 06/17 completed Not Available Not Available Not Available losartan 25 mg tablet TAKE 1 TABLET BY MOUTH EVERY DAY active Not Available Not Available No t Available omeprazol e 20 mg capsule,d elayed release TAKE 1 CAPSULE BY MOUTH TWICE A DAY active Not Available Not Available No t Available verapamil ER (SR) 240 mg tablet,ex tended release TAKE 1 TABLET BY MOUTH EVERY DAY FOR 90 DAYS active Not Available Not Available No t Available hydroxyzi ne HCl 25 mg tablet TAKE 1 TABLET BY MOUTH TWICE A DAY active Not Available Not Available No t Available mupirocin 2 % topical ointment APPLY 1 APPLICAT ION TO AFFECTED AREA EXTERNAL LY THREE TIMES A DAY FOR 7 DAYS 10/06 completed Not Available Not Available Not Available Thaxton Thyroid 30 mg tablet 12/16 completed Not Available Not Available Not Available benzoyl peroxide 5 % topical cleanser 1 APPLICAT ION EXTERNAL LY ONCE A DAY IN THE MORNING 10/06 completed Not Available Not Available Not Available methylpre dnisolone 4 mg tablets in a dose pack TAKE 6 TABLETS ON DAY 1 DIRECTED ON PACKAGE AND DECREASE BY 1 TAB EACH DAY FOR A TOTAL OF 6 DAYS 10/06 completed Not Available Not Available Not Available albuterol sulfate HFA 90 mcg/actua tion aerosol inhaler INHALE 2 PUFFS EVERY 6 HOURS NEEDED 30 DAYS active Not Available Not Available No t Available hydromorp ellie 4 mg tablet 12/16 completed Not Available Not Available Not Available fluocinon kassidy 0.05 % topical cream 12/16 completed Not Available Not Available Not Available ondansetr on 4 mg disintegr ating tablet DISSOLVE 1 TABLET IN THE MOUTH EVERY 6 HOURS NEEDED FOR NAUSEA AND VOMITING 10/06 completed Not Available Not Available Not Available fluticaso ne propionat e 50 mcg/actua tion nasal spray,vincenzo pension 06/17 completed Not Available Not Available Not Available sertralin e 50 mg tablet TAKE 1 TABLET BY MOUTH EVERY DAY 10/06 completed Not Available Not Available Not Available naratript an 2.5 mg tablet TAKE 1 TABLET BY MOUTH EVERY DAY NEEDED active Not Available Not Available No t Available doxycycli ne hyclate 100 mg tablet TAKE 1 TABLET BY MOUTH TWICE A DAY FOR 10 DAYS 10/06 completed Not Available Not Available Not Available amoxicill in 875 mg-potass ium clavulana te 125 mg tablet TAKE 1 TABLET BY MOUTH TWICE A DAY FOR 10 DAYS 07/03 completed Not Available Not Available Not Available Tylenol Extra Strength 500 mg tablet Take 2 tablets every 4 hours by oral route as needed. 10/06 completed Not Available Not Available Not Available oxycodone 5 mg tablet TAKE 1 TABLET BY MOUTH EVERY 4 HOURS active Not Available Not Available No t Available Botox 100 unit injection 10/26 completed Not Available Not Available Not Available clindamyc in 1 % lotion 1 APPLICAT ION TO AFFECTED AREA EXTERNAL LY APPLY EVERY MORNING 10/06 completed Not Available Not Available Not Available azithromy emily 500 mg tablet TAKE 2 TABLETS BY MOUTH ONCE DAILY FOR 1 DAY (FOR TRAVELER S DIARRHEA ) 07/03 completed Not Available Not Available Not Available nitrofura ntoin monohydra te/macroc rystals 100 mg capsule TAKE 1 CAPSULE BY MOUTH TWICE A DAY active Not Available Not Available No t Available ursodiol 500 mg tablet TAKE 1 TABLET BY MOUTH TWICE A DAY 10/06 completed Not Available Not Available Not Available Aleve QD active Not Available Not Availa ble Not Available olopatadi ne 0.2 % eye drops INSTILL 1 DROP INTO BOTH EYES EVERY DAY 10/06 completed Not Available Not Available Not Available Coly-Myci n S 3.3 mg-3 mg-10 mg-0.5 mg/mL ear drops,vincenzo pension PRN 06/17 completed Not Available Not Available Not Available trospium ER 60 mg capsule,e xtended release 24 hr 10/06 completed Not Available Not Available Not Available diclofena c 1 % topical gel 08/23 completed Not Available Not Available Not Available Vimpat 100 mg tablet TAKE 1 TABLET BY MOUTH TWICE A DAY 2022 active Patient requesti ng 90 day supply Not Available Not Available Not Available GaviLyte- G 236 gram-22.7 4 gram-6.74 gram-5.86 gram oral solution USE DIRECTED FOR BOWEL PREP active Not Available Not Available No t Available Cambia 50 mg oral powder packet Take 1 packet every day by oral route as needed for 9 days. 09/23 completed Not Available Not Available Not Available Suprep Bowel Prep Kit 17.5 gram-3.13 gram-1.6 gram oral solution 12/16 completed Not Available Not Available Not Available lidocaine 5 % topical ointment 08/23 completed Not Available Not Available Not Available Flucelvax Quad [id number] (PF) 60 mcg (15 mcg x 4)/0.5 mL IM syringe 08/23 completed Not Available Not Available Not Available Aimovig Autoinjec tor 140 mg/2 Pack (70 mg/mL) subcutane ous Inject 2 mL every month by subcutan eous route. 06/17 completed Not Available Not Available Not Available Emgality Pen 120 mg/mL subcutane ous pen injector INJECT 1 ML EVERY 4 WEEKS BY SUBCUTAN EOUS ROUTE. 10/06 completed Not Available Not Available Not Available Aimovig Autoinjec tor 140 mg/mL subcutane ous auto-inje ctor Inject by subcutan eous route for 84 days. 07/03 completed Not Available Not Available Not Available Ubrelvy 100 mg tablet TAKE 1 TABLET EVERY DAY BY ORAL ROUTE NEEDED. active Not Available Not Available No t Available tramadol 100 mg tablet PLEASE SEE ATTACHED FOR DETAILED DIRECTIO NS active Not Available Not Available No t Available Nurtec ODT 75 mg disintegr ating tablet TAKE 1 TABLET EVERY DAY BY ORAL ROUTE NEEDED. active Not Available Not Available No t Available Ajovy 225 mg/1.5 mL subcutane ous auto-inje ctor INJECT 1.5 ML EVERY 4 WEEKS BY SUBCUTAN EOUS ROUTE. 07/03 completed Not Available Not Available Not Available Afluria Qd 2019- (36 mos up)(PF)60 mcg (15 mcg x4)/0.5 mL IM syringe PHARMACY ADMINIST ERED 10/06 completed Not Available Not Available Not Available Qulipta 60 mg tablet Take 1 tablet every day by oral route. 2022 active Not Available Not Available Not Avai lable Qulipta 30 mg tablet TAKE 1 TABLET BY MOUTH EVERY DAY 11/06 completed Not Available Not Available Not Available Flowflex COVID-19 Antigen Home Test kit FOLLOW INSTRUCT IONS INCLUDED WITH THE PACKAGE. 07/03 completed Not Available Not Available Not Available Vitals Date Recorded Body height Heart rate Systolic And Diastolic Provider Name and Address Organization Details Last Updated DateTime 02/11/2023 162.56 cm 98 /min 168/126 mm[Hg] Reny Denise MD [address] [place] [address],[address], [place], [address], AMARA - Reny manzano MD 02/11/2023 16:01:34 Date Recorded Body height Body mass index (BMI) Body weight Heart rate Systolic And Diastolic Provider Name and Address Organization Details Last Updated DateTime 07/03/2023 162.56 cm 33.1 kg/m2 65091.33 g 81 /min 141/100 mm[Hg] All black MD 07/03/2023 09:18:17 Date Recorded Body height Body mass index (BMI) Body weight Heart rate Systolic And Diastolic Provider Name and Address Organization Details Last Updated DateTime 10/06/2022 162.56 cm 33.5 kg/m2 54683.51 g 86 /min 182/116 mm[Hg] All Bettencourt AMARA black MD 10/06/2022 14:02:22 Date Recorded Body height Heart rate Systolic And Diastolic Provider Name and Address Organization Details Last Updated DateTime 11/06/2023 162.56 cm 86 /min 135/92 mm[Hg] Reny Denise MD [address] [place] [address],[address], [place], [address], AMARA manzano MD 11/06/2023 09:48:55 Date Recorded Body height Heart rate Systolic And Diastolic Provider Name and Address Organization Details Last Updated DateTime 11/12/2022 162.56 cm 81 /min 183/122 mm[Hg] Reny Denise MD [address] [place] [address],[address], [place], [address], AMARA manzano MD 11/12/2022 14:41:26 Social History Question Answer Notes LastModified by Organizat ion Details LastModified Time Tobacco Smoking Status Former [facility]oker Not Available [facility] 09/18/2020 03:20:51 Accident Related Injury No Information not available 12/15/2017 Do You Have An Advance Directive? No [id number] Information not available 09/18/2020 What Is Your Level Of Caffeine Consumption? Moderate 2-3 Cups A Day [id number] Information not available 09/18/2020 How Much Tobacco Do You Chew? None [id number] Information not available 09/18/2020 Currently No Information not available 12/15/2017 What Type Of Diet Are You Following? REGULAR [id number] Information not available 09/18/2020 Which Of Your Hands Is Dominant? Right [id number] Information not available 09/18/2020 Live Alone Or With Others? With Others Information not available 12/15/2017 What Was The Date Of Your Most Recent Tobacco Screening? 01/31/2019 [id number] Information not available 09/18/2020 How Much Tobacco Do You Smoke? No [id number] Information not available 09/18/2020 General Stress Level Medium Information not available 12/15/2017 Sex: Female Functional Status Question Answer Note LastModified by Organizat ion Details LastModified Time Do you use any illicit or recreational drugs? No [id number] Information not available 09/18/2020 What is your level of alcohol consumption? None [id number] Information not available 09/18/2020 Do you or have you ever used smokeless tobacco? Never used smokeless tobacco [id number] Information not available 09/18/2020 Do you or have you ever used e-cigarettes or vape? Never used electronic cigarettes [id number] Information not available 09/18/2020 What is your exercise level? None [id number] Information not available 09/18/2020 Mental Status Question Answer Note LastModified by Organization D etails LastModified Time Do you have difficulty concentrating, remembering or making decisions? No [id number] Information no t available 09/18/2020 Family History Relationship Description Onset Age of this Age Resolved Age Notes LastModified by Organization Details LastModified Time Unspecified Relation Family history of malignant neoplasm Not available 12/15 12:02:25 Unspecified Relation Diabetes mellitus Not available 12/15 12:02:37 Unspecified Relation Heart disease Not available 12/15 12:02:46 Unspecified Relation Hypertensive disorder Not available 12/15 12:02:54 Unspecified Relation Cerebrovascu lar accident Not available 12:03:11 Unspecified Relation Migraine Not available 12/15 12:03:26 Unspecified Relation Obesity Not available 2017 12:03:34 Medical History Condition Response Heart Problems Y Headaches Y Migraines Y Back Problems Y Hypertension Y Hypothyroidism Y Gynecological HistoryNo gynecological history recorded. Obstetrics History GPAL:G 0 P 0 0 0 0 Past Encounters Encounter ID Performer Location Encounter Start Date Encounter Closed Date Diagnosis/Indication Diagnosis SNOMED-CT Code Diagnosis ICD10 Code Diagnosis IMO Codes Diagnosis Note [id number] Howie Early ; [facility] [address] [address] 12/16/2017 15:13:01 12/16/2017 16:18:41 Myalgia/myositis - multiple 101111760 M79.1 Chronic mi graine without aura 6145773153 44258 G43.709 Hemangioma of intracranial structure 65593695 D18.02 Epilepsy 48486085 G40.30 9 Chronic back pain 715817 002 M54.[id number] Howie Early ; [facility] [address] [address] 03/26/2018 11:22:55 03/26/2018 13:46:42 Refractory migraine without aura 073901563 G43.[id number] Howie Early ; [facility] [address] [address] 05/07/2018 11:29:20 05/07/2018 12:59:05 Refractory migraine without aura 544393664 G43.019 Epilepsy 32480733 G40.90 9 Chronic mi graine without aura 5919875288 96261 G43.709 Hemangioma of intracranial structure 07203675 D18.02 Low back pain 469385407 M54.5 Central po sitional vertigo 69030514 H81.42 Myalgia/my ositis - multiple 109572546 M79.[id number] Howie Early ; [facility] [address] [address] 07/08/2018 12:55:01 07/08/2018 14:18:17 Refractory migraine without aura 773589138 G43.019 Hemangioma of intracranial structure 80748787 D18.02 Epilepsy 67433931 G40.[id number] Howie Early ; [facility] [address] [address] 08/23/2018 13:52:11 08/24/2018 09:05:44 Refractory migraine without aura 767757037 G43.019 Epilepsy 27084425 G40.[id number] Howie Early ; [facility] [address] [address] 10/26/2018 15:23:49 10/26/2018 16:17:54 Refractory migraine without aura 264681923 G43.019 Dramatical lyl better on AImovig [id number] Howie Early ; [facility] [address] [address] 01/31/2019 15:42:44 01/31/2019 16:31:14 Epilepsy 46110755 G40.909 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 Hemangioma of intracranial structure 25043168 D18.02 Refractory migraine without aura 798921824 G43.019 Dramatical ly better on AImovig [id number] Howie Early ; [facility] [address] [address] 02/28/2019 08:33:52 02/28/2019 09:52:33 Epilepsy 35391510 G40.909 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 [id number] Howie Early ; [facility] [address] [address] 06/17/2019 12:56:09 06/17/2019 13:45:47 Epilepsy 04399116 G40.909 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 Refractory migraine without aura 448057386 G43.019 Dramatical ly better on AImovig Hemangioma of intracranial structure 45796115 D18.02 Central po sitional vertigo 30998222 H81.[id number] Howie Early ; [facility] [place] [address] 09/23/2019 14:20:05 09/23/2019 15:13:37 Refractory migraine without aura 852407472 G43.019 Dramatical ly better on AImovig Epilepsy 92586954 G40.90 9 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 Hemangioma of intracranial structure 79687024 D18.[id number] Howie Early ; [facility] [address] [address] 01/23/2020 12:58:04 01/23/2020 13:48:51 Refractory migraine without aura 446844845 G43.019 Dramatical ly better on AImovig Neck pain 97885069 M54.2 Hemangioma of intracranial structure 32322818 D18.02 Epilepsy 47855871 G40.90 9 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 [id number] Howie Early ; [facility] [address] [address] 04/23/2020 13:30:48 04/23/2020 14:51:23 Refractory migraine without aura 917411913 G43.019 Initially improved w/ Aimovig Neck pain 80048583 M54.2 Hemangioma of intracranial structure 13292046 D18.02 Epilepsy 45936330 G40.90 9 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 [id number] Howie Early ; [facility] [address] [address] 06/27/2020 09:31:13 06/27/2020 10:01:25 Refractory migraine without aura 550446906 G43.019 improved w/ Aimovig Neck pain 96011283 M54.2 Hemangioma of intracranial structure 18050902 D18.02 Epilepsy 94474230 G40.90 9 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 [id number] Howie Early ; [facility] [address] [place] [address] 09/17/2020 15:55:21 09/17/2020 16:28:22 Refractory migraine without aura 204736951 G43.019 Initially improved w/ Aimovig Neck pain 39945117 M54.2 Hemangioma of intracranial structure 16515279 D18.02 Epilepsy 22106535 G40.90 9 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 Vertigo 213109273 R42 [id number] Howie Early ; [facility] [address] [address] 01/16/2021 14:36:24 01/16/2021 18:13:04 Refractory migraine without aura 540049692 G43.019 improved w/ Aimovig Neck pain 75560840 M54.2 Hemangioma of intracranial structure 36414868 D18.02 Epilepsy 41600213 G40.90 9 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 [id number] Howie Early ; [facility] [address] [address] 02/25/2022 15:54:41 02/25/2022 16:46:12 Refractory migraine without aura 359310155 G43.019 markedly improved w/ Aimovig but insurance requires change to Emgality Neck pain 61065463 M54.2 Hemangioma of intracranial structure 90657286 D18.02 Epilepsy 15264707 G40.90 9 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 Migraine 60836098 G43.90 9 Essential hypertension 55418321 I10 [id number] Howie Early ; [facility] [address] [address] 08/26/2022 15:39:48 08/26/2022 17:10:57 Refractory migraine without aura 858999442 G43.019 markedly improved w/ Aimovig but insurance requires change to Emgality Neck pain 00830982 M54.2 Hemangioma of intracranial structure 54756622 D18.02 Epilepsy 97205997 G40.90 9 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 Migraine 69300860 G43.90 9 Essential hypertension 42636228 I10 [id number] Howie Early ; [facility] [address] [address] 10/06/2022 13:53:34 10/06/2022 14:50:07 Refractory migraine without aura 671560577 G43.019 markedly improved w/ Aimovig but insurance requires change to Emgality Neck pain 91139654 M54.2 Hemangioma of intracranial structure 37321609 D18.02 Epilepsy 83525809 G40.90 9 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 Migraine 75586950 G43.90 9 Essential hypertension 07942923 I10 Transient cerebral ischemia 926177578 G45.[id number] Howie Early ; [facility] [address] [address] 11/12/2022 13:49:03 11/12/2022 14:59:36 Refractory migraine without aura 897965210 G43.019 markedly improved w/ Aimovig but insurance won't cover w/o PA . will try AJovy Neck pain 88397953 M54.2 Hemangioma of intracranial structure 42216845 D18.02 Transient cerebral ischemia 526327570 G45.9 Epilepsy 02004454 G40.90 9 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 Essential hypertension 80537195 I10 [id number] Howie Early ; [facility] [address] [address] 02/11/2023 15:24:16 02/11/2023 16:28:34 Hemangioma of intracranial structure 86952664 D18.02 Epilepsy 52215207 G40.90 9 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 Refractory migraine without aura 958988310 G43.019 markedly improved w/ Aimovig but insurance won't cover w/o PA . will try AJovy Essential hypertension 62272271 I10 Transient cerebral ischemia 200334929 G45.9 Neck pain 60692830 M54.[id number] Howie Early ; [facility] [address] [address] 07/03/2023 08:41:55 07/03/2023 09:58:38 Refractory migraine without aura 647086268 G43.019 Hemangioma of intracranial structure 91589865 D18.02 Epilepsy 49668811 G40.90 9 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 Essential hypertension 98635784 I10 Transient cerebral ischemia 259768994 G45.9 Neck pain 09633194 M54.[id number] Howie Early ; [facility] [address] [address] 11/06/2023 08:50:02 11/06/2023 10:05:22 Refractory migraine without aura 204435596 G43.019 Hemangioma of intracranial structure 30567202 D18.02 Epilepsy 48681432 G40.90 9 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 Essential hypertension 49467705 I10 Transient cerebral ischemia 726558228 G45.9 Neck pain 90518734 M54.2 Health Concerns Section Related Observation LastModified by Organization Detai ls LastModified Time None Recorded Concern Status LastModified by Organization Details LastModified Time None Recorded Advance Directives Directive N: Payers Insurance Date Sequence Insurance Name Policy Number Policy Somers Covered Member ID Somers Member ID Guarantor Name 01/23/2020 1 [facility] [id number] Elkin Mcclelland [id number] Maria Luisa Mcclelland 11/25/2023 1 [place] [place] Elkin Mcclelland [id number] Maria Luisa Mcclelland Notes Date Note Type Note Provider Name and Address Organization Details Recorded Time 10/06/2022 text/html Fully vaccinated Pt was seen urgently today in F/U of hospital admission through ER for stroke like sxs. She developed L facial numbness and went to [facility] ER.. She had mild pulsing SHI in the L roman catholic initially and the following day developed a significant holocranial SHI. CTA revealed mild narrowing, 40% of the R ICA. MRI revealed no acute infarcts but increased susceptability artifact signal in the R temporal lobe, previously noted on 2019 mRI c/w past hemosiderin/hemangioma . She had R ulnar nv transposition, CT release and DeQ'x tx'd surgically 10 days ago. She reports significant pain from the surgery but has only been given tylenol and advil and has not been sleeping. Her BP has been signficantly elevated w/ the pain. Pt is followed for: chronic HAs, recurrent vertigo and a seizure disorder associated w/ angioma/SAH. She was last seen 02/03. Her migraines tend to come w/ storms and respond to naratriptan/nurtec. Since starting Aimovig her migraine frequency is 4-6/mo and respond to meds. However, her insurance stopped covering AImovig and she has been on Emgality w/ significantly more HAs such that she calls out of work at times. Her naratriptan doesn't work and she has more days that she will have to lie down. She continues w/ episodic R eye twitch and drooping of the R side of her mouth though she is doing fewer Zoom meetings.. She noticed the drooping of her mouth in zoom photos. THe twitching on the R is episodic, like a blink w/o a blink. It occurs about twice/day lasting 10 seconds. She had a f/u MRI on 09/24/20 which revealed no new problems, just the known hemosiderin/hemangioma . SHe presently has a UTI and is on Keflex. Her BP has been running high. She just saw her PCP. She recently had R anterior shoulder release and a R foot surgery HEADACHES/Seizures: Pt has a hx of intractable migraines and had a seizure in 2014 and her MRI revealed a cavernous hemangioma with/out a bleed. She has been having MRIs every two years fro the [facility] and there have been no significant changes. Pt's last botox was 07/08/2018 and her headaches have been more manageable except when there are sudden changes in barometric pressure which trigger migraines on steroids that last up to three days. She also gets vertigo with them. She denies any seizures but feels she is very forgetful recently. She had extensive blood work for it at a walkin center. She has had no seizures. Frequency is 3-4 SHI/week for tension headaches relieved w/ flonase, 3-4/month for migraine(associated w/ storm fronts.). Intensity has been headaches - 4-6/10- for migraines- 8-10/10. Location is bilateral- holocranial- for tension headaches; - right- temporal- retro-orbital for migraines and occasionally on the L. Rescue medications tried successfully include, Naratriptan,cambia and, Migranal, . She alternates dosing as needed. She only uses ibuprofen for tension headaches. Prophylactic medications tried successfully include, Cefaly device but seems to be less effective recently; she also feels the TPI diminish the intensity of the posterior headaches. Duration recently headaches have been lasting hours instead of days. Associated features include: daily Dizziness, not always with a positional component, Neck pain, back pain, Photophobia, Photophobia, nasal congestion, B/L tingling in legs, jaw pain, tinnitus. Imaging/diagnostic studies done: F/U MRI on 06/07/16 for her participiation in the [facility] revealed the only R temporal hemorrage, unchanged from their study of 2010.MRI of Brain 03/2015:6 MM LESION IN THE RIGHT TEMPORAL LOBE. ITS NONCONTRAST MRI CHARACTERISTICS ARE MOST SUGGESTIVE OF A SMALL CAVERNOMA. ALTERNATIVE DIAGNOSTIC CONSIDERATIONS INCLUDE A SMALL HEMORRHAGIC OR CALCIFIED NEOPLASM. THE PRESENCE OF SUBTLE, ASYMMETRIC HYPERENHANCEMENT IN THIS AREA ON THE PRIOR CONTRAST MRI EXAMINATION FROM DECEMBER 2004 COULD INDICATE THE PRESENCE OF AN ASSOCIATED DEVELOPMENTAL VENOUS ANOMALY. Last TPI/NB/Botox treatment: Botox 08/05/2017. Narcotics contract on file: Pt gets oxycodone for migratory body pain from Dr. Vogel, her PCP. Reny Denise MD [address] [place] [address],[address], [place], [address], [facility] - Reny barker MD 10/08/2022 11:57:13 11/12/2022 text/html Fully vaccinated Pt was seen six weeks ago for TIA like sxs w/L facial numbness associated w/ poor sleep, fatigue. She has had no further episodes of facial numbness but continues to have sharp L roman catholic pains 3-4x/wk lastinng 20 min and dissipates w/ massage. She uses tylenol daily for her fibromyalgia. She had a cervical RFL a few weeks ago w/ initial benefit for the pain radiating down her arms However, within a week she began having neck pain again w/o recurrence. Her insurance will no longer cover Aimovig and she has failed Emgality. 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 She has been using naratriptan infrequently Pt was seen urgently today in F/U of hospital admission through ER for stroke like sxs. She developed L facial numbness and went to [facility] ER.. She had mild pulsing SHI in the L roman catholic initially and the following day developed a significant holocranial SHI. CTA revealed mild narrowing, 40% of the R ICA. MRI revealed no acute infarcts but increased susceptability artifact signal in the R temporal lobe, previously noted on 2019 mRI c/w past hemosiderin/hemangioma . She had R ulnar nv transposition, CT release and DeQ'x tx'd surgically 10 days ago. She reports significant pain from the surgery but has only been given tylenol and advil and has not been sleeping. Her BP has been signficantly elevated w/ the pain. Pt is followed for: chronic HAs, recurrent vertigo and a seizure disorder associated w/ angioma/SAH. She was last seen 02/03. Her migraines tend to come w/ storms and respond to naratriptan/nurtec. Since starting Aimovig her migraine frequency is 4-6/mo and respond to meds. However, her insurance stopped covering AImovig and she has been on Emgality w/ significantly more HAs such that she calls out of work at times. Her naratriptan doesn't work and she has more days that she will have to lie down. She continues w/ episodic R eye twitch and drooping of the R side of her mouth though she is doing fewer Zoom meetings.. She noticed the drooping of her mouth in zoom photos. THe twitching on the R is episodic, like a blink w/o a blink. It occurs about twice/day lasting 10 seconds. She had a f/u MRI on 09/24/20 which revealed no new problems, just the known hemosiderin/hemangioma . SHe presently has a UTI and is on Keflex. Her BP has been running high. She just saw her PCP. She recently had R anterior shoulder release and a R foot surgery HEADACHES/Seizures: Pt has a hx of intractable migraines and had a seizure in 2014 and her MRI revealed a cavernous hemangioma with/out a bleed. She has been having MRIs every two years fro the [facility] and there have been no significant changes. Pt's last botox was 07/08/2018 and her headaches have been more manageable except when there are sudden changes in barometric pressure which trigger migraines on steroids that last up to three days. She also gets vertigo with them. She denies any seizures but feels she is very forgetful recently. She had extensive blood work for it at a walkin center. She has had no seizures. Frequency is 3-4 SHI/week for tension headaches relieved w/ flonase, 3-4/month for migraine(associated w/ storm fronts.). Intensity has been headaches - -/10- for migraines- -08/25. Location is bilateral- holocranial- for tension headaches; - right- temporal- retro-orbital for migraines and occasionally on the L. Rescue medications tried successfully include, Naratriptan,cambia and, Migranal, . She alternates dosing as needed. She only uses ibuprofen for tension headaches. Prophylactic medications tried successfully include, Cefaly device but seems to be less effective recently; she also feels the TPI diminish the intensity of the posterior headaches. Duration recently headaches have been lasting hours instead of days. Associated features include: daily Dizziness, not always with a positional component, Neck pain, back pain, Photophobia, Photophobia, nasal congestion, B/L tingling in legs, jaw pain, tinnitus. Imaging/diagnostic studies done: F/U MRI on 06/07/16 for her participiation in the [facility] revealed the only R temporal hemorrage, unchanged from their study of 2010.MRI of Brain 03/2015:6 MM LESION IN THE RIGHT TEMPORAL LOBE. ITS NONCONTRAST MRI CHARACTERISTICS ARE MOST SUGGESTIVE OF A SMALL CAVERNOMA. ALTERNATIVE DIAGNOSTIC CONSIDERATIONS INCLUDE A SMALL HEMORRHAGIC OR CALCIFIED NEOPLASM. THE PRESENCE OF SUBTLE, ASYMMETRIC HYPERENHANCEMENT IN THIS AREA ON THE PRIOR CONTRAST MRI EXAMINATION FROM DECEMBER 2004 COULD INDICATE THE PRESENCE OF AN ASSOCIATED DEVELOPMENTAL VENOUS ANOMALY. Last TPI/NB/Botox treatment: Botox 08/05/2017. Narcotics contract on file: Pt gets oxycodone for migratory body pain from Dr. Vogel, her PCP. Reny Denise MD [address] [place] [address],[address], [place], [address], [place] - Reny barker MD 11/12/2022 15:03:17 02/11/2023 text/html Fully vaccinated Pt is followed for sz and HAs and had a TIA like episode in October. SInce then she has continued to have numbness and dysesthesias in the L face, [place] territory. Her BP has been poorly controlled recently, and her scale assembly set up worker did an echo and stress test and pt reports they were benign though she couldn't finished the stress test to SOB and CP w/o EKG changes but w/ persistent high BP. This was just done last week and her scale assembly set up worker increased her verapamil to 180 mg w/o obvious benefit. Her roman catholic pains remain episodic and the migraines as well. She had a RFL of her Cspine in Nov 06.. She is on Ajovy but doesn't feel it helped her HAs as much as Aimovig but resuming Aimovig helped. Migraines are back up to 3/2k. Pt was seen six weeks ago for TIA like sxs w/L facial numbness associated w/ poor sleep, fatigue. She has had no further episodes of facial numbness but continues to have sharp L roman catholic pains 3-4x/wk lastinng 20 min and dissipates w/ massage. She uses tylenol daily for her fibromyalgia. She had a cervical RFL a few weeks ago w/ initial benefit for the pain radiating down her arms However, within a week she began having neck pain again w/o recurrence. Her insurance will no longer cover Aimovig and she has failed Emgality. 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 She has been using naratriptan infrequently Pt was seen urgently today in F/U of hospital admission through ER for stroke like sxs. She developed L facial numbness and went to [facility] ER.. She had mild pulsing SHI in the L roman catholic initially and the following day developed a significant holocranial SHI. CTA revealed mild narrowing, 40% of the R ICA. MRI revealed no acute infarcts but increased susceptability artifact signal in the R temporal lobe, previously noted on 2019 mRI c/w past hemosiderin/hemangioma . She had R ulnar nv transposition, CT release and DeQ'x tx'd surgically 10 days ago. She reports significant pain from the surgery but has only been given tylenol and advil and has not been sleeping. Her BP has been signficantly elevated w/ the pain. Pt is followed for: chronic HAs, recurrent vertigo and a seizure disorder associated w/ angioma/SAH. She was last seen 02/03. Her migraines tend to come w/ storms and respond to naratriptan/nurtec. Since starting Aimovig her migraine frequency is 4-6/mo and respond to meds. However, her insurance stopped covering AImovig and she has been on Emgality w/ significantly more HAs such that she calls out of work at times. Her naratriptan doesn't work and she has more days that she will have to lie down. She continues w/ episodic R eye twitch and drooping of the R side of her mouth though she is doing fewer Zoom meetings.. She noticed the drooping of her mouth in zoom photos. THe twitching on the R is episodic, like a blink w/o a blink. It occurs about twice/day lasting 10 seconds. She had a f/u MRI on 09/24/20 which revealed no new problems, just the known hemosiderin/hemangioma . SHe presently has a UTI and is on Keflex. Her BP has been running high. She just saw her PCP. She recently had R anterior shoulder release and a R foot surgery HEADACHES/Seizures: Pt has a hx of intractable migraines and had a seizure in 2014 and her MRI revealed a cavernous hemangioma with/out a bleed. She has been having MRIs every two years fro the [facility] and there have been no significant changes. Pt's last botox was 07/08/2018 and her headaches have been more manageable except when there are sudden changes in barometric pressure which trigger migraines on steroids that last up to three days. She also gets vertigo with them. She denies any seizures but feels she is very forgetful recently. She had extensive blood work for it at a walkin center. She has had no seizures. Frequency is 3-4 SHI/week for tension headaches relieved w/ flonase, 3-4/month for migraine(associated w/ storm fronts.). Intensity has been headaches - 4-6/10- for migraines- 8-10/10. Location is bilateral- holocranial- for tension headaches; - right- temporal- retro-orbital for migraines and occasionally on the L. Rescue medications tried successfully include, Naratriptan,cambia and, Migranal, . She alternates dosing as needed. She only uses ibuprofen for tension headaches. Prophylactic medications tried successfully include, Cefaly device but seems to be less effective recently; she also feels the TPI diminish the intensity of the posterior headaches. Duration recently headaches have been lasting hours instead of days. Associated features include: daily Dizziness, not always with a positional component, Neck pain, back pain, Photophobia, Photophobia, nasal congestion, B/L tingling in legs, jaw pain, tinnitus. Imaging/diagnostic studies done: F/U MRI on 06/07/16 for her participiation in the [facility] revealed the only R temporal hemorrage, unchanged from their study of 2010.MRI of Brain 03/2015:6 MM LESION IN THE RIGHT TEMPORAL LOBE. ITS NONCONTRAST MRI CHARACTERISTICS ARE MOST SUGGESTIVE OF A SMALL CAVERNOMA. ALTERNATIVE DIAGNOSTIC CONSIDERATIONS INCLUDE A SMALL HEMORRHAGIC OR CALCIFIED NEOPLASM. THE PRESENCE OF SUBTLE, ASYMMETRIC HYPERENHANCEMENT IN THIS AREA ON THE PRIOR CONTRAST MRI EXAMINATION FROM DECEMBER 2004 COULD INDICATE THE PRESENCE OF AN ASSOCIATED DEVELOPMENTAL VENOUS ANOMALY. Last TPI/NB/Botox treatment: Botox 08/05/2017. Narcotics contract on file: Pt gets oxycodone for migratory body pain from Dr. Vogel, her PCP. Reny Denise MD [address] [place] [address],[address], [place], [address], [place] - Reny barker MD 02/13/2023 15:14:50 07/03/2023 text/html Fully vaccinated Pt is followed for sz and HAs. She has had no further TIA like episodes. SHe has had event monitors before as part of the [facility] but none recently. She had her L CTS done last week w/o incident. She has nearly daily HAs associated w/ the horrible weather this summer w/ migraines 1-2/wk. She is going to have cervical SERGIO to see if it gives her some relief. She remains on Qulipta which probably works better than the Aimovig. She has had no sz. Pt is followed for sz and HAs and had a TIA like episode in October. SInce then she has continued to have numbness and dysesthesias in the L face, Vii territory. Her BP has been poorly controlled recently, and her scale assembly set up worker did an echo and stress test and pt reports they were benign though she couldn't finished the stress test to SOB and CP w/o EKG changes but w/ persistent high BP. This was just done last week and her scale assembly set up worker increased her verapamil to 180 mg w/o obvious benefit. Her roman catholic pains remain episodic and the migraines as well. She had a RFL of her Cspine in Nov 06.. She is on Ajovy but doesn't feel it helped her HAs as much as Aimovig but resuming Aimovig helped. Migraines are back up to 3/2k. Pt was seen six weeks ago for TIA like sxs w/L facial numbness associated w/ poor sleep, fatigue. She has had no further episodes of facial numbness but continues to have sharp L roman catholic pains 3-4x/wk lastinng 20 min and dissipates w/ massage. She uses tylenol daily for her fibromyalgia. She had a cervical RFL a few weeks ago w/ initial benefit for the pain radiating down her arms However, within a week she began having neck pain again w/o recurrence. Her insurance will no longer cover Aimovig and she has failed Emgality. 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 She has been using naratriptan infrequently Pt was seen urgently today in F/U of hospital admission through ER for stroke like sxs. She developed L facial numbness and went to [facility] ER.. She had mild pulsing SHI in the L roman catholic initially and the following day developed a significant holocranial SHI. CTA revealed mild narrowing, 40% of the R ICA. MRI revealed no acute infarcts but increased susceptability artifact signal in the R temporal lobe, previously noted on 2019 mRI c/w past hemosiderin/hemangioma . She had R ulnar nv transposition, CT release and DeQ'x tx'd surgically 10 days ago. She reports significant pain from the surgery but has only been given tylenol and advil and has not been sleeping. Her BP has been signficantly elevated w/ the pain. Pt is followed for: chronic HAs, recurrent vertigo and a seizure disorder associated w/ angioma/SAH. She was last seen 02/03. Her migraines tend to come w/ storms and respond to naratriptan/nurtec. Since starting Aimovig her migraine frequency is 4-6/mo and respond to meds. However, her insurance stopped covering AImovig and she has been on Emgality w/ significantly more HAs such that she calls out of work at times. Her naratriptan doesn't work and she has more days that she will have to lie down. She continues w/ episodic R eye twitch and drooping of the R side of her mouth though she is doing fewer Zoom meetings.. She noticed the drooping of her mouth in zoom photos. THe twitching on the R is episodic, like a blink w/o a blink. It occurs about twice/day lasting 10 seconds. She had a f/u MRI on 09/24/20 which revealed no new problems, just the known hemosiderin/hemangioma . SHe presently has a UTI and is on Keflex. Her BP has been running high. She just saw her PCP. She recently had R anterior shoulder release and a R foot surgery HEADACHES/Seizures: Pt has a hx of intractable migraines and had a seizure in 2014 and her MRI revealed a cavernous hemangioma with/out a bleed. She has been having MRIs every two years fro the [facility] and there have been no significant changes. Pt's last botox was 07/08/2018 and her headaches have been more manageable except when there are sudden changes in barometric pressure which trigger migraines on steroids that last up to three days. She also gets vertigo with them. She denies any seizures but feels she is very forgetful recently. She had extensive blood work for it at a walkin center. She has had no seizures. Frequency is 3-4 SHI/week for tension headaches relieved w/ flonase, 3-4/month for migraine(associated w/ storm fronts.). Intensity has been headaches - 4-6/10- for migraines- 8-08/25. Location is bilateral- holocranial- for tension headaches; - right- temporal- retro-orbital for migraines and occasionally on the L. Rescue medications tried successfully include, Naratriptan,cambia and, Migranal, . She alternates dosing as needed. She only uses ibuprofen for tension headaches. Prophylactic medications tried successfully include, Cefaly device but seems to be less effective recently; she also feels the TPI diminish the intensity of the posterior headaches. Duration recently headaches have been lasting hours instead of days. Associated features include: daily Dizziness, not always with a positional component, Neck pain, back pain, Photophobia, Photophobia, nasal congestion, B/L tingling in legs, jaw pain, tinnitus. Imaging/diagnostic studies done: F/U MRI on 06/07/16 for her participiation in the [facility] revealed the only R temporal hemorrage, unchanged from their study of 2010.MRI of Brain 03/2015:6 MM LESION IN THE RIGHT TEMPORAL LOBE. ITS NONCONTRAST MRI CHARACTERISTICS ARE MOST SUGGESTIVE OF A SMALL CAVERNOMA. ALTERNATIVE DIAGNOSTIC CONSIDERATIONS INCLUDE A SMALL HEMORRHAGIC OR CALCIFIED NEOPLASM. THE PRESENCE OF SUBTLE, ASYMMETRIC HYPERENHANCEMENT IN THIS AREA ON THE PRIOR CONTRAST MRI EXAMINATION FROM DECEMBER 2004 COULD INDICATE THE PRESENCE OF AN ASSOCIATED DEVELOPMENTAL VENOUS ANOMALY. Last TPI/NB/Botox treatment: Botox 08/05/2017. Narcotics contract on file: Pt gets oxycodone for migratory body pain from Dr. Vogel, her PCP. Reny Denise MD [address] [place] [address],[place] [address], [place], [address], [facility] - Reny barker MD 07/03/2023 11:13:42 11/06/2023 text/html Pt is followed for seizures associate w/ SAH and migraines. She is establishing w/ a new neurologist, Christine Canales, in [place] and is concerned b/c she wants to d/c the vimpat and start topiramate for HAs, sz and weight loss. Pt did not benefit in the past from topiramate at 200 mg and had the sz when she was on topiramate.. Her migraine frequency is about 4-5/mo on Qulipta 60 mg. She c/o a swollen throat when she has a migraine, She also failed botox, verapamil and amitriptyline in the past. She had little benefit from SERGIO but does improve w/ TPIs. She presently has a stress fx in her L metatarsals from a trip w/ her dog. She is in a boot. She was started on atorvastatin and losartin w/ her verapamil Fully vaccinated Pt is followed for sz and HAs. She has had no further TIA like episodes. SHe has had event monitors before as part of the [facility] but none recently. She had her L CTS done last week w/o incident. She has nearly daily HAs associated w/ the horrible weather this summer w/ migraines 1-2/wk. She is going to have cervical SERGIO to see if it gives her some relief. She remains on Qulipta which probably works better than the Aimovig. She has had no sz. Pt is followed for sz and HAs and had a TIA like episode in October. SInce then she has continued to have numbness and dysesthesias in the L face, Vii territory. Her BP has been poorly controlled recently, and her scale assembly set up worker did an echo and stress test and pt reports they were benign though she couldn't finished the stress test to SOB and CP w/o EKG changes but w/ persistent high BP. This was just done last week and her scale assembly set up worker increased her verapamil to 180 mg w/o obvious benefit. Her roman catholic pains remain episodic and the migraines as well. She had a RFL of her Cspine in Nov 06.. She is on Ajovy but doesn't feel it helped her HAs as much as Aimovig but resuming Aimovig helped. Migraines are back up to 3/2k. Pt was seen six weeks ago for TIA like sxs w/L facial numbness associated w/ poor sleep, fatigue. She has had no further episodes of facial numbness but continues to have sharp L roman catholic pains 3-4x/wk lastinng 20 min and dissipates w/ massage. She uses tylenol daily for her fibromyalgia. She had a cervical RFL a few weeks ago w/ initial benefit for the pain radiating down her arms However, within a week she began having neck pain again w/o recurrence. Her insurance will no longer cover Aimovig and she has failed Emgality. 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 She has been using naratriptan infrequently Pt was seen urgently today in F/U of hospital admission through ER for stroke like sxs. She developed L facial numbness and went to [facility] ER.. She had mild pulsing SHI in the L roman catholic initially and the following day developed a significant holocranial SHI. CTA revealed mild narrowing, 40% of the R ICA. MRI revealed no acute infarcts but increased susceptability artifact signal in the R temporal lobe, previously noted on 2019 mRI c/w past hemosiderin/hemangioma . She had R ulnar nv transposition, CT release and DeQ'x tx'd surgically 10 days ago. She reports significant pain from the surgery but has only been given tylenol and advil and has not been sleeping. Her BP has been signficantly elevated w/ the pain. Pt is followed for: chronic HAs, recurrent vertigo and a seizure disorder associated w/ angioma/SAH. She was last seen 02/03. Her migraines tend to come w/ storms and respond to naratriptan/nurtec. Since starting Aimovig her migraine frequency is 4-6/mo and respond to meds. However, her insurance stopped covering AImovig and she has been on Emgality w/ significantly more HAs such that she calls out of work at times. Her naratriptan doesn't work and she has more days that she will have to lie down. She continues w/ episodic R eye twitch and drooping of the R side of her mouth though she is doing fewer Zoom meetings.. She noticed the drooping of her mouth in zoom photos. THe twitching on the R is episodic, like a blink w/o a blink. It occurs about twice/day lasting 10 seconds. She had a f/u MRI on 09/24/20 which revealed no new problems, just the known hemosiderin/hemangioma . SHe presently has a UTI and is on Keflex. Her BP has been running high. She just saw her PCP. She recently had R anterior shoulder release and a R foot surgery HEADACHES/Seizures: Pt has a hx of intractable migraines and had a seizure in 2014 and her MRI revealed a cavernous hemangioma with/out a bleed. She has been having MRIs every two years fro the [facility] and there have been no significant changes. Pt's last botox was 07/08/2018 and her headaches have been more manageable except when there are sudden changes in barometric pressure which trigger migraines on steroids that last up to three days. She also gets vertigo with them. She denies any seizures but feels she is very forgetful recently. She had extensive blood work for it at a walkin center. She has had no seizures. Frequency is 3-4 SHI/week for tension headaches relieved w/ flonase, 3-4/month for migraine(associated w/ storm fronts.). Intensity has been headaches - -10- for migraines- -08/25. Location is bilateral- holocranial- for tension headaches; - right- temporal- retro-orbital for migraines and occasionally on the L. Rescue medications tried successfully include, Naratriptan,cambia and, Migranal, . She alternates dosing as needed. She only uses ibuprofen for tension headaches. Prophylactic medications tried successfully include, Cefaly device but seems to be less effective recently; she also feels the TPI diminish the intensity of the posterior headaches. Duration recently headaches have been lasting hours instead of days. Associated features include: daily Dizziness, not always with a positional component, Neck pain, back pain, Photophobia, Photophobia, nasal congestion, B/L tingling in legs, jaw pain, tinnitus. Imaging/diagnostic studies done: F/U MRI on 06/07/16 for her participiation in the [facility] revealed the only R temporal hemorrage, unchanged from their study of 2010.MRI of Brain 03/2015:6 MM LESION IN THE RIGHT TEMPORAL LOBE. ITS NONCONTRAST MRI CHARACTERISTICS ARE MOST SUGGESTIVE OF A SMALL CAVERNOMA. ALTERNATIVE DIAGNOSTIC CONSIDERATIONS INCLUDE A SMALL HEMORRHAGIC OR CALCIFIED NEOPLASM. THE PRESENCE OF SUBTLE, ASYMMETRIC HYPERENHANCEMENT IN THIS AREA ON THE PRIOR CONTRAST MRI EXAMINATION FROM DECEMBER 2004 COULD INDICATE THE PRESENCE OF AN ASSOCIATED DEVELOPMENTAL VENOUS ANOMALY. Last TPI/NB/Botox treatment: Botox 08/05/2017. Narcotics contract on file: Pt gets oxycodone for migratory body pain from Dr. Vogel, her PCP. Reny Denise MD [address] [place] [address],[address], [place], [address], [place] - Reny barker MD 11/25/2023 11:01:12 OBGyn Episode No OBEpisode recorded.
== END 2025-10-31 14:49 | disposition home or self-care (01) ==
LOC: HO.US 14:48
PROVIDERS: Visit Provider Internal Medicine
DX: I82.402 Acute embolism and thrombosis of unspecified deep veins of left lower extremity (principal)
CPT/HCPCS: 81003; 93971

== ENCOUNTER → 2025-10-31 14:50 | Outpatient (BNV) | payer OTHER, SELFPAY | PROVIDERS: Visit Provider Radiology Diagnostic Radiology | DX: M71.22 Synovial cyst of popliteal space [Baker], left knee (principal) | CPT/HCPCS: 93971 ==

== ENCOUNTER 2025-10-31 16:20 | Outpatient (AMB) | payer OTHER, SELFPAY ==
[2025-10-31 16:25] VITALS: BP 110/72; PULSE 88; TEMP 36.7; O2SAT 94; BMI 28.5
--- NOTE | 2025-10-31 16:25 | AM.OFFWIN_ITS ---
Intake Vital Signs 10/31/25 16:25 Height 5 ft 4 in Weight 166 lb BMI 28.5 BP 110/72 Blood Pressure Location Lt brachial Position Sitting Pulse 88 Pulse Source Pulse Oximeter Temp 98.0 F Temp Source Oral Pulse Oximetry (%) 94 Oxygen Delivery Method Room Air Intake Visit Reasons: EP Right side abdominal pain Intake Note: pt presents with worsening right sided abdominal pain ongoing 1.5 mo, states the pain is radiating into her right hip area and right inguinal area. Reports that she saw her pcp for this and was found to have microcrystal in urine. Patient Tobacco Use Status: Former Tobacco user Allergies Sulfa (Sulfonamide Antibiotics) Allergy (Verified 10/31/25 16:31) Gastrointestinal Upset Do you need a note to return to daycare/school/sports/work: No HPI HPI Comments History of Present Illness Details History of Present Illness - The patient is a 50 year old female pr esenting with right-sided flank pain. - The pain began approximately a month a nd a half ago, around the beginning of September, and has been progressively worsening. - She describes the pain as being locate d on her right side, shooting down, and is associated with significant bladder pressure. - The pain also radiates to her back. - Associated symptoms include nausea and occasional shaking chills, though she denies any fevers. - She endorses increased urinary frequen cy but attributes this to her known history of interstitial cystitis. - She has a history of passing small kid terence stones. - Last month, she was evaluated by [facility] provider, Dr. Grecia Figueredo, for these symptoms and concerns of a foul odor to her urine. - A urine culture at that time was negat marciano for infection, though a urine testing on September 29 revealed calcium oxalate crystals, and amorphous sediment. - Review of her recent lab work from [facility] visit revealed a normal CBC, metabolic panel, ESR, lipase, and liver function tests. - Her vitamin D was noted to be low, for which she takes supplements, and her A1c was 5.8. - Past surgical history is significant f or an appendectomy and cholecystectomy. - Her medical history also includes chey lcoholic fatty liver disease and a deep vein thrombosis in her left leg, for which she is no longer on a blood thinner. - A left leg and groin ultrasound was pe rformed today, which ruled out a new blood clot. Physical Exam General: Cooperative, healthy appearing, comfortable, no acute distress and well developed Orientation: Patient oriented x3 Limitations: No limitations Head: Normal to inspection Ears: Hearing grossly normal bilaterally Nose: Normal External nose present Face and sinus: Normal facial exam Eyes: Appearance normal, both eyes and all related structures Neck: Normal visual inspection and Yes full ROM Respiratory: Normal respiratory effort and able to speak in complete sentences. Clear to auscultation throughout, no wheezes, rales or rhonchi. Cardiac: regular rate and rhythm, normal s1 and s2, no mumurs, rubs or gallops GI: normoactive BS, soft, negative mcburneys, negative murphys, no TTP throughout abdomen Skin: No rashes or lesions noted Neuro: Patient oriented x3, gait normal Extremities: Normal to inspection, moving all extremities normally Back: + CVA right side, negative CVA left side Review of Systems - Constitutional: Reports occasional sha isabela chills. - Denies fevers. - Gastrointestinal: Reports nausea. - Denies vomiting or diarrhea. - Genitourinary: Reports worsening right flank pain for 1.5 months which radiates to her back and groin, along with bladder pressure and increased urinary frequency. - Reports a history of small kidney ston es and interstitial cystitis. - Denies burning with urination. - Vascular: Reports a history of a blood clot in her left leg. - An ultrasound today was negative for a new clot. All systems reviewed and are unremarkable except as noted in HPI [facility] Medical History (Updated 10/31/25 @ 16:44 by Laura Sharma PA-C) Acute right flank pain Anemia Sensorineural hearing loss DVT (deep venous thrombosis) Trigeminal neuralgia Surgical History (Updated 10/31/25 @ 16:14 by Avani Esquivel MD) S/P BON-BSO H/O laparoscopy Social History (Updated 10/31/25 @ 13:53 by Fahad Orozco) Household Members: Spouse and Children Patient Tobacco Use Status: Former Tobacco user Tobacco use type: Cigarette service: No Current occupational status: employed Physical Exam Vital Signs: Last Vital Signs Temp 98.0 F 10/31/25 16:25 Pulse 88 10/31/25 16:25 BP 110/72 10/31/25 16:25 Pulse Ox 94 10/31/25 16:25 Oxygen Delivery Method Room Air 10/31/25 16:25 BMI result Body Mass Index 28.5 Results AMB Urinalysis, Automated UA Leukoctes 0 Estrada/uL Last Edit by Melanie Lopez, NORRIS on 10/31/25 16:40 UA Nitrite Negative Last Edit by Melanie Lopez, NORRIS on 10/31/25 16:40 UA Urobilinogen 0.2 mg/dL Last Edit by Melanie Lopez, NORRIS on 10/31/25 16:4 0 UA Protein 0 mg/dL Last Edit by Melanie Lopez, NORRIS on 10/31/25 16:40 UA pH 6.0 Last Edit by Melanie Lopez, NORRIS on 10/31/25 16:40 UA Blood 0 Jose C/uL Last Edit by Melanie Lopez, NORRIS on 10/31/25 16:40 UA Specific [place] 1.030 Last Edit by Melanie Lopez, NORRIS on 10/31/25 16: 40 UA Ketone Negative Last Edit by Melanie Lopez, NORRIS on 10/31/25 16:40 UA Bilirubin 0 mg/dL Last Edit by Melanie Lopez, NORRIS on 10/31/25 16:40 UA Glucose 0 mg/dL Last Edit by Melanie Lopez, NORRIS on 10/31/25 16:40 Results Reviewed Results Reviewed: Laboratory Last Values Urine pH (Auto) 6.0 10/31/25 16:38 Specific [place] (Auto) 1.030 10/31/25 16:38 Urine Protein (Auto) 0 mg/dL 10/31/25 16:38 Glucose (UA)(Auto) 0 mg/dL 10/31/25 16:38 Urine Ketones (Auto) Negative 10/31/25 16:38 Urine Blood (Auto) 0 Jose C/uL 10/31/25 16:38 Urine Nitrite (Auto) Negative 10/31/25 16:38 Urine Bilirubin (Auto) 0 mg/dL 10/31/25 16:38 Urine Urobilinogen (Auto) 0.2 mg/dL 10/31/25 16:38 Leukocyte Esterase (Auto) 0 Estrada/uL 10/31/25 16:[address] [address] Ultrasound Report Signed Patient: Maria Luisa Mcclelland MR#: [id number] : 1975 Acct:[id number] Age/Sex: 50 / F ADM Date: 10/31/25 Loc: . Attending Dr: Avani Esquivel MD Ordering Physician: Avani Esquivel MD Date of Service: 10/31/25 Procedure(s): US venous duplex LE LT Accession Number(s): [id number] cc: Ivory Figueredo PT; Avani Esquivel MD~ Reason for Exam: History of DVT, recurrent pain EXAMINATION: US TRIPLEX LOWER EXTREMITY, LEFT CLINICAL INFORMATION: Pain, left lower extremity COMPARISON: None available. TECHNIQUE: Color-flow triplex imaging with spectral analysis and compression Doppler were performed on the left lower extremity. FINDINGS: Respiratory variation, normal compression and augmented flow are demonstrated in the interrogated left common femoral vein, superficial femoral vein, profunda femoral vein, popliteal vein and midcalf peroneal and posterior tibial venous segments and right common femoral vein.. There is a 2.3 cm lobulated anechoic abnormality in the left popliteal fossa. US/US venous duplex LE LT IMPRESSION: No acute deep venous thrombosis interrogated veins, left lower extremity. Negative for DVT. 2.3 cm cyst, left popliteal fossa.. Assessment & Plan Assessment & Plan (1) Acute right flank pain: Code(s): R10.A1 - Flank pain, right side Plan: Assessment and Plan Acute Right Flank Pain The patient is a 50-year-old female with a 1.5-month history of worsening right flank pain, radiating to the back and groin, associated with bladder pressure, nausea, and chills. Physical exam is positive for right CVA tenderness. The primary concern is nephrolithiasis, given her history of kidney stones and the character of the pain. Although a urinalysis performed in the clinic was negative for blood or signs of infection, a urine culture will be sent for thoroughness. Appendicitis and cholecystitis have been surgically ruled out. A deep vein thrombosis was also considered due to groin pain but was ruled out by an ultrasound performed earlier today. The plan is to order a STAT renal ultrasound to evaluate for kidney stones and to rule out any hydronephrosis or obstruction. The patient was advised on how to schedule this and how to establish care with a local PCP for follow-up. Orders: Orders AMB Urinalysis Automated 10/31/25 Z13.9 - Encounter for screening, unspecified Urine Culture 10/31/25 N39.0 - Urinary tract infection, site not specified US renal RT 10/31/25 R10.A1 - Flank pain, right side Coding Level of Care Code New Pt Level 4 (36717) Diagnoses Acute right flank pain R10.A1
== END 2025-10-31 16:49 | disposition home or self-care (01) ==
PROVIDERS: Visit Provider Physician Assistant
DX: R10.A1 Flank pain, right side (principal)

== ENCOUNTER 2025-10-31 16:41 | Outpatient (REF) | payer OTHER, SELFPAY | END 2025-10-31 16:42 | disposition home or self-care (01) | LOC: HO.LAB 16:41 | PROVIDERS: Visit Provider Physician Assistant | DX: N39.0 Urinary tract infection, site not specified (principal) | CPT/HCPCS: 87086 ==

== ENCOUNTER 2025-11-02 15:43 | Outpatient (REF) | payer OTHER, SELFPAY ==
--- OUTSIDE RECORDS SUMMARY | 2004-12-23 19:05 | XMS_ITS | Encounter Summary ---
Author Organization [facility] Address [address] [facility] [address] [place] [phone] Phone Care Team Providers Care Advance Agent Name Role Phone Unavailable Primary Care Provider Unavailabl e Encounter Details Date Type Department Care Team (Late st Contact Info) Description 12/23/2004 7:05 PM EST Hospital Encounter [facility] General Imaging [address] [place] [address] Adam Marques MD [address] [place] [id number] [email or web address] Social History Tobacco Use Types Packs/Day Years Used Date Smoking Tobacco: Former Cigarettes 0.5 2 0 02/14/1995 - 02/14/1997 Smokeless Tobacco: Never Alcohol Use Standard Drinks/Week Comments No 0 (1 standard drink = 0.6 oz pur e alcohol) Education Answer Date Recorded Are you interested in more education? Not on antoni e 03/18/2023 Are you concerned about learning? Not on file 03/18/2023 No 03/18/2023 No 03/18/2023 Digital Access Answer Date Recorded No 04/12/2023 No 04/12/2023 Reliable internet access at home? Not on file 04/12/2023 Device with a working camera? Not on file Intimate Partner Violence Answer Date R ecorded Are you denied basic needs s uch as food, clothing, or medical care? No 05/23/2025 In the past 12 months have y ou been in a relationship with a person who hurts, threatens, or tries to control you? No 05/23/2025 Are you denied basic needs s uch as food, clothing, or medical care? No 05/23/2025 In the past 12 months have y ou been in a relationship with a person who hurts, threatens, or tries to control you? No 05/23/2025 Comments No Sex and Gender Information Value Date Recorded Sex Assigned at Female 03/04/2020 3:45 PM EDT Legal Sex Female 5:25 PM EST Gender Identity Female 03/04/2020 3:45 PM EDT Sexual Orientation Straight 03/04/2020 3 :45 PM EDT documented as of this encounter Plan of Treatment Upcoming Encounters Date Type Department Care Team (Latest Contact Info) Description 11/20/2025 4:45 PM EST Pre-Admission Testing [facility] Pre-Procedure Evaluation Department [place] [address] Fam Preciado MD [address] [place] [phone] [email or web address] 12/11/2025 Procedure Pass [facility] BRET 4 ENDO DEPT [facility], [address] [place] [address] 12/11/2025 1:00 PM EST Hospital Encounter [facility]RET 4 ENDO DEPT [facility], [address] [place] [address] Fam Preciado MD [address] [place] [address] [email or web address] 12/11/2025 1:00 PM EST - 12/11/2025 1:45 PM EST Surgery [facility] BRET 4 ENDO DEPT [address] [place] [address] Fam Preciado MD [address] [place] [address] [email or web address] COLONOSCOPY 02/21/2026 8:30 AM EDT Telemedicine [facility] [address] [place] [address], 5[address] [place] [address] Fam Preciado MD [address] [place] [address] [address] [place] [address] [email or web address] Scheduled Procedures Name Priority Associated Diagnoses Date/Ti ga COLONOSCOPY Colonic adenomatous polyposis of unknown etiology 12/11/2025 1:00 PM EST documented as of this encounter Visit Diagnoses Not on filedocumented in this encounter Additional Source Comments The information contained in this document represents components of the legal health record. It is not the complete legal health record.[facility]
--- OUTSIDE RECORDS SUMMARY | 2025-09-18 04:00 | XMS_ITS ---
Author Organization [facility], Address [address] [address] Care Team Providers Care Shipwright Name Role Phone Alexandria Figueredo Primary Care Provider Sharath Naqvi Unavailable [phone] DR. Wesley Adams Unavailable [phone] Allergies Allergen (clinical drug ingredient) Drug/Non Drug Allergy documented on EMR Reaction Allergy Type Onset Date Status Ducor corn (uncoded) Unknown Allergy Activ e Ducor syrup corn syrup (uncoded) Unknown Allergy Active cornstarch (uncoded) Unknown Allergy Active Gluten gluten (uncoded) Unknown Allergy Act marciano corn starch mexsana (uncoded) Unknown Allergy Active Potato potato (uncoded) Unknown Allergy Act marciano codeine codeine Unknown Drug Allergy Active morphine morphine Unknown Drug Allergy Active glucose Dextrose Unknown Drug Allergy Active Sulfac 10% Unknown Drug Allergy Active pregabalin Lyrica Unknown Drug Allergy Active REASON FOR VISIT Trigger, how long did last treatment last for?, sx getting better or worse? Medications Medication SIG (Take, Route, Frequency, Duration) Notes Start Date End Date Status VITAMIN D3 125 mcg tablet 1 tab(s) orall y once a day Unknown VIMPAT 100 mg tablet 1 tab(s) orally 2 t imes a day; Duration: 90 days 06/06/2025 Unknown VITAMIN C 250 mg tablet 1 tab(s) orally once a day Unknown UBRELVY 100 mg tablet 1 tab(s) orally once Unknown VERAPAMIL 120 mg/24 hours capsule, extended release 1 cap(s) orally twice a day; Duration: 30 days Unknown TIZANIDINE 2 mg tablet 1 tab(s) orally a t night; Duration: 90 days Unknown TOPIRAMATE 100 mg tablet 1 tab(s) orally in addition to 25mg once a day Unknown QULIPTA 60 mg tablet 1 tab(s) orally onc e a day; Duration: 90 days Unknown SERTRALINE 50 mg tablet 75 mg Unknown ONDANSETRON 8 mg tablet 1 tab(s) orally 3 times a day PRN Unknown NURTEC ODT 75 mg tablet, disintegrating 1 tab(s) orally once Unkno wn MAGNESIUM OXIDE 200 mg tablet 1 tab orally once a day Unkn own MECLIZINE 25 mg tablet 1 tab(s) orally PRN Unknown LINZESS 145 mcg capsule 1 cap(s) orally once a day PRN PRN Unknown OMEPRAZOLE 20 mg delayed release capsule 1 cap(s) orally once a day Unknown LEVOTHYROXINE 50 mcg (0.05 mg) tablet 1 tab(s) orally once a day; Duration: 30 day(s) Unknown HYDROXYZINE HYDROCHLORIDE hydrochloride 25 mg tablet 1 tab(s) orally 2 times a day Unknown HYOSCYAMINE 0.125 mg tablet 1 tab(s) orally PRN Unknown DICYCLOMINE 20 mg tablet 1 tab(s) orally twice a day Unknown FERROUS SULFATE 325 mg delayed release tablet 1 tab(s) orally every other day Unknown ACETAMINOPHEN 650 mg tablet, extended release 2 tab(s) orally every 8 hours; Duration: 3 day(s) Unknown ALBUTEROL SULFATE HFA 90 mcg/inh aerosol 2 puff(s) inhaled every 6 hours Unknown ZINC GLUCONATE 50 mg Unkno wn ATORVASTATIN 10 mg tablet 1 tab(s) orall y once a day Unknown Encounters Encounter Location Date Provider Diagnosis [facility], [address] [address] 09/18/2025 Wesley Adams Plan Of Treatment Next Appt Details Provider Name:Wesley Adams , 11/20/2025 08:30:00 AM, [address] [place] [address], [phone], Provider Name:Wesley Adams , 12/18/2025 08:30:00 AM, [address] [place] [address], [place], [address], Progress Notes * Trevon ODONNELLOB:[birth year] (50 yo F)Acc No.[id number]:09/18/2025 Trigger point Patient: Maria Luisa See Provider: Aviva Adams MD :1975 A ge:50 Y S ex:Female Date:09/18/2025 Address:[address] [place], [place] [phone] Pcp:Alexandria Figueredo Patient's Default Facility: [facility], Subjective: * Chief Complaints: * T riggerHow long did last treatment last for?Sx getting better or worse? * ROS: 1 0 systems including constitutional, neurological, eyes, ENT, cardiovascular, respiratory, GI, , musculoskeletal, and skin were reviewed. Negative unless otherwise specified in HPI. * Medical History: Hypothyroidism Hyperthyroidism Diverticulitis Gerd Asthma Seizure DM Headache Osteoarthritis Medical History Verified * Surgical History: Rotator cuff repair 12/26/21 Radiofrequency ablation branch of lumbar spine 12/06/21 Cystoscopy chemodenervation 05/24/21 Repair of Tendon 11/12/2018 CTS 05/25/17 Foot/toes surgery 06/18/2015 Total Hysterectomy 11/17/2013 Knee arthroscopy 07/01/2012 Cardiac surgery 02/11/2012 Dilation of urethra 03/25/11 Laparoscopy 12/17/10 detorsion of ovary 12/17/09 Arthroscopic knee 02/14/2019 Appendectomy Cholecystectomy 12/17/2016 Tubal ligation 11/16/03 Laparoscopy 11/16/96 carpal tunnel release rt foot surgery Surgical History verified. * Hospitalization/Major Diagno stic Procedure: No Hospitalization Documented. Hospitalization Verified. * Family History: F ather: alive, Pancreas Ca, Hepatic failure, Coronary arteriosclerosis, MS. M other: alive, DM, Hypertensive. F amily History Verified.. sister has migraines. son has terrett's syndrome. * Social History: Social History Verified. No Social History documented. * Medications: U nknownACETAMINOPHEN 650 mg tablet, extended release 2 tab(s) orally every 8 hours ALBUTEROL SULFATE HFA 90 mcg/inh aerosol 2 puff(s) inhaled every 6 hours ATORVASTATIN 10 mg tablet 1 tab(s) orally once a day DICYCLOMINE 20 mg tablet 1 tab(s) orally twice a day FERROUS SULFATE 325 mg delayed release tablet 1 tab(s) orally every other day HYDROXYZINE HYDROCHLORIDE hydrochloride 25 mg tablet 1 tab(s) orally 2 times a day HYOSCYAMINE 0.125 mg tablet 1 tab(s) orally PRN LEVOTHYROXINE 50 mcg (0.05 mg) tablet 1 tab(s) orally once a day LINZESS 145 mcg capsule 1 cap(s) orally once a day PRN, Notes to Pharmacist: PRNMAGNESIUM OXIDE 200 mg tablet 1 tab orally once a day MECLIZINE 25 mg tablet 1 tab(s) orally PRN NURTEC ODT 75 mg tablet, disintegrating 1 tab(s) orally once OMEPRAZOLE 20 mg delayed release capsule 1 cap(s) orally once a day ONDANSETRON 8 mg tablet 1 tab(s) orally 3 times a day , Notes to Pharmacist: PRNQULIPTA 60 mg tablet 1 tab(s) orally once a day SERTRALINE 50 mg tablet 75 mgTIZANIDINE 2 mg tablet 1 tab(s) orally at night TOPIRAMATE 100 mg tablet 1 tab(s) orally in addition to 25mg once a day UBRELVY 100 mg tablet 1 tab(s) orally once VERAPAMIL 120 mg/24 hours capsule, extended release 1 cap(s) orally twice a day VIMPAT 100 mg tablet 1 tab(s) orally 2 times a day VITAMIN C 250 mg tablet 1 tab(s) orally once a day VITAMIN D3 125 mcg tablet 1 tab(s) orally once a day ZINC GLUCONATE , Notes to Pharmacist: 50 mgUnknown ACETAMINOPHEN 650 mg tablet, extended release 2 tab(s) orally every 8 hours Unknown ALBUTEROL SULFATE HFA 90 mcg/inh aerosol 2 puff(s) inhaled every 6 hours Unknown ATORVASTATIN 10 mg tablet 1 tab(s) orally once a day Unknown DICYCLOMINE 20 mg tablet 1 tab(s) orally twice a day Unknown FERROUS SULFATE 325 mg delayed release tablet 1 tab(s) orally every other day Unknown HYDROXYZINE HYDROCHLORIDE hydrochloride 25 mg tablet 1 tab(s) orally 2 times a day Unknown HYOSCYAMINE 0.125 mg tablet 1 tab(s) orally PRN Unknown LEVOTHYROXINE 50 mcg (0.05 mg) tablet 1 tab(s) orally once a day Unknown LINZESS 145 mcg capsule 1 cap(s) orally once a day PRN, Notes to Pharmacist: PRNUnknown MAGNESIUM OXIDE 200 mg tablet 1 tab orally once a day Unknown MECLIZINE 25 mg tablet 1 tab(s) orally PRN Unknown NURTEC ODT 75 mg tablet, disintegrating 1 tab(s) orally once Unknown OMEPRAZOLE 20 mg delayed release capsule 1 cap(s) orally once a day Unknown ONDANSETRON 8 mg tablet 1 tab(s) orally 3 times a day , Notes to Pharmacist: PRNUnknown QULIPTA 60 mg tablet 1 tab(s) orally once a day Unknown SERTRALINE 50 mg tablet 75 mgUnknown TIZANIDINE 2 mg tablet 1 tab(s) orally at night Unknown TOPIRAMATE 100 mg tablet 1 tab(s) orally in addition to 25mg once a day Unknown UBRELVY 100 mg tablet 1 tab(s) orally once Unknown VERAPAMIL 120 mg/24 hours capsule, extended release 1 cap(s) orally twice a day Unknown VIMPAT 100 mg tablet 1 tab(s) orally 2 times a day Unknown VITAMIN C 250 mg tablet 1 tab(s) orally once a day Unknown VITAMIN D3 125 mcg tablet 1 tab(s) orally once a day Unknown ZINC GLUCONATE , Notes to Pharmacist: 50 mg * Allergies: c odeineDextrosemexsanacorncorn syrupcornstarchglutenmorphinepotatoSulfac 10%Lyrica: Side EffectsyesAllergies Verified. Billing Information: * Procedure Codes: * Electronic signature of DR. Wesley Adams MD on 11/02/2025 at 07:29 PM EST Sign off status: Pending * Provider: Aviva Adams MD Date: 11/18/2024 Generated for Rome duarte/Jena/Darrius on: 01/03/2025 07:29 PM EST
--- OUTSIDE RECORDS SUMMARY | 2025-09-30 16:30 | XMS_ITS ---
Author Organization [facility], Address [address] [address] Care Team Providers Care Goat Farmer Name Role Phone Alexandria Figueredo Primary Care Provider Unavailabl e Sharath Duran Unavailable [phone] Migration, Provider Unavailable Unavailable Allergies Allergen (clinical drug ingredient) Drug/Non Drug Allergy documented on EMR Reaction Allergy Type Onset Date Status [place] CORN (uncoded) Unknown Allergy Activ e [place] syrup CORN SYRUP (uncoded) Unknown Allergy Active Potato POTATO (uncoded) Unknown Allergy Act marciano SULFAC 10% (uncoded) Unknown Allergy Active [place] Starch Unknown Drug Allergy Activ e glucose Dextrose Unknown Drug Allergy Active pregabalin Lyrica Unknown Drug Allergy Active Gluten Gluten Unknown Allergy Active codeine Codeine Unknown Drug Allergy Active morphine Morphine Unknown Drug Allergy Active corn starch [place] Unknown Drug Allergy Activ [facility] Conversion Encounter Medications Medication SIG (Take, Route, [...] review and pick correct strength-formulati on from [employer] options. If intended option is not shown, [...] Encounter Location Date Provider Diagnosis [facility], [address] [address] 09/30/2025 Provider Migration Plan Of Treatment Next Appt Details Provider Name:Wesley Adams , 11/20/2025 08:30:00 AM, 9 [facility], [place] [address], [place], [address], Provider Name:Wesley Adams , 12/18/2025 08:30:00 AM, [address] [facility], [place] [address], [place], [address], Progress Notes * Trevon ODONNELLOB:[birth year] (50 yo F)Acc No.[id number]:09/30/2025 Patient: Maria Luisa See Provider: Gibson son Migration :1975 A ge:50 Y S ex:Female Date:09/30/2025 [facility] [id number] Pcp:Alexandria Figueredo Patient's Default Facility: [facility], Subjective: * Chief Complaints: [facility] * Medications: U nknownAcetaminophen [...] *Please review and pick correct strength-formulation from [employer] options. If intended option is not shown, discontinue and re-order from Quick Search*Zinc Gluconate , Notes to Pharmacist: 50 mg *Please review and pick correct strength-formulation from [employer] options. If intended option is not shown, [...] *Please review and pick correct strength-formulation from [employer] options. If intended option is not shown, [...] *Please review and pick correct strength-formulation from [employer] options. If intended option is not shown, discontinue and re-order from Quick Search*Unknown Zinc Gluconate , Notes to Pharmacist: 50 mg *Please review and pick correct strength-formulation from [employer] options. If intended option is not shown, discontinue and re-order from Quick Search* * Allergies: C odeineDextroseMexsanaCORNCORN SYRUPCorn StarchGlutenMorphinePOTATOSULFAC 10%Lyrica: Side Effects * Electronic signature of Prov ider Migration on 11/02/2025 at 07:29 PM EST Sign off status: Pending * Provider: Gibson son Migration Date: 11/30/2024 Generated for Rome duarte/Jena/Darrius on: 01/03/2025 07:29 PM EST
--- NOTE | ~2025-11-02 | US_ITS ---
EXAMINATION: US RETROPERITONEAL LIMITED (RENAL ONLY) CLINICAL INFORMATION: R10.A1. Right flank pain. COMPARISON: None available. TECHNIQUE: Real-time ultrasound kidneys using grayscale technique. FINDINGS: RIGHT KIDNEY: 11 x 4 x 5 cm (SAG x AP x TRV). Normal echotexture. Renal cortical thickness is normal. No hydronephrosis. There is a 7 mm hyperechoic structure in the anterior midportion. LEFT KIDNEY: 12 x 5 x 5 cm (SAG x AP x TRV). Normal echotexture. Renal cortical thickness is normal. No hydronephrosis. No solid or cystic lesion. US/US renal BI IMPRESSION: No hydronephrosis or gross nephrolithiasis. 7 mm hyperechoic structure, right kidney which may correspond to angiomyolipoma. Electronically signed by: Paulo Simeon MD 11/02/2025 04:07 PM SAE GLEASON
--- OUTSIDE RECORDS SUMMARY | 2025-11-02 19:29 | XMS_ITS | Encounter Summary ---
Author Organization [facility] Address [address] [place] [id number] Phone Care Team Providers Care Teacher Visually Impaired Name Role Phone Elma Vogel MD Primary Care Provider [phone] Alexandria Figueredo NP Primary Care Provider + Encounter Details Date Type Department Care Team (Late st Contact Info) Description 05/25/2017 Procedure Pass [facility] [address] [place] [phone] Social History Tobacco Use Types Packs/Day [...] Description 11/20/2025 4:45 PM EST Pre-Admission Testing [facility] [place] [place] Pre-Procedure Evaluation Department [place] [id number] Fam Preciado MD [address] [place] [address] [address] [place] [address] [email or web address] 12/11/2025 Procedure Pass [facility] [place] [place] BRET 4 ENDO DEPT [address] [facility], [address] [place] [address] 12/11/2025 1:00 PM EST Hospital Encounter [facility] [place] [place] BRET 4 ENDO DEPT [address] [facility], [address] [place] [address] Fam Preciado MD [address] [place] [id number] [email or web address] 12/11/2025 1:00 PM EST - 12/11/2025 1:45 PM EST Surgery [facility] [place] [place] BRET 4 ENDO DEPT [address] [place] [address], [address] [place] [address] Fam Preciado MD [address] [place] [id number] [email or web address] COLONOSCOPY 02/21/2026 8:30 AM EDT Telemedicine [facility] [address] [place] [address], [address] [place] [address] Fam rPeciado MD [address] [place] [phone] [email or web address] Scheduled Procedures Name Priority Associated Diagnoses Date/Ti az COLONOSCOPY Colonic adenomatous polyposis of unknown etiology 12/11/2025 1:00 PM EST documented as of this encounter Visit Diagnoses Not on filedocumented in this encounter Care Teams Teacher Visually Impaired Relationship Specialty Start Date End Date Elma Vogel MD [address] [place] [address] PCP - General 03/22/15 05/23/25 Alexandria Figueredo NP [address] [place] [address] PCP - General Nurse Practitioner 05/24/25 documented as of this encounter Additional Source Comments The information contained in this document represents components of the legal health record. It is not the complete legal health record.[facility]
--- OUTSIDE RECORDS SUMMARY | 2025-11-02 19:29 | XMS_ITS | Patient Health Record ---
Author Organization [facility], Address [address] [address] Care Team Providers Care Longwall Foreman Name Role Phone TerellAlexandria Primary Care Provider UnavailSharath Urrutia Unavailable [phone] Farhat Foster Unavailable [phone] DR. Wesley Adams Unavailable [phone] Migration, Provider Unavailable Unavailable Allergies Allergen (clinical drug ingredient) Drug/Non Drug Allergy documented on EMR Reaction Allergy Type Onset Date Status [place] CORN (uncoded) Unknown Allergy Activ e [place] syrup CORN SYRUP (uncoded) Unknown Allergy Active Potato POTATO (uncoded) Unknown Allergy Act marciano SULFAC 10% (uncoded) Unknown Allergy Active [place] Starch Unknown Drug Allergy Activ e glucose Dextrose Unknown Drug Allergy Active pregabalin Lyrica Unknown Drug Allergy Active Gluten Gluten Unknown Allergy Active codeine Codeine Unknown Drug Allergy Active morphine Morphine Unknown Drug Allergy Active corn starch [place] Unknown Drug Allergy Activ e Results Component Value Reference Range Flag Notes IMMUNOFIXATION, SERUM Reviewed date:02/28/2025 04:20:31 PM Interpretation: Performing Lab:NL2, [facility] [employer] [facility], [address] [place] [address], [phone] Ignacia Melgoza Notes/Report: Received Date: FASTING:NO FASTING: NO PETAR INTERPRETATION Normal pattern. No monoclonal proteins detected. SED RATE BY MODIFIED EMILIE AKBAR Reviewed date:02/24/2025 03:49:47 PM Interpretation: Performing Lab:NL2, [facility] [employer], [address] [place] [address], [phone] [facility] Notes/Report: Received Date: FASTING:NO FASTING: NO SED RATE BY MODIFIED WESTERGREN 2 < OR = 20 mm/h N VITAMIN B12 Reviewed date:02/24/2025 03:50:05 PM Interpretation: Performing Lab:[facility], [facility], [address] [place] [address], [phone] [facility] Notes/Report: Received Date: FASTING:NO FASTING: NO VITAMIN B12 283 755-1874 pg/mL N Please Note: Although the reference range for vitamin B12 is 200-1100 pg/mL, it has been reported that between 5 and 10% of patients with values between 200 and 400 pg/mL may experience neuropsychiatric and hematologic abnormalities due to occult B12 deficiency; less than 1% of patients with values above 400 pg/mL will have symptoms. C-REACTIVE PROTEIN Reviewed date:02/24/2025 03:52:59 PM Interpretation: Performing Lab:TIARA2, [facility], [address] [place] [address], [phone] [facility] Notes/Report: Received Date: FASTING:NO FASTING: NO C-REACTIVE PROTEIN <3.0 <8.0 mg/L N CBC (INCLUDES DIFF/PLT) Reviewed date:02/24/2025 03:59:56 PM Interpretation: Performing Lab:[employer], [facility], [address] [place] [address], [phone] [facility] Notes/Report: Received Date: FASTING:NO FASTING: NO WHITE [...] 11.7 7.5-12.5 fL N ABSOLUTE NEUTROPHILS 8204 5574-4670 cells/uL H ABSOLUTE LYMPHOCYTES 2099 850-3900 cells/uL N ABSOLUTE MONOCYTES 233 200-950 cells/uL N ABSOLUTE EOSINOPHILS 11 15-500 cells/uL L ABSOLUTE BASOPHILS 53 0-200 cells/uL N NEUTROPHILS 77.4 N LYMPHOCYTES 19.8 N MONOCYTES 2.2 N EOSINOPHILS 0.1 N BASOPHILS 0.5 N TSH, 3RD GENERATION W/REFLEX TO FT4 Reviewed date:02/24/2025 03:50:00 PM Interpretation: Performing Lab:NL2, [facility], [address] [place] [address], [phone] Ignacia Melgoza Notes/Report: Received Date: FASTING:NO FASTING: NO TSH W/REFLEX TO FT4 1.18 N Reference Range > or = 20 Years 0.40-4.50 Ranges First trimester 0.26-2.66 Second trimester 0.55-2.73 Third trimester 0.43-2.91 COMPREHENSIVE METABOLIC PANE L W/O EGFR Reviewed date:02/24/2025 03:59:22 PM Interpretation: Performing Lab:NL2, [facility], [address] [place] [address], [phone] Ignacia Melgoza Notes/Report: Received Date: FASTING:NO FASTING: [...] U/L N ALT 36 6-29 U/L H ANACHOICE(TM) SCREEN W/REFL TO TITER, IFA Reviewed date:03/02/2025 01:37:45 PM Interpretation: Performing Lab:NL2, [facility], [address] [place] [address], [phone] Ignacia Melgoza Notes/Report: NESTOR IFA is a [...] Patterns For additional information, please refer to (https://doi.org/10.1515/znqa-0550-7077) http://education.As It Is/faq/MKB836 (This link is being provided for informational/ educational purposes only.) NESTOR SCREEN, IFA POSITIVE NEGATIVE A NESTOR TITER 1:160 H NESTOR PATTERN Nuclear, Homogeneous A EEG Routine Reviewed date:03/13/2025 02:43:11 PM Interpretation: Performing Lab: Notes/Report: Brain (C-/C+) CPT 67523 Reviewed date:02/23/2025 04:06:20 PM Interpretation: Performing Lab: Notes/Report: Reason For Referral Reason Botox BB w/[employer] under Bryan approved 04/24/2025-10/21/2025 ROSALINA- [id number] for 2 visits Referral [facility] Referring Provider First Name Wesley Referring Provider Last Name Bryan Referring Provider Speciality Neurology [facility]erred [facility] Referred Provider Sharath Duran Referred Address [address] [facility],[place], [place],[address], Referral Priority Routine Medications Medication SIG (Take, Route, Frequency, Duration) Notes Start Date End Date Status Atorvastatin Calcium 10 MG Tablet 1 tab(s) orally once a day Active Zinc Gluconate 50 mg *Please review and pick correct strength-formulati on from [employer] options. If intended option is not shown, [...] review and pick correct strength-formulati on from [employer] options. If intended option is not shown, discontinue and re-order from Quick Search* Active Magnesium Oxide 200 MG TABLET 1 TAB ORALLY ONCE A DAY *Please review and pick correct strength-formulati on from [employer] options. If intended option is not shown, [...] Risk Notes Problem Refractory migraine without aura (539763134) Migraine without aura, intractable, without status migrainosus (G43.019) Active confirmed Problem Chronic tension-type headache (241155107) Chronic tension-type headache, intractable (G44.221) Active confirmed Problem Trigeminal neuralgia (77080872) Trigeminal neuralgia (G50.0) Active confirmed Problem Cervicalgia (52113633) Cervicalgia (M54.2) Active confirmed Problem Migraine (66690672) Migraine (G43.909) Active confirmed Problem Carpal tunnel syndrome of right wrist (476157712583558) Carpal tunnel syndrome of right wrist (G56.01) Active confirmed Problem Cervical radiculopathy (46988182) Cervical radiculopathy (M54.12) Active confirmed Problem Visual disturbance (67039141) Visual changes (H53.9) Active confirmed Problem Trigeminal neuralgia (25514541) Trigeminal neuralgia of left side of face (G50.0) Active confirmed Problem Atypical facial pain (08735376) Atypical face pain (G50.1) Active confirmed Problem Headache (18632014) Headache (R51.9) Active confirmed Vital Signs Oximetry 98 % 08/21/2025 Blood pressure diastolic 80 mm Hg 10/16/2025 Height 64 in 10/16/2025 Blood pressure systolic 116 mm Hg 10/16/2025 Weight 158 lbs 10/16/2025 BMI 27.12 kg/m2 10/16/2025 Encounters Encounter Location Date Provider Diagnosis NEUROLOGY [address] [address] 05/29/2025 Ozaire Bryna Migraine without aura, intractable, without status migrainosus G43.[address] [address] 05/18/2025 Ozaire Bryan Chronic tension-type headache, intractable G44.221 ; Intractable chronic migraine with aura and without status migrainosus G43.E19 ; Cervicalgia M54.2 ; Cervicogenic headache G44.86 ; TMJ (temporomandibular joint disorder) M26.609 and Seizure R56.[address] [address] 04/07/2025 Farhat Foster Seizure R56.[address] [address] 03/03/2025 Nency Roger Trigeminal neuralgia G50.0 and Headache R51.[address] [address] 03/31/2025 Nency Roger Trigeminal neuralgia of left side of face G50.[address] [address] 04/21/2025 Nency Roger Migraine G43.909 and Atypical face pain G50.[address] [address] 09/30/2025 Provider Migration [address] [address] 08/21/2025 Ozaire Bryan Migraine without aura, intractable, without status migrainosus G43.[address] [address] 02/23/2025 Nency Roger Headache R51.9 ; Trigeminal neuralgia G50.0 ; Visual changes H53.9 and Trigeminal neuralgia of left side of face G50.0 [facility] [address] [place] [address] 07/03/2025 Ozaire Bryan Migraine without aura, intractable, without status migrainosus G43.019 [facility] [address] [place] [phone] 08/09/2025 Ozaire Bryan Migraine without aura, intractable, without status migrainosus G43.019 [facility] [address] [place] [phone] 10/16/2025 Ozaire Bryan Migraine without aura, intractable, without status migrainosus G43.019 [facility] [address] [place] [address] 02/23/2025 [facility] [address] [place] [phone] 02/27/2025 [facility] [address] [place] [phone] 03/03/2025 [facility] [address] [place] [phone] 03/31/2025 [facility] [address] [place] [phone] 07/16/2025 [facility] [address] [place] [phone] 10/24/2025 [facility] [address] [place] [phone] 04/02/2025 [facility] [address] [place] [phone] 04/03/2025 [facility] [address] [place] [phone] 04/03/2025 [facility] [address] [place] [phone] 06/06/2025 [facility], [address] [place] [address], [place] [address] 06/06/2025 [facility], [address] [place] [address] 07/03/2025 [facility], [address] [place] [address], [place] [address] 04/18/2025 [facility], [address] [place] [address], [place] [address] 04/21/2025 [facility], [address] [facility] [address] [place] [address], [place] [address] 05/18/2025 [facility], [address] [place] [address], [place] [address] 08/11/2025 [facility], [address] [facility] [address] [place] [address], [place] [address] 10/06/2025 [facility], [address] [facility] [address] [place] [address], [place] [address] 02/24/2025 [facility] Assessments Encounter Date Diagnosis (ICD Code) Assessment Notes Treatment Notes Treatment Clinical Notes Section Notes 02/23/2025 Trigeminal neuralgia (ICD-10 - G50.0) Maria Luisa is a 49 yo F seen today for initial consultation of left sided facial pain and numbness. Patient was referred by OCTAVIO Figueredo. Her previous neurologist was Dr. Socorro Canales at [facility]; stopped following her as she was on [...] infection and sleep deprivation. 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 She reports [...] infection and sleep deprivation. 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 We discussed seizure safety precautions such as avoiding heights, operating heavy machinery, and swimming alone. Todays service was provided via [facility] (audio/video). The patient consents to [facility] and understands they could be be charged a copay or higher amount from insurance company. The location of the patient is their home. The location of the provider is [facility]. The names of all persons participating in the [facility] service and their role in the encounter: Sharath Duran, MANAGER OF PRODUCTION and PATIENT. 30+ min time spent discussing [...] 49 yo F who was seen via [facility] today to discuss her atypical facial [...] avoidable triggers. Todays service was provided via [employer] (audio/video). The patient consents to [employer] and understands they could be be charged a copay or higher amount from insurance company. The location of the patient is their home. The location of the provider is [facility]. The names of all persons participating in the [employer] service and their role in the encounter: Sharath Duran, MANAGER OF PRODUCTION and PATIENT. 30+ min time spent discussing diagnosis, treatment plan, patient concerns. All questions answered. Plan discussed with Dr Beck/Dr. Adams who are in agreement. Patient is in agreement with the current plan. 04/21/2025 Atypical face pain (ICD-10 - G50.1) Maria Luisa is a 49 yo F who was seen via [facility] today to discuss her atypical facial [...] avoidable triggers. Todays service was provided via [employer] (audio/video). The patient consents to [employer] and understands they could be be charged a copay or higher amount from insurance company. The location of the patient is their home. The location of the provider is [facility]. The names of all persons participating in the [employer] service and their role in the encounter: [...] previous neurologist was Dr. Socorro Canales at [facility]; stopped following her as she was on [...] infection and sleep deprivation. 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 She was started [...] ER presentation. Todays service was provided via [employer] (audio/video). The patient consents to [employer] and understands they could be be charged a copay or higher amount from insurance company. The location of the patient is their home. The location of the provider is [facility]. The names of all persons participating in the [facility] service and their role in the [...] is a 49 yo F seen via [facility] for medication check. She was started [...] ER presentation. Todays service was provided via [employer] (audio/video). The patient consents to [employer] and understands they could be be charged a copay or higher amount from insurance company. The location of the patient is their home. The location of the provider is [facility]. The names of all persons participating in the [facility] service and their role in the [...] previous neurologist was Dr. Socorro Canales at [facility]; stopped following her as she was on [...] infection and sleep deprivation. 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 Socorro Canales at [facility]; stopped following her as she was on [...] infection and sleep deprivation. 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
--- OUTSIDE RECORDS SUMMARY | 2025-11-02 19:29 | XMS_ITS | Patient Health Record ---
Author Organization [facility] Address [address] [place] [address] [place] [phone] Care Team Providers Care Water Registrar Name Role Phone CLAY SMIS, ALISA Primary Care Provider Unavailab Jalen SIMS, [facility] Unavailable Allergies Allergen (clinical drug ingredient) Drug/Non [...] Risk Notes Problem Uncomplicated mild persistent asthma (633947472) Mild persistent asthma, uncomplicated (J45.30) Active confirmed Problem Allergic rhinitis caused by animal hair and dander (138618224018415) Allergic rhinitis due to animal (cat) (dog) hair and dander (J30.81) Active confirmed Problem Allergic rhinitis caused by pollen (disorder) (65850987) Allergic rhinitis due to pollen (J30.1) Active confirmed Problem Mild intermittent asthma (165995974) Mild intermittent asthma, uncomplicated (J45.20) Active confirmed Problem Allergic rhinitis (79418605) Other Allergic Rhinitis (J30.89) Active confirmed Plan Of Treatment No Information Insurance Providers Payer Name Payer Address Payer Phone Subscriber Number Group Number Insured Name Patient Relationship to Insured Coverage Start Date Coverage End Date [facility] [address] [place] [address] [id number] WILLIAN ODONNELL Self - patient is the insured Medications Administered Medication Instructions Date of Administration Dosage Notes Mite Mix 04/17/2016 All Tree 04/17/2016 All [place] 04/17/2016 Grass mix 04/17/2016 Mite Mix 04/23/2017 5,000au, 0.5 All Tree 04/23/201712/05 0.05 Grass mix 04/23/2017 5,000 bau 0.05 All [place] 04/23/201712/05 0.05 Medical (General) History Medical History [...]
--- OUTSIDE RECORDS SUMMARY | 2025-11-02 19:29 | XMS_ITS | Encounter Summary ---
Author Organization [facility] Address [phone]: turn off the lights [facility] [address] [place] [phone] Phone Care Team Providers Care Diet Assistant Name Role Phone Elma Vogel MD Primary Care Provider Alexandria Figueredo NP Primary Care Provider + Encounter Details Date Type Department Care Team (Late st Contact Info) Description 04/21/2017 Procedure Pass [facility] - MRI, [facility] [address] [place] [address] Social History Tobacco Use Types Packs/Day Years [...] Description 11/20/2025 4:45 PM EST Pre-Admission Testing [facility] Pre-Procedure Evaluation Department [place] [phone] Fam Preciado MD [address] [place] [address] [address] [place] [address] [email or web address] 12/11/2025 Procedure Pass [facility] BRET [address] ENDO DE[address] [place] [address], [address] [place] [address] 12/11/2025 1:00 PM EST Hospital Encounter [facility] BRET 4 ENDO DEPT [address] [facility], [address] [place] [address] Fam Preciado MD [address] [place] [phone] [email or web address] 12/11/2025 1:00 PM EST - 12/11/2025 1:45 PM EST Surgery [facility]RET 4 ENDO DEPT [address] [facility], [address] [place] [address] Fam Preciado MD [address] [place] [phone] [email or web address] 02/21/2026 8:30 AM EDT Telemedicine [facility] [address] [place] [address], [address] [place] [address] Fam Preciado MD [address] [place] [phone] [email or web address] Scheduled Procedures Name Priority Associated Diagnoses Date/Ti me COLONOSCOPY Colonic adenomatous polyposis of unknown etiology 12/11/2025 1:00 PM EST documented as of this encounter Visit Diagnoses Not on filedocumented in this encounter Care Teams Diet Assistant Relationship Specialty Start Date End Date Elma Vogel MD [address] [place] [address] PCP - General 03/22/15 05/23/25 Alexandria Figueredo NP [address] [place] [address] PCP - General Nurse Practitioner 05/24/25 documented as of this encounter Additional Source Comments The information contained in this document represents components of the legal health record. It is not the complete legal health record.[facility]
--- OUTSIDE RECORDS SUMMARY | 2025-11-02 19:29 | XMS_ITS | Clinical Summary ---
Author Organization [facility] Address [address] [address] [address] Phone Care Team Providers Care Hand Almond Blancher Name Role Phone Alexandria Figueredo NP Primary Care Provider + Allergies Active Allergy Reactions Criticality Noted Date Comments Codeine GI Upset Medium 10/27/2011 Converted from Generic Allergy: Codeine [place] Starch Shortness Of Breath High 04/21/2017 Opioids [...] Active ferrous sulfate 324 mg (65 mg [place] iron) TbEC Take 324 mg by mouth [...] Department Care Team Description 10/16/[address] [facility] [address] [place] [address] Alexandria Figueredo NP from Last 3 Months [...] Description 11/20/2025 4:45 PM EST Pre-Admission Testing [facility] Pre-Procedure Evaluation Department [place] [address] Fam Preciado MD [address] [place] [address] [address] [place] [address] [email or web address] 12/11/2025 Procedure Pass [facility] [place] BRET [address] END[address] [place] [address], 4th [place] [address] 12/11/2025 1:00 PM EST Hospital Encounter [facility] [place] BRET 4 ENDO DEPT [address] [facility], 4th [place] [address] Fam Preciado MD [address] [place] [id number] [email or web address] 12/11/2025 1:00 PM EST - 12/11/2025 1:45 PM EST Surgery [facility] [place] BRET 4 ENDO DEPT [address] [facility], [address] [place] [address] Fam Preciado MD [address] [place] [id number] [email or web address] COLONOSCOPY 02/21/2026 8:30 AM EDT Telemedicine [facility] [address] [facility], [address] [place] [address] Fam Preciado MD [address] [place] [id number] [email or web address] Scheduled Procedures Name Priority Associated Diagnoses Date/Ti [...] this topic Medical Devices Implanted Type Area Umbrella Tipper Device Identifier Shelf Expiration Date Model / Serial / Lot Dental Implant Breast Clips Left Clip Hemostasis 360deg 235cm Resolution 360 Latex Free 2.8mm Channel Bx/20ea - [id number] Implanted:Qty: 1 on 05/23/2025 by Fam Preciado MD at [facility] [employer] 01/05/2028 [id number] / [id number] / [id number] Description:Colon hepatic fl exure Clip Hemostasis 360deg 235cm Resolution 360 Latex Free 2.8mm Channel Bx/20ea - [id number] Implanted:Qty: 1 on 05/23/2025 by Fam Preciado MD at [facility] [employer] [id number] 02/01/2028 [id number] / [id number] / [id number] Description:Colon hepatic fl exure Clip Hemostasis 360deg 235cm Resolution 360 Latex Free 2.8mm Channel Bx/20ea - [id number] Implanted:Qty: 1 on 05/23/2025 by Fam Preciado MD at [facility] [employer] [id number] 01/05/2028 [id number] / [id number] / [id number] Description:Colon hepatic fl exure Clip Hemostasis 360deg 235cm Resolution 360 Latex Free 2.8mm Channel Bx/20ea - [id number] Implanted:Qty: 1 on 05/23/2025 by Fam Preciado MD at [facility] [employer] [id number] 01/05/2028 [id number] / [id number] / [id number] Description:Colon hepatic fl exure Clip Resolution 360deg 235cm 2.8mm Channel Hemostasis Bx/1ea - [id number] Implanted:Qty: 1 on 05/23/2025 by Fam Preciado MD at [facility] [employer] [id number] 02/02/2028 [id number] / [id number] / [id number] Description:Left colon Procedures Procedure Name Priority Date/Time [...] 1975 Admit Type: Outpatient Age: 49 Room: [place] [address] Gender: Female Note Status: Finalized Attending MD: [...] bowel preparation was evaluated using the BBPS ([place] Bowel Preparation Scale) with scores of: Right [...] The total BBPS score equals 6. The [employer] computer-aided polyp detection system was used during [...] procedure. Anesthesia administered sedation. Fam Preciado MD, [id number] 05/23/2025 11:36:59 AM The attending physician was present throughout the entire procedure. Number of Addenda: 0 Note Initiated On: 05/23/2025 10:30 AM Elma Vogel MD GI PROCEDURE ORDERABLES Final Re sult from Last 3 Months or Most Recently Relevant to Health Maintenance Insurance [employer] PLUS PPO [employer] PLUS PPO [employer] PLUS PPO [employer] PLUS PPO [employer] PLUS PPO [employer] PLUS PPO Advance Directives For more information, please contact: [phone] (9AM - 5PM [facility], Thursday-Thursday) * Full Code (Presumed) (Latest Code Status on File) Date Activated Date Inactivated Comments 05/25/2017 10:06 AM 05/25/2017 3:11 PM Care Teams Hand Almond Blancher Relationship Specialty Start Date End Date Alexandria Figueredo NP [address] [place] [address] PCP - General Nurse Practitioner 05/24/25 Additional Source Comments The information contained in this document represents components of the legal health record. It is not the complete legal health record.[facility]
--- OUTSIDE RECORDS SUMMARY | 2025-11-02 19:29 | XMS_ITS | Data Portability ---
Author Organization [facility] Jose [facility] _[facility] Address [address] [address] Care Team Providers Care Corporate Director Of Human Resources Name Role Phone ALEXANDRIA FIGUEREDO Primary Care [...] ordering imaging & labs; documenting today's visit. [email or web address] Not available 01/13/2025 08:47:50 05/05/2025 05/05/2025 Assessment: 1. DVT, left leg, provoked, in the setting of Estrogen use and left leg surgery. On anticoagulation from 10/2024 to 03/2025. 2. Hematochezia, in the setting of polyposis of colon. Negative genetic testing for APC and MUTYH at [facility] on 06/07/2024. Genetic test was also ordered by the [facility], report pending, 3. Iron deficiency, persistent [...] for polyposis. 4. Patient is moving to [facility] in 05/2025, [facility] was recommended to patient for further follow-up. Not available 05/05/2025 09:50:48 Plan of Treatment Reminders Order Date Submit Date Provider Last Modified By Organization Details Last Modified Time Details Appointments None recorded. Lab iron + TIBC + ferritin, serum 2024 025 [facility], [address] [place] [address], [address], 5 03:44:16 CBC w/ auto diff 2024 025 [facility], [address] [place] [address], [address], 5 03:44:17 CBC w/ auto diff 2023 024 [facility], [address] [place] [address], [address], 4 23:50:13 CMP, serum or plasma 2023 024 [facility], [address] [place] [address], [address], 4 23:50:12 iron + TIBC + ferritin, serum 2023 024 [facility], [address] [facility], [facility] [address], [place], [address], 4 23:50:12 Referral None recorded. Procedures lumbar radiofreque ncy ablation (PROC) - lumbar radiofreque ncy ablation w/anes arrival 1:45pm 2023 024 [email or web address] In-Office Order, Internal Use Only DO Not Attach Compendium DO Not Attach Compendium, Do Not Delete/merge, [id number] 4 07:35:59 Surgeries None recorded. Imaging US, duplex, venous, lower extremity, unilateral - [id number] [address] (Radiology), [address] [place], [address], 5 08:01:26 Medication Orders Eliquis 5 mg tablet [address]/Pharmacy #[id number], [address] [facility], [place], [address], 5 08:55:16 Patient TargetsNo targets recorded. Patient InstructionsNo instructions recorded. Reason for Referral None Reported. Results Created Date Observation Date Name Description Value Unit Range Abnormal Flag Note LastModifiedBy Organization Detail LastModifiedTime 11/14/20 24 11/14/2024 IRON, TIBC AND RON TIN PANEL iron, total 27 mcg/d L 40-190 low Not Available [facility] [place] [facility] [address] [place], [address], 11/14/2024 23:50:11 11/14/20 24 11/14/2024 IRON, TIBC AND RON TIN PANEL iron binding capacity 271 mcg/d L_(ca lc) 250-45 0 normal Not Available [facility] [place] [facility] [address] [place], [address], 11/14/2024 23:50:11 11/14/20 24 11/14/2024 IRON, TIBC AND RON TIN PANEL % saturation 10 %_(ca lc) 16-45 low Not Available [facility] [address], [place], [address], 11/14/2024 23:50:11 11/14/20 24 11/14/2024 IRON, TIBC AND RON TIN PANEL ferritin 26 NG/mL 16-232 normal Not Available [facility] [address], [place], [address], 11/14/2024 23:50:11 11/14/20 24 11/14/2024 COMPR EHENS MARI METAB OLIC PANEL glucose 99 mg/dL 65-139 normal Non-f astin g refer ence inter adam Not Available [facility] [address], [place], [address], 11/14/2024 23:50:12 11/14/20 24 11/14/2024 COMPR EHENS MARI METAB OLIC PANEL urea nitrogen (BUN) 11 mg/dL 7-25 normal Not Available [facility] [address], [place], [address], 11/14/2024 23:50:12 11/14/20 24 11/14/2024 COMPR EHENS MARI METAB OLIC PANEL creatinine 0.92 mg/dL 0.50-0 .99 normal Not Available [facility] [address], [place], [address], 11/14/2024 23:50:12 11/14/20 24 11/14/2024 COMPR EHENS MARI METAB OLIC PANEL eGFR 77 mL/mi n/1.7 3m2 > or = 60 normal Not Available [facility] [address] [place], [address], 11/14/2024 23:50:12 11/14/20 24 11/14/2024 COMPR EHENS MARI METAB OLIC PANEL BUN/creatini ne ratio SEE NOTE: (calc ) 6-22 Not Repor christine: BUN and Creat inine are withi n refer ence range . Not Available [facility] [address], [place], [address], 11/14/2024 23:50:12 11/14/20 24 11/14/2024 COMPR EHENS MARI METAB OLIC PANEL sodium 141 mmol/ L 135-14 6 normal Not Available [facility] [address], [place], [address], 11/14/2024 23:50:12 11/14/20 24 11/14/2024 COMPR EHENS MARI METAB OLIC PANEL potassium 4.4 mmol/ L 3.5-5. 3 normal Not Available [facility] [address], [place], [address], 11/14/2024 23:50:12 11/14/20 24 11/14/2024 COMPR EHENS MARI METAB OLIC PANEL chloride 109 mmol/ L 98-110 normal Not Available [facility] [address], [place], [address], 11/14/2024 23:50:12 11/14/20 24 11/14/2024 COMPR EHENS MARI METAB OLIC PANEL carbon dioxide 25 mmol/ L 20-32 normal Not Available [facility] [address], [place], [address], 11/14/2024 23:50:12 11/14/20 24 11/14/2024 COMPR EHENS MARI METAB OLIC PANEL calcium 9.5 mg/dL 8.6-10 .2 normal Not Available [facility] [address], [place], [address], 11/14/2024 23:50:12 11/14/20 24 11/14/2024 COMPR EHENS MARI METAB OLIC PANEL protein, total 7.0 g/dL 6.1-8. 1 normal Not Available [facility] [address], [place], [address], 11/14/2024 23:50:12 11/14/20 24 11/14/2024 COMPR EHENS MARI METAB OLIC PANEL albumin 4.5 g/dL 3.6-5. 1 normal Not Available [facility] [address], [place], [address], 11/14/2024 23:50:12 11/14/20 24 11/14/2024 COMPR EHENS MARI METAB OLIC PANEL globulin 2.5 g/dL_ (calc ) 1.9-3. 7 normal Not Available [facility] [address], [place], [address], 11/14/2024 23:50:12 11/14/20 24 11/14/2024 COMPR EHENS MARI METAB OLIC PANEL albumin/glob ulin ratio 1.8 (calc ) 1.0-2. 5 normal Not Available [facility] [address], [place], [address], 11/14/2024 23:50:12 11/14/20 24 11/14/2024 COMPR EHENS MARI METAB OLIC PANEL bilirubin, total 0.5 mg/dL 0.2-1. 2 normal Not Available [facility] [address], [place], [address], 11/14/2024 23:50:12 11/14/20 24 11/14/2024 COMPR EHENS MARI METAB OLIC PANEL alkaline phosphatase 101 U/L 31-125 normal Not Available [facility] [place] [facility] [address], [place], [address], 11/14/2024 23:50:12 11/14/20 24 11/14/2024 COMPR EHENS MARI METAB OLIC PANEL AST 15 U/L 10-35 normal Not Available [facility] [place] [facility] [address], [place], [address], 11/14/2024 23:50:12 11/14/20 24 11/14/2024 COMPR EHENS MARI METAB OLIC PANEL ALT 13 U/L 6-29 normal Not Available [facility] [place] [facility] [address], [place], [address], 11/14/2024 23:50:12 11/14/20 24 11/14/2024 CBC (INCL UDES DIFF/ PLT) white blood cell count 6.7 thous and/u L 3.8-10 .8 normal Not Available [facility] [address], [place], [address], 11/14/2024 23:50:13 11/14/20 24 11/14/2024 CBC (INCL UDES DIFF/ PLT) red blood cell count 4.42 meka on/uL 3.80-5 .10 normal Not Available [facility] [address], [place], [address], 11/14/2024 23:50:13 11/14/20 24 11/14/2024 CBC (INCL UDES DIFF/ PLT) hemoglobin 13.4 g/dL 11.7-1 5.5 normal Not Available [facility] [address], [place], [address], 11/14/2024 23:50:13 11/14/20 24 11/14/2024 CBC (INCL UDES DIFF/ PLT) hematocrit 40.9 % 35.0-4 5.0 normal Not Available [facility] [place] [facility] [address], [place], [address], 11/14/2024 23:50:13 11/14/20 24 11/14/2024 CBC (INCL UDES DIFF/ PLT) MCV 92.5 fL 80.0-1 00.0 normal Not Available [facility] [place] [facility] [address], [place], [address], 11/14/2024 23:50:13 11/14/20 24 11/14/2024 CBC (INCL UDES DIFF/ PLT) MCH 30.3 pg 27.0-3 3.0 normal Not Available [facility] [place] [facility] [address], [place], [address], 11/14/2024 23:50:13 11/14/20 24 11/14/2024 CBC (INCL UDES DIFF/ PLT) MCHC 32.8 g/dL 32.0-3 6.0 normal For adult s, a sligh t decre ase in the calcu lated MCHC value (in the range of 30 to 32 g/dL) is most likel y not clini sen signi griffin t; ninfa er, it shoul d be inter prete d with cauti on in [facility] n with other red cell lalitha eters and the patie nt's clini laura condi tion. Not Available [facility] [place] [facility] [address], [place], [address], 11/14/2024 23:50:13 11/14/20 24 11/14/2024 CBC (INCL UDES DIFF/ PLT) RDW 13.1 % 11.0-1 5.0 normal Not Available [facility] [place] [facility] [address], [place], [address], 11/14/2024 23:50:13 11/14/20 24 11/14/2024 CBC (INCL UDES DIFF/ PLT) platelet count 257 thous and/u L 140-40 0 normal Not Available [facility] [place] [facility] [address], [place], [address], 11/14/2024 23:50:13 11/14/20 24 11/14/2024 CBC (INCL UDES DIFF/ PLT) MPV 12.1 fL 7.5-12 .5 normal Not Available [facility] [place] [facility] [address], [place], [address], 11/14/2024 23:50:13 11/14/20 24 11/14/2024 CBC (INCL UDES DIFF/ PLT) absolute neutrophils 3732 cells /uL 1500-7 800 normal Not Available [facility] [place] [facility] [address], [place], [address], 11/14/2024 23:50:13 11/14/20 24 11/14/2024 CBC (INCL UDES DIFF/ PLT) absolute lymphocytes 2144 cells /uL 850-39 00 normal Not Available [facility] [address], [place], [address], 11/14/2024 23:50:13 11/14/20 24 11/14/2024 CBC (INCL UDES DIFF/ PLT) absolute monocytes 503 cells /uL 200-95 0 normal Not Available [facility] [address], [place], [address], 11/14/2024 23:50:13 11/14/20 24 11/14/2024 CBC (INCL UDES DIFF/ PLT) absolute eosinophils 261 cells /uL 15-500 normal Not Available [facility] [address], [address], 11/14/2024 23:50:13 11/14/20 24 11/14/2024 CBC (INCL UDES DIFF/ PLT) absolute basophils 60 cells /uL 0-200 normal Not Available [facility] [place] [facility] [address], [place], [address], 11/14/2024 23:50:13 11/14/20 24 11/14/2024 CBC (INCL UDES DIFF/ PLT) neutrophils 55.7 % normal Not Available [facility] [place] [facility] [address], [place], [address], 11/14/2024 23:50:13 11/14/20 24 11/14/2024 CBC (INCL UDES DIFF/ PLT) lymphocytes 32.0 % normal Not Available [facility] [place] [facility] [address], [place], [address], 11/14/2024 23:50:13 11/14/20 24 11/14/2024 CBC (INCL UDES DIFF/ PLT) monocytes 7.5 % normal Not Available [facility] [place] [facility] [address], [place], [address], 11/14/2024 23:50:13 11/14/20 24 11/14/2024 CBC (INCL UDES DIFF/ PLT) eosinophils 3.9 % normal Not Available [facility] [place] [facility] [address], [place], [address], 11/14/2024 23:50:13 11/14/20 24 11/14/2024 CBC (INCL UDES DIFF/ PLT) basophils 0.9 % normal Not Available [facility] [place] [facility] [address], [place], [address], 11/14/2024 23:50:13 01/26/20 25 01/27/2025 GRAM STAIN gram stain result Final report . Not Available [facility] [address] [facility] [address], [place], [address] 01/27/2025 13:07:58 01/26/20 25 01/27/2025 GRAM STAIN result 1 Commen t . Moder ate amoun t of white blood cells . Not Available [facility] [address] [facility] [address], [place], [address] 01/27/2025 13:07:58 01/26/20 25 01/27/2025 GRAM STAIN result 2 Commen t . Few gram posit mari cocci Perfo rmed at: RN - [facility] [place] [address], [place] [address] Lab Direc tor: Marie Johnson MD, Phone : [phone] [facility] [address] [facility] [address], [place], [address] 01/27/2025 13:07:58 01/26/20 25 01/30/2025 LAB[facility] RP [...] [address], [place] [address] Lab Direc tor: Marie Johnson MD, Phone : [phone] [facility] Test Code( 6 digit s REQUI RED) 76066 3 [facility] Test Name ANAER OBIC AND AEROB IC CULTU RE CPT Code 55569 ;8707 5 Speci men Sourc e: LEFT LEG Not Available [facility] [address] [facility] [address], [place], [address] 01/30/2025 13:08:18 05/02/20 25 05/03/2025 IRON, TIBC AND RON TIN PANEL iron, total 80 mcg/d L 40-190 normal Not Available [facility] [address], [address], 05/03/2025 03:44:16 05/02/20 25 05/03/2025 IRON, TIBC AND RON TIN PANEL iron binding capacity 286 mcg/d L_(ca lc) 250-45 0 normal Not Available [facility] [address], [address], 05/03/2025 03:44:16 05/02/20 25 05/03/2025 IRON, TIBC AND RON TIN PANEL % saturation 28 %_(ca lc) 16-45 normal Not Available [facility] [address], [address], 05/03/2025 03:44:16 05/02/20 25 05/03/2025 IRON, TIBC AND RON TIN PANEL ferritin 22 NG/mL 16-232 normal Not Available [facility] [address], [address], 05/03/2025 03:44:16 05/02/20 25 05/03/2025 CBC (INCL UDES DIFF/ PLT) white blood cell count 5.8 thous and/u L 3.8-10 .8 normal Not Available [facility] [address], [place], [address], 05/03/2025 03:44:17 05/02/20 25 05/03/2025 CBC (INCL UDES DIFF/ PLT) red blood cell count 4.76 meka on/uL 3.80-5 .10 normal Not Available [facility] [address], [place], [address], 05/03/2025 03:44:17 05/02/20 25 05/03/2025 CBC (INCL UDES DIFF/ PLT) hemoglobin 13.8 g/dL 11.7-1 5.5 normal Not Available [facility] [address], [place], [address], 05/03/2025 03:44:17 05/02/20 25 05/03/2025 CBC (INCL UDES DIFF/ PLT) hematocrit 44.2 % 35.0-4 5.0 normal Not Available [facility] [address], [place], [address], 05/03/2025 03:44:17 05/02/20 25 05/03/2025 CBC (INCL UDES DIFF/ PLT) MCV 92.9 fL 80.0-1 00.0 normal Not Available [facility] [address], [place], [address], 05/03/2025 03:44:17 05/02/20 25 05/03/2025 CBC (INCL UDES DIFF/ PLT) MCH 29.0 pg 27.0-3 3.0 normal Not Available [facility] [address] [place], [address], 05/03/2025 03:44:17 05/02/20 25 05/03/2025 CBC (INCL UDES DIFF/ PLT) MCHC 31.2 g/dL 32.0-3 6.0 low For adult s, a sligh t decre ase in the calcu lated MCHC value (in the range of 30 to 32 g/dL) is most likel y not clini sen signi griffin t; prudencioev er, it shoul d be inter prete d with cauti on in [facility] n with other red cell lalitha eters and the patie nt's clini laura condi tion. Not Available [facility] [address] [place], [place], [address], 05/03/2025 03:44:17 05/02/20 25 05/03/2025 CBC (INCL UDES DIFF/ PLT) RDW 14.4 % 11.0-1 5.0 normal Not Available [facility] [address] [place], [place], [address], 05/03/2025 03:44:17 05/02/20 25 05/03/2025 CBC (INCL UDES DIFF/ PLT) platelet count 215 thous and/u L 140-40 0 normal Not Available [facility] [address] [place], [place], [address], 05/03/2025 03:44:17 05/02/20 25 05/03/2025 CBC (INCL UDES DIFF/ PLT) MPV 11.6 fL 7.5-12 .5 normal Not Available [facility] [address], [place], [address], 05/03/2025 03:44:17 05/02/20 25 05/03/2025 CBC (INCL UDES DIFF/ PLT) absolute neutrophils 2221 cells /uL 1500-7 800 normal Not Available [facility] [address], [place], [address], 05/03/2025 03:44:17 05/02/20 25 05/03/2025 CBC (INCL UDES DIFF/ PLT) absolute lymphocytes 2883 cells /uL 850-39 00 normal Not Available [facility] [place] [facility] [address], [place], [address], 05/03/2025 03:44:17 05/02/20 25 05/03/2025 CBC (INCL UDES DIFF/ PLT) absolute monocytes 307 cells /uL 200-95 0 normal Not Available [facility] [place] [facility] [address], [place], [address], 05/03/2025 03:44:17 05/02/20 25 05/03/2025 CBC (INCL UDES DIFF/ PLT) absolute eosinophils 331 cells /uL 15-500 normal Not Available [facility] [place] [facility] [address], [place], [address], 05/03/2025 03:44:17 05/02/20 25 05/03/2025 CBC (INCL UDES DIFF/ PLT) absolute basophils 58 cells /uL 0-200 normal Not Available [facility] [place] [facility] [address], [place], [address], 05/03/2025 03:44:17 05/02/20 25 05/03/2025 CBC (INCL UDES DIFF/ PLT) neutrophils 38.3 % normal Not Available [facility] [place] [facility] [address], [place], [address], 05/03/2025 03:44:17 05/02/20 25 05/03/2025 CBC (INCL UDES DIFF/ PLT) lymphocytes 49.7 % normal Not Available [facility] [place] [facility] [address], [place], [address], 05/03/2025 03:44:17 05/02/20 25 05/03/2025 CBC (INCL UDES DIFF/ PLT) monocytes 5.3 % normal Not Available [facility] [address], [address], 05/03/2025 03:44:17 05/02/20 25 05/03/2025 CBC (INCL UDES DIFF/ PLT) eosinophils 5.7 % normal Not Available [facility] [address], [address], 05/03/2025 03:44:17 05/02/20 25 05/03/2025 CBC (INCL UDES DIFF/ PLT) basophils 1.0 % normal Not Available [facility] [address], [address], 05/03/2025 03:44:17 05/03/20 25 05/03/2025 vl venou s duple x scan [facility] [address] [place] [address] Patien t Name: Rob Mccellland [facility] l Record #: [id number] Addres s: [address] Accoun t#: [id number] City/S hahn/Z ip: [place] [address]: Richie ROSS Phone: Insura nce: [employer] [facility] /Ag e/Sex: 1974/4 8/F Self Pay Admit/ Reg Date: Orderi felicia Dr: Richie Barbour APRN Locati on: [facility] Q/ PCP: Alexandria Figueredo NP Date of Servic e: Order (s): VL Venous duplex scan LE CPT Code: 30881 Report Number : [id number] Reason for Exam: ACUTE DEEP [...] Npp OCTAVIO Figueredo; Richie Barbour APRN [id number] [facility] [address] [facility] [address], [place], [address] 05/21/2025 16:06:53 Result Notes None recorded. Problems Name Problem SNOMED Code Status Onset Date Resolution Date Notes Provider Name and Address Organization Details Recorded Time Migraine 95719127 Active 2016 Alana pride [facility] 7 11:38:17 Epilepsy 88387403 Active 2016 Non convulsiv e Alana pride [facility] 7 11:38:41 Anxiety 06324489 Active 2016 Alana pride [facility] 7 11:39:18 Hypertens mari disorder 51201089 Active 2016 Alana pride [facility] 7 11:39:39 Asthma 716142025 Active 2016 Alana pride [facility] 7 11:39:59 Gastroeso phageal reflux disease 668616541 Active 2016 Alana pride [facility] 7 11:40:08 Colitis 24837460 Active 2016 Alana pride [facility] 7 11:40:30 Irritable bowel syndrome 88102485 Active 2016 Alanajia Childressia null, [facility] 7 11:40:44 Diverticu litis 139126323 Active 2016 Alana Aminta null, [facility] 7 11:40:53 Hemorrhoi ds 75360784 Active 2016 Alana Aminta null, [facility] 7 11:41:12 Kidney disease 27783929 Active 2016 Alana Aminta null, [facility] 7 11:41:26 Uric acid renal calculus 034270273 Active 2016 Alanaanne Lemos null, [facility] 7 11:41:44 Endometri osis (clinical ) 720976836 Active 2016 Alanaanne Lemos null, [facility] 7 11:42:25 Cyst of breast 918270447 Active 2016 Alanajia Childressia null, [facility] 7 11:42:39 Breast lump 25647098 Active 2016 Alanasamia Lemos null, [facility] 7 11:42:51 Fibromyal ray 809681644 Active 2016 Alana Aminta null, [facility] 7 11:43:08 Hypothyro idism 08771165 Active 2016 Alanasamia Childressia null, [facility] 7 11:43:19 Hyperchol esterolem ia 43050653 Active 2016 Alanasamia Childressia null, [facility] 7 11:43:37 Supravent ricular tachycard ia 2639520 Active 2016 Alanasamia Childressia null, [facility] 7 11:43:48 Temporoma ndibular joint disorder 28715167 Active 2016 Alanasamia Childressia null, [facility] 7 11:44:02 Female urinary stress incontine nce 28222513 Active 2017 KENZIE GANDHI [facility], [facility] 8 12:27:07 Chronic interstit ial cystitis 769544454 Active 2017 KENZIE GANDHI null, [facility] 8 12:27:37 Nodular goiter 816613269 Active 2018 Alexandria Perry null, [facility] 9 14:20:54 Lumbosacr al spondylos is without myelopath y 77972181 Active 2019 NICKI SALDANA MD [address] [place] [address], [phone] , [facility] 0 13:37:50 Arthropat hy of lumbar facet joint 544140156 Active 2019 NICKI SALDANA MD [address] [place] [address], [phone] , [facility] 0 13:37:51 Hydroneph rosis 65781229 Active 2019 ROSALINA CHAVIRA [address] [place] [address], [phone] , [facility] 0 14:47:12 Blood in urine 75962831 Active 2019 ROSALINA CHAVIRA [address] [place] [address], [phone] , [facility] 0 14:47:18 Lumbar spondylos is 589897779 Active 2019 NICKI SALDANA MD [address] [place] [address], [phone] , [facility] 0 10:32:19 Pain of right shoulder joint 64624687114 382405 Active 2021 NICKI SALDANA MD [address] [place] [address], [phone] , [facility] 2 10:09:08 Recurrent urinary tract infection 958342745 Active 2021 ROSALINA CHAVIRA [address] [place] [address], , [facility] 2 16:33:34 Cervical radiculop athy 55304055 Active 2022 AMADOU GARG NP [address], [place], , [facility] 3 08:11:59 Myofascia l pain 517279583 Active 2022 AMADOU GARG NP [address], [place], , [facility] 3 08:24:50 Lumbar radiculop athy 045128455 Active 2022 AMADOU GARG NP [address], [place], , [facility] 3 09:54:09 Myofascia l pain syndrome of neck 150736384 Active 2022 NICKI SALDANA MD [address] [place] [address], , [facility] 3 11:41:38 Acute deep venous thrombosi s of left lower extremity 54122754769 9104 Active 2023 NIC NAZARIO MD [address] [place] [address], , [facility] 4 09:36:45 Hematoche haja 478047454 Active 2023 NIC NAZARIO MD [address] [place] [address], , [facility] 4 09:42:07 Iron deficienc y without anemia 328599230 Active 2023 ROXY BARBOUR NP [address], [place], , [facility] 4 15:07:29 Iron deficienc y 94691148 Active 2024 NIC NAZARIO MD [address], [place], , [facility] 5 09:51:04 Acute deep venous thrombosi s of left femoral vein 90508742876 9101 Active 2024 NIC NAZARIO MD [address] [place] [address], [address] , [facility] 5 09:52:44 Fatigue 39220226 Active 2024 NIC NAZARIO MD [address] [place] [address], [address] , [facility] 5 09:52:55 Problem Notes None recorded. Procedures Surgical History Date Name Laterality Status Provider Name and Address Organization Details Recorded Time [facility] T[place] (muscles) completed NICKI SALDANA MD [address] [place] [address], [phone], [facility] 08/10/2023 12:38:28 Corticosteroid Injection completed Jose Messina MD [address] [place] [address], [address], [facility] 01/17/2022 14:51:53 022 SHOULDER ARTHROSCOPY WITH ROTATOR CUFF REPAIR (SURG) completed Angélica Tony [facility] 12/26/2021 13:55:45 022 SHOULDER ARTHROSCOPY WITH ROTATOR CUFF REPAIR (SURG) completed Angélica Tony [facility] 01/14/2022 08:49:23 022 radiofrequency ablation of medial branch of lumbar nerve using fluoroscopic guidance completed NICKI SALDANA MD [address] [place] [address], [address], [facility] 12/06/2021 13:15:08 021 radiofrequency ablation of medial branch of lumbar nerve using fluoroscopic guidance completed NICKI SALDANA MD [address] [place] [address], [address], [facility] 10/04/2021 12:23:16 021 Corticosteroid Injection completed Jose Messina MD [address] [place] [address], [address], [facility] 09/13/2021 14:22:29 021 Bladder Scan completed ROSALINA CHAVIRA [address] [place] [address], , [facility] 07/10/2021 09:16:25 021 Corticosteroid Injection completed Jose Messina MD [address], [place], , [facility] 07/01/2021 09:37:37 021 Bladder Scan completed Reny Hawk [facility] 06/12/2021 14:38:46 021 Cystoscopy chemodenervation completed ROSALINA CHAVIRA [address] [place], [place], , [facility] 06/12/2021 14:55:49 021 radiofrequency ablation of medial branch of lumbar nerve using fluoroscopic guidance completed NICKI SALDANA MD [address], [place], , [facility] 03/15/2021 13:12:58 020 Bladder Scan completed Alexus Darby [facility] 09/25/2020 15:06:50 020 Cystoscopy - female completed Curtis Mattson MD [address], [place], , [facility] 05/07/2020 14:47:49 020 radiofrequency ablation of nerve root of lumbar spine using fluoroscopic guidance completed ROSALINA CHAVIRA [address] [place], [place], , [facility] 09/25/2020 15:16:34 018 repair of tendon completed ROSALINA CHAVIRA [address], [place], , [facility] 01/20/2020 15:45:03 017 Carpal tunnel surgery completed ROSALINA CHAVIRA [address], [place], , [facility] 01/20/2020 15:26:13 015 Unlisted px foot/toes completed ROSALINA CHAVIRA [address] [place], [place], , [facility] 01/20/2020 15:40:14 014 total hysterectomy completed MRAVIN VEGA, PA [address] [place], [address], [facility] 01/20/2020 15:39:25 012 Knee arthroscopy/surgery completed MARVIN VEGA, PA [address] [place], [address], [facility] 01/20/2020 15:25:11 012 other completed MARVIN VEGA, PA [address] [place], [address], [facility] 01/20/2020 15:24:54 012 other completed MARVIN VEGA, PA [address] [place], [address], [facility] 01/20/2020 15:24:41 012 other completed MARVIN VEGA PA [address] [place], [address], [facility] 01/20/2020 15:24:15 012 Unlisted px cardiac surgery completed MARVIN VEGA PA [address] [place], [address], [facility] 01/20/2020 15:23:43 011 Dilation of urethra completed KENZIE GANDHI [facility] 09/20/2018 12:43:09 011 laparoscopy completed MARVIN VEGA PA [address] [place], [address], [facility] 01/20/2020 15:20:39 010 detorsion of ovary completed MARVIN VEGA PA [address] [place], [address], [facility] 01/20/2020 15:19:35 009 arthroscopic/knee completed MARVIN VEGA PA [address] [place], [address], [facility] 01/20/2020 15:18:37 008 appendectomy completed ROSALINA CHAVIRA [address] [place], [address], [facility] 01/20/2020 15:04:24 008 arthroscopic/knee completed ROSALINA CHAVIRA [address] [place], [address], [facility] 01/20/2020 15:18:26 007 cholecystectomy completed ROSALINA CHAVIRA [address] [place] [address], [address], [facility] 01/20/2020 15:18:00 005 laparoscopic-assist ed vaginal hysterectomy completed ROSALINA CHAVIRA [address] [place] [address], [address], [facility] 01/20/2020 15:28:06 004 tubal ligation completed Alana Lemos [facility] 03/19/2017 11:56:40 001 lysis of adhesions of peritoneum completed ROSALINA CHAVIRA [address] [place] [address], [address], [facility] 01/20/2020 15:16:23 997 laparoscopy completed ROSALINA CHAVIRA [address] [place] [address], [address], [facility] 01/20/2020 15:16:42 993 lysis of adhesions of peritoneum completed ROSALINA CHAVIRA [address] [place] [address], [address], [facility] 01/20/2020 15:16:07 Imaging Results None recorded. Procedure Notes None recorded. Medical Equipment None Reported. Allergies Allergen ID Allergen Name Allergen Category Reaction Reaction Severity Criticality Documentation Date Start Date Code Code System Note Provider Name and Address Organization Details Recorded Time 0886525 codeine sulfate medicatio n Not available Not available high 10/30/20252010 89868 RxNorm unrec ogniz ed react ion (text : GI Intol eranc e, code: 91651 5008) (from exter nal [facility] e) Not Available gr[facility] - External Data Service - prod 5 08:13:56 2259039 corn allergeni c extract food,medi cation Not available Not available Not available 10/30/20252010 04388 7 RxNorm Not Available [employer] - External Data Service - prod 5 08:13:56 7491751 corn silk preparati on medicatio n rash Not available high 10/30/20252023 14843 7 RxNorm Not Available [employer] - External Data Service - prod 5 08:13:56 0186712 corn starch food,medi cation anxiety cough headache itching myalgias (muscle pain) rash Not available Not available Not available Not available Not available Not available high 10/30/20252016 07476 62 RxNorm unrec ogniz ed react ion (text : Chest disco mfort , code: 17671 4009) (from exter nal sourc e) unrec ogniz ed react ion (text : Diffi culty breat theresa, code: 33523 3002) (from exter nal sourc e) unrec ogniz ed react ion (text : Fatig ue, code: 49341 001) (from exter nal sourc e) unrec ogniz ed react ion (text : GI Intol eranc e, code: 34914 5008) (from exter nal sourc e) unrec ogniz ed react ion (text : Nasal conge stion , code: 36768 000) (from exter nal sourc e) unrec ogniz ed react ion (text : Rash- delay ed, code: 38706 6001) (from exter nal sourc e) Not Available [employer] - External Data Service - prod 5 08:13:56 8071930 erythromy emily medicatio n itching Not available Not available 10/30/20252014 4053 RxNorm Not Available [employer] - External Data Service - prod 5 08:13:56 7305083 morphine sulfate medicatio n Not available Not available high 10/30/20252010 33850 RxNorm Not Available [employer] - External Data Service - prod 5 08:13:56 2486710 Substance with morphinan structure and opioid receptor agonist mechanism of action (substanc e) medicatio n hives palpitati ons rash Not available Not available Not available high 10/30/20252010 40213 9000 SNOMED Conve rted from Drug Class Aller gy: Opiat e Agoni sts unrec ogniz ed react ion (text : GI Intol eranc e, code: 14964 5008) (from exter nal sourc e) Not Available [employer] Data Service - prod 5 08:13:56 8455427 acetamino phen / oxycodone medicatio n rash Not available low 10/30/20252023 38978 3 RxNorm GI Upset Not Available [employer] - External Data Service - prod 5 08:13:56 0510692 Streptoco ccus pneumonia e type 1 capsular polysacch aride antigen medicatio n rash Not available low 10/30/20252022 05075 0 RxNorm Not Available [employer] - [employer] Data Service - prod 5 08:13:56 0353313 pregabali n medicatio n Not available Not available Not available 10/30/20252024 09776 2 RxNorm unrec ogniz ed react ion (text : GI Intol eranc e, code: 69947 5008) (from exter nal sourc e) Not Available [employer] Data Service - prod 5 08:13:56 0155351 sulfur medicatio n rash Not available low 10/30/20252023 12345 RxNorm Not Available [employer] - External Data Service - prod 5 08:13:56 0167302 Gluten (substanc e) food,medi cation Not available Not available high 10/30/20252022 29160 004 SNOMED unrec ogniz ed react ion (text : GI Intol eranc e, code: 15577 5008) (from exter nal sourc e) unrec ogniz ed react ion (text : Nause a And Vomit ing, code: 77568 000) (from exter nal sourc e) Not Available [employer] Data Service - prod 5 08:13:57 1690466 wheat dextrin food,medi cation Not available Not available low 10/30/20252022 31697 6 RxNorm unrec ogniz ed react ion (text : GI Intol eranc e, code: 98931 5008) (from exter nal sourc e) unrec ogniz ed react ion (text : Nause a And Vomit ing, code: 80775 000) (from exter nal sourc e) Not Available [employer] - External Data Service - prod 5 08:13:57 8183484 nickel sulfate Not available rash Not available Not available 10/30/20252023 57542 RxNorm Not Available [employer] - External Data Service - prod 5 08:14:46 1191621 nickel environme nt rash Not available low 10/30/20252023 98442 29 RxNorm nicke l unrec ogniz ed react ion (text : Unkno wn, code: 66635 008) (from exter nal sourc e) Not Available [employer] - External Data Service - prod 5 08:14:47 5786146 sulfur iodide Not available rash Not available low 10/30/20252023 34185 79 RxNorm Not Available [employer] - External Data Service - prod 5 08:14:47 4215135 wheat preparati on food,medi cation Not available Not available low 10/30/20252022 19262 52 RxNorm unrec ogniz ed react ion (text : Nause a And Vomit ing, code: 89659 000) (from exter nal sourc e) Not Available gracia - External Data Service - prod 5 08:14:47 8887879 oxycodone medicatio n Not available Not available low 10/30/20252010 7804 RxNorm Conve rted from Gener ic Aller gy: OXYco done (Imme diate -Rele ase ) unrec ogniz ed react ion (text : GI Upset , code: 10651 005) (from exter nal sourc e) Not Available [employer] - External Data Service - prod 5 08:14:51 961151 Pneumovax 23 medicatio n rash moderate Not available 03/19/2017 80483 3 RxNorm Alana Aminta null, [facility] 7 11:31:54 641311 morphine medicatio n hives Not available Not available 03/19/2017 7052 RxNorm Alana Aminta null, [facility] 7 11:32:26 926234 Substance with sulfonami de structure and antibacte rial mechanism of action (substanc e) medicatio n other moderate Not available 03/19/2017 07650 8003 SNOMED GI upset Alana Aminta null, [facility] 7 11:37:18 884350 codeine medicatio n nausea moderate Not available 03/19/2017 2670 RxNorm Alana Aminta null, [facility] 7 11:33:54 086599 corn extract food,medi cation headache other rash Not available Not available Not available Not available 03/19/2017 58822 08 RxNorm GI upset , all corn produ cts MARVIN VEGA CA [address] [place], [address], [facility] 0 15:07:32 434230 potato allergeni c extract food headache itching other rash Not available Not available Not available Not available Not available 03/19/2017 13859 2 RxNorm asthm a exace rbati on, GI upset ; White potat o MARVIN VEGA CA [address] [place], [address], [facility] 0 15:10:22 416491 wheat gluten extract food other Not available Not available 03/19/2017 87883 81 RxNorm GI upset , Intol eranc e Therese Crancha null, [facility] 0 13:07:30 784966 [place] medicatio n Not available Not available Not available 09/20/2018 97790 99 RxNorm KENZIE GANDHI null, [facility] 8 12:25:40 155410 glucose medicatio n headache other rash Not available Not available Not available Not available 09/20/2018 4850 RxNorm GI upset ROSALINA CHAVIRA [address] [place], [address], [facility] 0 15:08:49 122552 corn syrup food headache other rash Not available Not available Not available Not available 01/20/2020 08844 76 RxNorm GI upset ROSALINA CHAVIRA [address] [place], [address], [facility] 0 15:08:26 Medications Name Sig Start Date [...] completed Not Available Not Available Not Available [place] Thyroid 30 mg tablet Take 1 tablet [...] Relief 50 mcg/actuat ion nasal spray,susp ension Williamson 1 spray every day by intranas al [...] Updated DateTime 5 162.56 cm 26.9 kg/m2 84973.2 8 g 67 /min 96 % 96.4 [degF] 110/80 mm[Hg] Francisca Freire [facility] 5 08:08:26 Date Recorded Body height Body mass index (BMI) Body weight Heart rate Oxygen saturation Body temperature Systolic And Diastolic Provider Name and Address Organization Details Last Updated DateTime 5 162.56 cm 27.3 kg/m2 08603.9 1 g 80 /min 98 % 97.2 [degF] 122/88 mm[Hg] Francisca Freire [facility] 5 08:54:45 Date Recorded Body height Respiratory rate Heart rate Pain severity - 0-10 verbal numeric rating [Score] - Reported Oxygen saturation Provider Name and Address Organization Details Last Updated DateTime 4 162.56 cm 16 /min 75 /min 6 99 % Michelle Sanchez [facility] 4 15:06:40 Date Recorded Body height Body mass index (BMI) Body weight Heart rate Oxygen saturation Body temperature Systolic And Diastolic Provider Name and Address Organization Details Last Updated DateTime 4 162.56 cm 27.9 kg/m2 87671.7 6 g 93 /min 98 % 96 [degF] 118/86 mm[Hg] Francisca Freire [facility] 09:00:34 Social History Question Answer Notes LastModified by Organizat ion Details LastModified Time Tobacco Smoking Status Former Smoker Quit Date: 02/1997 KENZIE GANDHI shannen [facility] 09/20/2018 12:45:55 What Is Your Level Of Caffeine Consumption? Moderate 1-2 Cups Coffee A Day [email or web address] Information not available 10/25/2021 Which Illicit Or Recreational Drugs Have You Used? None Information not available 01/20/2020 Live Alone Or With Others? With Others Information not available 01/20/2020 Are You On Disability? 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 No Information not available 12/10/2020 Marital Status Informatio n not available 01/20/2020 What Was The Date Of Your Most Recent Tobacco Screening? 03/14/2022 [email or web address] Information not available 03/14/2022 How Many Children Do You Have? 4 Information not available 01/20/2020 How Much Tobacco Do You Smoke? No Information not available 12/10/2020 Sex: Unknown Functional Status Question Answer Note LastModified by Organizat ion Details LastModified Time Do you use any illicit or recreational drugs? No [email or web address] Information not available 10/25/2021 What is your level of alcohol consumption? None [email or web address] Information not available 09/20/2018 Do you or [...] available 2016 11:45:37 Father Coronary arterioscler osis Not available 2017 12:46:32 Father Myocardial infarction massiv e [email or web address] Not available 09/20/2018 12:46:51 Mother Diabetes mellitus [email or web address] Not available 2016 11:46:43 Mother Hypertensive disorder [email or web address] Not available 2017 12:47:17 Mother Urinary tract infectious disease Not available 2017 12:47:36 Maternal Grandfather Diabetes mellitus [email or web address] Not available 2016 11:46:43 Maternal Grandmother Myocardial infarction [email or web address] Not available 03/19 11:47:57 Sister Urinary tract infectious disease Not available 2017 12:47:48 Unspecified Relation Kidney stone Matern al and Patern al family histor y [email or web address] Not available 09/20/2018 12:48:30 Notes:Sister - pre cervical cancer and pre colon cancer. Great great aunt - breast cancer Medical History Condition Response HEART CONDITION Y DIVERTICULITIS Y kidney stones Y DIABETES Y GERD/REFLUX Y HYPERTENSION Y HEADACHE Y SEIZURE DISORDER Y HYPERTHYROIDISM N other Y ASTHMA Y HYPOTHYROIDISM Y BOWEL PROBLEMS Y OSTEOARTHRITIS Y Gynecological HistoryNo gynecological history recorded. Obstetrics History GPAL:G 0 P 0 0 0 0 Immunizations Vaccine Type Date Status Note Provider Nam e and Address Organization Details Recorded Time COVID-19, mRNA, LNP-S, PF, 100 mcg/0.5mL dose or 50 mcg/0.25mL dose 01/20/2021 mauri pride [facility] Jose 09/20/2021 09:24:23 COVID-19, mRNA, LNP-S, PF, 100 mcg/0.5mL dose or 50 mcg/0.25mL dose 02/17/2021 mauri pride [facility] Jose 09/20/2021 09:24:30 COVID-19, mRNA, LNP-S, PF, 100 mcg/0.5mL dose or 50 mcg/0.25mL dose 07/05/2021 mauri pride [facility] Jose 09/20/2021 09:24:41 Past Encounters Encounter ID Performer Location Encounter Start Date Encounter Closed Date Diagnosis/Indication Diagnosis SNOMED-CT Code Diagnosis ICD10 Code Diagnosis IMO Codes Diagnosis Note [id number] RACHELLE SOSA MD [facility] [address] [facility] [address] [place] [address] 03/19/2017 10:43:09 03/19/2017 11:41:03 Abnormal findings on diagnostic imaging of breast 442474866 R92.8 [id number] Zelalem Deleon MD [facility] [address] [place] [address] 07/01/2017 14:00:04 07/01/2017 15:11:51 Prediabetes 623585673 R73.03 5.7 06/2017D/w the pt about lifestyle modificati ons, weight loss, low carb/sugar intake (pasta, bread, rice and potato), to prevent the progress to Diabetes. Hypothyroidism 88632822 E03.9 wants to switch back to levothyrox ine from [employer] t 50 mcg/dayrep eat TFTs in 6 weeks Goiter 1419551 E04.9 hx of goiter w no biopsied neededhas somdis comfort in her neck [id number] Zelalem Deleon MD [facility] [address] [place] [address] 10/12/2017 10:54:20 10/12/2017 11:23:27 Nodular goiter 068533781 E04.9 Thyroid ultrasound : 06/2017 Showed isoechoic 1.4 cm nodule isthmic 7mm nodule repeat in 12/2017 Hypothyroidism 14062806 E03.9 on 50mcg/dTSH nl 08/2017 Prediabetes 239374178 R7 3.03 5.7 06/2017 [id number] Zelalem Deleon MD [facility] [address] [place] [address] 01/11/2018 10:14:49 01/11/2018 10:50:40 Hypothyroidism 14338590 E03.9 on 50 mcg/dTSH nl 08/2017fee ling tiredcheck TFTS and see if needs adustment Nodular goiter 548320810 E04.9 Thyroid ultrasound : 06/2017 Showed isoechoic 1.4 cm nodule isthmic 7mm nodule US 12/2017:MNG and R nodule now is only 8mmrepeat in 1 yr Prediabetes 554740459 R7 3.03 5.7 12/2016 [id number] Zelalem Deleon MD [facility] [address] [place] [address] 07/12/2018 10:11:45 07/12/2018 10:53:28 Hypothyroidism 50547819 E03.9 on 50 mcg/dTSH nl 06/2018cont same dose Nodular goiter 129631739 E04.9 Thyroid ultrasound : 06/2017 Showed isoechoic 1.4 cm nodule isthmic 7mm nodule US 12/2017:MNG and R nodule now is only 8mmrepeat in 2019 Prediabetes 601567163 R7 3.03 5.4 06/2018 was 5.8 01/2017cont lifestyle modoifcati on Fatigue 13095478 R53.83 fatigue and low energy durig the day, snoring at night needs to discuss w pcp about possible sleep study [id number] Elina Arenas MD [email or web address] [address] [place] [address] 10/22/2018 10:21:43 10/22/2018 11:15:56 Chronic interstitial cystitis 925387625 N30.10 I spent at least 15 minutes with patient, 50% in counseling reviewing the nature of her symptoms and reviewing her regimen. Patient doing well on current regimen. Continue current regimen. [id number] Zelalem Deleon MD [facility] [address] [place] [address] 04/13/2019 14:11:31 04/13/2019 15:00:13 Hypothyroidism 74578685 E03.9 on 50 mcg/dTSH nl 03/2019cont same dose Prediabetes 154836900 R7 3.03 5.4 06/2018 was 5.8 01/2017cont lifestyle modificati on Nodular goiter 308419454 E04.9 Thyroid ultrasound : 06/2017 Showed isoechoic [...] ((non diagnostic )) results, with each FNA. [id number] NICKI SALDANA MD [facility] OUT[facility] [address] [place] [address] 01/13/2020 12:46:29 01/13/2020 13:36:03 Lumbosacral spondylosis without myelopathy 74480206 M47.817 Arthropath y of lumbar facet joint 017599254 M46.96 If the medial branch block is successful we will perform radiofrequ ency ablation [id number] ROSALINA CHAVIRA [email or web address] [place] [address] 01/16/2020 09:49:48 01/16/2020 11:44:00 Chronic interstitial cystitis 161128163 N30.10 Patient is still symptomati c despite [...] as well as pelvic congestion syndrome. Hydronephrosis 89120120 N13.30 Patient thought to have passed a kidney stone in September with noncontras t CT showing right hydrourete ronephrosi s. WIll obtain renal ultrasound to confirm resolution of hydronephr osis. Blood in urine 78734130 R31.9 Possible intermitte nt hematuria. Discussed cystoscopy for further evaluation . She had an unremarkab le CT abd/pelvis with oral and IV contrast in February 2018. Will consider complete CT urogram pending UA, cytology, and cystoscopy . Note: Microscopi c UA from today's visit is negative for hematuria. Urine cytology pending. [id number] NICKI SALDANA MD _[facility]OS[facility] PA[facility] MGMT OUTPT [address] [place] [address] 02/27/2020 11:45:22 02/27/2020 15:27:08 Arthropathy of lumbar facet joint 198997305 M46.96 As soon as the current situation normalizes we are going to perform radiofrequ ency ablation on the left at L3-4, L4-5, L5-S1 [id number] NICKI SALDANA MD _[facility] PA[facility] MGMT OUTPT [address] [place] [address] 03/16/2020 08:45:27 03/16/2020 14:58:02 Arthropathy of lumbar facet joint 193247755 M46.96 As soon as the current situation normalizes we are going to perform radiofrequ ency ablation on the left at L3-4, L4-5, L5-S1 Lumbar spondylosis 84978 0009 M47.896 The patient will contact Dr. Vogel about a short-term prescripti on for tramadol as she has an opioid contract with that physician [id number] ROSALINA CHAVIRA [email or web address] [place] [address] 03/19/2020 12:58:22 03/19/2020 14:00:11 Chronic interstitial cystitis 718522662 N30.10 She will continue Elmiron 100 mg [...] arise prior to her next visit. Hydronephrosis 93111152 N13.30 Patient thought to have passed a kidney stone in September with noncontras t CT showing right hydrourete ronephrosi s. Renal ultrasound confirmed resolution of hydronephr osis. Blood in urine 17643294 R31.9 Possible intermitte nt hematuria. Cystoscopy scheduled for 05/07/20 for further evaluation . She had an unremarkab le CT abd/pelvis with oral and IV contrast in February 2018. Will perform cytology at time of cystoscopy . [id number] NICKI SALDANA MD _[facility]OS[facility] PAIN MGMT OUTPT [address] [place] [address] 04/13/2020 11:49:05 04/13/2020 18:04:47 [id number] Curtis Mattson MD [email or web address] [address] [place] [address] 05/07/2020 14:07:39 05/07/2020 14:49:07 Blood in urine 28538294 R31.9 Negative cystoscopy . Cytology sent. Follow-up as planned. Could consider botox [id number] NICKI SALDANA MD _[facility] PA[facility] MGMT OUTPT [address] [place] [address] 05/25/2020 08:36:26 05/25/2020 20:14:27 Arthropathy of lumbar facet joint 985821888 M46.96 The patient will contact us should her pain increase and if she requires another radiofrequ ency ablation Lumbar spondylosis 55367 0009 M47.896 [id number] ROSALINA CHAVIRA [email or web address] [place] [address] 09/25/2020 14:56:56 09/25/2020 15:30:30 Chronic interstitial cystitis 124735500 N30.10 She will continue Elmiron 100 mg [...] proceed with Botox injection. Blood in urine 52756279 R31.9 Possible intermitte nt hematuria. She had an unremarkab le CT abd/pelvis with oral and IV contrast in February 2018. Urine cytology and cystoscopy on 05/07/20 were negative. Will continue to monitor. Kidney stone 59370821 N2 0.0 Patient states that she was told that she had a kidney stone after recent abdominal ultrasound to evaluate her liver. Requested report for review. Prior renal ultrasound in February showed no stones and prior noncontras t CT last September showed no stones. Will call patient with results. [id number] NICKI SALDANA MD _HOSP PAIN MGMT OUTPT [address] [place] [address] 12/10/2020 15:15:10 12/11/2020 07:38:35 Arthropathy of lumbar facet joint 129861612 M46.96 This patient has failed conservati ve measures including medication s and physical therapy. She cannot take NSAIDs due to autoimmune hepatitis. She has had more than 7 months of very good relief with previous lumbar radiofrequ ency ablation and now has return of symptoms. She is an excellent candidate for repeat lumbar radiofrequ ency ablation Lumbar spondylosis 22683 0009 M47.896 Viral screening 90149207 4 Z11.59 [id number] NICKI SALDANA MD _HOSP PAIN MGMT OUTPT [address] [place] [address] 03/15/2021 09:50:23 03/15/2021 13:18:23 [id number] ROSALINA CHAVIRA [email or web address] [address] [place] [address] 04/01/2021 15:22:40 04/01/2021 15:59:29 Chronic interstitial cystitis 174917768 N30.10 She will continue Elmiron 100 mg [...] if any questions arise. Blood in urine 03268243 R31.9 Possible intermitte nt hematuria. She had an unremarkab le CT abd/pelvis with oral and IV contrast in February 2018. Urine cytology and cystoscopy on 05/07/20 were negative. Will continue to monitor. Kidney stone 74157281 N2 0.0 Abdominal ultrasound in August to evaluate her liver showed a possible right renal stone. Prior renal ultrasound in February 2020 showed no stones and prior noncontras t CT in September 2019 showed no stones. Repeat renal ultrasound on 03/26/21 also showed no stones. No further evaluation indicated at this time. [id number] NICKI SALDANA MD _HOSP PAIN MGMT OUTPT [address] [place] [address] 04/12/2021 08:02:58 04/14/2021 14:29:40 Lumbar spondylosis 671151416 M47.896 The patient will contact us after she recovers from her current bout of pain, so that we can schedule her for radiofrequ ency ablation on the right side which she has not had in more than a year [id number] ROSALINA CHAVIRA [email or web address] [email or web address] [address] [place] [address] 06/12/2021 14:12:26 06/12/2021 14:52:31 Chronic interstitial cystitis [id number] N30.10 She will continue hydroxyzin e 50 [...] if any questions arise. Blood in urine 87514593 R31.9 Possible intermitte nt hematuria. She had an unremarkab le CT abd/pelvis with oral and IV contrast in February 2018. Urine cytology and cystoscopy on 05/07/20 were negative. Will continue to monitor. Incomplete emptying of urinary bladder 348126667 R39.14 Mild PVR today, likely due to recent Botox. Will recheck at next visit. [id number] Jayy Messina MD [facility] [address] [address] 07/01/2021 08:53:10 07/01/2021 09:31:15 Tendinitis of right rotator cuff [id number] 8864017 M67.813 Arthritis of acromioclavicular joint 630577177 M13.819 [id number] ROSALINA CHAVIRA [email or web address]TER [address] [place] [address] 07/10/2021 08:46:16 07/10/2021 09:18:56 Chronic interstitial cystitis 620388106 N30.10 She will continue hydroxyzin e 25 [...] questions arise. Incomplete emptying of urinary bladder 887718754 R39.14 PVR stable, likely due to recent Botox. Will recheck at next visit. Blood in urine 94251781 R31.9 Possible intermitte nt hematuria. She had an unremarkab le CT abd/pelvis with oral and IV contrast in February 2018. Urine cytology and cystoscopy on 05/07/20 were negative. Will continue to monitor. [id number] Jayy Messina MD [facility] S [address] [address] 08/20/2021 07:55:46 08/20/2021 08:30:56 Tendinitis of right rotator cuff 8595622287 1045416 M67.813 Arthritis of acromioclavicular joint 721782560 M13.819 Tendinitis of long head of biceps brachii of right shoulder 110672576 M75.21 [id number] ROSALINA CHAVIRA [facility] [address] [facility], [address] [place] [address] 09/06/2021 11:49:04 09/06/2021 12:59:36 Chronic interstitial cystitis 238239325 N30.10 Symptoms have improved significan tly s/p Botox 05/24/21. She will continue hydroxyzin e 25 mg bid. She will follow up in 6 months for bladder scan and reevaluati on. UA and culture sent to rule out UTI. Advised patient to call if any questions arise. Incomplete emptying of urinary bladder 587893763 R39.14 Will recheck at next visit. Blood in urine 53036710 R31.9 Possible intermitte nt hematuria. She had an unremarkab le CT abd/pelvis with oral and IV contrast in February 2018. Urine cytology and cystoscopy on 05/07/20 were negative. Will continue to monitor. [id number] ROSALINA CHAVIRA [email or web address] [address] [place] [address] 08/28/2022 15:26:06 08/28/2022 16:10:05 Chronic interstitial cystitis 403382368 N30.10 Symptoms have improved significan tly s/p Botox 05/24/21. She will continue hydroxyzin e 25 mg bid. She will follow up in 6 months for reevaluati on. Advised patient to call if any questions arise. Incomplete emptying of urinary bladder 168719780 R39.14 Will continue to monitor and check at next visit. Blood in urine 24609167 R31.9 Possible intermitte nt hematuria. She had an unremarkab le CT abd/pelvis with oral and IV contrast in February 2018. Urine cytology and cystoscopy on 05/07/20 were negative. Will continue to monitor. Recurrent urinary tract infection 609111764 N39.0 She has been experienci ng recurrent E. coli UTIs. This may be due to steroid injections . She is on oral HRT for menopausal symptoms. Discussed prophylaxi s with Macrobid 100 mg daily for 90 days. She will call if any breakthrou gh UTI symptoms prior to next visit. [id number] Jayy Messina MD [facility] [address], [address] [place] [address] 09/13/2021 13:45:45 09/13/2021 14:50:11 Cervical radiculopathy 67365549 M54.12 Osteoarthr itis of acromioclavicular joint 240445728 M19.019 [id number] NICKI SALDANA MD _[facility] PAIN MGMT OUTPT [address] [place] [address] 09/13/2021 15:18:08 09/13/2021 16:15:15 Lumbar spondylosis 642519954 M47.896 Patient had excellent relief with radiofrequ [...] repeat radiofrequ ency ablation on the right [id number] NICKI SALDANA MD [facility] PAIN MGMT OUTPT [address] [place] [address] 10/04/2021 10:30:00 10/04/2021 13:53:23 [id number] Jayy Messina MD [facility] [address], [address] [place] [address] 10/25/2021 14:50:43 10/25/2021 15:34:48 Osteoarthritis of acromioclavicular joint 086332716 M19.019 Partial th ickness rotator cuff tear 677037275 M75.101 Tendinitis of long head of biceps brachii of right shoulder 027366062 M75.21 [id number] NICKI SALDANA MD [facility] [place] [facility] [address] [facility] [address] [place] [address] 11/25/2021 14:03:51 11/25/2021 14:24:28 Lumbar spondylosis 886762961 M47.896 80% relief with radiofrequ ency ablation [...] ablation on the left Lumbar radiculopathy 128 658281 M54.16 Patient has minimal numbness and her symptoms respond well to radiofrequ ency ablation. It is less likely that her symptoms are currently due to radiculopa thy [id number] NICKI SALDANA MD [facility] PAIN MGMT OUTPT [address] [place] [address] 12/06/2021 09:19:07 12/06/2021 14:25:46 [id number] NICKI SALDANA MD [facility] PAIN MGMT OUTPT [address] [place] [address] 01/03/2022 14:34:51 01/03/2022 15:07:29 Lumbar spondylosis 429523735 M47.896 80% relief with radiofrequ ency ablation [...] symptoms are currently due to radiculopa thy [id number] Jayy Messina MD [facility] [address] [facility] [address] [place] [address] 01/14/2022 11:36:34 01/14/2022 12:23:09 Subacromial bursitis of right shoulder 2063569374 400426 M75.51 Osteoarthr itis of acromioclavicular joint 592937871 M19.011 [id number] Jayy Messina MD [facility] [address], [address] [place] [address] 01/17/2022 13:42:30 01/17/2022 14:38:29 Pain of acromioclavicular joint 205521794 M25.512 [id number] Jayy Messina MD [facility] [address] [facility] [address] [place] [address] 02/18/2022 08:12:34 02/18/2022 08:29:10 Pain of acromioclavicular joint 091206519 M25.512 Subacromia l bursitis of right shoulder 0679913480 624838 M75.51 Osteoarthr itis of acromioclavicular joint 155217312 M19.011 [id number] ROSALINA CHAVIRA [email or web address] E[email or web address] [place] [address] 02/25/2022 09:57:25 02/25/2022 10:32:27 Chronic interstitial cystitis 575218739 N30.10 Symptoms have improved significan tly s/p Botox 05/24/21. She will continue hydroxyzin e 25 mg bid. She will follow up in 6 months for bladder scan and reevaluati on. UA and culture sent to rule out persistent UTI. Advised patient to call if any questions arise. Incomplete emptying of urinary bladder 749579788 R39.14 Will continue to monitor and check at next visit. Blood in urine 05494482 R31.9 Possible intermitte nt hematuria. She had an unremarkab le CT abd/pelvis with oral and IV contrast in February 2018. Urine cytology and cystoscopy on 05/07/20 were negative. Will continue to monitor. Urinary tr act infectious disease 87608180 N39.0 May be due to recent steroid use. Symptoms may take longer to clear due to IC. She will finish Keflex course. Advised patient to call if symptoms do not resolve or return prior to next visit. [id number] NICKI SALDANA MD _[facility] PAIN MGMT OUTPT [address] [place] [address] 03/03/2022 09:46:08 03/03/2022 10:05:41 Lumbar spondylosis 379842872 M47.896 80% relief with radiofrequ ency ablation [...] thy Pain of ri ght shoulder joint 2027227536 0975314 M25.511 We are going to try injections of the articular branches of the suprascapu lar and axillary nerves to see if this will help with the pain and physical therapy. I discussed the risks of injection, including but not limited to bleeding, infection, nerve damage, pain exacerbati on, allergy to medication s and systemic effect of steroids. [id number] Jayy Messina MD [facility] [address], [address] [place] [address] 03/14/2022 08:44:38 03/14/2022 09:20:47 Suprascapular nerve compression 839538005 G56.81 Osteoarthr itis of acromioclavicular joint 031818908 M19.011 [id number] NICKI SALDANA MD [facility] PAIN MGMT [address] [place] [address] 05/12/2022 07:53:51 05/12/2022 08:18:45 Lumbar spondylosis 589461239 M47.896 80% relief with radiofrequ ency ablation [...] currently due to radiculopa thy Cervical radiculopathy 45348604 M54.12 The patient has symptoms of radiculopa [...] medication s and systemic effect of steroids. [id number] NICKI SALDANA MD _HOSP PAIN MGMT OUTPT [address] [place] [address] 07/09/2022 13:18:05 07/09/2022 13:41:38 Lumbar spondylosis 809143973 M47.896 80% relief with radiofrequ ency ablation on the left. The patient has been doing stretching exercises since the last procedure. She will contact us should her pain return so that we can consider repeating the radiofrequ ency ablation. Lumbar radiculopathy 128 841629 M54.16 Patient has minimal numbness and her symptoms respond well to radiofrequ ency ablation. It is less likely that her symptoms are currently due to radiculopa thy Pain of ri ght shoulder joint 0278050099 4300442 M25.511 Dr. Saldana previously discussed with patient injections of the articular branches of the suprascapu lar and axillary nerves to see if this will help with the pain and physical therapy. [id number] NICKI SALDANA MD _HOSP PAIN MGMT OUTPT [address] [place] [address] 08/08/2022 10:16:31 08/08/2022 15:46:39 [id number] NICKI SALDANA MD _HOSP PAIN MGMT OUTPT [address] [place] [address] 09/11/2022 12:43:37 09/11/2022 15:30:16 Lumbar spondylosis 283449439 M47.896 80% relief with radiofrequ ency ablation on the left. The patient has been doing stretching exercises since the last procedure. She will contact us should her pain return so that we can consider repeating the radiofrequ ency ablation. Pain of ri ght shoulder joint 1797917120 3079513 M25.511 Patient recently had suprascapu lar and axillary nerve block which did not provide significan t relief of symptoms Cervical radiculopathy 94179000 M54.12 Patient continues with chronic neck pain [...] tried acupunctur e without significan t relief [id number] NICKI SALDANA MD _[facility] PAIN MGMT OUTPT [address] [place] [address] 10/17/2022 09:33:00 10/17/2022 14:41:24 [id number] NICKI SALDANA MD [facility] PAIN MGMT OUTPT [address] [place] [address] 11/21/2022 07:54:39 11/21/2022 08:32:22 Pain of right shoulder joint 7188353927 6799829 M25.511 Patient had suprascapu lar and axillary nerve block July 2022 which did not provide significan t relief of symptoms. Does report relief of right shoulder pain, and increased ROM of right shoulder following cervical JULIETH 10/17/2022 Lumbar spondylosis 61038 0009 M47.896 80% relief with radiofrequ ency ablation on the left November 2021. She also previously had right-side d RFA for 2020 The patient has been doing stretching exercises since the last procedure. She reports that left-sided low back pain has begun to return and she is interested in repeating left-sided lumbar RFA Cervical radiculopathy 27587068 M54.12 Patient reports 50% decrease in chronic [...] e without significan t relief Myofascial pain 47971997 9 M79.10 Patient continues with myofascial pain and muscle spasm near her shoulder blades bilaterall y. She reports that she continues with exercises, Biofreeze, TENS and heat with some effect. Will schedule thoracic trigger point injections [id number] NICKI SALDANA MD _HOSP PAIN MGMT OUTPT [address] [place] [address] 12/22/2022 09:24:50 12/23/2022 15:55:27 [id number] INCKI SALDANA MD _[facility] PAIN MGMT OUTPT [address] [place] [address] 01/23/2023 09:38:54 01/23/2023 10:17:14 Pain of right shoulder joint 8850958647 2834919 M25.511 Patient had suprascapu lar and axillary nerve block July 2022 which did not provide significan t relief of symptoms. Does report relief of right shoulder pain, and increased ROM of right shoulder following cervical JULIETH 10/17/2022 Lumbar spondylosis 13690 0009 M47.896 Patient reports greater than 50% [...] repeating right-side d lumbar RFA Cervical radiculopathy 60886553 M54.12 Patient reports 50% decrease in chronic [...] e without significan t relief Myofascial pain 30767326 9 M79.10 Patient continues with myofascial pain and muscle spasm near her shoulder blades bilaterall y. She reports that she continues with exercises, Biofreeze, and heat with some effect. Previously seen chiropract or without relief. Is interested in TENS unit. Will send order [id number] NICKI SALDANA MD _[facility]OSP PAIN MGMT OUTPT [address] [place] [address] 02/20/2023 08:56:11 02/20/2023 15:53:27 [id number] NICKI SALDANA MD _HOSP PAIN MGMT OUTPT [address] [place] [address] 03/17/2023 12:48:21 03/17/2023 13:36:26 Pain of right shoulder joint 0899701000 8170982 M25.511 Patient had suprascapu lar and axillary nerve block July 2022 which did not provide significan t relief of symptoms. Does report relief of right shoulder pain, and increased ROM of right shoulder following cervical JULIETH 10/17/2022 Lumbar spondylosis 73477 0009 M47.896 Patient had right L3-4, L4-5, L5-S1 RFA and reports 40% relief of right-side d axial low back pain. The patient has been doing stretching exercises since the last procedure. Cervical radiculopathy 27018630 M54.12 Patient reports 50% decrease in chronic [...] e without significan t relief Myofascial pain 22218438 9 M79.10 Patient continues with myofascial pain and muscle spasm near her shoulder blades bilaterall y. She reports that she continues with exercises, Biofreeze, and heat with some effect. Previously seen chiropract or without relief. She has been using TENS unit with some relief Lumbar radiculopathy 128 884591 M54.16 Patient reports increasing bilateral lower extremity [...] for evaluation , and consider offering injections [id number] NICKI SALDANA MD _HOSP PAIN MGMT OUTPT [address] [place] [address] 05/15/2023 13:56:12 05/15/2023 16:05:37 [id number] NICKI SALDANA MD _HOSP PAIN MGMT OUTPT [address] [place] [address] 06/23/2023 10:33:14 06/23/2023 11:10:09 Lumbar radiculopathy 034853277 M54.16 Patient recently had L5-S1 JULIETH with approximat mark 70% relief of low back pain and radiculopa thy. She continues with use of TENS unit, stretching exercises, and muscle relaxers. Patient has had lumbar RFA with relief of axial pain. Lumbar MRI shows degenerati ve disc disease at L5-S1 Myofascial pain 02366015 9 M79.10 Patient continues with cervical and thoracic myofascial pain and muscle spasm. She reports that she continues with exercises, Biofreeze, and heat with some effect. Previously seen chiropract or without relief. She has been using TENS unit with some relief. She is interested in repeating trigger point injections Cervical radiculopathy 84973116 M54.12 Patient reported 50% decrease in chronic [...] tried acupunctur e without significan t relief [id number] NICKI SALDANA MD _HOSP PAIN MGMT OUTPT [address] [place] [address] 08/10/2023 10:41:21 08/10/2023 11:45:15 Lumbar spondylosis 699350579 M47.896 Good relief with radiofrequ ency ablation in the past. The patient will contact us when she needs to schedule repeat radiofrequ ency ablation Lumbar radiculopathy 128 M54.16 The patient had about a month of relief with lumbar epidural steroid injection but then the pain returned Cervical radiculopathy 84294093 M54.12 The patient has symptoms of radiculopa thy confirmed by EMG nerve conduction study. She has failed physical therapy and home exercises, as well as medication s. She is an excellent candidate for cervical epidural steroid injection. Our request for injection was denied by insurance Myofascial pain syndrome of neck 551262026 M54.2 Trigger point injections performed today I recommende d the use of a TENS unit [id number] NICKI SALDANA MD _HOSP PAIN MGMT OUTPT [address] [place] [address] 09/11/2023 09:32:10 09/11/2023 13:43:12 [id number] NICKI SALDANA [facility] [address] [place] [address] 10/02/2023 08:08:51 10/02/2023 08:39:58 Lumbar spondylosis 494476621 M47.896 Good relief with radiofrequ ency ablation [...] She is interested in scheduling Cervical radiculopathy 92666887 M54.12 The patient has symptoms of radiculopa thy confirmed by EMG nerve conduction study. She has failed physical therapy and home exercises, as well as medication s. Cervical JULIETH provided minimal relief Myofascial pain syndrome of neck 026056034 M54.2 Patient reports significan t relief with cervical TPI [id number] NICKI SALDANA MD _HOSP PAIN MGMT OUTPT [address] [place] [address] 12/18/2023 10:00:25 12/18/2023 11:39:49 [id number] NICKI SALDANA MD _HOSP PAIN MGMT OUTPT [address] [place] [address] 05/11/2024 13:29:33 05/11/2024 14:03:52 Lumbar spondylosis 149544388 M47.896 Good relief with radiofrequ ency ablation in the past. The patient will contact us when she needs to schedule repeat radiofrequ ency ablation Lumbar radiculopathy 128 094382 M54.16 The patient had bilateral L5-S1 TFESI and lumbar TPI with greater than 50% relief lasting for 3 months. She reports the pain symptoms have now recurred and she is interested in repeating procedure Cervical radiculopathy 79920095 M54.12 The patient has symptoms of radiculopa thy confirmed by EMG nerve conduction study. She has failed physical therapy and home exercises, as well as medication s. Cervical JULIETH provided minimal relief Myofascial pain syndrome of neck 767307611 M54.2 Patient reports significan t relief with cervical TPI [id number] NICKI SALDANA MD _[facility]OSP PAIN MGMT OUTPT [address] [place] [address] 07/04/2024 09:18:25 07/04/2024 11:23:29 [id number] NICKI SALDANA MD _[facility]OSP PAIN MGMT OUTPT [address] [place] [address] 08/02/2024 14:54:59 08/02/2024 15:37:21 Lumbar spondylosis 903185762 M47.896 Patient previously had left L3-S1 RFA 12/22/2022, and right L3-S1 RFA 02/20/2023 with greater than 50% relief of pain. She reports recurrence of axial low back pain. She is an excellent candidate for repeat lumbar RFA. Patient requests sedation Lumbar radiculopathy 128 354115 M54.16 The patient had bilateral L5-S1 TFESI and lumbar TPI with 80% relief Cervical radiculopathy 33112641 M54.12 The patient has symptoms of radiculopa thy confirmed by EMG nerve conduction study. She has failed physical therapy and home exercises, as well as medication s. Cervical JULIETH provided minimal relief Myofascial pain syndrome of neck 878280110 M54.2 Patient reports significan t relief with cervical TPI [id number] NICKI SALDANA MD _[facility] PAIN MGMT OUTPT [address] [place] [address] 09/23/2024 10:19:07 09/23/2024 13:18:56 [id number] NIC NAZARIO MD [facility] [place] [address] [facility] [address] [place] [address] 11/14/2024 08:41:32 11/14/2024 09:53:15 Acute deep venous thrombosis of left lower extremity 8543463553 72100 I82.402 Hematochezia 767817537 K 92.1 [id number] ROXY BARBOUR NP [facility] [place] [address] [address] 01/13/2025 07:45:36 01/13/2025 08:28:45 Acute deep venous thrombosis of left lower extremity 1869336921 56492 I82.402 DVT, left leg, provoked, in the setting of Estrogen use and left leg surgery. Tolerating switch to Eliquis. No evidence of bleeding. Discussed as provoked should be on DOAC for up to 6m. She declined coag workup in the past. She would like repeat u/s at 6m elkin to ensure resolution . I will see her after. Hematochezia 562784130 K 92.1 resolved Iron deficiency 36562973 E61.1 low iron stores. Taking po iron qod. Voiced she has some loose stools following the med but managed well. Will continue qod and recheck labs prior to next ov. Labs were stable when wound clinic saige them this month. [id number] NIC NAZARIO MD [facility] [place] [address] [place] [address] 05/05/2025 08:17:12 05/05/2025 10:10:37 Iron deficiency 82935415 E61.1 9881 Acute deep venous thrombosis of left femoral vein 2992999196 52839 I82.412 18510366 Fatigue 60069866 R53.83 [id number] Health Concerns Section Related Observation LastModified by Organization Detai ls LastModified Time None Recorded Concern Status LastModified by Organization Details LastModified Time None Recorded Advance Directives Directive None Recorded Payers Insurance Date Sequence Insurance Name Policy Number Policy Somers Covered Member ID Somers Member ID Guarantor Name 11/01/2024 1 [place] [id number] Elkin Joyal [id number] Maria Luisa A Joyal 08/04/2024 1 [place] [id number] Maria Luisa A Joyal [id number] Maria Luisa A Joyal 10/17/2020 1 [place] [id number] Elkin A Joyal [id number] Maria Luisa A Joyal 05/05/[address] [facility] INDEMNITY PLAN (PPO) [id number] Maria Luisa A Joyal [id number] Maria Luisa A Joyal 01/05/[address] [facility] INDEMNITY PLAN (INDEMNITY) [id number] Maria Luisa A Joyal [id number] Maria Luisa A Joyal 04/17/2023 PAYMENT PLAN Maria Luisa A Joyal 01/16/2021 1 [place] [id number] Elkin A Joyal [id number] Maria Luisa A Joyal 09/06/2024 PAYMENT PLAN Amria Luisa A Joyal 06/06/2022 PAYMENT PLAN Maria Luisa A Joyal 08/04/2024 2 [place] [id number] Elkin Mcclelland [id number] Maria Luisa Mcclelland 07/07/2024 1 [place] [id number] Elkin Mcclelland [id number] Maria Luisa Mcclelland 10/17/2020 1 [employer] [id number] Elkin Mcclelland [id number] Maria Luisa Mcclelland 01/05/2025 1 [place] [id number] T Elkin Mcclelland [id number] Maria Luisa Mcclelland Notes Date Note [...] Injections:07/04/2024 bilateral L5-S1 TFESI and lumbar TPI-80% fjbpwa5812/18/2023 bilateral L5-S1 TFESI and lumbar TPI-greater than 50% lhlvri7209/11/2023 C6-7 JULIETH and cervical TPI-relief of muscle pain, minimal change in neck pain05/15/2023 L5-S1 JULIETH with sedation-70% relief lasting 1 month02/20/2023 Right L3-4, L4-5, L5-S1 RFA-50% egimia2712/22/2022 left L3-S1 radiofrequency ablation, thoracic trigger point injection-greater than 50% irsmvs8910/17/2022 C6-7 JULIETH sedation-50% reliefNovember 2021 left L3-S1 RFA-80% reliefNov2020 right L3-S1 RFA-80% xzonad9308/08/2022 Right suprascapular and axillary nerve block-no relief [...] C5 or C6 radiculopathy. AMADOU GARG, OCTAVIO [address] [place] [address], [phone], [facility] 08/02/2024 15:47:00 11/14/2024 text/html ROS as noted [...] Social HistoryNo smoking/alcohol abuse. NIC NAZARIO MD [address] [place] [address], [phone], [facility] 04/13/2025 21:14:22 01/13/2025 text/html ROS as noted [...] Social HistoryNo smoking/alcohol abuse. ROXY BARBOUR NP [address] [place] [address], [phone], [facility] 01/13/2025 08:48:55 05/05/2025 text/html ROS as noted [...] fatigue.Patient wears hearing aids.Patient had televisit with [facility] on 05/03/2025, the visit record is not [...] leg extensive DVT. NIC NAZARIO MD [address] [place], [phone], [facility] 05/05/2025 09:53:21 OBGyn Episode No OBEpisode recorded.
--- OUTSIDE RECORDS SUMMARY | 2025-11-02 19:30 | XMS_ITS | Encounter Summary ---
Author Organization [facility] Address [address] [place] [address] Phone Care Team Providers Care Knowledge Manager Name Role Phone Elma Vogel MD Primary Care Provider [phone] Alexandria Figueredo NP Primary Care Provider + Encounter Details Date Type Department Care Team (Late st Contact Info) Description 04/18/2019 Ancillary Orders [facility] PET Imaging, White [address] [place] [address], [address] [place] [address] Ruiz Carlisle MD [address] [place] [address] [phone] [email or web address] Research subject Social History Tobacco [...] Description 11/20/2025 4:45 PM EST Pre-Admission Testing [facility] Pre-Procedure Evaluation Department [place] [id number] Fam Preciado MD [address] [place] [phone] [email or web address] 12/11/2025 Procedure Pass [facility] BRET 4 ENDO DEPT [address] [facility] [place] [address] 12/11/2025 1:00 PM EST Hospital Encounter [facility] BRET 4 ENDO DEPT [address] [facility], [address] [place] [address] Fam Preciado MD [address] [place] [phone] [email or web address] 12/11/2025 1:00 PM EST - 12/11/2025 1:45 PM EST Surgery [facility] BRET 4 ENDO DEPT [address] [facility] [place] [address] Fam Preciado MD [address] [place] [phone] [email or web address] 02/21/2026 8:30 AM EDT Telemedicine [facility] [address] [place] [address], [address] [place] [address] Fam Preciado MD [address] [place] [phone] [email or web address] Scheduled Procedures Name Priority Associated Diagnoses Date/Ti me COLONOSCOPY Colonic adenomatous polyposis of unknown etiology 12/11/2025 1:00 PM EST documented as of this encounter Visit Diagnoses Diagnosis Research subject Colonic adenomatous polyposis of unknown etiology documented in this encounter Care Teams Knowledge Manager Relationship Specialty Start Date End Date Elma Vogel MD [address] [place] [address] PCP - General 03/22/15 05/23/25 Alexandria Figueredo NP [address] [place] [address] PCP - General Nurse Practitioner 05/24/25 documented as of this encounter Additional Source Comments The information contained in this document represents components of the legal health record. It is not the complete legal health record.[facility]
--- OUTSIDE RECORDS SUMMARY | 2025-11-02 19:30 | XMS_ITS | Patient Health Record ---
Author Organization [facility] Address [address] [facility] [address] [place] [address] Care Team Providers Care Supervisor Lead Burning Name Role Phone Jaspreet SIMS, Elma Primary Care Provider Royce Garner Unavailable [phone] Allergies Allergen (clinical drug ingredient) Drug/Non Drug [...] W/U Status Risk Notes Problem Pruritic disorders (923830302) Unspecified pruritic disorder (698.9) Active confirmed ? 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
--- OUTSIDE RECORDS SUMMARY | 2025-11-02 19:30 | XMS_ITS | Data Portability ---
Author Organization [facility] - Reny Blackwell MD, Dr Denise; [facility] Address [address] [place] [id number] Care Team Providers Care Day Care Home Provider Name Role Phone YOLETTE VICENTE Primary Care [...] line 10 mg tablet 2022 023 [email or web address] [facility]/Pharmacy #[id number], [address] [facility], [place], [address], 12/27/202 3 12:38:18 Nurtec ODT 75 mg disintegr ating tablet 2022 023 [facility] [address] [place] [address], [address], 3 12:38:18 Ubrelvy 100 mg tablet 2022 023 [facility]/Pharmacy #1041, [address] [place] [address], [address], 3 12:38:18 Qulipta 60 mg tablet 2022 024 [facility] [address] [place] [address], [address], 4 10:57:54 Vimpat 100 mg tablet 2022 023 [facility] [address] [place] [address], [address], 3 12:28:20 amitripty line 10 mg tablet 2022 023 [facility] [address] [place] [address], [address], 3 11:13:41 Nurtec ODT 75 mg disintegr ating tablet 2022 023 [facility]/Pharmacy #1041, [address] [place] [address], [address], 3 11:13:39 Ubrelvy 100 mg tablet 2022 023 [facility]/Pharmacy #1041, [address] [place] [address], [address], 3 11:13:40 Qulipta 60 mg tablet 2022 023 [facility]/Pharmacy #1041, [address] [place] [address], [address], 3 11:13:40 Vimpat 100 mg tablet 2022 023 [facility]/Pharmacy #1041, [address] [place] [address], [address], 3 11:13:43 amitripty line 10 mg tablet 2022 023 [facility]/Pharmacy #1041, [address] [place] [address], [address], 3 15:13:51 Nurtec ODT 75 mg disintegr ating tablet 2022 023 [facility]/Pharmacy #104, [address] [place] [address], [address], 3 15:13:50 Ubrelvy 100 mg tablet 2022 023 [facility]/Pharmacy #1041, [address] [place] [address], [address], 3 15:13:50 Qulipta 30 mg tablet 2022 023 [email or web address] [facility]/Pharmacy #104, [address] [place] [address], [address], 3 09:56:46 Vimpat 100 mg tablet 2022 023 [id number]/Pharmacy #1041, [address] [place] [address], [address], 3 09:47:41 amitripty line 10 mg tablet 2021 022 [facility]/Pharmacy #1041, [address] [place] [address], [address], 2 14:59:39 Nurtec ODT 75 mg disintegr ating tablet 2021 022 [facility]/Pharmacy #1041, [address] [place] [address], [address], 2 14:59:39 Ajovy 225 mg/1.5 mL subcutane ous auto-inje ctor [address]/Pharmacy #1041, [address] [place] [address], [address], 3 09:17:23 Ubrelvy 100 mg tablet 2021 022 [facility]/Pharmacy #1041, [address] [place] [address], [address], 2 03:34:03 Vimpat 100 mg tablet 2021 022 [facility][id number] [facility]/Pharmacy #104, [address] [place] [address], [address], 3 09:47:41 amitripty line 10 mg tablet 2021 022 [facility]/Pharmacy #1041, [address] [place] [address], [address], 2 10:24:02 Nurtec ODT 75 mg disintegr ating tablet 2021 022 [facility]/Pharmacy #1041, [address] [place] [address], [address], 2 10:24:02 naratript an 2.5 mg tablet 2021 022 [facility]/Pharmacy #1041, [address] [place] [address], [address], 2 10:24:02 Aimovig Autoinjec tor 140 mg/mL subcutane ous auto-inje ctor [address]/Pharmacy #1041, [address] [place] [address], [address], 09:17:20 Vimpat 100 mg tablet 2021 022 [facility][id number]Pharmacy #1041, [address] [place] [address], [address], 09:47:41 Patient TargetsNo targets recorded. Patient Instructions [...] instructions [email or web address] Not available 11/12/2022 14:59:34 02/11/2023 [id number] neck pain: care instructions [email or web address] Not available 02/13/2023 14:26:47 transient ischemic attack: care instructions [email or web address] Not available 02/13/2023 14:26:47 high blood pressure: care instructions [email or web address] Not available 02/13/2023 14:26:47 learning about high blood pressure kkroessler Not available 02/13/2023 14:26:47 epilepsy: care instructions kkroessler Not available 02/13/2023 14:26:47 07/03/2023 [id number] neck pain: care instructions kkroessler Not available 07/03/2023 11:13:35 transient ischemic attack: care instructions [email or web address] Not available 07/03/2023 11:13:35 high blood pressure: care instructions [email or web address] Not available 07/03/2023 11:13:35 learning about high blood pressure kkroessler Not available 07/03/2023 11:13:35 epilepsy: care instructions kkroessler Not available 07/03/2023 11:13:35 11/06/2023 49195 neck pain: care instructions [email or web address] Not available [...] and Address Organization Details Recorded Time Headache 86604946 Completed 03/26/2018 Reny Denise MD [address] [place] [address],[address], [place], [address] , [facility]ARA rebollar MD 8 11:52:55 Hypothyro idism 97880679 Active Not Available [facility] 3 09:47:40 Hypertens marciano disorder 73197354 Active Not Available [facility] 3 09:47:40 Chronic neck pain 90048709144 07 Active Not Available [facility] 3 09:47:40 Refractor y migraine without aura 934329890 Active 2017 Not Available [facility] 3 09:47:40 Hemangiom a of intracran ial structure 39103807 Active 2017 Not Available [facility] 3 09:47:40 Central positiona l vertigo 06725898 Active 2017 Not Available [facility] 3 09:47:40 Myalgia/m yositis - multiple 622677229 Active 2017 Not Available [facility] 3 09:47:40 Low back pain 282149494 Active 2017 Not Available [facility] 3 09:47:40 Epilepsy 83102580 Active 2017 Not Available [facility] 3 09:47:40 Problem Notes None recorded. Procedures Surgical History Date Name Laterality Status Provider Name and Address Organization Details Recorded Time 2 Carpal tunnel surgery completed All manzano MD 10/06/2022 14:06:57 9 EEG completed Reny Denise MD [address] [place] [address],[address], [place], [address], [facility] manzano MD 02/28/2019 15:27:11 8 Botox Migraine completed [facility] AMARA manzano MD 07/08/2018 13:16:48 8 Botox Migraine completed [facility] AMARA manzano MD 03/26/2018 11:51:25 8 TPI Headaches completed Reny Denise MD [address] [place] [address],[address], [place], [address] manzano MD 12/16/2017 16:01:06 Imaging Results None recorded. Procedure Notes None recorded. Medical Equipment None Reported. Allergies Allergen ID Allergen Name Allergen Category Reaction Reaction Severity Criticality Documentation Date Start Date Code Code System Note Provider Name and Address Organization Details Recorded Time 230 morphine medicatio n Not available Not available Not available 12/16/2017 7052 RxNorm [facility] AMARA pride MD 8 15:22:06 231 Pneumovax 23 medicatio n Not available Not available Not available 12/16/2017 12573 3 RxNorm [facility] AMARA pride MD 8 15:22:18 Medications Name [...] completed Not Available Not Available Not Available Sulphur Thyroid 30 mg tablet 12/16 completed Not [...] Available Not Available Not Available Flucelvax Quad 3674-4028 (PF) 60 mcg (15 mcg x 4)/0.5 [...] 98 /min 168/126 mm[Hg] Reny Denise MD [address] [place] [address],[address], [place], [address], [facility] - Reny manzano MD 02/11/2023 16:01:34 Date Recorded Body height Body mass index (BMI) Body weight Heart rate Systolic And Diastolic Provider Name and Address Organization Details Last Updated DateTime 07/03/2023 162.56 cm 33.1 kg/m2 76542.33 g 81 /min 141/100 mm[Hg] All black MD 07/03/2023 09:18:17 Date Recorded Body height Body mass index (BMI) Body weight Heart rate Systolic And Diastolic Provider Name and Address Organization Details Last Updated DateTime 10/06/2022 162.56 cm 33.5 kg/m2 43504.51 g 86 /min 182/116 mm[Hg] All Bettencourt [facility] black MD 10/06/2022 14:02:22 Date Recorded Body height Heart rate Systolic And Diastolic Provider Name and Address Organization Details Last Updated DateTime 11/06/2023 162.56 cm 86 /min 135/92 mm[Hg] Reny Denise MD [address] [place] [address],[address], [place], [address], [facility] manzano MD 11/06/2023 09:48:55 Date Recorded Body height Heart rate Systolic And Diastolic Provider Name and Address Organization Details Last Updated DateTime 11/12/2022 162.56 cm 81 /min 183/122 mm[Hg] Reny Denise MD [address] [place] [address],[address], [place], [address], [facility] manzano MD 11/12/2022 14:41:26 Social History Question Answer Notes LastModified by Organizat ion Details LastModified Time Tobacco Smoking Status Former Smoker Not Available [facility] 09/18/2020 03:20:51 Accident Related Injury No Information not available 12/15/2017 Do You Have An Advance Directive? No [id number] Information not available 09/18/2020 What Is Your Level Of Caffeine Consumption? Moderate 2-3 Cups A Day [id number] Information not available 09/18/2020 How Much Tobacco Do You Chew? None [id number] Information not available 09/18/2020 Currently No Information not available 12/15/2017 What Type Of Diet Are You Following? REGULAR [id number] Information not available 09/18/2020 Which Of Your Hands Is Dominant? Right [id number] Information not available 09/18/2020 Live Alone Or With Others? With Others Information not available 12/15/2017 What Was The Date Of Your Most Recent Tobacco Screening? 01/31/2019 [id number] Information not available 09/18/2020 How Much Tobacco Do You Smoke? No [id number] Information not available 09/18/2020 General Stress Level Medium Information not available 12/15/2017 Sex: Female Functional Status Question Answer Note LastModified by Organizat ion Details LastModified Time Do you use any illicit or recreational drugs? No [id number] Information not available 09/18/2020 What is your level of alcohol consumption? None [id number] Information not available 09/18/2020 Do you or have you ever used smokeless tobacco? Never used smokeless tobacco [id number] Information not available 09/18/2020 Do you or have you ever used e-cigarettes or vape? Never used electronic cigarettes [id number] Information not available 09/18/2020 What is your exercise level? None [id number] Information not available 09/18/2020 Mental Status Question Answer Note LastModified by Organization D etails LastModified Time Do you have difficulty concentrating, remembering or making decisions? No [id number] Information no t available 09/18/2020 Family History [...] available 2017 12:03:34 Medical History Condition Response Hypothyroidism Y Headaches Y Heart Problems Y Migraines Y Back Problems Y Hypertension Y Gynecological HistoryNo gynecological history recorded. Obstetrics History GPAL:G 0 P 0 0 0 0 Past Encounters Encounter ID Performer Location Encounter Start Date Encounter Closed Date Diagnosis/Indication Diagnosis SNOMED-CT Code Diagnosis ICD10 Code Diagnosis IMO Codes Diagnosis Note [id number] Howie Early ; [facility] [address] [address] 12/16/2017 15:13:01 12/16/2017 16:18:41 Myalgia/myositis - multiple 552256117 M79.1 Chronic mi graine without aura 1909944956 45764 G43.709 Hemangioma of intracranial structure 40231320 D18.02 Epilepsy 06598359 G40.30 9 Chronic back pain 793082 [address] M54.[id number] Howie Early ; [facility] [address] [address] 03/26/2018 11:22:55 03/26/2018 13:46:42 Refractory migraine without aura 146806912 G43.[id number] Howie Early ; [facility] [address] [address] 05/07/2018 11:29:20 05/07/2018 12:59:05 Refractory migraine without aura 735518427 G43.019 Epilepsy 22735497 G40.90 9 Chronic mi graine without aura 8938499508 03377 G43.709 Hemangioma of intracranial structure 86183483 D18.02 Low back pain 242367098 M54.5 Central po sitional vertigo 32797056 H81.42 Myalgia/my ositis - multiple 081623030 M79.[id number] Howie Early ; [facility] [address] [address] 07/08/2018 12:55:01 07/08/2018 14:18:17 Refractory migraine without aura 192072768 G43.019 Hemangioma of intracranial structure 50475393 D18.02 Epilepsy 73971963 G40.[id number] Howie Early ; [facility] [address] [address] 08/23/2018 13:52:11 08/24/2018 09:05:44 Refractory migraine without aura 751750719 G43.019 Epilepsy 47042754 G40.[id number] Howie Early ; [facility] [address] [address] 10/26/2018 15:23:49 10/26/2018 16:17:54 Refractory migraine without aura 738932933 G43.019 Dramatical lyl better on AImovig [id number] Howie Early ; [facility] [address] [address] 01/31/2019 15:42:44 01/31/2019 16:31:14 Epilepsy 84328616 G40.909 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 Hemangioma of intracranial structure 26829343 D18.02 Refractory migraine without aura 082761291 G43.019 Dramatical ly better on AImovig [id number] Howie Early ; [facility] [address] [address] 02/28/2019 08:33:52 02/28/2019 09:52:33 Epilepsy 16314519 G40.909 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 [id number] Howie Early ; [facility] [address] [address] 06/17/2019 12:56:09 06/17/2019 13:45:47 Epilepsy 10195009 G40.909 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 Refractory migraine without aura 128831155 G43.019 Dramatical ly better on AImovig Hemangioma of intracranial structure 67198372 D18.02 Central po sitional vertigo 48430048 H81.[id number] Howie Early ; [facility] [place] [address] 09/23/2019 14:20:05 09/23/2019 15:13:37 Refractory migraine without aura 818713756 G43.019 Dramatical ly better on AImovig Epilepsy 73322844 G40.90 9 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 Hemangioma of intracranial structure 99141556 D18.[id number] Howie Early ; [facility] [address] [address] 01/23/2020 12:58:04 01/23/2020 13:48:51 Refractory migraine without aura 995329803 G43.019 Dramatical ly better on AImovig Neck pain 83987036 M54.2 Hemangioma of intracranial structure 55083423 D18.02 Epilepsy 69424412 G40.90 9 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 [id number] Howie Early ; [facility] [address] [address] 04/23/2020 13:30:48 04/23/2020 14:51:23 Refractory migraine without aura 540783884 G43.019 Initially improved w/ Aimovig Neck pain 02858359 M54.2 Hemangioma of intracranial structure 90050188 D18.02 Epilepsy 14113045 G40.90 9 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 [id number] Howie Early ; [facility] [address] [address] 06/27/2020 09:31:13 06/27/2020 10:01:25 Refractory migraine without aura 132114119 G43.019 improved w/ Aimovig Neck pain 57914551 M54.2 Hemangioma of intracranial structure 70373341 D18.02 Epilepsy 61313301 G40.90 9 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 [id number] Howie Early ; [facility] [address] [place] [address] 09/17/2020 15:55:21 09/17/2020 16:28:22 Refractory migraine without aura 279744390 G43.019 Initially improved w/ Aimovig Neck pain 90934973 M54.2 Hemangioma of intracranial structure 29221566 D18.02 Epilepsy 35434926 G40.90 9 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 Vertigo 501453021 R42 [id number] Howie Early ; [facility] [address] [address] 01/16/2021 14:36:24 01/16/2021 18:13:04 Refractory migraine without aura 328439097 G43.019 improved w/ Aimovig Neck pain 24378112 M54.2 Hemangioma of intracranial structure 03739666 D18.02 Epilepsy 34110629 G40.90 9 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 [id number] Howie Early ; [facility] [address] [address] 02/25/2022 15:54:41 02/25/2022 16:46:12 Refractory migraine without aura 817187915 G43.019 markedly improved w/ Aimovig but insurance requires change to Emgality Neck pain 59165789 M54.2 Hemangioma of intracranial structure 13868216 D18.02 Epilepsy 73451431 G40.90 9 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 Migraine 71543319 G43.90 9 Essential hypertension 18705060 I10 [id number] Howie Earyl ; [facility] [address] [address] 08/26/2022 15:39:48 08/26/2022 17:10:57 Refractory migraine without aura 695729248 G43.019 markedly improved w/ Aimovig but insurance requires change to Emgality Neck pain 93642125 M54.2 Hemangioma of intracranial structure 10047381 D18.02 Epilepsy 67982870 G40.90 9 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 Migraine 09207948 G43.90 9 Essential hypertension 62898324 I10 [id number] Howie Early ; [facility] [address] [address] 10/06/2022 13:53:34 10/06/2022 14:50:07 Refractory migraine without aura 537651091 G43.019 markedly improved w/ Aimovig but insurance requires change to Emgality Neck pain 48063002 M54.2 Hemangioma of intracranial structure 68215691 D18.02 Epilepsy 20687047 G40.90 9 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 Essential hypertension 77051915 I10 Transient cerebral ischemia 442133937 G45.9 Neck pain 68327011 M54.[id number] Howie Early ; [facility] [address] [address] 11/06/2023 08:50:02 11/06/2023 10:05:22 Refractory migraine without aura 255295016 G43.019 Hemangioma of intracranial structure 97352182 D18.02 Epilepsy 39696353 G40.90 9 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 Essential hypertension 51342457 I10 Transient cerebral ischemia 423050123 G45.9 Neck pain 05080434 M54.2 Health Concerns Section Related Observation LastModified by Organization Detai ls LastModified Time None Recorded Concern Status LastModified by Organization Details LastModified Time None Recorded Advance Directives Directive N: Payers Insurance Date Sequence Insurance Name Policy Number Policy Somers Covered Member ID Somers Member ID Guarantor Name 01/23/2020 1 [facility] [id number] Elkin Mcclelland [id number] Maria Luisa Mcclelland 11/25/2023 1 [place] Elkin Mcclelland [id number] Maria Luisa Mcclelland Notes Date Note Type Note Provider Name and Address Organization Details Recorded Time 10/06/2022 text/html Fully vaccinated Pt was seen urgently today in F/U of hospital admission through ER for stroke like sxs. She developed L facial numbness and went to [facility] ER.. She had mild pulsing SHI in the L religion initially and the following day developed a [...] having MRIs every two years fro the [facility] and there have been no [...] on 06/07/16 for her participiation in the [facility] revealed the only R temporal [...] Dr. Vogel, her PCP. Reny Denise MD [address] [place] [address],[address], [place], [address], [facility] - Reny barker MD 10/08/2022 11:57:13 11/12/2022 text/html Fully vaccinated Pt was seen six weeks ago for TIA like sxs w/L facial numbness associated w/ poor sleep, fatigue. She has had no further episodes of facial numbness but continues to have sharp L religion pains 3-4x/wk lastinng 20 min and dissipates [...] been high and has not seen her complaint specialist yet about this. She has been using naratriptan infrequently Pt was seen urgently today in F/U of hospital admission through ER for stroke like sxs. She developed L facial numbness and went to [facility] ER.. She had mild pulsing SHI in the L religion initially and the following day developed a [...] having MRIs every two years fro the [facility] and there have been no [...] on 06/07/16 for her participiation in the [facility] revealed the only R temporal [...] Dr. Vogel, her PCP. Reny Denise MD [address] [place] [address],[address], [place], [address], [place] - Reny barker MD 11/12/2022 15:03:17 02/11/2023 text/html Fully vaccinated Pt is followed for sz and HAs and had a TIA like episode in October. SInce then she has continued to have numbness and dysesthesias in the L face, [place] territory. Her BP has been poorly controlled recently, and her complaint specialist did an echo and stress test and pt reports they were benign though she couldn't finished the stress test to SOB and CP w/o EKG changes but w/ persistent high BP. This was just done last week and her complaint specialist increased her verapamil to 180 mg w/o obvious benefit. Her religion pains remain episodic and the migraines as [...] numbness but continues to have sharp L religion pains 3-4x/wk lastinng 20 min and dissipates [...] been high and has not seen her complaint specialist yet about this. She has been using naratriptan infrequently Pt was seen urgently today in F/U of hospital admission through ER for stroke like sxs. She developed L facial numbness and went to [facility] ER.. She had mild pulsing SHI in the L religion initially and the following day developed a [...] having MRIs every two years fro the [facility] and there have been no [...] on 06/07/16 for her participiation in the [facility] revealed the only R temporal [...] Dr. Vogel, her PCP. Reny Denise MD [address] [place] [address],[address], [place], [address], [place] - Reny barker MD 02/13/2023 15:14:50 07/03/2023 text/html Fully vaccinated Pt is followed for sz and HAs. She has had no further TIA like episodes. SHe has had event monitors before as part of the [facility] but none recently. She had [...] has been poorly controlled recently, and her complaint specialist did an echo and stress test and pt reports they were benign though she couldn't finished the stress test to SOB and CP w/o EKG changes but w/ persistent high BP. This was just done last week and her complaint specialist increased her verapamil to 180 mg w/o obvious benefit. Her religion pains remain episodic and the migraines as [...] numbness but continues to have sharp L religion pains 3-4x/wk lastinng 20 min and dissipates [...] been high and has not seen her complaint specialist yet about this. She has been using naratriptan infrequently Pt was seen urgently today in F/U of hospital admission through ER for stroke like sxs. She developed L facial numbness and went to [facility] ER.. She had mild pulsing SHI in the L religion initially and the following day developed a [...] having MRIs every two years fro the [facility] and there have been no [...] on 06/07/16 for her participiation in the [facility] revealed the only R temporal [...] Dr. Vogel, her PCP. Reny Denise MD [address] [place] [address],[place] [address], [place], [phone], [facility] - Reny barker MD 07/03/2023 11:13:42 11/06/2023 text/html Pt is followed for seizures associate w/ SAH and migraines. She is establishing w/ a new neurologist, Christine Canales, in [place] and is concerned b/c she wants to [...] event monitors before as part of the [facility] but none recently. She had [...] has been poorly controlled recently, and her complaint specialist did an echo and stress test and pt reports they were benign though she couldn't finished the stress test to SOB and CP w/o EKG changes but w/ persistent high BP. This was just done last week and her complaint specialist increased her verapamil to 180 mg w/o obvious benefit. Her religion pains remain episodic and the migraines as [...] numbness but continues to have sharp L religion pains 3-4x/wk lastinng 20 min and dissipates [...] been high and has not seen her complaint specialist yet about this. She has been using naratriptan infrequently Pt was seen urgently today in F/U of hospital admission through ER for stroke like sxs. She developed L facial numbness and went to [facility] ER.. She had mild pulsing SHI in the L religion initially and the following day developed a [...] having MRIs every two years fro the [facility] and there have been no [...] on 06/07/16 for her participiation in the [facility] revealed the only R temporal [...] Dr. Vogel, her PCP. Reny Denise MD [address] [place] [address],[address], [place], [address], [place] - Reny barker MD 11/25/2023 11:01:12 OBGyn Episode No OBEpisode recorded.
--- OUTSIDE RECORDS SUMMARY | 2025-11-02 19:30 | XMS_ITS | Encounter Summary ---
Author Organization [facility] Address [address] [facility] [address] [facility] [address] [place] [address] Phone Care Team Providers Care Microbiology Quality Control Technician Name Role Phone Elma Vogel MD Primary Care Provider [phone] Alexandria Figueredo NP Primary Care Provider + Encounter Details Date Type Department Care Team (Late st Contact Info) Description 04/18/2019 Ancillary Orders [facility] Imaging, [place] [address] [place] [address], [address] [place] [address] Ruiz Carlisle MD [address] [place] [address] [address] [email or web address] Research subject Social History Tobacco Use Types [...] Description 11/20/2025 4:45 PM EST Pre-Admission Testing [facility] Pre-Procedure Evaluation Department Please [place] [id number] Fam Preciado MD [address] [place] [phone] [email or web address] 12/11/2025 Procedure Pass [facility] [address] [facility], [address] [place] [address] 12/11/2025 1:00 PM EST Hospital Encounter [facility] [address] [facility], [address] [place] [address] Fam Preciado MD [address] [place] [phone] [email or web address] 12/11/2025 1:00 PM EST - 12/11/2025 1:45 PM EST Surgery [facility] [address] [facility], [address] [place] [address] Fam Preciado MD [address] [place] [address] [email or web address] COLONOSCOPY 02/21/2026 8:30 AM EDT Telemedicine [facility] [address] [place] [address], 5[address] [place] [address] Fam Preciado MD [address] [place] [phone] [email or web address] Scheduled Procedures Name Priority Associated Diagnoses Date/Ti me COLONOSCOPY Colonic adenomatous polyposis of unknown etiology 12/11/2025 1:00 PM EST documented as of this encounter Visit Diagnoses Diagnosis Research subject Colonic adenomatous polyposis of unknown etiology documented in this encounter Care Teams Microbiology Quality Control Technician Relationship Specialty Start Date End Date Elma Vogel MD [address] [place] [address] PCP - General 03/22/15 05/23/25 Alexandria Figueredo NP [address] [place] [address] PCP - General Nurse Practitioner 05/24/25 documented as of this encounter Additional Source Comments The information contained in this document represents components of the legal health record. It is not the complete legal health record.[facility]
--- OUTSIDE RECORDS SUMMARY | 2025-11-02 19:30 | XMS_ITS | Encounter Summary ---
Author Organization [facility] Address [address] [place] [id number] Phone Care Team Providers Care Cook Chief Name Role Phone Elma Vogel MD Primary Care Provider [phone] Alexandria Figueredo NP Primary Care Provider + Encounter Details Date Type Department Care Team (Late st Contact Info) Description 05/23/2025 Procedure Pass [facility] 4 ENDO DEPT [address] [facility], 4th [place] [address] Social History Tobacco Use Types Packs/Day Years [...] Description 11/20/2025 4:45 PM EST Pre-Admission Testing [facility] Pre-Procedure Evaluation Department Please [place] [address] Fam Preciado MD [address] [place] [phone] [email or web address] 12/11/2025 Procedure Pass [facility]RET 4 ENDO DEPT [address] [facility], [address] [place] [address] 12/11/2025 1:00 PM EST Hospital Encounter [facility]RET 4 ENDO DEPT [address] [facility], [address] [place] [address] Fam Preciado MD [address] [place] [phone] [email or web address] 12/11/2025 1:00 PM EST - 12/11/2025 1:45 PM EST Surgery [facility]RET 4 ENDO DEPT [address] [facility], [address] [place] [address] Fam Preciado MD [address] [place] [phone] [email or web address] COLONOSCOPY 02/21/2026 8:30 AM EDT Telemedicine [facility] [address] [facility], 5th [place] [address] Fam Preciado MD [address] [place] [address] [address] [place] [address] [email or web address] Scheduled Procedures Name Priority Associated Diagnoses Date/Ti me COLONOSCOPY Colonic adenomatous polyposis of unknown etiology 12/11/2025 1:00 PM EST documented as of this encounter Visit Diagnoses Not on filedocumented in this encounter Care Teams Cook Chief Relationship Specialty Start Date End Date Elma Vogel MD [address] [place] [address] PCP - General 03/22/15 05/23/25 Alexandria Figueredo NP [address] [place] [address] PCP - General Nurse Practitioner 05/24/25 documented as of this encounter Additional Source Comments The information contained in this document represents components of the legal health record. It is not the complete legal health record.[facility]
== END 2025-11-02 15:44 | disposition home or self-care (01) ==
LOC: HO.US 15:43
PROVIDERS: Visit Provider Physician Assistant
DX: R10.A1 Flank pain, right side (principal)
CPT/HCPCS: 76775

== ENCOUNTER → 2025-11-02 15:49 | Outpatient (BNV) | payer OTHER, SELFPAY | PROVIDERS: Visit Provider Radiology Diagnostic Radiology | DX: R10.A1 Flank pain, right side (principal) | CPT/HCPCS: 76775 ==